=== PATIENT | female | born 1955 | race Two or more races ===

== ENCOUNTER 2020-06-16 08:59 | Day surgery (SDC) | payer OTHER, MEDICAID, SELFPAY ==
[2020-06-15 10:40] VITALS: BMI 27.1
--- NOTE | 2020-06-15 11:16 | HO.ANESPROP2 ---
HPI - Anesthesia Eval Consult details Narrative: 64yo F for EGD PMFSH Past Medical History Medical History Asthma Back pain Depression Elevated cholesterol HTN (hypertension) Surgical History Surgical History Hx of appendectomy Hx of colonoscopy Hx of hemorrhoidectomy Previous back surgery Meds Allergies Allergy/AdvReac Type Severity Reaction Status Date / Time morphine [Morphine] Allergy Unknown RASH Unverified 05/28/20 16:42 Home Medications Medication Instructions Recorded Confirmed Type acetaminophen-codeine 1 tab PO BID PRN 06/15/20 06/15/20 History albuterol sulfate [ProAir HFA] 2 puff PO Q4-6H PRN 06/15/20 06/15/20 History cholecalciferol (vitamin D3) 1 cap PO DAILY 06/15/20 06/15/20 History cholecalciferol (vitamin D3) 1 cap PO DAILY 06/15/20 06/15/20 History [Vitamin D3] cyclobenzaprine 1 tab PO BID 06/15/20 06/15/20 History fenofibrate 1 tab PO DAILY 06/15/20 06/15/20 History fluticasone propionate 2 spray INTRANASAL QAM PRN 06/15/20 06/15/20 History fluticasone propionate [Flovent 2 puff INHALATION BID 06/15/20 06/15/20 History HFA] loratadine 1 tab PO DAILY 06/15/20 06/15/20 History losartan 1 tab PO DAILY 06/15/20 06/15/20 History polyethylene glycol 3350 17 g PO DAILY 06/15/20 06/15/20 History simvastatin 1 tab PO BEDTIME 06/15/20 06/15/20 History Exam Exam Date and Time: June 15, 2020 1116 Height,Weight and Vital Signs: Height 5 ft 3 in Weight 69.4 kg Assessment and Plan Assessment Anesthesia Assessment: Chart Reviewed
--- NOTE | 2020-06-16 11:50 | MHC.SHP ---
Pre-Procedural Eval Section B Chief Complaint: colon cancer screening, dysphagia Allergies: Allergies Allergy/AdvReac Type Severity Reaction Status Date / Time morphine [Morphine] Allergy Unknown RASH Unverified 05/28/20 16:42 Plan Patient has been examined and remains a candidate for the planned procedure
[2020-06-16 11:53] VITALS: BP 146/73; PULSE 61; RESP 18; TEMP 36; O2SAT 99; BMI 27.1
[2020-06-16] MEDS: Lactated Ringers 1,000 ML 100 ML IVCONT (12:05)
[2020-06-16] MEDS: Albuterol Sulfate (0.083%) 2.5 MG/3 ML VIAL.NEB INHALE (12:11)
[2020-06-16 13:03] VITALS: BP 109/64; PULSE 104; RESP 16; TEMP 36.6; O2SAT 96
--- NOTE | 2020-06-16 13:05 | PM.OP ---
Brief Operative Note Date of procedure: 06/16/20 Pre-op diagnosis: dysphagia; colon ca screen Post-op diagnosis: other (esophageal mass; flat polyp in cecum on appendiceal orifice) Procedure: EGD with biopsy of esophageal mass; colonoscopy with biopsy of cecal polyp both with forceps Anesthesia: MAC Surgeon: Neno Palacios Estimated blood loss (mL): 5 Pathology: other (esophageal mass; cecal polyp) Condition: stable Disposition: PACU
--- NOTE | 2020-06-16 13:10 | HO.ANESPROP2 ---
[facility] Past Medical History Medical History Asthma Back pain Depression Elevated cholesterol HTN (hypertension) Surgical History Surgical History Hx of appendectomy Hx of colonoscopy Hx of hemorrhoidectomy Previous back surgery Social History Social History Smoking Status: Former smoker Smoking Quit Date: 6 yrs ago Second Hand Smoke Exposure: Yes (spouse) Use of substances other than those prescribed or required for medical reasons: No Advance Directives: No Advance Directives Information Provided: Yes Advance Directives on File: No Meds Allergies Allergy/AdvReac Type Severity Reaction Status Date / Time morphine [Morphine] Allergy Unknown Difficulty Verified 06/16/20 12:03 Breathing Home Medications Medication Instructions Recorded Confirmed Type acetaminophen-codeine 1 tab PO BID PRN 06/15/20 06/15/20 History albuterol sulfate [ProAir HFA] 2 puff PO Q4-6H PRN 06/15/20 06/15/20 History cholecalciferol (vitamin D3) 1 cap PO DAILY 06/15/20 06/15/20 History cholecalciferol (vitamin D3) 1 cap PO DAILY 06/15/20 06/15/20 History [Vitamin D3] cyclobenzaprine 1 tab PO BID 06/15/20 06/15/20 History fenofibrate 1 tab PO DAILY 06/15/20 06/15/20 History fluticasone propionate 2 spray INTRANASAL QAM PRN 06/15/20 06/15/20 History fluticasone propionate [Flovent 2 puff INHALATION BID 06/15/20 06/15/20 History HFA] loratadine 1 tab PO DAILY 06/15/20 06/15/20 History losartan 1 tab PO DAILY 06/15/20 06/15/20 History polyethylene glycol 3350 17 g PO DAILY 06/15/20 06/15/20 History simvastatin 1 tab PO BEDTIME 06/15/20 06/15/20 History Exam Exam Date and Time: June 16, 2020 1310 Height,Weight and Vital Signs: Height 5 ft 3 in Weight 69.4 kg Last Vital Signs Temp 97.8 F 06/16/20 13:03 Pulse 104 H 06/16/20 13:03 Resp 16 06/16/20 13:03 BP 109/64 06/16/20 13:03 Pulse Ox 96 06/16/20 13:03 Airway Mallampati Class: II TM Dist: >3cm Neck ROM: Full Heart: RRR
[2020-06-16 13:20] VITALS: BP 108/62; PULSE 81; RESP 16; O2SAT 98
--- NOTE | 2020-06-16 13:57 | HO.POSTANES ---
Post Anesthesia Evaluation Post Anesthesia Evaluation Vital Signs: Vital Signs Temp Pulse Resp BP Pulse Ox 06/16/20 13:20 81 16 108/62 98 06/16/20 13:03 97.8 F 104 H 16 109/64 96 06/16/20 11:53 96.8 F 61 18 146/73 H 99 Anesthesia: Monitored Mental Status: Awake Pain Control: Satisfactory Nausea/Vomiting: None Hydration: Adequate Anesthesia-Related Issues: No Anes. Related Issues
--- NOTE | 2020-06-16 20:53 | OP_ITS ---
SURGEON: Neno Palacios MD INDICATIONS: The patient is a 64-year-old female, referred to me for screening. She also had mentioned to me that she had dysphagia for about 2 to 3 months, described as having a sensation of food getting stuck in her chest. I therefore scheduled her for EGD as well. She understood technique of both EGD and colonoscopy and she is aware of the risks, benefits, and alternatives. PREOPERATIVE DIAGNOSIS: POSTOPERATIVE DIAGNOSIS: PROCEDURE PERFORMED: 1. Esophagogastroduodenoscopy with biopsy of esophageal mass using cold forceps. 2. Colonoscopy with biopsy of cecal lesion in the appendiceal orifice done using cold forceps. ESTIMATED BLOOD LOSS: COMPLICATIONS: ANESTHESIA: ASSISTANTS: SPECIMENS: DESCRIPTION OF PROCEDURE: She was brought to the operating room and placed in little bit of a left lateral decubitus position under monitored anesthesia care. A bite block was in place. A surgical time-out was done. I then inserted the gastroscope through the bite block into the oropharynx. The vocal cords were visualized. The esophageal slit was seen posterior to this. The esophageal slit was gently intubated and the scope was advanced through the esophagus with a little bit of insufflation. We then saw an esophageal mass, but we passed by this easily and we were able to enter the stomach. I was able to advance the scope further and intubated the pyloric orifice. I examined all the way to about the 3rd part of the duodenum. The duodenal mucosa was then examined carefully and there were no lesions or any ulcers. We continued to withdraw the scope into the stomach. I examined the the gastric mucosa carefully. I retroflexed the scope to visualize the cardia and antrum and there were no lesions seen. There was no obvious hiatal hernia. I examined the entire gastric mucosa during withdrawal. I then gently pulled this back into the esophagus. We examined the esophageal mucosa carefully with scope withdrawal. Again, the esophageal mass was noted. This was bulky with a friable surface. This seemed to be at the leve of l about 23 cm from the incisors based on the location of the endoscope. I did biopsies of the esophageal lesion using the cold biopsy forceps. We then continued to withdraw the scope. There were no other lesion in the proximal esophagus. The scope was then withdrawn completely. We then proceeded to do the colonoscopy. The patient was placed in the left lateral decubitus position. I did a digital rectal exam and there were no lesions. I could see small internal and external hemorrhoids however. I inserted the colonoscope gently through the anal orifice and advanced with insufflation all the way to the cecum. The cecum was intubated. The cecum was identified by visualization of the ileocecal valve as well as appendiceal orifice. In the cecum just at the opening of the appendiceal orifice, was note of a what appeared to be a flat polyp. Biopsies of this were done using a cold biopsy forceps. This was sent as specimen. I could see that there was still some residual abnormal mucosa adjacent to the biopsy site. However, this was noted to be flat and at the orifice itself. I would wait for the path report prior to deciding on how to further excise this. I then proceeded to withdraw the scope with careful examination of the entire colonic mucosa being done with scope withdrawal. The patient had good bowel prep, so it was unlikely that any lesion may have been missed. The rectum was reached and there were no lesions seen. The anal canal was unremarkable except for some internal and external hemorrhoids. The scope was then withdrawn completely with de-sufflation. The patient tolerated the procedure well. There were no complications noted. I will await for the path report of both the esophageal mass and the cecal lesion near the appendiceal orifice, which appears to be a flat polyp. I will see the patient in the office to discuss this. MD KB Harris/RAHUL / [id number] MTDD
== END 2020-06-16 14:00 | disposition home or self-care (01) ==
PROVIDERS: PCP Nurse Practitioner Family; Visit Provider Surgery
PROC: (CPT 45380; principal; 2020-06-16 09:10)
DX: Z12.11 Encounter for screening for malignant neoplasm of colon (principal); K63.5 Polyp of colon; K63.9 Disease of intestine, unspecified; K64.8 Other hemorrhoids; K64.4 Residual hemorrhoidal skin tags; R13.10 Dysphagia, unspecified; C15.9 Malignant neoplasm of esophagus, unspecified; J45.20 Mild intermittent asthma, uncomplicated; I10 Essential (primary) hypertension; Z79.51 Long term (current) use of inhaled steroids; Z79.899 Other long term (current) drug therapy; Z80.1 Family history of malignant neoplasm of trachea, bronchus and lung; Z87.891 Personal history of nicotine dependence; Z77.22 Contact with and (suspected) exposure to environmental tobacco smoke (acute) (chronic)
CPT/HCPCS: 45380; 43239; 88305; 88341; 88342; 88360; 94640

== ENCOUNTER 2020-06-29 13:27 | Outpatient (REF) | payer OTHER, SELFPAY ==
[2020-06-29 15:44] LABS: Blood Urea Nitrogen 19 mg/dL (9-16); Estimated Glomerular Filt Rate > 60
== END 2020-06-29 13:28 | disposition home or self-care (01) ==
LOC: HO.LAB 13:27
PROVIDERS: PCP Nurse Practitioner Family; Referring Provider Nurse Practitioner Family; Visit Provider Surgery
DX: C15.9 Malignant neoplasm of esophagus, unspecified (principal); Z77.22 Contact with and (suspected) exposure to environmental tobacco smoke (acute) (chronic); Z87.891 Personal history of nicotine dependence
CPT/HCPCS: 82565; 84520; 99214

== ENCOUNTER 2020-07-13 08:32 | Outpatient (REF) | payer OTHER, SELFPAY ==
[2020-07-13 11:58] LABS: MANUAL DIFF FLAG NO
[2020-07-13 12:09] LABS: Basophils Absolute Auto 0.1 X10*3/uL (0.0-0.2); Basophils Percent Auto 0.8 % (0-2); Eosinophils Absolute Auto 0.2 X10*3/uL (0.0-0.4); Eosinophils Percent Auto 2.6 % (0-4); Hematocrit 39.2 % (37-47); Hemoglobin 12.2 g/dl (12.0-16.0); Imm Gran Abs Auto 0.02 X10*3/uL (0.00-0.03); Imm Gran Pct Auto 0.2 % (0.0-0.4); Lymphocytes Absolute Auto 3.2 X10*3/uL (1.2-4.9); Lymphocytes Percent Auto 35.6 % (20-40); Mean Corpuscular HGB Conc 31.1 g/dl (31.0-35.0); Mean Corpuscular Hemoglobin 28.4 pg (27.0-33.0); Mean Corpuscular Volume 91.2 fL (80-98); Mean Platelet Volume 10.2 fL (9.4-12.3); Monocytes Absolute Auto 0.6 X10*3/uL (0.1-1.2); Monocytes Percent Auto 6.1 % (2-11); Neutrophils Absolute Auto 4.9 X10*3/uL (2.0-8.3); Neutrophils Percent Auto 54.7 % (45-73); Platelet Count 366 X10*3/uL (160-400); Red Cell Distribution Width 12.8 % (11.0-16.0)
[2020-07-13 12:39] LABS: Alanine Aminotransferase 12 U/L (0-31); Albumin Level 4.2 g/dL (3.5-5.0); Alkaline Phosphatase 66 U/L (39-117); Anion Gap 14 (12-20); Aspartate Amino Transferase 21 U/L (5-31); Bilirubin Total 0.3 mg/dL (0.0-1.0); Blood Urea Nitrogen 12 mg/dL (9-16); Calcium 9.6 mg/dL (8.4-10.2); Carbon Dioxide 25 mmol/L (22-29); Chloride 107 mmol/L (96-108); Estimated Glomerular Filt Rate > 60; Glucose Random 80 mg/dL (60-115); Potassium 4.3 mmol/l (3.3-5.1); Sodium 142 mmol/L (135-145); Total Protein 6.9 g/dL (6.5-8.0)
[2020-07-13 13:00] LABS: Vitamin D 25-OH Total 35.8 ng/mL (>30)
[2020-07-13 13:08] LABS: TSH reflex Free T4 0.87 mIU/mL (0.32-4.0)
== END 2020-07-13 08:33 | disposition home or self-care (01) ==
LOC: HO.LAB 08:32
PROVIDERS: PCP Nurse Practitioner Family; Referring Provider Nurse Practitioner Family; Visit Provider Internal Medicine Gastroenterology
DX: C15.9 Malignant neoplasm of esophagus, unspecified (principal); K21.9 Gastro-esophageal reflux disease without esophagitis; I10 Essential (primary) hypertension; Z79.899 Other long term (current) drug therapy
CPT/HCPCS: 36415; 80053; 82306; 82378; 84443; 85025; 99212

== ENCOUNTER 2020-07-15 12:10 | Outpatient (REF) | payer OTHER, MEDICAID, SELFPAY ==
--- NOTE | 2020-07-15 12:18 | CT_ITS ---
EXAMINATION: CT CHEST, ABDOMEN AND PELVIS WITHOUT IV CONTRAST CLINICAL INFORMATION: Esophageal cancer COMPARISON: None TECHNIQUE: Axial images through the chest, abdomen and pelvis without oral or IV contrast. Sagittal and coronal reconstructions on the technologist workstation were performed. Patient dose 140+434 mgy/cm. FINDINGS: Chest: There is a 3 mm calcified right middle lobe nodule axial image 337 series 7. There is heterogeneous attenuation to the lungs are questionable for hypoventilatory changes. The thyroid gland is unremarkable. There are small mediastinal lymph nodes. There is a small posterior mediastinal lymph node measuring 4 mm in between the distal thoracic esophagus and descending thoracic aorta. There are no enlarged hilar or mediastinal lymph nodes. The heart is upper normal in size. There is mild coronary artery calcification. There is no pericardial effusion. The thoracic aorta is normal in caliber. There is a soft tissue mass seen in the distal thoracic esophagus. This appears intraluminal and measures 4 x 2 x 3 cm in sagittal AP and transverse dimension. This is seen from the T9 to the T11 vertebral body levels. There is no pleural effusion or pleural thickening. No chest wall mass or enlarged axillary lymph nodes are seen. Abdomen and pelvis: The liver is unremarkable. The gallbladder is unremarkable. There is no biliary duct dilatation. The pancreas is unremarkable. The spleen is unremarkable. The adrenal glands are unremarkable. There is a 1 cm low-attenuation lesion in the lower pole of the left kidney questionable. The kidneys are otherwise unremarkable. The bladder is unremarkable. The uterus and adnexa are unremarkable. The small and large bowel are unremarkable. The appendix is not seen. The stomach is unremarkable. There are small lymph nodes in the gastrohepatic region, largest measuring 4 x 6 mm axial image 17 series 3. No enlarged lymph nodes are seen. There is evidence of atherosclerotic disease. No aneurysm is seen. No ascites is seen. No hernia is seen. There is a focal area of skin thickening versus a subcutaneous nodule in the left flank. This measures 0.6 x 1.6 x 1.6 cm in AP transverse and longitudinal dimension. Clinical correlation recommended. Review at bone windows demonstrates scoliosis and degenerative change of the lower lumbar spine. There are degenerative changes of the thoracic spine. Fracture or bone lesion is seen. CT/CT abdomen pelvis wo con IMPRESSION: Chest: 4 x 2 x 3 cm mass in the distal thoracic esophagus. Small mediastinal lymph nodes including posterior mediastinal lymph nodes in between the esophagus and aorta. No enlarged lymph nodes seen. Small calcified right middle lobe nodule probably representing a calcified granuloma. Abdomen and pelvis: Small lymph nodes in the gastrohepatic region. No enlarged lymph nodes seen. Probable small left renal cyst. Focal area of skin thickening or subcutaneous nodule in the left flank. Clinical correlation/correlation with visual inspection recommended.
--- NOTE | 2020-07-15 14:28 | MHC.HEMONCNA ---
PER KARAN SNOWDEN, PT HAS [facility] INSURANCE!!! PA FOR CT ABD/PELVIS WITH C WENT TO [facility] CLINICAL REVIEW. WAIT DECISION.
--- NOTE | 2020-07-16 13:12 | MHC.HEMONCSW ---
facilitated referral to [facility] radiation with eveline, on 07/22/20 at 2pm. pt informed.
--- NOTE | 2020-07-20 10:55 | MHC.HEMONCSW ---
case# [id number] [facility] faxed [facility] per request. wait decision. informed dr. benson.
--- NOTE | 2020-07-21 15:28 | MHC.HEMONCSW ---
md was to cancel the following but evxuan denied it first....ct abd/pelvis with iv contrast.
== END 2020-07-15 12:11 | disposition home or self-care (01) ==
LOC: HO.CT 12:10
PROVIDERS: Visit Provider Surgery
DX: C15.9 Malignant neoplasm of esophagus, unspecified (principal)
CPT/HCPCS: 71250; 74176

== ENCOUNTER → 2020-07-22 09:20 | Outpatient (BNV) | payer MEDICAID, OTHER, SELFPAY | PROVIDERS: Referring Provider Surgery; Visit Provider Internal Medicine | DX: C15.9 Malignant neoplasm of esophagus, unspecified (principal); Z92.3 Personal history of irradiation; D64.9 Anemia, unspecified | CPT/HCPCS: 99202; 99204; 99212; 99214; 99215 ==

== ENCOUNTER 2021-05-18 10:13 | Outpatient (REF) | payer OTHER, SELFPAY ==
--- NOTE | ~2021-05-18 | US_ITS ---
EXAMINATION: US PELVIS CLINICAL INFORMATION: Pain COMPARISON: None TECHNIQUE: Ultrasound of the pelvis is performed using both transabdominal and transvaginal transducers along with Doppler. Transvaginal imaging is performed due to inadequate visualization transabdominally. FINDINGS: Uterus: The uterus is anteverted and measures 6.1 x 2.7 x 4.2 cm. The double wall endometrial thickness is 0.2 mm. There is trace fluid seen in the endometrial canal. The uterus is smooth in contour and has normal myometrial echogenicity. No visible fibroid. Adnexa: Right ovary measures 2.1 x 1.1 x 1.3 cm. The left ovary is not identified with certainty. No adnexal mass is seen. There is no fluid in the pelvis. US/US pelvic and transvaginal IMPRESSION: Normal-appearing uterus and right ovary. Left ovary is not identified with certainty. No adnexal mass is seen.
== END 2021-05-18 10:14 | disposition home or self-care (01) ==
LOC: HO.HMGCX 10:13
PROVIDERS: Visit Provider Emergency Medicine
DX: R10.2 Pelvic and perineal pain (principal)
CPT/HCPCS: 76830; 76856

== ENCOUNTER 2021-07-19 10:58 | Outpatient (REF) | payer OTHER, SELFPAY ==
--- NOTE | ~2021-07-19 | XR_ITS ---
EXAMINATION: XR LS SPINE XR RIGHT SHOULDER XR LEFT HIP CLINICAL INFORMATION: Lumbago with sciatica. Right shoulder pain and left hip pain. COMPARISON: Radiographs of both hips done on 05/10/2018. TECHNIQUE: 4 views of the lumbosacral, a total of 6 images, 2 views of the left hip and 4 views of the right shoulder were obtained. FINDINGS: LUMBAR SACRAL SPINE: Mild mid to lower lumbar levoscoliosis is present. There are 5 nonrib-bearing lumbar vertebrae present. Decreased disc height, endplate osteophyte formations, sclerosis, consistent with moderate degenerative spondylosis related changes are noted at L5-S1 and L4-L5. Mild multilevel degenerative spondylosis within the remainder of the lumbar spine. Significant facet degenerative arthritic changes are noted at lower lumbar spine. Posterior appendages are intact. Grade 1 retrolisthesis of L1 over L2 is noted. RIGHT SHOULDER: There is a right-sided Port-A-Cath present with its tip seen projecting at the cavoatrial junction. Multiple surgical clips are noted projecting in the region of the mediastinum. The bony alignments are intact. The cortices are intact. Soft tissues are unremarkable. No evidence of any focal osteolytic or osteosclerotic lesions. LEFT HIP: The bony alignments are intact. The cortices are intact. Articular margins, joint space and soft tissues are unremarkable. XR/XR shoulder RT min 2V IMPRESSION: 1. The lumbosacral spine shows mild mid to lower lumbar levoscoliosis. Moderate degenerative spondylosis at L5-S1 and L4-L5. Mild degenerative spondylosis remainder of the lumbar spine. 2. Grade 1 retrolisthesis of L1 over L2. 3. Right shoulder shows presence of a right-sided Port-A-Cath with its tip seen projecting at the cavoatrial junction. No radiographic evidence of any focal osseous lesion or soft tissue abnormality. 4. The left hip radiographically appears unremarkable.
--- NOTE | ~2021-07-19 | XR_ITS ---
EXAMINATION: XR LS SPINE XR RIGHT SHOULDER XR LEFT HIP CLINICAL INFORMATION: Lumbago with sciatica. Right shoulder pain and left hip pain. COMPARISON: Radiographs of both hips done on 05/10/2018. TECHNIQUE: 4 views of the lumbosacral, a total of 6 images, 2 views of the left hip and 4 views of the right shoulder were obtained. FINDINGS: LUMBAR SACRAL SPINE: Mild mid to lower lumbar levoscoliosis is present. There are 5 nonrib-bearing lumbar vertebrae present. Decreased disc height, endplate osteophyte formations, sclerosis, consistent with moderate degenerative spondylosis related changes are noted at L5-S1 and L4-L5. Mild multilevel degenerative spondylosis within the remainder of the lumbar spine. Significant facet degenerative arthritic changes are noted at lower lumbar spine. Posterior appendages are intact. Grade 1 retrolisthesis of L1 over L2 is noted. RIGHT SHOULDER: There is a right-sided Port-A-Cath present with its tip seen projecting at the cavoatrial junction. Multiple surgical clips are noted projecting in the region of the mediastinum. The bony alignments are intact. The cortices are intact. Soft tissues are unremarkable. No evidence of any focal osteolytic or osteosclerotic lesions. LEFT HIP: The bony alignments are intact. The cortices are intact. Articular margins, joint space and soft tissues are unremarkable. XR/XR lumbar spine 4V min IMPRESSION: 1. The lumbosacral spine shows mild mid to lower lumbar levoscoliosis. Moderate degenerative spondylosis at L5-S1 and L4-L5. Mild degenerative spondylosis remainder of the lumbar spine. 2. Grade 1 retrolisthesis of L1 over L2. 3. Right shoulder shows presence of a right-sided Port-A-Cath with its tip seen projecting at the cavoatrial junction. No radiographic evidence of any focal osseous lesion or soft tissue abnormality. 4. The left hip radiographically appears unremarkable.
== END 2021-07-19 10:59 | disposition home or self-care (01) ==
LOC: HO.XRAY 10:58
PROVIDERS: PCP Internal Medicine; Visit Provider Internal Medicine
DX: M54.41 Lumbago with sciatica, right side (principal); M54.42 Lumbago with sciatica, left side; M25.511 Pain in right shoulder; M25.552 Pain in left hip
CPT/HCPCS: 72110; 73030; 73502

== ENCOUNTER 2021-07-21 09:53 | Outpatient (REF) | payer OTHER, SELFPAY ==
--- NOTE | ~2021-07-21 | MM_ITS ---
EXAMINATION: MM SCREENING DIGITAL BREAST TOMOSYNTHESIS, BILATERAL CLINICAL INFORMATION: Screening. Asymptomatic. History esophageal cancer with right-sided port. The lifetime risk of breast cancer based on the Tyrer-Cuzick Model is 6%. COMPARISON: Mammography: 09/13/2019, 07/11/2018, 06/26/2017 TECHNIQUE: Digital breast tomosynthesis is performed in both the craniocaudal and mediolateral oblique views along with computer-aided detection (CAD). Synthesized 2D images are generated from the tomosynthesis. FINDINGS: There are scattered areas of fibroglandular density (ACR BI-RADS breast composition Category b). There are no significant masses, abnormal calcifications, or other abnormalities. Port overlies and partly obscures posterior right axilla on MLO view. Parenchymal pattern is similar to prior exams. No developing density. No significant changes. MM/MM tomosynthesis screening BI IMPRESSION: No mammographic evidence of malignancy. ASSESSMENT: BI-RADS 2: Benign RECOMMENDATION: Routine annual mammography screening. This patient's information was entered into a reminder system with a target due date for their next mammogram.
== END 2021-07-21 09:54 | disposition home or self-care (01) ==
LOC: HO.MAMMO 09:53
PROVIDERS: Visit Provider Internal Medicine
DX: Z12.31 Encounter for screening mammogram for malignant neoplasm of breast (principal)
CPT/HCPCS: 77063; 77067

== ENCOUNTER 2021-09-08 12:00 | Outpatient (RCR) | payer OTHER, SELFPAY | END 2021-09-08 13:30 | disposition home or self-care (01) | LOC: HO.PT 12:00 | PROVIDERS: PCP Internal Medicine; Visit Provider Internal Medicine | DX: M25.511 Pain in right shoulder (principal) | CPT/HCPCS: 97110; 97140; 97162 ==

== ENCOUNTER 2021-10-29 10:57 | Outpatient (REF) | payer OTHER, SELFPAY ==
--- NOTE | ~2021-10-29 | US_ITS ---
EXAMINATION: US VENOUS WITH DOPPLER UPPER EXTREMITY, RIGHT CLINICAL INFORMATION: Chest pain since flushing Port-A-Cath last week COMPARISON: None TECHNIQUE: Ultrasound of the upper extremity is performed using compression sonography and color and pulse Doppler flow with assessment of augmentation of flow. There is also imaging and Doppler assessment of the jugular and subclavian veins. Spectral analysis with color-flow imaging is performed. FINDINGS: The right internal jugular, subclavian, axillary, brachial, basilic and cephalic veins are patent. The radial and ulnar veins are patent. Port-A-Cath is seen in the distal right internal jugular vein. US/US venous duplex UE RT IMPRESSION: No DVT demonstrated in the right upper extremity
== END 2021-10-29 10:58 | disposition home or self-care (01) ==
LOC: HO.US 10:57
PROVIDERS: Visit Provider Internal Medicine
DX: I82.409 Acute embolism and thrombosis of unspecified deep veins of unspecified lower extremity (principal); M79.601 Pain in right arm
CPT/HCPCS: 93971

== ENCOUNTER 2022-08-18 10:20 | Emergency (ER) | payer OTHER, SELFPAY ==
[2022-08-18 10:41] VITALS: BP 146/79; PULSE 82; RESP 20; TEMP 37.2; O2SAT 97; BMI 25.4
[2022-08-18 10:51] LABS: MANUAL DIFF FLAG NO
[2022-08-18 10:54] LABS: Basophils Percent Auto 0.4 % (0-2); Eosinophils Absolute Auto 0.1 X10*3/uL (0.0-0.4); Eosinophils Percent Auto 1.1 % (0-4); Hematocrit 33.3 % (37.0-47.0); Hemoglobin 10.3 g/dl (12.0-16.0); Imm Gran Abs Auto 0.04 X10*3/uL (0.00-0.03); Imm Gran Pct Auto 0.4 % (0.0-0.4); Lymphocytes Absolute Auto 2.3 X10*3/uL (1.2-4.9); Lymphocytes Percent Auto 24.4 % (20-40); Mean Corpuscular HGB Conc 30.9 g/dl (31.0-35.0); Mean Corpuscular Hemoglobin 25.2 pg (27.0-33.0); Mean Corpuscular Volume 81.4 fL (80.0-98.0); Mean Platelet Volume 9.3 fL (9.4-12.3); Monocytes Absolute Auto 0.4 X10*3/uL (0.1-1.2); Monocytes Percent Auto 3.9 % (2-11); Neutrophils Absolute Auto 6.6 x10*3/uL (2.0-8.3); Neutrophils Percent Auto 69.8 % (45-73); Platelet Count 268 X10*3/uL (160-400); Red Blood Count 4.09 X10*6/uL (4.20-5.50); Red Cell Distribution Width 14.8 % (11.0-16.0); White Blood Count 9.5 X10*3/uL (4.8-10.8)
[2022-08-18 11:08] LABS: Anion Gap 12 (12-20); Blood Urea Nitrogen 15 mg/dL (9-16); Calcium 9.6 mg/dL (8.4-10.2); Carbon Dioxide 24 mmol/L (22-29); Chloride 107 mmol/L (96-108); Creatinine Clr Calc Pharmacy 62.7; Estimated Glomerular Filt Rate > 60; Glucose Random 94 mg/dL (60-115); Potassium 3.8 mmol/L (3.3-5.1); Sodium 139 mmol/L (135-145)
--- NOTE | 2022-08-18 13:33 | ED.FEVER ---
HPI - Fever General Chief Complaint: Fever <Cara Turcios NP - Last Filed: 08/18/22 13:38> Stated Complaint: Fever/Sore throat <Cara Turcios NP - Last Filed: 08/18/22 13:38> Time Seen by Provider: 08/18/22 15:04 <Cara Turcios NP - Last Filed: 08/18/22 13:38> History of Present Illness HPI Narrative: Patient had endoscopy for esophageal issues. Told she had GERD. Then patient had high fever shaking and chills with sore throat. <Clay Jamison MD - Last Filed: 08/18/22 15:18> MD elicited complaint: fever and malaise <Clay Jamison MD - Last Filed: 08/18/22 15:18> Onset (ago): day(s) <Clay Jamison MD - Last Filed: 08/18/22 15:18> Context: sick contacts <Clay Jamison MD - Last Filed: 08/18/22 15:18> Associated symptoms: denies other symptoms and sore throat <Clay Jamison MD - Last Filed: 08/18/22 15:18> Related Data Home Medications: Home Medications Medication Instructions Recorded Confirmed cholecalciferol (vitamin D3) 50 1 cap PO DAILY 06/15/20 07/18/22 mcg (2,000 unit) capsule fenofibrate 160 mg tablet 1 tab PO DAILY 06/15/20 07/18/22 fluticasone propionate 50 2 spray intranasal QAM PRN 06/15/20 07/18/22 mcg/actuation nasal Congestion spray,suspension losartan 25 mg tablet 1 tab PO DAILY 06/15/20 07/18/22 polyethylene glycol 3350 17 17 g PO DAILY 06/15/20 07/18/22 gram/dose oral powder simvastatin 20 mg tablet 1 tab PO BEDTIME 06/15/20 07/18/22 Previous Rx's Medication Instructions Recorded acetaminophen 300 mg-codeine 15 mg 1 tab PO BID PRN Pain #60 tabs 07/14/21 tablet ferrous sulfate 325 mg (65 mg 325 mg PO BID #60 tabs 07/14/21 iron) tablet (iron) <Cara Turcios NP - Last Filed: 08/18/22 13:38> Allergies/Adverse Reactions: Allergies Allergy/AdvReac Type Severity Reaction Status Date / Time morphine [Morphine] Allergy Unknown Difficulty Verified 07/18/22 11:17 Breathing Gadolinium-Containing Allergy Difficulty Verified 07/18/22 11:17 Contrast Medi Breathing Iodinated Contrast Media Allergy Difficulty Verified 07/18/22 11:17 Breathing <Cara Turcios NP - Last Filed: 08/18/22 13:38> Review of Systems Constitutional: Constitutional: Reports no additional constitutional complaints <Clay Jamison MD - Last Filed: 08/18/22 15:18> Eyes: Eyes: Reports no additional eye complaints <Clay Jamison MD - Last Filed: 08/18/22 15:18> ENT: Denies dizziness <Clay Jamison MD - Last Filed: 08/18/22 15:18> Cardiovascular: Cardiovascular: Reports no additional cardiovascular complaints <Clay Jamison MD - Last Filed: 08/18/22 15:18> Respiratory: Respiratory: Reports as per HPI <Clay Jamison MD - Last Filed: 08/18/22 15:18> Gastrointestinal: Gastrointestinal: Reports no additional gastrointestinal complaints <Clay Jamison MD - Last Filed: 08/18/22 15:18> Genitourinary: Genitourinary: Reports no additional female genitourinary complaints <Clay Jamison MD - Last Filed: 08/18/22 15:18> Musculoskeletal: Musculoskeletal: Reports no additional musculoskeletal complaints <Clay Jamison MD - Last Filed: 08/18/22 15:18> Integumentary/Breasts: Skin/Breast: Denies rash <Clay Jamison MD - Last Filed: 08/18/22 15:18> Neurologic: Reports system reviewed and no additional complaints, except as documented, Denies dizziness and Denies Sensory deficit (Neuro) <Clay Jamison MD - Last Filed: 08/18/22 15:18> Psychiatric: Psychiatric: Denies anxiety <Clay Jamison MD - Last Filed: 08/18/22 15:18> PMFSH Past Medical History Medical History: Medical History (Updated 08/18/22 @ 15:17 by Clay Jamison MD) Asthma Back pain Depression Elevated cholesterol Esophageal adenocarcinoma Esophageal carcinoma HTN (hypertension) <Cara Turcios NP - Last Filed: 08/18/22 13:38> Surgical History: Surgical History History of esophagogastroduodenoscopy (EGD) Hx of appendectomy Hx of colonoscopy Hx of hemorrhoidectomy Previous back surgery <Cara Turcios NP - Last Filed: 08/18/22 13:38> Family History Family History: Family History Mother Cancer Father HTN (hypertension) Maternal Grandmother Diabetes <Cara Turcios NP - Last Filed: 08/18/22 13:38> Social History Social History: Social History (Updated 01/11/22 @ 10:11 by Sana Woods CMA) Household Members: Spouse and Children Household Members Other:: 2 children Housing: Apartment Are you a primary healthcare administrative assistant to a significant other at home: No Do you presently have visiting nurse or other home services: No Alcohol intake: current Alcohol intake frequency: holidays/special occasions only Patient Tobacco Use Status: Never used Tobacco Second Hand Smoke Exposure: Yes (spouse) Advance Directives: No Advance Directives Information Provided: Yes service: No Current occupational status: disabled <Cara Turcios NP - Last Filed: 08/18/22 13:38> Physical Exam Vital Signs: Vital Signs: Last Vital Signs Temp 97.9 F 08/18/22 13:40 Pulse 76 08/18/22 13:40 Resp 18 08/18/22 13:40 BP 137/86 08/18/22 13:40 Pulse Ox 98 08/18/22 13:40 O2 Del Method 08/18/22 13:40 BMI result Body Mass Index 25.4 <Cara Turcios NP - Last Filed: 08/18/22 13:38> Vital Signs: Last Vital Signs Temp 97.9 F 08/18/22 13:40 Pulse 76 08/18/22 13:40 Resp 18 08/18/22 13:40 BP 137/86 08/18/22 13:40 Pulse Ox 98 08/18/22 13:40 O2 Del Method 08/18/22 13:40 BMI result Body Mass Index 25.4 <Clay Jamison MD - Last Filed: 08/18/22 15:18> Const: General: healthy appearing <Clay Jamison MD - Last Filed: 08/18/22 15:18> Nutritional Appearance: average body habitus <Clay Jamison MD - Last Filed: 08/18/22 15:18> Orientation/consciousness: oriented to person and patient oriented x3 <Clay Jamison MD - Last Filed: 08/18/22 15:18> Limitations: no limitations <Clay Jamison MD - Last Filed: 08/18/22 15:18> HEENT: Head: Yes normal to inspection <Clay Jamison MD - Last Filed: 08/18/22 15:18> Ears: external ears normal <Clay Jamison MD - Last Filed: 08/18/22 15:18> General nose exam: Normal external nose present <Clay Jamison MD - Last Filed: 08/18/22 15:18> Mouth: Normal oral and palatal mucosa present and oropharynx normal <Clay Jamison MD - Last Filed: 08/18/22 15:18> Throat: Yes posterior oropharynx normal <Clay Jamison MD - Last Filed: 08/18/22 15:18> Eyes: General: appearance normal, both eyes and all related structures <Clay Jamison MD - Last Filed: 08/18/22 15:18> Neck: Other: supple <Clay Jamison MD - Last Filed: 08/18/22 15:18> Neck: Yes normal visual inspection <Clay Jamison MD - Last Filed: 08/18/22 15:18> Chest: Chest palpation & inspection: normal inspection of the chest <Clay Jamison MD - Last Filed: 08/18/22 15:18> Resp: Auscultation: clear to auscultation bilaterally <Clay Jamison MD - Last Filed: 08/18/22 15:18> Cardio: Jugular venous distension: no JVD <Clay Jamison MD - Last Filed: 08/18/22 15:18> Rate: regular rate <Clay Jamison MD - Last Filed: 08/18/22 15:18> Rhythm: regular rhythm <Clay Jamison MD - Last Filed: 08/18/22 15:18> Heart sounds: S1 normal heart sound present and S2 normal heart sound present <Clay Jamison MD - Last Filed: 08/18/22 15:18> GI: Inspection: Yes normal to inspection <Clay Jamison MD - Last Filed: 08/18/22 15:18> Palpation (GI): Soft to palpation, nontender and No hepatosplenomegaly present <Clay Jamison MD - Last Filed: 08/18/22 15:18> Auscultation: normal bowel sounds <Clay Jamison MD - Last Filed: 08/18/22 15:18> : General: Yes no CVA tenderness <Clay Jamison MD - Last Filed: 08/18/22 15:18> Back/Spine/Pelvis: Back: no CVA tenderness <Clay Jamison MD - Last Filed: 08/18/22 15:18> Skin: General skin exam: no rashes or lesions noted <Clay Jamison MD - Last Filed: 08/18/22 15:18> Neuro: General: oriented to person and patient oriented x3 <Clay Jamison MD - Last Filed: 08/18/22 15:18> Cranial nerves: Yes CN's II-XII intact bilaterally <Clay Jamison MD - Last Filed: 08/18/22 15:18> Motor exam (neuro): 5/5 motor strength present throughout <Clay Jamison MD - Last Filed: 08/18/22 15:18> Sensory Exam: No Sensory deficit (Neuro) <Clay Jamison MD - Last Filed: 08/18/22 15:18> Extrem: General: Yes normal to inspection <Clay Jamison MD - Last Filed: 08/18/22 15:18> Psych: Appearance: grossly normal <Clay Jamison MD - Last Filed: 08/18/22 15:18> Course Course Course Narrative: This is rapid medical exam. Deferred additional hPI, ROS, PE to primary provider. 67 yo female with history of esophageal cancer with removal (laparoscopic minimally invasive Fortine Kamaljit esophagogastrectomy, mediastinal lymphadenectomy with lysis of adhesions and repair of small-bowel enterotomy on 12/22/2020 at [facility]) s/p chemo/radiation. Had EGD in may which showed some inflammation in the stomach, repeat endoscopy was done on Monday ([facility] Monday night developed fever (tactile), chills, body aches, pain/swelling jaw. No diff breathing, chest pain, cough. Had conscious sedation for procedure no GA. Will send testing flu, covid, rsv. labs reviewed and unremarkable. VSS. <Cara Turcios NP - Last Filed: 08/18/22 13:38> Reevaluation(s) Reevaluation #1: Patient with viral illness will dc home <Clay Jamison MD - Last Filed: 08/18/22 15:18> Time: 15:16 <Clay Jamison MD - Last Filed: 08/18/22 15:18> Medications Administered Discontinued Medications Generic Name Dose Route Start Last Admin Trade Name Freq PRN Reason Stop Dose Admin Acetaminophen 975 mg 08/18/22 13:41 08/18/22 13:44 Acetaminophen 325 Mg Tablet PO 08/18/22 13:42 975 mg ONCE ONE Administration <Cara Turcios NP - Last Filed: 08/18/22 13:38> Medications Administered Discontinued Medications Generic Name Dose Route Start Last Admin Trade Name Freq PRN Reason Stop Dose Admin Acetaminophen 975 mg 08/18/22 13:41 08/18/22 13:44 Acetaminophen 325 Mg Tablet PO 08/18/22 13:42 975 mg ONCE ONE Administration <Clay Jamison MD - Last Filed: 08/18/22 15:18> Discharge Plan Discharge Clinical Impression: Upper respiratory infection <Cara Turcios NP - Last Filed: 08/18/22 13:38> Patient Disposition: Home, Self-Care <Cara Turcios NP - Last Filed: 08/18/22 13:38> Instructions: Upper Respiratory Infection (ED), Viral Syndrome (ED) <Cara Turcios NP - Last Filed: 08/18/22 13:38> Prescriptions: No Action simvastatin 20 mg tablet 1 tab PO BEDTIME losartan 25 mg tablet 1 tab PO DAILY polyethylene glycol 3350 17 gram/dose powder 17 g PO DAILY fluticasone propionate 50 mcg/actuation spray,suspension 2 spray intranasal QAM PRN (Reason: Congestion) fenofibrate 160 mg tablet 1 tab PO DAILY cholecalciferol (vitamin D3) 50 mcg (2,000 unit) capsule 1 cap PO DAILY ferrous sulfate [iron] 325 mg (65 mg iron) Tablet 325 mg PO BID Qty: 60 3RF acetaminophen-codeine 300-15 mg Tablet 1 tab PO BID PRN (Reason: Pain) Qty: 60 0RF <Cara Turcios NP - Last Filed: 08/18/22 13:38> Referrals: Casandra Ruelas MD [Primary Care Provider] - 1 week <Cara Turcios NP - Last Filed: 08/18/22 13:38>
[2022-08-18 13:40] VITALS: BP 137/86; PULSE 76; RESP 18; TEMP 36.6; O2SAT 98
[2022-08-18] MEDS: Acetaminophen 325 MG TABLET 975 MG PO (13:44)
[2022-08-18 14:50] LABS: Influenza A PCR NEGATIVE (Negative); Influenza B PCR NEGATIVE (Negative); Resp Syncy Virus RNA Qual PCR NEGATIVE (Negative); SARS COV2 PCR INHOUSE NEGATIVE (Negative)
== END 2022-08-18 15:30 | disposition home or self-care (01) ==
PROVIDERS: Nurse Practitioner Family; Emergency Provider Emergency Medicine; PCP Internal Medicine
DX: J06.9 Acute upper respiratory infection, unspecified (principal); R50.9 Fever, unspecified; R05.9 Cough, unspecified; Z20.822 Contact with and (suspected) exposure to COVID-19; Z79.899 Other long term (current) drug therapy
CPT/HCPCS: 0241U; 36415; 80048; 82550; 85025; 99283

== ENCOUNTER 2022-09-01 12:21 | Outpatient (REF) | payer OTHER, SELFPAY ==
--- NOTE | ~2022-09-01 | XR_ITS ---
EXAMINATION: XR CHEST CLINICAL INFORMATION: Cough COMPARISON: Previous chest x-ray July 2020 and chest x-ray October 2018 TECHNIQUE: 2 views of the chest were obtained. FINDINGS: There are surgical clips that project over the mediastinum. The cardiac and mediastinal contours are otherwise unremarkable. The lungs are clear. There is a right jugular port with tip projecting over the SVC. There is blunting at the right costophrenic angle questionable for tiny right pleural effusion. There is no left pleural effusion. There is no pneumothorax. No acute bone abnormality. XR/XR chest 2V IMPRESSION: Blunting at the right costophrenic angle questionable for tiny right pleural effusion. Otherwise unremarkable exam.
== END 2022-09-01 12:22 | disposition home or self-care (01) ==
LOC: HO.XRAY 12:21
PROVIDERS: PCP Internal Medicine; Visit Provider Nurse Practitioner Primary Care
DX: R05.1 Acute cough (principal)
CPT/HCPCS: 71046

== ENCOUNTER 2023-01-20 10:36 | Outpatient (REF) | payer MEDICAID, OTHER, SELFPAY ==
--- NOTE | ~2023-01-20 | MM_ITS ---
EXAMINATION: MM SCREENING DIGITAL BREAST TOMOSYNTHESIS, BILATERAL CLINICAL INFORMATION: Screening. Asymptomatic. The lifetime risk of breast cancer based on the Tyrer-Cuzick Model is 3%. COMPARISON: Mammography: 07/21/2021, 09/13/2019, 07/11/2018 TECHNIQUE: Digital breast tomosynthesis is performed in both the craniocaudal and mediolateral oblique views along with computer-aided detection (CAD). Synthesized 2D images are generated from the tomosynthesis. FINDINGS: There are scattered areas of fibroglandular density (ACR BI-RADS breast composition Category b). Findings fibronodular parenchymal pattern is similar to prior studies. There are no significant masses, abnormal calcifications, or other abnormalities. Parenchymal pattern is similar to prior studies. There is no developing density or architectural abnormality. There is a port again seen overlying the right posterior breast. The axilla and skin contours are unremarkable. No significant changes. MM/MM tomosynthesis screening BI IMPRESSION: No mammographic evidence of malignancy. ASSESSMENT: BI-RADS 2: Benign RECOMMENDATION: Routine annual mammography screening. This patient's information was entered into a reminder system with a target due date for their next mammogram.
== END 2023-01-20 10:37 | disposition home or self-care (01) ==
LOC: HO.MAMMO 10:36
PROVIDERS: PCP Internal Medicine; Visit Provider Internal Medicine
DX: Z12.31 Encounter for screening mammogram for malignant neoplasm of breast (principal)
CPT/HCPCS: 77063; 77067

== ENCOUNTER 2023-02-22 07:45 | Outpatient (REF) | payer MEDICAID, OTHER, SELFPAY ==
--- NOTE | ~2023-02-22 | CT_ITS ---
EXAMINATION: CT CHEST WITH CONTRAST CLINICAL INFORMATION: Surveillance. Esophageal cancer. COMPARISON: Previous chest CT most recent January 2020 TECHNIQUE: Multidetector volumetric CT imaging of the chest was obtained after the administration of 65 mL of Omnipaque 350 intravenous contrast without immediate adverse reactions. Axial MIP volume rendering provided. Sagittal and coronal reformatted images were obtained. This CT examination was performed using dose optimization techniques as appropriate, variously including the following: *Automated exposure control *Adjustment of mA and/or kV according to patient size (this includes techniques or standardized protocols for targeted exams where dose is matched to indication/reason for exam; i.e. extremities or head) *Use of iterative reconstruction technique DLP: 105 mGy-cm FINDINGS: LUNGS: Small pulmonary nodules are stable. Largest pulmonary nodule is a 3 mm calcified right middle lobe nodule axial image 127 series 5. MEDIASTINUM: Postsurgical changes following esophagectomy and gastric pull-up. Normal thyroid gland. Normal heart size. No pericardial effusion. Mild coronary artery calcification. No enlarged hilar or mediastinal lymph nodes. Right jugular port with tip projecting over the cavoatrial junction. PLEURA: There is no pleural effusion. No pleural mass or thickening. AXILLA: No lymphadenopathy. UPPER ABDOMEN: Low-attenuation liver suggestive of fatty infiltration. OSSEOUS STRUCTURES: Mild degenerative changes of the spine. CT/CT chest w IV con IMPRESSION: Postsurgical changes following esophagectomy and gastric pull-up. No evidence of metastatic or recurrent disease. Fleischner guidelines were followed.
[2023-02-22] MEDS: iohexoL 350 MG/ML 100 ML INFUS..BTL IV (10:11)
== END 2023-02-22 07:46 | disposition home or self-care (01) ==
LOC: HO.CT 07:45
PROVIDERS: PCP Internal Medicine; Visit Provider Internal Medicine
DX: C15.9 Malignant neoplasm of esophagus, unspecified (principal)
CPT/HCPCS: 71260; Q9967

== ENCOUNTER 2023-03-23 21:00 | Outpatient (REF) | payer MEDICAID, OTHER, SELFPAY | END 2023-03-23 21:01 | disposition home or self-care (01) | LOC: HO.LNP 21:00 | PROVIDERS: Visit Provider Internal Medicine | DX: Z12.4 Encounter for screening for malignant neoplasm of cervix (principal) | CPT/HCPCS: 88142 ==

== ENCOUNTER 2023-08-11 10:01 | Outpatient (REF) | payer MEDICAID, SELFPAY ==
[2023-08-11 10:46] LABS: MANUAL DIFF FLAG NO
[2023-08-11 11:48] LABS: Basophils Percent Auto 0.7 % (0-2); Eosinophils Absolute Auto 0.1 X10*3/uL (0.0-0.4); Eosinophils Percent Auto 1.2 % (0-4); Hematocrit 36.6 % (37.0-47.0); Hemoglobin 11.4 g/dl (12.0-16.0); Imm Gran Abs Auto 0.01 X10*3/uL (0.00-0.03); Imm Gran Pct Auto 0.2 % (0.0-0.4); Lymphocytes Percent Auto 35.1 % (20-40); Mean Corpuscular HGB Conc 31.1 g/dl (31.0-35.0); Mean Corpuscular Hemoglobin 27.3 pg (27.0-33.0); Mean Corpuscular Volume 87.6 fL (80.0-98.0); Mean Platelet Volume 10.2 fL (9.4-12.3); Monocytes Absolute Auto 0.3 X10*3/uL (0.1-1.2); Monocytes Percent Auto 5.2 % (2-11); Neutrophils Absolute Auto 3.4 x10*3/uL (2.0-8.3); Neutrophils Percent Auto 57.6 % (45-73); Platelet Count 336 X10*3/uL (160-400); Red Blood Count 4.18 X10*6/uL (4.20-5.50); Red Cell Distribution Width 14.1 % (11.0-16.0); White Blood Count 5.8 X10*3/uL (4.8-10.8)
== END 2023-08-11 10:02 | disposition home or self-care (01) ==
LOC: HO.LAB 10:01
PROVIDERS: PCP Internal Medicine; Referring Provider Internal Medicine; Visit Provider Internal Medicine Pulmonary Disease
DX: J45.909 Unspecified asthma, uncomplicated (principal); Z91.09 Other allergy status, other than to drugs and biological substances
CPT/HCPCS: 36415; 82785; 85025; 86003; 99202

== ENCOUNTER 2023-08-11 10:01 | Outpatient (AMB) | payer MEDICAID, SELFPAY ==
[2023-08-11 10:03] VITALS: BP 138/72; PULSE 69; O2SAT 98; BMI 25.0
--- NOTE | 2023-08-11 10:03 | A.OFFVIS_ITS ---
Intake Vital Signs 08/11/23 10:03 Height 5 ft 2 in Weight 136 lb 8.081 oz BMI 25.0 BP 138/72 Blood Pressure Location Rt brachial Position Sitting Pulse 69 Pulse Source Doppler Pulse Oximetry (%) 98 Oxygen Delivery Method Room Air Intake Visit Reasons: Asthma Allergies morphine [Morphine] Allergy (Unknown, Verified 08/11/23 10:08) Difficulty Breathing HPI Asthma HPI Details 68-year-old lady, former 10 pack year sm oker, quit 7 years prior with underlying history of ?asthma/COPD presents to transfer [facility] from [facility] secondary to insurance reasons. Patient states that she has been on Flovent 220 and more recently on Pulmicort and albuterol MDI with suboptimal control her symptoms. Patient does have macaw parrot as a pet. Patient states that her father has asthma. [facility] Medical History (Updated 08/11/23 @ 10:32 by Juanito Velazquez MD) Esophageal adenocarcinoma Esophageal carcinoma Back pain Depression Asthma Elevated cholesterol HTN (hypertension) Surgical History History of esophagogastroduodenoscopy (EGD) Previous back surgery Hx of appendectomy Hx of hemorrhoidectomy Hx of colonoscopy Family History Mother Cancer Father HTN (hypertension) Maternal Grandmother Diabetes Social History Household Members: Spouse and Children Household Members Other:: 2 children Housing: Apartment Are you a primary neonatal intensive care nurse to a significant other at home: No Do you presently have visiting nurse or other home services: No Alcohol intake: current Alcohol intake frequency: holidays/special occasions only Patient Tobacco Use Status: Never used Tobacco Second Hand Smoke Exposure: Yes (spouse) service: No Current occupational status: disabled Review of Systems Const Denies daytime sleepiness, Denies excessive sweating, Denies fatigue, Denies fever(s), Denies lethargy, Denies malaise, Denies night sweats, Denies snoring and Denies weight loss Eyes Denies blurry vision and Denies itchy eyes ENT Denies nasal congestion, Denies post nasal drip, Denies sinus pain, Denies sinus pressure and Denies other ( Thrush) Card Denies chest pain, Denies pedal edema, Denies dyspnea, Reports dyspnea on exertion, Denies orthopnea and Denies paroxysmal nocturnal dyspnea Resp Denies cough, Denies hemoptysis, Denies excessive phlegm production, Denies dyspnea, Reports dyspnea on exertion, Denies snoring and Denies wheezing GI Denies abdominal pain and Denies heartburn Musc Denies myalgias, Denies arthralgias and Denies joint swelling Skin/Breast Denies rash Neuro Denies memory loss and Denies seizure-like activity Psych Denies abnormal sleep pattern, Denies anxiety and Denies memory loss Endo Denies excessive sweating, Denies fatigue and Denies heat intolerance Jose/Lymph Denies easy bruising Aller/Immun Denies itchy eyes, Denies seasonal rhinorrhea and Denies wheezing Physical Exam Vital Signs: Last Vital Signs Pulse 69 08/11/23 10:03 BP 138/72 08/11/23 10:03 Pulse Ox 98 08/11/23 10:03 Oxygen Delivery Method Room Air 08/11/23 10:03 BMI result Body Mass Index 25.0 Const General: no acute distress and alert Nutritional Appearance: not obese Orientation/consciousness: Other orientation findings ( oriented) HEENT Head: Yes atraumatic Eyes General: appearance normal, both eyes and all related structures Sclerae: sclerae normal EOM: EOMs intact bilaterally Neck Neck: Yes supple Lymphatic: no lymphadenopathy noted Resp Effort & Inspection: normal respiratory effort and no use of accessory muscles Auscultation: clear to auscultation bilaterally Cardio Rate: regular rate Rhythm: regular rhythm Heart sounds: no gallops, no murmurs and no rubs Skin General skin exam: other ( warm) Extrem General: No clubbing, No cyanosis and No edema Assessment & Plan Assessment & Plan (1) Asthma: Code(s): J45.909 - Unspecified asthma, uncomplicated Plan: Likely underlying asthma or asthma/COPD overlap syndrome poorly controlled on Pulmicort. Will switch to Breo. Will obtain full PFT. (2) Environmental allergies: Code(s): Z91.09 - Other allergy status, other than to drugs and biological substances Plan: Likely underlying allergic component, will obtain IgE level, CBC with differential, and RAST panel for further evaluation. Orders: Orders Complete Blood Count Auto Diff Today Z91.09 - Other allergy status, other than to drugs and biological substances Rast Allergen Today Z. - Other allergy status, other than to drugs and biological substances PFT pulmonary function test Today - Other allergy status, other than to drugs and biological substances Medications: New fluticasone furoate-vilanterol 200-25 mcg/dose (Breo Ellipta) 1 inh inhalation DAILY 1 ea 6RF 30 days Z. - Other allergy status, other than to drugs and biological substances Coding Level of Care Code New Pt Level 4 (70839) Diagnoses Asthma J45.909 Environmental allergies
== END 2023-08-11 10:27 | disposition home or self-care (01) ==
PROVIDERS: PCP Internal Medicine; Referring Provider Internal Medicine; Visit Provider Internal Medicine Pulmonary Disease
DX: J45.909 Unspecified asthma, uncomplicated (principal); Z91.09 Other allergy status, other than to drugs and biological substances
CPT/HCPCS: 99204

== ENCOUNTER 2023-09-20 12:27 | Outpatient (AMB) | payer MEDICAID, SELFPAY ==
--- NOTE | 2023-09-20 12:29 | A.OFFVIS_ITS ---
Intake Vital Signs 3 09/20/23 12:42 Height 5 ft 3 in Weight 134 lb 7.712 oz BMI 23.8 BP 136/79 Blood Pressure Location Lt brachial Position Sitting Pulse 83 Intake Visit Reasons: Colonoscopy Screening Intake Note: Casandra presents in the office as a colonoscopy screening. CC: She states that she is just do for a colonoscopy. She states that she had some of her esophagus removed and sometimes she has pains in her stomach. Allergies morphine [Morphine] Allergy (Unknown, Verified 09/20/23 12:43) Difficulty Breathing HPI Colonoscopy Screening 2 HPI0 Details 68-year-old female here for a preprocedu ral meeting to discuss a screening colonoscopy. She is referred by Casandra Chou of [facility]. PMX Asthma Hypertension High cholesterol History of esophageal cancer Depression/anxiety Chronic low back pain Arthralgias of multiple joints GERD Neck pain Left hip pain * SURGICAL HISTORY Esophagogastrectomy with lymphadenectomy, [facility] EGD -2019, Philip Back surgery Appendectomy Hemorrhoidectomy Colonoscopy -2019, Philip * ALLERGIES Morphine * LABS SUPPLIED BY PCP: TO 04/2023 UNREMARKABLE RENAL PANEL, UNREMARKABLE CBC, NO HEPATIC PANEL. [facility] LABS: Laboratory Tests 08/11/23 08/15/23 10:43 14:55 WBC 5.8 Hgb 11.4 L Hct 36.6 L MCV 87.6 MCH 27.3 Plt Count 336 Estimated GFR > 60 Total Bilirubin 0.4 AST 24 ALT 15 Alkaline Phosphata se 64 2019 EGD/colonoscopy-Philip DESCRIPTION OF PROCEDURE: She was brought to the operating room and placed in little bit of a left lateral decubitus position under monitored anesthesia care. A bite block was in place. A surgical time-out was done. I then inserted the gastroscope through the bite block into the oropharynx. The vocal cords were visualized. The esophageal slit was seen posterior to this. The esophageal slit was gently intubated and the scope was advanced through the esophagus with a little bit of insufflation. We then saw an esophageal mass, but we passed by this easily and we were able to enter the stomach. I was able to advance the scope further and intubated the pyloric orifice. I examined all the way to about the 3rd part of the duodenum. The duodenal mucosa was then examined carefully and there were no lesions or any ulcers. We continued to withdraw the scope into the stomach. I examined the the gastric mucosa carefully. I retroflexed the scope to visualize the cardia and antrum and there were no lesions seen. There was no obvious hiatal hernia. I examined the entire gastric mucosa during withdrawal. I then gently pulled this back into the esophagus. We examined the esophageal mucosa carefully with scope withdrawal. Again, the esophageal mass was noted. This was bulky with a friable surface. This seemed to be at the leve of l about 23 cm from the incisors based on the location of the endoscope. I did biopsies of the esophageal lesion using the cold biopsy forceps. We then continued to withdraw the scope. There were no other lesion in the proximal esophagus. The scope was then withdrawn completely. We then proceeded to do the colonoscopy. The patient was placed in the left lateral decubitus position. I did a digital rectal exam and there were no lesions. I could see small internal and external hemorrhoids however. I inserted the colonoscope gently through the anal orifice and advanced with insufflation all the way to the cecum. The cecum was intubated. The cecum was identified by visualization of the ileocecal valve as well as appendiceal orifice. In the cecum just at the opening of the appendiceal orifice, was note of a what appeared to be a flat polyp. Biopsies of this were done using a cold biopsy forceps. This was sent as specimen. I could see that there was still some residual abnormal mucosa adjacent to the biopsy site. However, this was noted to be flat and at the orifice itself. I would wait for the path report prior to deciding on how to further excise this. I then proceeded to withdraw the scope with careful examination of the entire colonic mucosa being done with scope withdrawal. The patient had good bowel prep, so it was unlikely that any lesion may have been missed. The rectum was reached and there were no lesions seen. The anal canal was unremarkable except for some internal and external hemorrhoids. The scope was then withdrawn completely with de-sufflation. The patient tolerated the procedure well. There were no complications noted. I will await for the path report of both the esophageal mass and the cecal lesion near the appendiceal orifice, which appears to be a flat polyp. I will see the patient in the office to discuss this. MD KB Harris/RAHUL 07/01/20 1259 Diagnosis A. Esophagus, mass, biopsy: Superficial fragments of moderately differentiated adenocarcinoma . B. Cecum, mass, biopsy: Colonic mucosa with prominent lymphoid aggregates; no dysplasia seen. COMMENT: HER2 immunohistochemistry is underway and will be reported in an addendum (A). Clinical History Patient: Casandra Obrien Age/Sex: 64/F MR#: [id number] Page 1 of 2 Surgical Pathology [id number] Pre-Op Dx: Dysphagia, screening Post-Op Dx: Esophageal mass, cecal mass Microscopic Description A. Sections have superficial fragments of an adenocarcinoma with cribriforming architecture and luminal necrosis. No normal-appearing [place] esophageal or glandular tissue is present. B. Sections have colonic mucosa with prominent lymphoid aggregates comprised predominantly of small mature appearing lymphocytes with scant cytoplasm. By immunohistochemistry, CD20 and CD3 highlight B and T-cell compartments, respectively and Ki-67 immunoreactivity is generally low throughout and appropriately high in the germinal centers. Material Received A. Esophageal mass bx B. Cecal mass bx Gross Description Received in two parts. Part A: Received in formalin labeled Esophageal mass bx are three glistening, semitranslucent, soft, hyperemic and congested, shen and shen-pink, irregular tissue fragments, ranging from 0.2 to 0.3 cm. in greatest dimension, which are submitted in toto in a single cassette labeled A. Part B: Received in formalin labeled Cecal mass bx are two glistening, semitranslucent, soft, hyperemic, shen-pink, irregular tissue fragments, measuring 0.3 and 0.4 cm. in greatest dimension, which are submitted in toto in a single cassette labeled B. KL This case was reviewed intradepartmentally; results were communicated to Dr. Palacios via secure text TODAY'S VISIT Her PCP wanted the Colonoscopy r/t her esophageal cancer and CIC. She suffers CIC but it is well controlled with Miralax. There are no prior problems with anesthesia or sedation. Her asthma is well controlled, she denies any cardiac problems. No ID problems. No FHX crc or polyps. [facility] Medical History History of alcohol use disorder History of pancreatitis GERD (gastroesophageal reflux disease) Esophageal adenocarcinoma Esophageal carcinoma Depression Asthma Elevated cholesterol HTN (hypertension) Surgical History History of esophageal surgery History of esophagogastroduodenoscopy (EGD) Previous back surgery Hx of appendectomy Hx of hemorrhoidectomy Hx of colonoscopy Family History Mother Cancer Father HTN (hypertension) Maternal Grandmother Diabetes Social History Household Members: Spouse and Children Household Members Other:: 2 children Housing: Apartment Are you a primary career development coordinator to a significant other at home: No Do you presently have visiting nurse or other home services: No Alcohol intake: current Alcohol intake frequency: holidays/special occasions only Patient Tobacco Use Status: Never used Tobacco Second Hand Smoke Exposure: Yes (spouse) service: No Current occupational status: disabled Review of Systems Const Denies fatigue, Denies fever(s), Denies night sweats, Denies poor appetite and Denies weight loss Eyes Details: glasses Reports requires corrective lenses ENT Reports Normal hearing present, Denies dental pain, Denies dysphagia, Denies hearing loss, Denies mouth pain, Denies odynophagia, Denies throat swelling, Denies tongue swelling and Reports other (Dentition adequate) Card Reports no additional complaints Resp Reports no additional complaints GI Denies abdominal pain, Denies melena, Denies bloating, Denies hematochezia, Reports constipation, Denies GI cramping, Denies dysphagia, Denies excessive flatus, Denies early satiety, Denies heartburn, Denies diarrhea, Denies nausea, Denies odynophagia, Denies vomiting and Denies hematemesis Skin/Breast Denies pruritus, Denies lesions, Denies rash and Denies jaundice Neuro Reports Normal hearing present and Denies Abnormal speech present Endo Denies fatigue Aller/Immun Denies throat swelling and Denies tongue swelling Physical Exam Vital Signs: Last Vital Signs Pulse 83 01/10/24 12:42 BP 136/79 09/20/23 12:42 BMI result Body Mass Index 23.8 Const General: cooperative, no acute distress, well developed and well groomed Nutritional Appearance: average body habitus and well nourished Orientation/consciousness: oriented to person, oriented to place and oriented to time Limitations: No language barrier HEENT Head: Yes normocephalic and Yes atraumatic Eyes General: appearance normal, both eyes and all related structures Pupils: Equal, round and reactive pupils present Neck Neck: Yes normal visual inspection and Yes no lymphadenopathy Thyroid: Thyroid normal Resp Effort & Inspection: normal respiratory effort and able to speak in complete sentences Auscultation: clear to auscultation bilaterally Cardio Rate: regular rate Rhythm: regular rhythm Heart sounds: Normal, physiologic split S2 sound present Peripheral pulses: radial pulses present and posterior tibial pulses present GI Inspection: No distended and No Abdominal panniculus present Palpation (GI): Soft to palpation, nontender, no guarding, not rigid and No hepatosplenomegaly present Percussion: Yes normal to percussion Auscultation: normal bowel sounds Rectal Exam - Female: deferred Abdomen image: 2 1. surgical scars 2. 3. 4. 5. 6. 7. Skin General skin exam: no rashes or lesions noted, turgor normal, skin not dry, no jaundice, No spider nevi and no striae Rashes: no rashes Nails: normal Neuro General: oriented to person, oriented to place and oriented to time Cranial nerves: Yes Equal, round and reactive pupils present and Yes Normal hearing present Speech: No Abnormal speech present Extrem General: Yes normal to inspection, No clubbing, No cyanosis and No edema Psych Appearance: grossly normal and well kempt Mental Status: mental status grossly normal Speech and movement: Normal speech and movement present Affect: normal affect Attitude: cooperative Thought process: Normal thought process present and not confabulating Thought content: Normal thought content present Insight: Limited insight present (Psych) Judgement: Limited judgement present (Psych) Assessment & Plan Assessment & Plan (1) Pre-op examination: Code(s): Z01.818 - Encounter for other preprocedural examination (2) Asthma: Code(s): J45.909 - Unspecified asthma, uncomplicated Plan Her PCP wanted the Colonoscopy r/t her esophageal cancer and CIC. She suffers CIC but it is well controlled with Miralax. There are no prior problems with anesthesia or sedation. Her asthma is well controlled, she denies any cardiac problems. No ID problems. No FHX crc or polyps. Orders: Orders 2 Colonoscopy - GI Use Only Today Z01.818 - Encounter for other preprocedural examination Medications: New 2 bisacodyl (Dulcolax (bisacodyl)) 10 mg (2 x 5 mg) PO BEDTIME 2 days 4 tabs 0RF Coding Level of Care Code New Pt Level 3 (13866) Diagnoses Pre-op examination Z01.818 Asthma J45.909
[2023-09-20 12:42] VITALS: BP 136/79; PULSE 83; BMI 23.8
== END 2023-09-20 13:00 | disposition home or self-care (01) ==
PROVIDERS: PCP Internal Medicine; Visit Provider Nurse Practitioner
DX: Z01.818 Encounter for other preprocedural examination (principal); Z12.11 Encounter for screening for malignant neoplasm of colon; J45.909 Unspecified asthma, uncomplicated
CPT/HCPCS: 99202

== ENCOUNTER → 2023-09-20 12:27 | Outpatient (BNVA) | payer MEDICAID, SELFPAY | PROVIDERS: PCP Internal Medicine; Visit Provider Nurse Practitioner | DX: Z01.818 Encounter for other preprocedural examination (principal); J45.909 Unspecified asthma, uncomplicated | CPT/HCPCS: 99212 ==

== ENCOUNTER 2023-10-10 15:00 | Outpatient (RCR) | payer MEDICAID, SELFPAY | END 2023-10-10 17:43 | disposition home or self-care (01) | LOC: HO.PT 15:00 | PROVIDERS: PCP Internal Medicine; Visit Provider Internal Medicine | DX: M54.50 Low back pain, unspecified (principal); M25.552 Pain in left hip | CPT/HCPCS: 97110; 97161 ==

== ENCOUNTER 2023-11-03 14:47 | Outpatient (AMB) | payer MEDICAID, SELFPAY ==
--- NOTE | 2023-11-03 14:49 | MHC.OFFVIS ---
Intake Vital Signs 11/03/23 14:51 Height 5 ft 3 in Weight 137 lb BMI 24.3 BP 138/72 Blood Pressure Location Lt brachial Position Sitting Pulse 80 Pulse Source Doppler Pulse Oximetry (%) 98 Oxygen Delivery Method Room Air Intake Visit Reasons: Asthma Allergies morphine [Morphine] Allergy (Unknown, Verified 11/03/23 14:55) Difficulty Breathing HPI Asthma HPI Details 68-year-old lady, former 10 pack year smoker, quit 7 years prior with underlying history of ?asthma/COPD presents to transfer her care from [facility] secondary to insurance reasons. After the last office visit her Flovent was switched to Breo with significantly improved control of his symptoms. She denies any recent exacerbations. Patient completed her immunologic workup. [facility]LY [facility] Medical History History of alcohol use disorder History of pancreatitis GERD (gastroesophageal reflux disease) Esophageal adenocarcinoma Esophageal carcinoma Depression Asthma Elevated cholesterol HTN (hypertension) Surgical History History of esophageal surgery History of esophagogastroduodenoscopy (EGD) Previous back surgery Hx of appendectomy Hx of hemorrhoidectomy Hx of colonoscopy Family History Mother Cancer Father HTN (hypertension) Maternal Grandmother Diabetes Social History Household Members: Spouse and Children Household Members Other:: 2 children Housing: Apartment Are you a primary hospice care transitions coordinator to a significant other at home: No Do you presently have visiting nurse or other home services: No Alcohol intake: current Alcohol intake frequency: holidays/special occasions only Patient Tobacco Use Status: Never used Tobacco Second Hand Smoke Exposure: Yes (spouse) service: No Current occupational status: disabled Review of Systems Const Denies daytime sleepiness, Denies excessive sweating, Denies fatigue, Denies fever(s), Denies lethargy, Denies malaise, Denies night sweats, Denies snoring and Denies weight loss Eyes Denies blurry vision and Denies itchy eyes ENT Denies nasal congestion, Denies post nasal drip, Denies sinus pain, Denies sinus pressure and Denies other ( Thrush) Card Denies chest pain, Denies pedal edema, Denies dyspnea, Denies orthopnea and Denies paroxysmal nocturnal dyspnea Resp Denies cough, Denies hemoptysis, Denies excessive phlegm production, Denies dyspnea, Denies snoring and Denies wheezing GI Denies abdominal pain and Denies heartburn Musc Denies myalgias, Denies arthralgias and Denies joint swelling Skin/Breast Denies rash Neuro Denies memory loss and Denies seizure-like activity Psych Denies abnormal sleep pattern, Denies anxiety and Denies memory loss Endo Denies excessive sweating, Denies fatigue and Denies heat intolerance Jose/Lymph Denies easy bruising Aller/Immun Denies itchy eyes, Denies seasonal rhinorrhea and Denies wheezing Physical Exam Vital Signs: Last Vital Signs Pulse 80 11/03/23 14:51 BP 138/72 11/03/23 14:51 Pulse Ox 98 11/03/23 14:51 Oxygen Delivery Method Room Air 11/03/23 14:51 BMI result Body Mass Index 24.3 Const General: no acute distress and alert Nutritional Appearance: not obese Orientation/consciousness: Other orientation findings ( oriented) HEENT Head: Yes atraumatic Eyes General: appearance normal, both eyes and all related structures Sclerae: sclerae normal EOM: EOMs intact bilaterally Neck Neck: Yes supple Lymphatic: no lymphadenopathy noted Resp Effort & Inspection: normal respiratory effort and no use of accessory muscles Auscultation: clear to auscultation bilaterally Cardio Rate: regular rate Rhythm: regular rhythm Heart sounds: no gallops, no murmurs and no rubs Skin General skin exam: other ( warm) Extrem General: No clubbing, No cyanosis and No edema Assessment & Plan Assessment & Plan (1) Asthma: Code(s): J45.909 - Unspecified asthma, uncomplicated Plan: Well controlled on Breo and albuterol MDI. Continue current regimen. (2) Environmental allergies: Code(s): Z91.09 - Other allergy status, other than to drugs and biological substances Plan: Results of RAST panel reviewed, no significant immunologic component for underlying asthma. Continue Flonase for seasonal allergies. Coding Level of Care Code Est Pt Level 4 (67648) Diagnoses Asthma J45.909 Environmental allergies Z91.09
[2023-11-03 14:51] VITALS: BP 138/72; PULSE 80; O2SAT 98; BMI 24.3
== END 2023-11-03 15:10 | disposition home or self-care (01) ==
PROVIDERS: PCP Internal Medicine; Visit Provider Internal Medicine Pulmonary Disease
DX: J45.909 Unspecified asthma, uncomplicated (principal); Z91.09 Other allergy status, other than to drugs and biological substances
CPT/HCPCS: 99214

== ENCOUNTER → 2023-11-03 14:47 | Outpatient (BNVA) | payer MEDICAID, SELFPAY | PROVIDERS: PCP Internal Medicine; Visit Provider Internal Medicine Pulmonary Disease | DX: J45.909 Unspecified asthma, uncomplicated (principal); Z91.09 Other allergy status, other than to drugs and biological substances | CPT/HCPCS: 99212 ==

== ENCOUNTER 2024-02-20 14:16 | Outpatient (REF) | payer OTHER, SELFPAY ==
[2024-02-20 16:07] LABS: MANUAL DIFF FLAG NO
[2024-02-20 16:12] LABS: Basophils Absolute Auto 0.1 X10*3/uL (0.0-0.2); Basophils Percent Auto 0.7 % (0-2); Eosinophils Absolute Auto 0.2 X10*3/uL (0.0-0.4); Eosinophils Percent Auto 2.9 % (0-4); Hematocrit 35.1 % (37.0-47.0); Hemoglobin 11.5 g/dl (12.0-16.0); Imm Gran Abs Auto 0.01 X10*3/uL (0.00-0.03); Imm Gran Pct Auto 0.1 % (0.0-0.4); Lymphocytes Absolute Auto 2.8 X10*3/uL (1.2-4.9); Mean Corpuscular HGB Conc 32.8 g/dl (31.0-35.0); Mean Corpuscular Hemoglobin 28.8 pg (27.0-33.0); Mean Corpuscular Volume 87.8 fL (80.0-98.0); Monocytes Absolute Auto 0.5 X10*3/uL (0.1-1.2); Neutrophils Absolute Auto 3.9 x10*3/uL (2.0-8.3); Neutrophils Percent Auto 52.3 % (45-73); Platelet Count 377 X10*3/uL (160-400); Red Cell Distribution Width 13.7 % (11.0-16.0); White Blood Count 7.5 X10*3/uL (4.8-10.8)
[2024-02-20 16:36] LABS: Alanine Aminotransferase 16 U/L (0-31); Alkaline Phosphatase 65 U/L (39-117); Anion Gap 13 (12-20); Aspartate Amino Transferase 22 U/L (5-31); Bilirubin Direct 0.1 mg/dL (0.0-0.5); Bilirubin Total 0.3 mg/dL (0.0-1.0); Blood Urea Nitrogen 14 mg/dL (9-16); Carbon Dioxide 25 mmol/L (22-29); Chloride 107 mmol/L (96-108); Cholesterol 144 mg/dL (<200); Estimated Glomerular Filt Rate > 60; Glucose Random 104 mg/dL (60-115); HDL Cholesterol 65 mg/dL (>40); LDL Cholesterol Calculated 60 mg/dL (<100); Potassium 3.7 mmol/L (3.3-5.1); Sodium 141 mmol/L (135-145); Total Protein 7.3 g/dL (6.5-8.0); Triglycerides 95 mg/dL (<150)
== END 2024-02-20 14:17 | disposition home or self-care (01) ==
LOC: HO.HHCL 14:16
PROVIDERS: Visit Provider Internal Medicine
DX: I10 Essential (primary) hypertension (principal); D64.9 Anemia, unspecified
CPT/HCPCS: 36415; 80048; 80061; 80076; 85025

== ENCOUNTER 2024-05-09 15:09 | Outpatient (AMB) | payer OTHER, SELFPAY ==
[2024-05-09 15:10] VITALS: BP 122/72; PULSE 84; O2SAT 98; BMI 24.1
--- NOTE | 2024-05-09 15:10 | MHC.OFFVIS ---
Vital Signs 05/09/24 15:10 Height 5 ft 3 in Weight 136 lb BMI 24.1 BP 122/72 Blood Pressure Location Rt brachial Position Sitting Pulse 84 Pulse Source Doppler Pulse Oximetry (%) 98 Oxygen Delivery Method Room Air Intake Visit Reasons: Asthma Allergies morphine [Morphine] Allergy (Unknown, Verified 02/26/24 14:44) Difficulty Breathing HPI HPI Asthma: Details: 68-year-old lady, former 10 pack year smoker, quit 7 years prior with underlying history of ?asthma/COPD presents to transfer her care from [facility] secondary to insurance reasons. She continues in Breo and albuterol MDI with good control of his symptoms. She denies any exacerbations. She uses Flonase for seasonal allergies as needed. [facility] Medical History History of alcohol use disorder History of pancreatitis GERD (gastroesophageal reflux disease) Esophageal adenocarcinoma Esophageal carcinoma Depression Asthma Elevated cholesterol HTN (hypertension) Surgical History History of esophageal surgery History of esophagogastroduodenoscopy (EGD) Previous back surgery Hx of appendectomy Hx of hemorrhoidectomy Hx of colonoscopy Family History Mother Cancer Father HTN (hypertension) Maternal Grandmother Diabetes Social History Household Members: Spouse and Children Household Members Other:: 2 children Housing: Apartment Are you a primary pet care technician to a significant other at home: No Do you presently have visiting nurse or other home services: No Alcohol intake: current Alcohol intake frequency: holidays/special occasions only Patient Tobacco Use Status: Never used Tobacco Second Hand Smoke Exposure: Yes (spouse) service: No Current occupational status: disabled Review of Systems Const Denies daytime sleepiness, Denies excessive sweating, Denies fatigue, Denies fever(s), Denies lethargy, Denies malaise, Denies night sweats, Denies snoring and Denies weight loss Eyes Denies blurry vision and Denies itchy eyes ENT Denies nasal congestion, Denies post nasal drip, Denies sinus pain, Denies sinus pressure and Denies other ( Thrush) Card Denies chest pain, Denies pedal edema, Denies dyspnea, Denies orthopnea and Denies paroxysmal nocturnal dyspnea Resp Denies cough, Denies hemoptysis, Denies excessive phlegm production, Denies dyspnea, Denies snoring and Denies wheezing GI Denies abdominal pain and Denies heartburn Musc Denies myalgias, Denies arthralgias and Denies joint swelling Skin/Breast Denies rash Neuro Denies memory loss and Denies seizure-like activity Psych Denies abnormal sleep pattern, Denies anxiety and Denies memory loss Endo Denies excessive sweating, Denies fatigue and Denies heat intolerance Jose/Lymph Denies easy bruising Aller/Immun Denies itchy eyes, Denies seasonal rhinorrhea and Denies wheezing Physical Exam Vital Signs: Last Vital Signs Pulse 84 05/09/24 15:10 BP 122/72 05/09/24 15:10 Pulse Ox 98 05/09/24 15:10 Oxygen Delivery Method Room Air 05/09/24 15:10 BMI result Body Mass Index 24.1 Const General: no acute distress and alert Nutritional Appearance: not obese Orientation/consciousness: Other orientation findings ( oriented) HEENT Head: Yes atraumatic Eyes General: appearance normal, both eyes and all related structures Sclerae: sclerae normal EOM: EOMs intact bilaterally Neck Neck: Yes supple Lymphatic: no lymphadenopathy noted Resp Effort & Inspection: normal respiratory effort and no use of accessory muscles Auscultation: clear to auscultation bilaterally Cardio Rate: regular rate Rhythm: regular rhythm Heart sounds: no gallops, no murmurs and no rubs Skin General skin exam: other ( warm) Extrem General: No clubbing, No cyanosis and No edema Assessment & Plan Assessment & Plan (1) Asthma: Code(s): J45.909 - Unspecified asthma, uncomplicated Category: Medical Plan: Well controlled on Breo and albuterol MDI. Continue current regimen. (2) Environmental allergies: Code(s): Z91.09 - Other allergy status, other than to drugs and biological substances Category: Medical Plan: Controlled on as needed Flonase. Continue current regimen. Coding Level of Care Code Est Pt Level 4 (19909) Diagnoses Asthma J45.909 Environmental allergies Z91.09
== END 2024-05-09 15:27 | disposition home or self-care (01) ==
PROVIDERS: PCP Internal Medicine; Visit Provider Internal Medicine Pulmonary Disease
DX: J45.909 Unspecified asthma, uncomplicated (principal); Z91.09 Other allergy status, other than to drugs and biological substances
CPT/HCPCS: 99214

== ENCOUNTER → 2024-05-09 15:09 | Outpatient (BNVA) | payer OTHER, SELFPAY | PROVIDERS: PCP Internal Medicine; Visit Provider Internal Medicine Pulmonary Disease | DX: J45.909 Unspecified asthma, uncomplicated (principal); Z91.09 Other allergy status, other than to drugs and biological substances | CPT/HCPCS: 99212 ==

== ENCOUNTER 2024-05-22 14:49 | Outpatient (REF) | payer OTHER, SELFPAY ==
--- NOTE | ~2024-05-22 | CT_ITS ---
EXAMINATION: CT CHEST, ABDOMEN AND PELVIS WITH CONTRAST CLINICAL INFORMATION: Esophageal cancer, surveillance COMPARISON: No pertinent prior studies are available for comparison. TECHNIQUE: Multidetector volumetric imaging was performed from the thoracic inlet through the pubic symphysis following administration of 85 mL of Omnipaque 350. Sagittal and coronal reformatted images were obtained on the technologist's workstation. This CT examination was performed using dose optimization techniques as appropriate, variously including the following: *Automated exposure control *Adjustment of mA and/or kV according to patient size (this includes techniques or standardized protocols for targeted exams where dose is matched to indication/reason for exam; i.e. extremities or head) *Use of iterative reconstruction technique DLP: 113 and 272 mGy-cm FINDINGS: CHEST: Lung: There are 2 tiny 2 mm nodules seen in the right lower lobe (5:170 and 226) unchanged when compared to prior (prior 5:75 and 97). The lungs are otherwise clear without concerning focal opacity or mass. There is no convincing evidence of pulmonary metastatic disease. Mediastinum: Status post esophagectomy with gastric pull-through. Right-sided chest port with tip in right atrium. The central vascular structures are unremarkable. No hilar or mediastinal lymphadenopathy. Coronary Artery Calcium: Present Pericardium/Pleura: No significant effusion. No pleural mass or thickening. Chest Wall/Axilla: Unremarkable ABDOMEN/PELVIS: Peritoneal Space: No significant free air or free fluid identified. Liver, Gallbladder, Biliary Tree: The liver is normal in size, shape, and attenuation. No focal hepatic lesion or biliary ductal dilatation is present. The gallbladder is unremarkable with no evidence of radiopaque gallstones, gallbladder wall thickening, or obvious pericholecystic inflammatory changes. Pancreas: Unremarkable Spleen: Unremarkable Adrenal Glands: Unremarkable Kidneys and Ureters: The kidneys are normal in size, shape, and attenuation. No hydronephrosis, hydroureter, or calculi seen. No perinephric stranding. 2 left sided benign Bosniak class I renal cysts are noted, which require no additional imaging or follow-up. No solid renal masses are seen. Bladder: Empty but unremarkable Gastrointestinal Tract: Patient is status post esophagectomy with gastric pull-through. The small and large bowel are unremarkable. The appendix is unremarkable. Abdominal Wall: No significant hernia is appreciated. Lymph Nodes: No lymphadenopathy. Vascular: Calcific atherosclerotic changes are present in the aorta and iliofemoral vessels. There is no evidence of an abdominal aortic aneurysm.. The IVC appears unremarkable. PELVIC VISCERA: The uterus and adnexa are unremarkable. No free fluid present in the cul-de-sac. OSSEUS STRUCTURES: There is a biconvex thoracolumbar scoliosis with degenerative changes noted in the spine. No bony destructive lesions are seen. CT/CT abdomen pelvis w IV con IMPRESSION: 1. Status post esophagectomy with gastric pull-through. 2. No evidence of metastatic disease in the chest, abdomen or pelvis. Fleischner guidelines were followed. Electronically signed by: Clay Beauchamp MD 05/22/2024 06:28 PM EDT
[2024-05-22] MEDS: iohexoL 350 MG/ML 100 ML INFUS..BTL 85 ML IV (15:33)
[2024-05-23 07:44] LABS: Creatinine POC 0.7 mg/dL (0.5-1.4); GFR POC > 60
== END 2024-05-22 14:50 | disposition home or self-care (01) ==
LOC: HO.CT 14:49
PROVIDERS: PCP Internal Medicine; Visit Provider Internal Medicine
DX: C15.9 Malignant neoplasm of esophagus, unspecified (principal)
CPT/HCPCS: 71260; 74177; 82565; Q9967

== ENCOUNTER 2024-06-21 09:22 | Emergency (ER) | payer OTHER, SELFPAY ==
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
[2024-06-21 09:32] VITALS: BP 145/81; PULSE 77; RESP 16; TEMP 36.6; O2SAT 95; BMI 31.2
--- OUTSIDE RECORDS SUMMARY | 2024-06-21 09:42 | XMS_ITS | Continuity of Care Document ---
Author Organization [facility] ter Address [address] [place] [address]- Care Team Providers Care Mid Level Developer Name Role Phone Francesco YANES, Rosy Gill Primary Care Physician Encounter [facility] Date(s): 12/17/21 - 01/26/[address] [address] Attending Physician: Elly Mckeon MD Admitting Physician: Elly Mckeon MD Referring Physician: Elly Mckeon MD Allergies, Adverse Reactions, Alerts Substance Reaction Severity Status morphine rash Active Immunizations Not Given Vaccine Date Status Refusal Reason influenza virus vaccine, inactivated 1 08/14/20 No t Given Patient Refuses 1Result Comment: Pt stated that she will get outside of hospital Medications acetaminophen-codeine 300 mg-15 mg oral tablet 59 each, TAKE 1 TABLET BY MOUTH TWICE DAILY NEEDED FOR PAIN, 0 Refills, 06/30/21 12:53:00 EDT, Partial fill upon patient request if the prescription is for a schedule II opioid drug. Start Date: 06/30/21 Status: Ordered fenofibrate 160 mg oral tablet 1 tablet = 160 mg, By Mouth, Daily, dissolves, 0 Refills, Maintenance, 12/15/20 13:54:00 EDT, Tablet Start Date: 12/15/20 Status: Ordered Fish Oil By Mouth, 0 Refills, Maintenance, 04/02/21 10:14:00 EDT, Partial fill upon patient request if the prescription is for a schedule II opioid drug. Start Date: 04/02/21 Status: Ordered fluticasone 50 mcg/inh nasal spray 2 sprays, Nares, Both, Daily, Maintenance, 12/23/20 16:05:00 EDT, [place] Start Date: 12/23/20 Status: Ordered lactulose 10 gm/15 ml oral syrup 30 mL = 20 Gm, G Tube, Daily, HOLD FOR DIARRHEA, # 240 mL, 0 Refills, Maintenance, 08/21/20 13:05:00 EST, Syrup, [facility], Partial fill upon patient request if the prescription is fora schedule II opioid drug., 30 mL G Tube Daily,Inst... Start Date: 08/21/20 Status: Ordered loratadine 10 mg oral tablet 10 mg, 1, tablet, By Mouth, Daily, Maintenance, 12/23/20 15:53:00 EDT Start Date: 12/23/20 Status: Ordered losartan 25 mg oral tablet 30 each, TAKE 1 TABLET BY MOUTH EVERY DAY, 0 Refills, 06/30/21 12:53:00 EDT, Partial fill upon patient request if the prescription is for a schedule II opioid drug. Start Date: 06/30/21 Status: Ordered oxyCODONE 5 mg oral capsule 1 capsule = 5 mg, By Mouth, Every 6 hours, 0 Refills, Maintenance, 04/02/21 10:13:00 EDT, Partial fill upon patient request if the prescription is for a schedule II opioid drug. Start Date: 04/02/21 Status: Ordered polyethylene glycol 3350 oral powder for reconstitution = 17 Gm, By Mouth, Daily, dissolve in water before taking, 0 Refills, Maintenance, 12/15/20 14:39:00 EDT, REC Powder Start Date: 12/15/20 Status: Ordered Readi-Cat 2 oral suspension 450 mL = 9 Gm, By Mouth, 2 times a day, Please dispense two 450 mL bottles for a total dose that equals 900 mLs. Drink first bottle [address] and then drink second bottle [address] scan,# 2 each, 0 Refills, Maintenance, 12/10/21 12:15:00... Start Date: 12/10/21 Status: Ordered Silapap Childrens 160 mg/5 mL oral liquid 650 mL, TAKE 20 ML via g-tube EVERY 6 HOURS NEEDED FOR PAIN, 0 Refills, 06/30/21 12:53:00 EDT, Partial fill upon patient request if the prescription is for a schedule II opioid drug. Start Date: 06/30/21 Status: Ordered Siltussin DM 20 mg-200 mg/10 mL oral liquid 300 mL, TAKE 10 ML BY MOUTH EVERY 4 TO 8 HOURS NEEDED FOR COUGH, 0 Refills, 06/30/21 12:53:00 EDT, Partial fill upon patient request if the prescription is for a schedule II opioid drug. Start Date: 06/30/21 Status: Ordered simvastatin 20 mg oral tablet 20 mg, 1, tablet, By Mouth, Daily, EVENING, Refills 0, Maintenance, 12/15/20 13:55:00 EDT Start Date: 12/15/20 Status: Ordered Tylenol 8 Hour 650 mg oral tablet, extended release 2 tablet = 1,300 mg, By Mouth, Every 8 hours, 0 Refills, Maintenance, 04/02/21 10:13:00 EDT, Partial fill upon patient request if the prescription is for a schedule II opioid drug. Start Date: 04/02/21 Status: Ordered Vitamin D2 2000 intl units oral capsule 1 capsule = 2,000 International_Units, By Mouth, Daily, 0 Refills, Maintenance, 12/23/20 15:53:00 EDT Start Date: 12/23/20 Status: Ordered Vitamin D3 2000 intl units oral capsule 30 each, TAKE 1 CAPSULE BY MOUTH EVERY DAY, 0 Refills, 06/30/21 12:53:00 EDT, Partial fill upon patient request if the prescription is for a schedule II opioid drug. 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
--- OUTSIDE RECORDS SUMMARY | 2024-06-21 09:42 | XMS_ITS | Continuity of Care Document ---
Author Organization [facility] Address [address] [place] [address] [address], [address] [place] [address]- Care Team Providers Care Enterprise Account Manager Name Role Phone Francesco YANES, Rosy Gill Primary Care Physician Encounter [facility] Date(s): 11/27/20 - 12/27/20 [facility] Thoracic Surgery [address] [place] [address], [address] [place] [address]- Attending Physician: Mario Santacruz Admitting Physician: AdmMario flores Referring Physician: AdmtrMario Allergies, Adverse Reactions, Alerts Substance Reaction Severity Status morphine rash Active Immunizations Not Given Vaccine Date Status Refusal Reason influenza virus vaccine, inactivated 1 08/14/20 No t Given Patient Refuses 1Result Comment: Pt stated that she will get outside of hospital Medications acetaminophen-codeine 300 mg-15 mg oral tablet 1 tablet, By Mouth, 2 times a day, 0 Refills, Maintenance, 12/23/20 16:03:00 EDT Start Date: 12/23/20 Status: Ordered cyclobenzaprine 5 mg oral tablet 1 tablet = 5 mg, By Mouth, 2 times a day, 0 Refills, Maintenance, 12/23/20 15:58:00 EDT Start Date: 12/23/20 Status: Ordered dexamethasone 2 mg oral tablet 1 tablet = 2 mg, By Mouth, 2 times a day, night before chemo & morning of, Maintenance, 12/23/20 15:47:00 EDT, Tablet Start Date: 12/23/20 Status: Ordered fenofibrate 160 mg oral tablet 1 tablet = 160 mg, By Mouth, Daily, dissolves, 0 Refills, Maintenance, 12/15/20 13:54:00 EDT, Tablet Start Date: 12/15/20 Status: Ordered Flovent HFA 110 mcg/inh inhalation aerosol 2 puffs, Inhalation, 2 times a day, Maintenance, 12/23/20 15:54:00 EDT, Aerosol, RINSE MOUTH Start Date: 12/23/20 Status: Ordered fluticasone 50 mcg/inh nasal spray 2 sprays, Nares, Both, Daily, Maintenance, 12/23/20 16:05:00 EDT, [place] Start Date: 12/23/20 Status: Ordered HYDROmorphone 1 mg/mL oral liquid 2 mL = 2 mg, G Tube, Every 4 hours, PRN PAIN, 0 Refills, Maintenance, 12/23/20 16:01:00 EDT Start Date: 12/23/20 Status: Ordered lactulose 10 gm/15 ml oral syrup 30 mL = 20 Gm, G Tube, Daily, HOLD FOR DIARRHEA, # 240 mL, 0 Refills, Maintenance, 08/21/20 13:05:00 EST, Syrup, [facility], Partial fill upon patient request if the prescription is fora schedule II opioid drug., 30 mL G Tube Daily,Inst... Start Date: 08/21/20 Status: Ordered loratadine 10 mg oral tablet 10 mg, 1, tablet, By Mouth, Daily, Maintenance, 12/23/20 15:53:00 EDT Start Date: 12/23/20 Status: Ordered losartan 25 mg oral tablet 1 tablet = 25 mg, G Tube, Daily in AM, dissolve in H2O, 0 Refills, Maintenance, 12/15/20 13:56:00 EDT Start Date: 12/15/20 Status: Ordered Misc Rx 5, mL, 3 times a day, PRN NEEDED, Maintenance, THICK & EASY POWDER ADD TO MEALS 3 TIMES DAILY, 12/23/20 16:06:00 EDT, Supply Start Date: 12/23/20 Status: Ordered omeprazole 2mg/1 mL suspension (compounded) 10 mL = 20 mg, By Mouth, 2 times a day, OMEPRAZOLE 20 MG COMPOUNDED, Maintenance, 12/23/20 15:49:00EDT Start Date: 12/23/20 Status: Ordered OxyCODONE 5mg/5mL Liquid 5 mL, By Mouth, Every 4 hours, PRN PAIN, 0 Refills, Maintenance, 12/23/20 15:51:00 EDT, Partial fill upon patient request if the prescription is for a schedule II opioid drug. Start Date: 12/23/20 Status: Ordered polyethylene glycol 3350 oral powder for reconstitution = 17 Gm, By Mouth, Daily, dissolve in water before taking, 0 Refills, Maintenance, 12/15/20 14:39:00 EDT, REC Powder Start Date: 12/15/20 Status: Ordered ProAir HFA 90 mcg/inh inhalation aerosol 2 puffs, Inhalation, Every 4 hours, EVERY 4-6 HOURS, Maintenance, 12/23/20 16:04:00 EDT Start Date: 12/23/20 Status: Ordered simvastatin 20 mg oral tablet 20 mg, 1, tablet, By Mouth, Daily, EVENING, Refills 0, Maintenance, 12/15/20 13:55:00 EDT Start Date: 12/15/20 Status: Ordered Vitamin D2 2000 intl units oral capsule 1 capsule = 2,000 International_Units, By Mouth, Daily, 0 Refills, Maintenance, 12/23/20 15:53:00 EDT Start Date: 12/23/20 Status: Ordered Problem List Condition Effective Dates Status Health Status Inform ant Esophageal cancer ([id number] adenocarcinoma of the distal esophagus)(Confirmed) 08/14/20 Active Esophageal dysphagia(Confirmed) 08/14/20 Active Hypertension(Confirmed) Active Unintended weight loss(Confirmed) 10/02/20 Active Social History Social History Type Response Smoking Status Former smoker, quit more than 30 days ago; Other: reports more than 20 year smoking hsitory but quit 7 years ago; entered on: 08/11/20 Sex
--- OUTSIDE RECORDS SUMMARY | 2024-06-21 09:42 | XMS_ITS | Continuity of Care Document ---
Author Organization [facility] Address [address] [place] [address]- Care Team Providers Care Job Counselor Name Role Phone Francesco YANES, Rosy Gill Primary Care Physician [phone] Encounter [facility] [place] Date(s): 05/15/21 - 06/26/[address] [address] Attending Physician: Elly Mckeon MD Admitting Physician: Elly Mckeon MD Referring Physician: Elly Mckeon MD Allergies, Adverse Reactions, Alerts Substance Reaction Severity Status morphine rash Active Immunizations Not Given Vaccine Date Status Refusal Reason influenza virus vaccine, inactivated 1 08/14/20 No t Given Patient Refuses 1Result Comment: Pt stated that she will get outside of hospital Medications fenofibrate 160 mg oral tablet 1 tablet [...] Nares, Both, Daily, Maintenance, 12/23/20 16:05:00 EDT, [place] Start Date: 12/23/20 Status: Ordered lactulose 10 gm/15 ml oral syrup 30 mL = 20 Gm, G Tube, Daily, HOLD FOR DIARRHEA, # 240 mL, 0 Refills, Maintenance, 08/21/20 13:05:00 EST, Syrup, [facility], Partial fill upon patient request if the prescription is fora schedule II opioid drug., 30 mL G Tube Daily,Inst... Start Date: 08/21/20 Status: Ordered loratadine 10 mg oral tablet 10 mg, 1, tablet, By Mouth, Daily, Maintenance, 12/23/20 15:53:00 EDT Start Date: 12/23/20 Status: Ordered oxyCODONE 5 mg oral capsule [...] CT scan,# 2 each, 0 Refills, Maintenance, 06/24/21 13:29:00... Start Date: 06/24/21 Status: Ordered simvastatin 20 mg oral tablet [...] Status Health Status Inform ant Esophageal cancer ([id number] with 23 examined lymph nodes; [id number] adenocarcinoma of the distal esophagus)(Confirmed) 1 12/22/20 [...]
--- OUTSIDE RECORDS SUMMARY | 2024-06-21 09:42 | XMS_ITS | Continuity of Care Document ---
Author Organization [facility] Address [address] [place] [address] [address], [address] [place] [address]- Care Team Providers Care Feed Mill Supervisor Name Role Phone Francesco YANES, Rosy Gill Primary Care Physician Encounter [facility] Date(s): 03/19/21 - 03/26/21 [facility] Thoracic Surgery [address] [place] [address], [address] [place], [place] [address] Attending Physician: Elly Mckeon MD Allergies, Adverse Reactions, Alerts Substance Reaction Severity Status morphine rash Active Immunizations Not Given Vaccine Date Status Refusal Reason influenza virus vaccine, inactivated 1 08/14/20 No t Given Patient Refuses 1Result Comment: Pt stated that she will get outside of hospital Medications cyclobenzaprine 5 mg oral tablet 1 tablet = 5 mg, By Mouth, 2 times a day, 0 Refills, Maintenance, 12/23/20 15:58:00 EDT Start Date: 12/23/20 Status: Ordered fenofibrate 160 [...] Nares, Both, Daily, Maintenance, 12/23/20 16:05:00 EDT, [place] Start Date: 12/23/20 Status: Ordered gabapentin 250 mg/5 mL oral solution 12 mL = 600 mg, J Tube, 3 times a day, # 1,080 mL, 0 Refills, Maintenance, 02/11/21 11:51:00 EDT, Liquid, [facility], Partial fill upon patient request if the prescription is for a schedule II opioid drug., 161, cm, 02/03/21 14:26:... Start Date: 02/11/21 Status: Ordered lactulose 10 gm/15 ml oral syrup 30 mL = 20 Gm, G Tube, Daily, HOLD FOR DIARRHEA, # 240 mL, 0 Refills, Maintenance, 08/21/20 13:05:00 EST, Syrup, [facility], Partial fill upon patient request if the prescription is fora schedule II opioid drug., 30 mL G Tube Daily,Inst... Start Date: 08/21/20 Status: Ordered loratadine 10 mg oral tablet 10 mg, 1, tablet, By Mouth, Daily, Maintenance, 12/23/20 15:53:00 EDT Start Date: 12/23/20 Status: Ordered omeprazole 2mg/1 mL suspension (compounded) 10 mL = 20 mg, By Mouth, 2 times a day, OMEPRAZOLE 20 MG COMPOUNDED, Maintenance, 12/23/20 15:49:00EDT Start Date: 12/23/20 Status: Ordered polyethylene glycol [...] Status Health Status Inform ant Esophageal cancer ([id number] with 23 examined lymph nodes; [id number] adenocarcinoma of the distal esophagus)(Confirmed) 1 12/22/20 Active Esophageal dysphagia(Confirmed) 08/14/20 Active Hypertension(Confirmed) Active Unintended weight loss(Confirmed) 10/02/20 Active 1Complete pathological response on esophagectomy specimen Vital Signs Most recent to oldest [Reference Range]: 1 Height 161 cm (03/19/21 10:58 AM) Weight 65.7 kg (03/19/21 10:58 AM) Oxygen Saturation [94-100 %] 98 % (03/19/21 10:58 AM) Pulse Rate [55-90 bpm] 78 bpm (03/19/21 10:58 AM) Body Mass Index [18.5-24.99] 25.35 *H* (03/19/21 10:58 AM) Blood Pressure [90-138/55-84 mm Hg] 147/ 79mm Hg *H* (03/19/21 10:58 AM) Respiratory Rate [16-30 br/min] 18 br/mi n (03/19/21 10:58 AM) Temperature [96.8-100.4 DegF] 96.8 DegF (03/19/21 10:58 AM) Mode of Delivery (Oxygen) Room air (03/19/21 10:58 AM) Blood pressure sites Arm, right (03/19/21 10:58 AM) Temperature Route Temporal (03/19/21 10:58 AM) Weight Obtained Via Standing scale (03/19/21 10:58 AM) Social History Social History Type Response Smoking Status Former smoker, quit more than 30 days ago; Other: reports more than 20 year smoking hsitory but quit 7 years ago; entered on: 08/11/20 Sex
--- OUTSIDE RECORDS SUMMARY | 2024-06-21 09:42 | XMS_ITS | Continuity of Care Document ---
Author Organization [facility] Address [address] [place] [address]- Care Team Providers Care It Disaster Recovery Manager Name Role Phone Francesco YANES, Rosy Gill Primary Care Physician Encounter [facility] [place] Date(s): 07/30/20 - 09/09/[address] [address] Attending Physician: Roel Argueta Jr, MD Admitting Physician: Roel Argueta Jr, MD Allergies, Adverse Reactions, Alerts Substance Reaction Severity Status morphine Active Immunizations Not Given Vaccine Date Status Refusal Reason influenza virus vaccine, inactivated 1 08/14/20 No t Given Patient Refuses 1Result Comment: Pt stated that she will get outside of hospital Medications Flovent HFA 110 mcg/inh inhalation aerosol INHALE 2 PUFFS TWICE DAILY. RINSE MOUTH AFTER USING. Start Date: 08/11/20 Status: Ordered fluticasone 50 mcg/inh nasal spray USE 2 SPRAYS IN EACH NOSTRIL EVERY MORNING NEEDED Start Date: 08/11/20 Status: Ordered HYDROmorphone 1 mg/mL oral liquid 2 mL = 2 mg, G Tube, Every 4 hours, PRN for pain, # 180 mL, 0 Refills, Maintenance, 08/21/20 13:08:00 EST, Liquid, [facility], Partial fill upon patient request if the prescription is for a schedule II opioid drug., 160, cm, 08/21/20 7:0... Start Date: 08/21/20 Status: Ordered lactulose 10 gm/15 ml oral syrup 30 mL = 20 Gm, G Tube, Daily, HOLD FOR DIARRHEA, # 240 mL, 0 Refills, Maintenance, 08/21/20 13:05:00 EST, Syrup, [facility], Partial fill upon patient request if the prescription is fora schedule II opioid drug., 30 mL G Tube Daily,Inst... Start Date: 08/21/20 Status: Ordered multivitamin Pediatric Multiple Vitamins oral liquid 5 mL, G Tube, Daily, # 50 mL, 0 Refills, Maintenance, 08/21/20 13:07:00 EST, Liquid, [facility], Partial fill upon patient request if the prescription is for a schedule II opioid drug.,5 mL G Tube Daily, 160, cm, 08/21/20 7:06:00 EST, H... Start Date: 08/21/20 Status: Ordered ProAir HFA 90 mcg/inh inhalation aerosol with adapter INHALE 2 PUFFS BY MOUTH EVERY 4 TO 6 HOURS NEEDED Start Date: 08/11/20 Status: Ordered Protonix 40 mg oral granule 1 pack/packet, G Tube, Daily, # 30 each, 0 Refills, Maintenance, 08/21/20 13:10:00 EST, Granule, 160, cm, 08/21/20 7:06:00 EST, [place] Start Date: 08/21/20 Status: Ordered Problem List Condition Effective Dates Status Health Status Inform ant Esophageal cancer(Confirmed) Active Hypertension(Confirmed) Active Social History Social History Type Response Smoking Status Former smoker, quit more than 30 days ago; Other: reports more than 20 year smoking hsitory but quit 7 years ago; entered on: 08/11/20 Sex
--- OUTSIDE RECORDS SUMMARY | 2024-06-21 09:42 | XMS_ITS | Continuity of Care Document ---
Author Organization [facility] Address [address] [place] [address] [address], [address] [place] [address]- Care Team Providers Care Client Coordinator Name Role Phone Francesco YANES, Rosy Gill Primary Care Physician [place] [facility] [place](s): 02/26/21 - 03/05/21 [facility] Thoracic Surgery [address] [place] [address], [address] [place], [place] [address] Attending Physician: Elly Mckeon MD Allergies, Adverse [...] Nares, Both, Daily, Maintenance, 12/23/20 16:05:00 EDT, [place] Start Date: 12/23/20 Status: Ordered gabapentin 250 mg/5 mL oral solution 12 mL = 600 mg, J Tube, 3 times a day, # 1,080 mL, 0 Refills, Maintenance, 02/11/21 11:51:00 EDT, Liquid, [facility], Partial fill upon patient request if the prescription is for a schedule II opioid drug., 161, cm, 02/03/21 14:26:... Start Date: 02/11/21 Status: Ordered lactulose 10 gm/15 ml oral syrup 30 mL = 20 Gm, G Tube, Daily, HOLD FOR DIARRHEA, # 240 mL, 0 Refills, Maintenance, 08/21/20 13:05:00 EST, Syrup, [facility], Partial fill upon patient request [...] Status Health Status Inform ant Esophageal cancer ([id number] with 23 examined lymph nodes; [id number] adenocarcinoma of the distal esophagus)(Confirmed) 1 12/22/20 Active Esophageal dysphagia(Confirmed) 08/14/20 Active Hypertension(Confirmed) Active Unintended weight loss(Confirmed) 10/02/20 Active 1Complete pathological response on esophagectomy specimen Vital Signs Most recent to oldest [Reference Range]: 1 Height 161 cm (02/26/21 1:16 PM) Weight 63.3 kg (02/26/21 1:16 PM) Oxygen Saturation [94-100 %] 98 % (02/26/21 1:16 PM) Pulse Rate [55-90 bpm] 86 bpm (02/26/21 1:16 PM) Body Mass Index [18.5-24.99] 24.42 (02/26/21 1:16 PM) Blood Pressure [90-138/55-84 mm Hg] 121/ 78mm Hg (02/26/21 1:16 PM) Respiratory Rate [16-30 br/min] 20 br/mi n (02/26/21 1:16 PM) Temperature [96.8-100.4 DegF] 97 DegF (02/26/21 1:16 PM) Mode of Delivery (Oxygen) Room air (02/26/21 1:16 PM) Blood pressure sites Arm, right (02/26/21 1:16 PM) Temperature Route Temporal (02/26/21 1:16 PM) Weight Obtained Via Standing scale (02/26/21 1:16 PM) Social History Social History Type Response Smoking Status Former smoker, quit more than 30 days ago; Other: reports more than 20 year smoking hsitory but quit 7 years ago; entered on: 08/11/20 Sex
--- OUTSIDE RECORDS SUMMARY | 2024-06-21 09:42 | XMS_ITS | Continuity of Care Document ---
Author Organization [facility] Address [address] [place] [address] [address], [address] [place] [address]- Care Team Providers Care Industrial Mechanic Name Role Phone Francesco PLASTIC WELDING MACHINE OPERATOR, Rosy Gill Primary Care Physician [place] [facility] [place] Date(s[place] 04/02/21 - 04/09/21 [facility] [address] [place] [address], [address] [place], [place] [address] Attending Physician: Elly Mckeon MD [...] Nares, Both, Daily, Maintenance, 12/23/20 16:05:00 EDT, [place] Start Date: 12/23/20 Status: Ordered gabapentin 250 mg/5 mL oral solution 12 mL = 600 mg, J Tube, 3 times a day, # 1,080 mL, 0 Refills, Maintenance, 02/11/21 11:51:00 EDT, Liquid, [facility], Partial fill upon patient request if the prescription is for a schedule II opioid drug., 161, cm, 02/03/21 14:26:... Start Date: 02/11/21 Status: Ordered lactulose 10 gm/15 ml oral syrup 30 mL = 20 Gm, G Tube, Daily, HOLD FOR DIARRHEA, # 240 mL, 0 Refills, Maintenance, 08/21/20 13:05:00 EST, Syrup, [facility], Partial fill upon patient request [...] REC Powder Start Date: 12/15/20 Status: Ordered simvastatin 20 mg oral tablet [...] Status Health Status Inform ant Esophageal cancer ([id number] with 23 examined lymph nodes; [id number] adenocarcinoma of the distal esophagus)(Confirmed) 1 12/22/20 Active Esophageal dysphagia(Confirmed) 08/14/20 Active Hypertension(Confirmed) Active Unintended weight loss(Confirmed) 10/02/20 Active 1Complete pathological response on esophagectomy specimen Vital Signs Most recent to oldest [Reference Range]: 1 Height 161 cm (04/02/21 10:07 AM) Weight 65.3 kg (04/02/21 10:07 AM) Pulse Rate [55-90 bpm] 74 bpm (04/02/21 10:07 AM) Body Mass Index [18.5-24.99] 25.19 *H* (04/02/21 10:07 AM) Blood Pressure [90-138/55-84 mm Hg] 123/ 78mm Hg (04/02/21 10:07 AM) Temperature [96.8-100.4 DegF] 96.8 DegF (04/02/21 10:07 AM) Blood pressure sites Arm, right (04/02/21 10:07 AM) Temperature Route Temporal (04/02/21 10:07 AM) Dry Weight 65.3 kg (04/02/21 10:07 AM) Social History Social History Type Response Smoking Status Former smoker, quit more than 30 days ago; Other: reports more than 20 year smoking hsitory but quit 7 years ago; entered on: 08/11/20 Sex
--- OUTSIDE RECORDS SUMMARY | 2024-06-21 09:42 | XMS_ITS | Continuity of Care Document ---
Author Organization [facility] Address [address] [place] [id number]- Care Team Providers Care Software Asset Management Analyst Name Role Phone Francesco YANES, Rosy Gill Primary Care Physician [phone] Encounter [facility] – [place] Date(s): 08/11/20 - 08/21/[address] [address]- Discharge Disposition: A-Transfer VNA/Home Health Attending Physician: Hector Rueda MD Admitting Physician: Russ Pelayo MD Referring Physician: Not on Staff, Referring MD Allergies, Adverse Reactions, Alerts Substance Reaction Severity Status morphine Active Immunizations Not Given Vaccine Date Status Refusal Reason influenza virus vaccine, inactivated 1 08/14/20 No t Given Patient Refuses 1Result Comment: Pt stated that she will get outside of hospital Medications Dilaudid 2 mg oral tablet 2 mg, Tablet, G Tube, Every 4 hours, PRN for Pain , Moderate, Routine, 08/18/20 14:27:00 EST Start Date: 08/18/20 Stop Date: 08/22/20 Status: Discontinued Flovent HFA 110 mcg/inh inhalation aerosol INHALE [...] 0 Refills, Maintenance, 08/21/20 13:08:00 EST, Liquid, [facility], Partial fill upon patient request if the prescription is for a schedule II opioid drug., 160, cm, 08/21/20 7:0... Start Date: 08/21/20 Status: Ordered lactulose 10 gm/15 ml oral syrup 30 mL = 20 Gm, G Tube, Daily, HOLD FOR DIARRHEA, # 240 mL, 0 Refills, Maintenance, 08/21/20 13:05:00 EST, Syrup, [facility], Partial fill upon patient request if the prescription is fora schedule II opioid drug., 30 mL G Tube Daily,Inst... Start Date: 08/21/20 Status: Ordered losartan 25 mg oral tablet 25 mg, Tablet, G Tube, 08/21/20 9:00:00 EST Start Date: 08/21/20 Stop Date: 08/21/20 Status: Completed multivitamin Pediatric Multiple Vitamins oral liquid 5 mL, G Tube, Daily, # 50 mL, 0 Refills, Maintenance, 08/21/20 13:07:00 EST, Liquid, [facility], Partial fill upon patient [...] Inform ant Esophageal cancer(Confirmed) Active Hypertension(Confirmed) Active Procedures Procedure Date Related Diagnosis Body Site Status Appendectomy Completed Results Radiology Reports * Exam Date Time Procedure Performing Provider Status 08/19/20 8:58 AM Abdomen AP Bijal Mckenna; Auth ( Verified) Notes: (Abdomen AP) Reason For Exam: Pain RESULT: XR Abdomen AP XR Abdomen AP INDICATION/CLINICAL QUESTION: Reason: Pain; Clinical Question(s): Obstruction. Obstruction COMPARISON: CT of 2020. FINDINGS: Normal bowel gas pattern. No evidence of obstruction. Pneumoperitoneum, better appreciated on concurrent chest radiograph. A gastrostomy tube is present overlying the left upper quadrant. No organomegaly, masses or calcifications. No acute bone findings. The visualized lung bases are clear. IMPRESSION: Pneumoperitoneum. Gastrostomy tube overlying the left quadrant. WSN: [id number] Ordering Physician: Maria Isabel Wallace Dictated By: Orquidea Omalley MD Dictated Date/Time: 08/19/20 10:37 a Reviewed By: Orquidea Omalley MD Signed By: Orquidea Omalley MD Signed Date/Time: 08/19/20 10:37 am Transcribed By: BETTY Transcribed Date/Time: 08/19/20 10:30 am * Exam Date Time Procedure Performing Provider Status 08/19/20 8:58 AM Chest 2 Views Frontal and Lat Bijal Mckenna; Auth (Verified) Notes: (Chest 2 Views Frontal and Lat) Reason For Exam: Postop RESULT: Chest 2 Views Frontal and Lat Chest 2 Views Frontal and Lat INDICATION: Status post laparoscopic assisted gastrostomy tube placement on August 17. COMPARISON: 08/18/2020 FINDINGS: LINES AND TUBES: Right chest Port-A-Cath, with tip projecting over the cavoatrial junction. LUNGS AND PLEURA: Clear lungs. Normal pulmonary vascularity. No pleural effusion. No pneumothorax. HEART, MEDIASTINUM AND COLLETTE: Heart is normal in size. Aorta is calcified. BONES AND SOFT TISSUES: No acute abnormality. Increased pneumoperitoneum, most pronounced under the right hemidiaphragm. Mild degenerative changes of the visualized upper lumbar spine. IMPRESSION: Increased pneumoperitoneum. Clear lungs. These findings were discussed by Dr. Gillis with Maria Isabel Wallace NP, at 9:10 AM on 07/30/2020. I have personally reviewed the images and I agree with this report. WSN: [id number] Ordering Physician: Maria Isabel Wallace Dictated By: Obed Gillis DO Dictated Date/Time: 08/19/20 10:30 a Reviewed By: Orquidea Omalley MD Signed By: Orquidea Omalley MD Signed Date/Time: 08/19/20 10:35 am Transcribed By: BETTY Transcribed Date/Time: 08/19/20 9:11 am * Exam Date Time Procedure Performing Provider Status 08/18/20 8:35 AM Chest 2 Views Frontal and Lat Sigrid Washington; Auth (Verified) Notes: (Chest 2 Views Frontal and Lat) Reason For Exam: Postop RESULT: Chest 2 Views Frontal and Lat Chest 2 Views Frontal and Lat INDICATION: Postop, status post laparoscopic staging with excisional biopsy of a perigastric lymph node and laparoscopic placement of a gastrostomy tube on 08/17/2020. CLINICAL QUESTION: Postop COMPARISON: Multiple chest radiographs, most recent 08/17/2020. FINDINGS: LINES AND TUBES: Right IJ Port-A-Cath tip terminates near the superior cavoatrial junction, unchanged. LUNGS AND PLEURA: Clear lungs. Normal pulmonary vascularity. No pleural effusion. No pneumothorax. HEART, MEDIASTINUM AND COLLETTE: Heart is normal in size. Normal mediastinal and hilar contour. BONES AND SOFT TISSUES: Small volume pneumoperitoneum, likely within normal post-laparoscopic limits. Small calcification adjacent to the left humeral head, which may reflect calcific tendinopathy of the rotator cuff. IMPRESSION: 1. Small postoperative pneumoperitoneum, likely within normal limits. Consider follow-up radiographto ensure resolution. 2. Unchanged right IJ Port-A-Cath and clear lungs. I have personally reviewed the images and I agree with this report. WSN: [id number] Ordering Physician: Maria Isabel Wallace Dictated By: Denzel Yu MD Dictated Date/Time: 08/18/20 9:12 am Reviewed By: Ramu Shoemaker MD Signed By: Ramu Shoemaker MD Signed Date/Time: 08/18/20 9:17 am Transcribed By: BETTY Transcribed Date/Time: 08/18/20 9:04 am * Exam Date Time Procedure Performing Provider Status 08/17/20 9:11 PM Chest Portable Donavan Cao; Christian (Ve rified) Notes: (Chest Portable) Reason For Exam: s/p RIJ port and G-tube placement;Postop RESULT: Chest Portable Chest Portable Reason: Postop; s p RIJ port and G-tube placement; Clinical Question(s): Tube Placement; Special Instructions: PLEASE GET IN UPRIGHT POSITION WHILE IN PACU COMPARISON: 08/17/2020 chest radiograph. FINDINGS: LINES AND TUBES: Right internal jugular Port-A-Cath terminates within the cavoatrial junction. Reported G-tube placement is not visualized on this study. LUNGS AND PLEURA: Clear lungs. Normal pulmonary vascularity. No pleural effusion. No pneumothorax. HEART, MEDIASTINUM AND COLLETTE: Heart is normal in size. Normal upper mediastinal and hilar contour. BONES AND SOFT TISSUES: No acute abnormality. IMPRESSION: 1. Right internal jugular Port-A-Cath in appropriate position. No pneumothorax. 2. Reported G tube placement is not visualized on this study. WSN: [id number] Ordering Physician: Kerry Arellano Dictated By: Juanito Salas MD Dictated Date/Time: 08/17/20 9:18 pm Reviewed By: Juanito Salas MD Signed By: Juanito Salas MD Signed Date/Time: 08/17/20 9:18 pm Transcribed By: BETTY Transcribed Date/Time: 08/17/20 9:16 pm * Exam Date Time Procedure Performing Provider Status 08/17/20 8:52 PM C-Arm < 1 Hour Donavan Cao; Christian (Ve rified) Notes: (C-Arm < 1 Hour) Reason For Exam: EGD RESULT: C-Arm < 1 Hour C-Arm < 1 Hour INDICATION: Reason: EGD; Special Instructions: TT 50 min, FT 1min15 sec COMPARISONS: None TECHNIQUE: Fluoroscopy support was provided. There was no radiologist in attendance. Fluoroscopy time: 1 minute, 15 seconds Technologist time: 50 minutes FINDINGS: Fluoroscopy support was provided. There was no radiologist in attendance. IMPRESSION: See above. WSN: [id number] Ordering Physician: Elly Mckeon Dictated By: Clay Maya MD Dictated Date/Time: 08/19/20 6:48 am Reviewed By: Clay Maya MD Signed By: Clay Maya MD Signed Date/Time: 08/19/20 6:48 am Transcribed By: BETTY Transcribed Date/Time: 08/17/20 9:12 pm * Exam Date Time Procedure Performing Provider Status 08/17/20 6:34 AM Chest Portable Porfirio Mckee; Christian ( Verified) Notes: (Chest Portable) Reason For Exam: post chest tube pull;Postop RESULT: Chest Portable Chest Portable Reason: Postop; post chest tube pull; Clinical Question(s): Pneumothorax COMPARISON: 08/11/2020 FINDINGS: LINES AND TUBES: None. LUNGS AND PLEURA: Clear lungs. Normal pulmonary vascularity. No pleural effusion. No pneumothorax. HEART, MEDIASTINUM AND COLLETTE: Heart is normal in size. Normal upper mediastinal and hilar contour. BONES AND SOFT TISSUES: No acute abnormality. IMPRESSION: No acute abnormality. WSN: [id number] Ordering Physician: Smitha Rodriguez Dictated By: Shweta Roach MD Dictated Date/Time: 08/17/20 8:50 am Reviewed By: Shweta Roach MD Signed By: Shweta Roach MD Signed Date/Time: 08/17/20 8:50 am Transcribed By: BETTY Transcribed Date/Time: 08/17/20 8:48 am * Exam Date Time Procedure Performing Provider Status 08/11/20 7:44 PM Chest Portable Jeanette Putnam; Auth (Verified) Notes: (Chest Portable) Reason For Exam: Shortness of Breath RESULT: Chest Portable Chest Portable Hx of Present Illness: diff breathing sob -- recently dx with esophageal cancer ? hasn't started chemo yet - also has poor appetite -; Reason: Shortness of Breath; Clinical Question(s): Pneumonia; Order Comment: COMPARISON: None. FINDINGS: LINES AND TUBES: None. LUNGS AND PLEURA: Clear lungs. Normal pulmonary vascularity. No pleural effusion. No pneumothorax. HEART, MEDIASTINUM AND COLLETTE: Mild prominence of the cardiac silhouette. Normal mediastinal and hilar contour. BONES AND SOFT TISSUES: No acute abnormality. IMPRESSION: No acute abnormality. WSN: [id number] Ordering Physician: Opal Mason Dictated By: hCaparro Gonsales MD Dictated Date/Time: 08/11/20 7:47 pm Reviewed By: Chaparro Gonsales MD Signed By: Chaparro Gonsales MD Signed Date/Time: 08/11/20 7:47 pm Transcribed By: BETTY Transcribed Date/Time: 08/11/20 7:45 pm Vital Signs Most recent to oldest [Reference Range]: 1 2 3 Height 160 cm (08/21/20 7:06 AM) 160 cm (08/20/20 8:15 PM) 160 cm (08/20/20 6:25 AM) Weight 65 kg (08/17/20 4:32 PM) 65 kg (08/17/20 3:46 AM) 64.9 kg (08/14/20 4:25 PM) Oxygen Saturation [94-100 %] 99 % (08/21/20 7:06 AM) 99 % (08/20/20 8:15 PM) 99 % (08/20/20 6:25 AM) Pulse Rate [55-90 bpm] 64 bpm (08/21/20 7:06 AM) 77 bpm (08/20/20 8:15 PM) 72 bpm (08/20/20 6:25 AM) Body Mass Index [18.5-24.99] 25.39 *H* (08/17/20 4:32 PM) 25.35 *H* (08/14/20 4:25 PM) Blood Pressure [90-138/55-84 mm Hg] 138/66mm Hg (08/21/20 8:39 AM) 138/66mm Hg (08/21/20 7:06 AM) 148/72mm Hg *H* (08/20/20 8:15 PM) Respiratory Rate [16-30 br/min] 16 br/min (08/21/20 2:23 PM) 16 br/min (08/21/20 1:23 PM) 16 br/min (08/21/20 9:39 AM) Temperature [96.8-100.4 DegF] 98.9 DegF (08/21/20 7:06 AM) 99.8 DegF (08/20/20 8:15 PM) 98.8 DegF (08/20/20 6:25 AM) Liters per Minute 6 L/min (08/17/20 9:15 PM) 2 L/min (08/14/20 5:50 PM) Mode of Delivery (Oxygen) Room air (08/21/20 7:06 AM) Room air (08/20/20 8:15 PM) Room air (08/20/20 6:25 AM) Blood pressure sites Arm, right (08/21/20 7:06 AM) Arm, right (08/20/20 8:15 PM) Arm, left (08/20/20 6:25 AM) Temperature Route Oral (08/21/20 7:06 AM) Oral (08/20/20 8:15 PM) Oral (08/20/20 6:25 AM) Weight Obtained Via Bed scale (08/17/20 3:46 AM) Standing scale (08/14/20 8:38 AM) Social History Social History Type Response Smoking Status Former smoker, quit more than 30 days ago; Other: reports more than 20 year smoking hsitory but quit 7 years ago; entered on: 08/11/20 Sex
--- OUTSIDE RECORDS SUMMARY | 2024-06-21 09:42 | XMS_ITS | Continuity of Care Document ---
Author Organization [facility] Address [address] [place] [address]- Care Team Providers Care Invoice Control Clerk Name Role Phone Francesco YANES, Rosy Gill Primary Care Physician Encounter [facility] Date(s): 12/22/20 - 01/04/[address] [address] Discharge Disposition: A-D/C Home Attending Physician: Elly Mckeon MD Admitting Physician: Elly Mckeon MD Referring Physician: Elly Mckeon MD Allergies, Adverse Reactions, Alerts Substance Reaction Severity Status morphine rash Active Immunizations Not Given Vaccine Date Status Refusal Reason influenza virus vaccine, inactivated 1 08/14/20 No t Given Patient Refuses 1Result Comment: Pt stated that she will get outside of hospital Medications acetaminophen 160 mg/5 mL oral suspension 30 mL = 960 mg, J Tube, Every 8 hours, for 7 days, # 630 mL, 0 Refills, Acute 01/11/21 8:47:00 EDT,01/04/21 8:47:00 EDT, Suspension, [facility], Partial fill upon patient request if the prescription is for a schedule II opioid drug., 16... Start Date: 01/04/21 Stop Date: 01/11/21 Status: Ordered cyclobenzaprine 5 mg oral tablet [...] Nares, Both, Daily, Maintenance, 12/23/20 16:05:00 EDT, [place] Start Date: 12/23/20 Status: Ordered gabapentin 250 mg/5 mL oral solution 12 mL = 600 mg, J Tube, 3 times a day, # 1,080 mL, 0 Refills, Maintenance, 01/04/21 8:47:00 EDT, Liquid, [facility], Partial fill upon patient request if the prescription is for a schedule II opioid drug., 161, cm, 12/23/20 2:24:00 EDT,... Start Date: 01/04/21 Status: Ordered Gabapentin 50 mg/ml Liquid 600 mg, Liquid, J Tube, 01/04/21 15:00:00 EDT Start Date: 01/04/21 Stop Date: 01/04/21 Status: Completed lactulose 10 gm/15 ml oral syrup 30 mL = 20 Gm, G Tube, Daily, HOLD FOR DIARRHEA, # 240 mL, 0 Refills, Maintenance, 08/21/20 13:05:00 EST, Syrup, [facility], Partial fill upon patient [...] 12/23/20 15:49:00EDT Start Date: 12/23/20 Status: Ordered oxyCODONE 5 mg/5 mL oral solution 10 mL = 10 mg, By Mouth, Every 4 hours, PRN Pain , Moderate, for 7 days, # 420 mL, 0 Refills, Acute01/11/21 8:46:00 EDT, 01/04/21 8:46:00 EDT, Solution, [facility], Partial fill upon patient request if the prescription is for a schedule... 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) 08/14/20 Active Esophageal dysphagia(Confirmed) 08/14/20 Active Hypertension(Confirmed) Active Unintended weight loss(Confirmed) 10/02/20 Active Results Radiology Reports (Most Recent Ten) * Exam Date Time Procedure Performing Provider Status 01/04/21 6:28 AM Chest 2 Views Frontal and Lat Chapis Stephens; Christian (Verified) Notes: (Chest 2 Views Frontal and Lat) Reason For Exam: Postop RESULT: Chest 2 Views Frontal and Lat Chest 2 Views Frontal and Lat Reason: Postop; Clinical Question(s): Pleural Effusion COMPARISON: 01/03/2021 FINDINGS: LINES AND TUBES: Right-sided Port-A-Cath terminates in the lower SVC. Right chest drain terminates at the right lung base. LUNGS AND PLEURA: There is an opacity at the right costophrenic angle which may represent trace effusion and/or focalatelectasis. No left effusion. No pneumothorax. HEART, MEDIASTINUM AND COLLETTE: Heart is normal in size. Opacity along the right margin of the heart corresponds to gastric pull-through. BONES AND SOFT TISSUES: Focal lucency projecting over the left lung base may represent residua of surgical emphysema seen on recent chest radiographs. IMPRESSION: Focal atelectasis and/or trace effusion at the right costophrenic angle, with drain in place. WSN: [id number] Ordering Physician: Madalyn Patel Dictated By: Nidhi Valencia MD Dictated Date/Time: 01/04/21 8:25 am Reviewed By: Nidhi Valencia MD Signed By: Nidhi Valencia MD Signed Date/Time: 01/04/21 8:25 am Transcribed By: BETTY Transcribed Date/Time: 01/04/21 8:12 am * Exam Date Time Procedure Performing Provider Status 01/03/21 6:45 AM Chest 2 Views Frontal and Lat Laly Hall; Auth (Verified) Notes: (Chest 2 Views Frontal and Lat) Reason For Exam: Postop RESULT: Chest 2 Views Frontal and Lat Chest 2 Views Frontal and Lat REASON: Postop; Clinical Question(s): Pleural Effusion / Pleural Effusion COMPARISON: 01/02/2021 FINDINGS: LINES AND TUBES: Right chest port in place. CHRIST drain in the right upper quadrant or right lower chest, unchanged. LUNGS AND PLEURA: Trace pleural effusions and mild bibasilar atelectasis, similar to prior. No pleural effusion. No pneumothorax. HEART, MEDIASTINUM AND COLLETTE: Heart is normal in size. Status post esophagectomy and gastric conduit. BONES AND SOFT TISSUES: No acute abnormality. IMPRESSION: No significant change. WSN: [id number] Ordering Physician: Edwige Jones Dictated By: Chaparro Pepe MD Dictated Date/Time: 01/03/21 12:11 p Reviewed By: Chaparro Pepe MD Signed By: Chaparro Pepe MD Signed Date/Time: 01/03/21 12:11 pm Transcribed By: BETTY Transcribed Date/Time: 01/03/21 12:10 pm * Exam Date Time Procedure Performing Provider Status 01/03/21 9:21 AM Esophagus Barium Swallow Honey Washington; Auth (Verified) Notes: (Esophagus Barium Swallow) Reason For Exam: POD #12, S/P Esophagectomy with gastric conduit at thoracic level;Postop RESULT: Esophagus Barium Swallow PROCEDURE: Esophagus Barium Swallow REASON: POD #12, status post esophagectomy with gastric conduit at thoracic level; Clinical Question(s): Anastomotic leak; Delayed gastric emptying COMPARISONS: 12/29/2020 FLUOROSCOPY TIME: 0.9 Min Dose Area Product (DAP): 2260.6 uGy*m2 TECHNIQUE: Water soluble and barium contrast esophagram was performed by Dr. Acosta. FINDINGS: Library Services Assistant: Surgical clips overlying the left perihilar region. Right CHRIST drain overlying the right hemidiaphragm. Right Port-A-Cath tip overlying the right atrium. Swallow: Normal oral and pharyngeal phases with no laryngeal penetration or subglottic aspiration. Esophagus and stomach: Redemonstrated shortened esophagus status post partial esophagectomy with gastric conduit and anastomosis at the level of T5. No evidence of contrast extravasation. Contrast isseen promptly emptying into the stomach and transitioning into a nondilated proximal duodenum. IMPRESSION: No evidence of contrast extravasation. Findings discussed via telephone by Dr. Acosta with Addy Teresa MD on 01/03/2021t 10:19 AM. I have personally reviewed the images and I agree with this report. WSN: [id number] Ordering Physician: Madalyn Patel Dictated By: Roel Acosta DO Dictated Date/Time: 01/03/21 10:40 a Reviewed By: Chaparro Pepe MD Signed By: Chaparro Pepe MD Signed Date/Time: 01/03/21 10:45 am Transcribed By: BETTY Transcribed Date/Time: 01/03/21 9:57 am * Exam Date Time Procedure Performing Provider Status 01/02/21 7:13 AM Chest 2 Views Frontal and Lat Laly Hall; Christian (Verified) Notes: (Chest 2 Views Frontal and Lat) Reason For Exam: Postop RESULT: Chest 2 Views Frontal and Lat Chest 2 Views Frontal and Lat Reason: Postop; Clinical Question(s): Pleural Effusion COMPARISON: 01/01/2021 FINDINGS: Right IJ Port-A-Cath is stable. Drain over the right upper quadrant is stable. Soft tissue gas in the left chest wall is stable. Mild blunting of the right costophrenic angle is stable. IMPRESSION: Stable exam WSN: [id number] Ordering Physician: Edwige Jones Dictated By: Papito Shin MD Dictated Date/Time: 01/02/21 8:29 am Reviewed By: Papito Shin MD Signed By: Papito Shin MD Signed Date/Time: 01/02/21 8:29 am Transcribed By: BETTY Transcribed Date/Time: 01/02/21 8:27 am * Exam Date Time Procedure Performing Provider Status 01/01/21 6:22 AM Chest 2 Views Frontal and Lat Renu Mejia; Auth (Verified) Notes: (Chest 2 Views Frontal and Lat) Reason For Exam: Postop RESULT: Chest 2 Views Frontal and Lat Chest 2 Views Frontal and Lat REASON: Postop; Clinical Question(s): Pleural Effusion / Pleural Effusion COMPARISON: 12/31/2020 FINDINGS: LINES AND TUBES: Unchanged position of the right chest Port-A-Cath. CHRIST drain projects over the right lower chest. LUNGS AND PLEURA: Mild hazy opacity at the bases, likely atelectasis. Trace bilateral pleural effusions. No pneumothorax. HEART, MEDIASTINUM AND COLLETTE: Unchanged. BONES AND SOFT TISSUES: Left chest wall subcutaneous cutaneous emphysema, similar to prior. IMPRESSION: No significant change. WSN: [id number] Ordering Physician: Madalyn Patel Dictated By: Chaparro Pepe MD Dictated Date/Time: 01/01/21 8:10 am Reviewed By: Chaparro Pepe MD Signed By: Chaparro Pepe MD Signed Date/Time: 01/01/21 8:10 am Transcribed By: BETTY Transcribed Date/Time: 01/01/21 8:09 am * Exam Date Time Procedure Performing Provider Status 12/31/20 6:37 AM Chest 2 Views Frontal and Lat Renu Mejia; Auth (Verified) Notes: (Chest 2 Views Frontal and Lat) Reason For Exam: Postop RESULT: Chest 2 Views Frontal and Lat Chest 2 Views Frontal and Lat Reason: Postop; Clinical Question(s): Pleural Effusion COMPARISON: 12/30/2020 FINDINGS: LINES AND TUBES: Stable position of the right Port-A-Cath with tip in SVC. LUNGS AND PLEURA: Stable bandlike area of atelectasis at the right base laterally, lungs otherwise clear. Normal pulmonary vascularity. Trace right pleural effusion. No pneumothorax. HEART, MEDIASTINUM AND COLLETTE: Heart is normal in size. Normal upper mediastinal and hilar contour. BONES AND SOFT TISSUES: No acute osseous findings. Slowly diminishing subcutaneous emphysema left chest wall. IMPRESSION: No acute chest findings. WSN: [id number] Ordering Physician: Madalyn Patel Dictated By: Grover Tucker MD Dictated Date/Time: 12/31/20 9:53 am Reviewed By: Grover Tucker MD Signed By: Grover Tucker MD Signed Date/Time: 12/31/20 9:53 am Transcribed By: BETTY Transcribed Date/Time: 12/31/20 9:49 am * Exam Date Time Procedure Performing Provider Status 12/30/20 12:39 PM Abdomen Series W/ PA Chest Argueta, Er in E.; Auth (Verified) Notes: (Abdomen Series W/ PA Chest) Reason For Exam: Nausea/Vomiting RESULT: Abdomen Series W/ PA Chest Abdomen Series W/ PA Chest REASON: Nausea Vomiting; Clinical Question(s): Obstruction COMPARISON: Chest from 12/30/2020 FINDINGS: LINES AND TUBES: Right-sided Port-A-Cath in place. Drain projects over the mediastinum. Catheter projects over the left lower quadrant. LUNGS AND PLEURA: Mild bibasilar atelectasis. No pleural effusion. No pneumothorax. HEART, MEDIASTINUM AND COLLETTE: Normal. BOWEL GAS PATTERN AND SOFT TISSUES: Nonobstructive bowel gas pattern. Retained barium in the colon. No evidence of pneumoperitoneum. There is left chest wall subcutaneous emphysema. BONES: No acute abnormality. IMPRESSION: No findings to suggest bowel obstruction or perforation. WSN: [id number] Ordering Physician: Madalyn Patel Dictated By: Chaparro Pepe MD Dictated Date/Time: 12/30/20 3:06 pm Reviewed By: Chaparro Pepe MD Signed By: Chaparro Pepe MD Signed Date/Time: 12/30/20 3:06 pm Transcribed By: BETTY Transcribed Date/Time: 12/30/20 3:04 pm * Exam Date Time Procedure Performing Provider Status 12/30/20 6:28 AM Chest 2 Views Frontal and Lat Ekenbarg er , Sanna L; Auth (Verified) Notes: (Chest 2 Views Frontal and Lat) Reason For Exam: Postop RESULT: Chest 2 Views Frontal and Lat Chest 2 Views Frontal and Lat INDICATION: Postop. COMPARISON: Multiple priors, the most recent 12/29/2020. FINDINGS: LINES AND TUBES: Right Port-A-Cath terminating at the lower to mid SVC. LUNGS AND PLEURA: Clear lungs. Normal pulmonary vascularity. No pleural effusion. No pneumothorax. HEART, MEDIASTINUM AND COLLETTE: Heart is normal in size. Aorta is calcified. BONES AND SOFT TISSUES: Stable subcutaneous emphysema on the left.. IMPRESSION: No acute abnormality. I have personally reviewed the images and I agree with this report. WSN: [id number] Ordering Physician: Madalyn Patel Dictated By: Latrell[Radiology] Melita ESTRADA Dictated Date/Time: 12/30/20 8:50 am Reviewed By: Clay Maya MD Signed By: Clay Maya MD Signed Date/Time: 12/30/20 8:55 am Transcribed By: BETTY Transcribed Date/Time: 12/30/20 8:38 am * Exam Date Time Procedure Performing Provider Status 12/29/20 3:25 PM Esophagus Barium Swallow Edgardo Escobar; Christian (Verified) Notes: (Esophagus Barium Swallow) Reason For Exam: POD #6, S/P Esophagectomy with gastric conduit at thoracic level;Other: RESULT: Esophagus Barium Swallow PROCEDURE: Esophagus Barium Swallow CLINICAL INDICATION: POD 6 status post Dane Kamaljit esophagectomy COMPARISONS: None FLUOROSCOPY TIME: 1.1 Min Dose Area Product (DAP): 3491.3 uGy*m2 TECHNIQUE: Aqueous (images 1--34) followed by Barium (35-53) contrast esophagram was performed by Son Jean PA-C and ANNIE Castañeda. FINDINGS: Library Services Assistant: Surgical clips are seen projecting over the left mediastinum. CHRIST drain is seen residing in the lower mid chest. Right-sided chest port is seen with distal tip terminating in the right atrium. Swallow: Normal oral and pharyngeal phases with no laryngeal penetration or subglottic aspiration. Esophagus: Surgically foreshortened status post partial esophagectomy with gastric pull-through andintrathoracic anastomosis. Otherwise normal in contour and mucosal appearance. Normal esophageal motility, with prompt transit of contrast across the esophagogastric anastomosis into the stomach. No evidence of esophageal web, narrowing or outpouching. No esophageal obstruction. No evidence of leakor perforation. The stomach and proximal duodenum are grossly normal status post gastric pull- through with approximately one half of the stomach residing in the chest. Contrast promptly empties from the stomach intoa nondilated duodenum. No gastric outlet obstruction. IMPRESSION: No evidence of leak or perforation status post [place]-Kamaljit esophagectomy. No gastric outlet obstruction. By undersigning and finalizing the report, the attending radiologist confirms he/she has personallyreviewed and interpreted the images and agrees with the description of the findings. I have personally reviewed the images and I agree with this report. WSN: [id number] Ordering Physician: Madalyn Patel Dictated By: Juan Fernandez Dictated Date/Time: 12/29/20 3:38 pm Reviewed By: Maria Isabel Woodson MD Signed By: Maria Isabel Woodson MD Signed Date/Time: 12/29/20 3:43 pm Transcribed By: BETTY Transcribed Date/Time: 12/29/20 3:33 pm * Exam Date Time Procedure Performing Provider Status 12/29/20 6:49 AM Chest 2 Views Frontal and Lat Taylor Washington (Verified) Notes: (Chest 2 Views Frontal and Lat) Reason For Exam: Tube Placement RESULT: Chest 2 Views Frontal and Lat Chest 2 Views Frontal and Lat INDICATION: Tube placement. COMPARISON: Multiple priors, the most recent 12/28/2020. FINDINGS: LINES AND TUBES: Right Port-A-Cath terminating at the middle third SVC. Enteric tube terminating above the duct. Multiple loops of wire projecting over the epigastrium. LUNGS AND PLEURA: Question of a nodular density in the right midlung zone. Trace bilateral pleural effusions. No pneumothorax. HEART, MEDIASTINUM AND COLLETTE: Unchanged. BONES AND SOFT TISSUES: No acute abnormality. Decreased bilateral supraclavicular, left chest wall soft tissue emphysema. IMPRESSION: Support lines and tubes in good position. Question of a nodular density in the right midlung zone bears watching on subsequent studies. A Yellow message has been communicated via the [employer] system on 12/29/2020 11:34 AM, Message ID [id number]. I have personally reviewed the images and I agree with this report. WSN: [id number] Ordering Physician: Cezar Campuzano Dictated By: Latrell[Radiology] Melita ESTRADA Dictated Date/Time: 12/29/20 11:34 a Reviewed By: Peng Florez MD Signed By: Peng Florez MD Signed Date/Time: 12/29/20 11:39 am Transcribed By: BETTY Transcribed Date/Time: 12/29/20 11:25 am Vital Signs Most recent to oldest [Reference Range]: 1 2 3 Height 161 cm (12/23/20 2:01 AM) Weight 65.2 kg (12/31/20 9:00 AM) 63.6 kg (12/23/20 2:01 AM) Oxygen Saturation [94-100 %] 96 % (01/04/21 4:00 PM) 98 % (01/04/21 2:00 PM) 97 % (01/04/21 10:00 AM) Pulse Rate [55-90 bpm] 110 bpm *H* (01/04/21 2:00 PM) 99 bpm *H* (01/04/21 10:00 AM) 95 bpm *H* (01/04/21 6:00 AM) Body Mass Index [18.5-24.99] 24.54 (12/23/20 2:01 AM) Blood Pressure [90-138/55-84 mm Hg] 137/71mm Hg (01/04/21 2:00 PM) 129/76mm Hg (01/04/21 10:00 AM) 140/75mm Hg *H* (01/04/21 6:00 AM) Respiratory Rate [16-30 br/min] 25 br/min (01/04/21 4:00 PM) 20 br/min (01/04/21 2:30 PM) 20 br/min (01/04/21 2:30 PM) Temperature [96.8-100.4 DegF] 98.2 DegF (01/04/21 2:00 PM) 97.7 DegF (01/04/21 10:00 AM) 97.9 DegF (01/04/21 6:00 AM) Liters per Minute 4 L/min (12/23/20 4:35 PM) 4 L/min (12/23/20 4:30 PM) 4 L/min (12/23/20 4:25 PM) Mode of Delivery (Oxygen) Room air (01/04/21 2:00 PM) Room air (01/04/21 10:00 AM) Room air (01/04/21 6:00 AM) Blood pressure sites Arm, left (01/04/21 2:00 PM) Arm, left (01/04/21 10:00 AM) Arm, left (01/04/21 6:00 AM) Temperature Route Oral (01/04/21 2:00 PM) Oral (01/04/21 10:00 AM) Oral (01/04/21 6:00 AM) Dry Weight 63.6 kg (12/23/20 2:01 AM) Weight Obtained Via Bed scale (12/31/20 9:00 AM) Social History Social History Type Response Smoking Status Former smoker, quit more than 30 days ago; Other: reports more than 20 year smoking hsitory but quit 7 years ago; entered on: 08/11/20 Sex
--- OUTSIDE RECORDS SUMMARY | 2024-06-21 09:42 | XMS_ITS | Continuity of Care Document ---
Author Organization [facility] Address Unknown Care Team Providers Care Employment Training Specialist Name Role Phone Rosy Maya NP, V Primary Care Physician [phone] Encounter [place] Date(s): 01/05/22 - 01/12/22 [facility] Attending Physician: Not on Staff, Attending MD Allergies, Adverse Reactions, Alerts Substance Reaction [...] Nares, Both, Daily, Maintenance, 12/23/20 16:05:00 EDT, [place] Start Date: 12/23/20 Status: Ordered lactulose 10 gm/15 ml oral syrup 30 mL = 20 Gm, G Tube, Daily, HOLD FOR DIARRHEA, # 240 mL, 0 Refills, Maintenance, 08/21/20 13:05:00 EST, Syrup, [facility], Partial fill upon patient [...] Status Health Status Inform ant Esophageal cancer ([id number] with 23 examined lymph nodes; [id number] adenocarcinoma of the distal esophagus)(Confirmed) 1 12/22/20 Active Esophageal dysphagia(Confirmed) 08/14/20 Active Hypertension(Confirmed) Active Unintended weight loss(Confirmed) 10/02/20 Active 1Complete pathological response on esophagectomy specimen Vital Signs Most recent to oldest [Reference Range]: 1 Height 161 cm (01/05/22 1:33 PM) Weight 66.8 kg (01/05/22 1:33 PM) Oxygen Saturation [94-100 %] 98 % (01/05/22 1:33 PM) Pulse Rate [55-90 bpm] 74 bpm (01/05/22 1:33 PM) Body Mass Index [18.5-24.99] 25.77 *H* (01/05/22 1:33 PM) Blood Pressure [90-138/55-84 mm Hg] 142/ 68mm Hg *H* (01/05/22 1:33 PM) Temperature [96.8-100.4 DegF] 97.5 DegF (01/05/22 1:33 PM) Mode of Delivery (Oxygen) Room air (01/05/22 1:33 PM) Blood pressure sites Arm, right (01/05/22 1:33 PM) Temperature Route Temporal (01/05/22 1:33 PM) Weight Obtained Via Standing scale (01/05/22 1:33 PM) Social History Social History Type Response Smoking Status Former smoker, quit more than 30 days ago; Other: reports more than 20 year smoking hsitory but quit 7 years ago; entered on: 08/11/20 Sex
--- OUTSIDE RECORDS SUMMARY | 2024-06-21 09:43 | XMS_ITS | Continuity of Care Document ---
Author Organization [facility] Address Unknown Care Team Providers Care Play Reader Name Role Phone Francesco YANES, Rosy Gill Primary Care Physician [place] [facility] [place] 11/30/21 - 12/30/21 [facility] Allergies, Adverse Reactions, Alerts Substance Reaction Severity [...] Nares, Both, Daily, Maintenance, 12/23/20 16:05:00 EDT, [place] Start Date: 12/23/20 Status: Ordered lactulose 10 gm/15 ml oral syrup 30 mL = 20 Gm, G Tube, Daily, HOLD FOR DIARRHEA, # 240 mL, 0 Refills, Maintenance, 08/21/20 13:05:00 EST, Syrup, [facility], Partial fill upon [...] Status Health Status Inform ant Esophageal cancer ([id number] with 23 examined lymph nodes; [id number] adenocarcinoma of the distal esophagus)(Confirmed) 1 12/22/20 [...]
--- OUTSIDE RECORDS SUMMARY | 2024-06-21 09:43 | XMS_ITS | Continuity of Care Document ---
Author Organization [facility] Address [address] [place] [address] [address] [place] [address]- Care Team Providers Care Ladle Operator Name Role Phone Francesco YANES, Rosy Gill Primary Care Physician [phone] Encounter [facility] Date(s): 02/11/21 - 03/13/21 [facility] [address] [place] [address], [address] [place], [place] [address] Allergies, Adverse Reactions, Alerts Substance Reaction Severity [...] Nares, Both, Daily, Maintenance, 12/23/20 16:05:00 EDT, [place] Start Date: 12/23/20 Status: Ordered gabapentin 250 mg/5 mL oral solution 12 mL = 600 mg, J Tube, 3 times a day, # 1,080 mL, 0 Refills, Maintenance, 02/11/21 11:51:00 EDT, [facility], [facility], Partial fill upon patient request if the prescription is for a schedule II opioid drug., 161, cm, 02/03/21 14:26:... Start Date: 02/11/21 Status: Ordered lactulose 10 gm/15 ml oral syrup 30 mL = 20 Gm, G Tube, Daily, HOLD FOR DIARRHEA, # 240 mL, 0 Refills, Maintenance, 08/21/20 13:05:00 EST, Syrup, [facility], Partial fill upon patient [...] Status Health Status Inform ant Esophageal cancer ([id number] with 23 examined lymph nodes; [id number] adenocarcinoma of the distal esophagus)(Confirmed) 1 12/22/20 [...]
--- OUTSIDE RECORDS SUMMARY | 2024-06-21 09:43 | XMS_ITS | Continuity of Care Document ---
Author Organization [facility] Address [address] [place] [address] [address] [place] [address]- Care Team Providers Care Dough Mixer Operator Name Role Phone Francesco YANES, Rosy Gill Primary Care Physician [phone] [place] [facility] [place]s): 05/30/22 - 06/29/22 [facility] [address] [place] [address], [address] [place], [place] [address] Allergies, Adverse Reactions, Alerts Substance Reaction Severity [...] Nares, Both, Daily, Maintenance, 12/23/20 16:05:00 EDT, [place] Start Date: 12/23/20 Status: Ordered lactulose 10 [...] Date: 06/30/21 Status: Ordered Problem List Condition Confirmation Course Effective Dates Status H ealth Status Informant Esophageal cancer ([id number] with 23 examined lymph nodes; [id number] adenocarcinoma of the distal esophagus) 1 Confirmed 12/22/20 Active Esophageal dysphagia Confirmed 08/14/20 Active Hypertension Confirmed Active Unintended weight loss Confirmed 10/02/20 Active 1Complete pathological response on esophagectomy specimen Social History Social History Type Response Smoking Status Former smoker, quit more than 30 days ago; Other: reports more than 20 year smoking hsitory but quit 7 years ago; entered on: 08/11/20 Sex Patient Care team information Personnel Name: Rosy Maya NP, V Address: Address: [address] [place] [address] [address] [facility], [facility]. [place], [place] [address]
--- OUTSIDE RECORDS SUMMARY | 2024-06-21 09:43 | XMS_ITS | Continuity of Care Document ---
Author Organization [facility] Address [address] [place] [address] [address], [address] [place] [address]- Care Team Providers Care Choir Singer Name Role Phone Francesco YANES, Rosy Gill Primary Care Physician Encounter [facility] Date(s): 10/07/20 - 11/06/20 [facility] [address] [place] [address], [address] [place] [address]- Allergies, Adverse Reactions, Alerts Substance Reaction Severity [...] 0 Refills, Maintenance, 08/21/20 13:08:00 EST, Liquid, [facility], Partial fill upon patient request if the prescription is for a schedule II opioid drug., 160, cm, 08/21/20 7:0... Start Date: 08/21/20 Status: Ordered lactulose 10 gm/15 ml oral syrup 30 mL = 20 Gm, G Tube, Daily, HOLD FOR DIARRHEA, # 240 mL, 0 Refills, Maintenance, 08/21/20 13:05:00 EST, Syrup, [facility], Partial fill upon patient request if the prescription is fora schedule II opioid drug., 30 mL G Tube Daily,Inst... 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
--- OUTSIDE RECORDS SUMMARY | 2024-06-21 09:43 | XMS_ITS | Continuity of Care Document ---
Author Organization [facility] Address [address] [place] [address] [address], [address] [place] [address]- Care Team Providers Care Agricultural Loan Officer Name Role Phone Francesco YANES, Rosy Gill Primary Care Physician Encounter [facility] Date(s): 10/02/20 - 10/09/20 [facility] [address] [place] [address], [address] [place], [place] [address] Attending Physician: Elly Mckeon MD Allergies, Adverse [...] 0 Refills, Maintenance, 08/21/20 13:08:00 EST, Liquid, [facility], Partial fill upon patient request if the prescription is for a schedule II opioid drug., 160, cm, 08/21/20 7:0... Start Date: 08/21/20 Status: Ordered lactulose 10 gm/15 ml oral syrup 30 mL = 20 Gm, G Tube, Daily, HOLD FOR DIARRHEA, # 240 mL, 0 Refills, Maintenance, 08/21/20 13:05:00 EST, Syrup, [facility], Partial fill upon patient request if the prescription is fora schedule II opioid drug., 30 mL G Tube Daily,Inst... Start Date: 08/21/20 Status: Ordered multivitamin Pediatric Multiple Vitamins oral liquid 5 mL, G Tube, Daily, # 50 mL, 0 Refills, Maintenance, 08/21/20 13:07:00 EST, Liquid, [facility], Partial fill upon patient [...] Status Health Status Inform ant Esophageal cancer ([id number] adenocarcinoma of the distal esophagus)(Confirmed) 08/14/20 Active Esophageal dysphagia(Confirmed) 08/14/20 Active Hypertension(Confirmed) Active Unintended weight loss(Confirmed) 10/02/20 Active Procedures Procedure Date Related Diagnosis Body Site Status Laparoscopic insertion of ga strostomy tube 08/17/20 Completed Back Injections Completed Hemorrhoidectomy Complete d Vital Signs Most recent to oldest [Reference Range]: 1 Height 160 cm (10/02/20 2:44 PM) Weight 68.3 kg (10/02/20 2:44 PM) Oxygen Saturation [94-100 %] 98 % (10/02/20 2:44 PM) Pulse Rate [55-90 bpm] 96 bpm *H* (10/02/20 2:44 PM) Body Mass Index [18.5-24.99] 26.68 *H* (10/02/20 2:44 PM) Blood Pressure [90-138/55-84 mm Hg] 112/ 64mm Hg (10/02/20 2:44 PM) Temperature [96.8-100.4 DegF] 96.8 DegF (10/02/20 2:44 PM) Mode of Delivery (Oxygen) Room air (10/02/20 2:44 PM) Blood pressure sites Arm, right (10/02/20 2:44 PM) Temperature Route Temporal (10/02/20 2:44 PM) Weight Obtained Via Standing scale (10/02/20 2:44 PM) Social History Social History Type Response Smoking Status Former smoker, quit more than 30 days ago; Other: reports more than 20 year smoking hsitory but quit 7 years ago; entered on: 08/11/20 Sex
--- OUTSIDE RECORDS SUMMARY | 2024-06-21 09:43 | XMS_ITS | Continuity of Care Document ---
Author Organization [facility] Address [address] [place] [address] [address], [address] [place] [address]- Care Team Providers Care Solid Waste Analyst Name Role Phone Francesco YANES, Rosy Gill Primary Care Physician [phone] [facility]counter [facility] Date(s): 04/08/22 - 08/27/22 [facility] [address] [place] [address], [address] [place], [place] [address] Attending Physician: Not on Staff, Attending MD [...] Nares, Both, Daily, Maintenance, 12/23/20 16:05:00 EDT, [place] Start Date: 12/23/20 Status: Ordered lactulose 10 gm/15 ml oral syrup 30 mL = 20 Gm, G Tube, Daily, HOLD FOR DIARRHEA, # 240 mL, 0 Refills, Maintenance, 08/21/20 13:05:00 EST, Syrup, [facility], Partial fill upon patient [...] Status H ealth Status Informant Esophageal cancer ([id number] with 23 examined lymph nodes; [id number] adenocarcinoma of the distal esophagus) 1 Confirmed 12/22/20 Active Esophageal dysphagia Confirmed 08/14/20 Active Hypertension Confirmed Active Unintended weight loss Confirmed 10/02/20 Active 1Complete pathological response on esophagectomy specimen Vital Signs Most recent to oldest [Reference Range]: 1 Height 161 cm (07/28/22 1:39 PM) Weight 67.2 kg (07/28/22 1:39 PM) Oxygen Saturation [94-100 %] 98 % (07/28/22 1:39 PM) Pulse Rate [55-90 bpm] 61 bpm (07/28/22 1:39 PM) Body Mass Index [18.5-24.99 kg/m2] 25.92 kg/m2 *H* (07/28/22 1:39 PM) Blood Pressure [90-138/55-84 mm Hg] 141/ 92mm Hg *H* (07/28/22 1:39 PM) Temperature [96.8-100.4 DegF] 97.2 DegF (07/28/22 1:39 PM) Mode of Delivery (Oxygen) Room air (07/28/22 1:39 PM) Blood pressure sites Arm, right (07/28/22 1:39 PM) Temperature Route Temporal (07/28/22 1:39 PM) Weight Obtained Via Standing scale (07/28/22 1:39 PM) Social History Social History Type Response Smoking Status Former smoker, quit more than 30 days ago; Other: reports more than 20 year smoking hsitory but quit 7 years ago; entered on: 08/11/20 Sex Patient Care team information Care Team Personnel Name: Rosy Maya NP, V Position: [facility] Outreach Member Role: PCP Address: Address: [address] [place] [id number] Name: Jeanmarie Avila RN Position: [facility] RN Member Role: Primary Care Nurse Name: Maribel Castillo RN Position: [facility] RN Supv Member Role: Primary Care Nurse Name: Lisa Cannon RN Position: [facility] RN Supv Member Role: Primary Care Nurse Name: Bijal Lozada RN Position: [facility] RN Member Role: Primary Care Nurse Name: Renu Burns RN Position: [facility] RN Member Role: Primary Care Nurse Name: Demetrice Vargas RN Position: [facility] RN Member Role: Primary Care Nurse Name: Lisha Matson RN Position: [facility] RN Member Role: Primary Care Nurse Name: Milka Helm RN Position: [facility] RN Member Role: Primary Care Nurse Name: Livan Wade RN Position: S RN Member Role: Primary Care Nurse Name: Essence Polanco RN Position: S RN Member Role: Primary Care Nurse Name: Becki Ordaz RN Position: S RN Member Role: Primary Care Nurse Name: Scarlett Melchor RN Position: [facility] Onco RN Member Role: Primary Care Nurse Name: Estefania Brewer RN, I Position: [facility] RN Member Role: Primary Care Nurse Care Team Related Persons Name: MATT MCKEON Address: [place] [address] Name: JENNIFER MCKEON Address: home [address] [place] [address]
--- OUTSIDE RECORDS SUMMARY | 2024-06-21 09:43 | XMS_ITS | Continuity of Care Document ---
Author Organization [facility] Address Unknown Care Team Providers Care Senior Physical Therapist Name Role Phone Francesco YANES, Rosy Gill Primary Care Physician [phone] Encounter [facility] Date(s): 05/19/21 - 06/18/21 [facility] Thor[facility] Surgery Allergies, Adverse Reactions, Alerts Substance [...] Nares, Both, Daily, Maintenance, 12/23/20 16:05:00 EDT, [place] Start Date: 12/23/20 Status: Ordered lactulose 10 gm/15 ml oral syrup 30 mL = 20 Gm, G Tube, Daily, HOLD FOR DIARRHEA, # 240 mL, 0 Refills, Maintenance, 08/21/20 13:05:00 EST, Syrup, [facility], Partial fill upon patient request if [...] CT scan,# 2 each, 0 Refills, Maintenance, 05/19/21 12:06:00... Start Date: 05/19/21 Status: Ordered simvastatin 20 mg oral tablet [...] Status Health Status Inform ant Esophageal cancer ([id number] with 23 examined lymph nodes; [id number] adenocarcinoma of the distal esophagus)(Confirmed) 1 12/22/20 [...]
--- OUTSIDE RECORDS SUMMARY | 2024-06-21 09:43 | XMS_ITS | Continuity of Care Document ---
Author Organization [facility] Address [address] [place] [address] [address], [address] [place] [address]- Care Team Providers Care Conveyor Technician Name Role Phone Francesco YANES, Rosy Gill Primary Care Physician [place] [facility] [place] 03/11/21 - 03/18/21 [facility] [address] [place] [address], [address] [place], [place] [address] Attending Physician: Elly Mckeon MD Allergies, [...] Nares, Both, Daily, Maintenance, 12/23/20 16:05:00 EDT, [place] Start Date: 12/23/20 Status: Ordered gabapentin 250 mg/5 mL oral solution 12 mL = 600 mg, J Tube, 3 times a day, # 1,080 mL, 0 Refills, Maintenance, 02/11/21 11:51:00 EDT, Liquid, [facility], Partial fill upon patient request if the prescription is for a schedule II opioid drug., 161, cm, 02/03/21 14:26:... Start Date: 02/11/21 Status: Ordered lactulose 10 gm/15 ml oral syrup 30 mL = 20 Gm, G Tube, Daily, HOLD FOR DIARRHEA, # 240 mL, 0 Refills, Maintenance, 08/21/20 13:05:00 EST, Syrup, [facility], Partial fill [...] Status Health Status Inform ant Esophageal cancer ([id number] with 23 examined lymph nodes; [id number] adenocarcinoma of the distal esophagus)(Confirmed) 1 12/22/20 Active Esophageal dysphagia(Confirmed) 08/14/20 Active Hypertension(Confirmed) Active Unintended weight loss(Confirmed) 10/02/20 Active 1Complete pathological response on esophagectomy specimen Vital Signs Most recent to oldest [Reference Range]: 1 Height 161 cm (03/11/21 2:12 PM) Weight 63.5 kg (03/11/21 2:12 PM) Oxygen Saturation [94-100 %] 96 % (03/11/21 2:12 PM) Pulse Rate [55-90 bpm] 84 bpm (03/11/21 2:12 PM) Body Mass Index [18.5-24.99] 24.5 (03/11/21 2:12 PM) Blood Pressure [90-138/55-84 mm Hg] 122/ 72mm Hg (03/11/21 2:12 PM) Respiratory Rate [16-30 br/min] 18 br/mi n (03/11/21 2:12 PM) Temperature [96.8-100.4 DegF] 97 DegF (03/11/21 2:12 PM) Mode of Delivery (Oxygen) Room air (03/11/21 2:12 PM) Blood pressure sites Arm, right (03/11/21 2:12 PM) Temperature Route Temporal (03/11/21 2:12 PM) Weight Obtained Via Standing scale (03/11/21 2:12 PM) Social History Social History Type Response Smoking Status Former smoker, quit more than 30 days ago; Other: reports more than 20 year smoking hsitory but quit 7 years ago; entered on: 08/11/20 Sex
--- OUTSIDE RECORDS SUMMARY | 2024-06-21 09:43 | XMS_ITS | Continuity of Care Document ---
Author Organization [facility] Address [address] [place] [address] [address], [address] [place] [address]- Care Team Providers Care Mechanical Artist Name Role Phone Francesco EVENT TECHNICIAN, Rosy Gill Primary Care Physician [phone] Encounter [facility] Date(s): 01/20/21 - 01/27/21 [facility] Thor[facility] Surgery [address] [place] [address], [address] [place], [place] [address] Attending Physician: Elly Mckeon [...] Nares, Both, Daily, Maintenance, 12/23/20 16:05:00 EDT, [place] Start Date: 12/23/20 Status: Ordered gabapentin 250 mg/5 mL oral solution 12 mL = 600 mg, J Tube, 3 times a day, # 1,080 mL, 0 Refills, Maintenance, 01/04/21 8:47:00 EDT, Liquid, [facility], Partial fill upon patient request if the prescription is for a schedule II opioid drug., 161, cm, 12/23/20 2:24:00 EDT,... Start Date: 01/04/21 Status: Ordered lactulose 10 gm/15 ml oral syrup 30 mL = 20 Gm, G Tube, Daily, HOLD FOR DIARRHEA, # 240 mL, 0 Refills, Maintenance, 08/21/20 13:05:00 EST, Syrup, [facility], Partial fill upon patient request if [...] Status Health Status Inform ant Esophageal cancer ([id number] adenocarcinoma of the distal esophagus)(Confirmed) 12/4/20 Active Esophageal dysphagia(Confirmed) 08/14/20 Active Hypertension(Confirmed) Active Unintended weight loss(Confirmed) 10/02/20 Active Vital Signs Most recent to oldest [Reference Range]: 1 Height 161 cm (01/20/21 3:50 PM) Weight 65 kg (01/20/21 3:50 PM) Oxygen Saturation [94-100 %] 98 % (01/20/21 3:50 PM) Pulse Rate [55-90 bpm] 88 bpm (01/20/21 3:50 PM) Body Mass Index [18.5-24.99] 25.08 *H* (01/20/21 3:50 PM) Blood Pressure [90-138/55-84 mm Hg] 137/ 84mm Hg (01/20/21 3:50 PM) Respiratory Rate [16-30 br/min] 18 br/mi n (01/20/21 3:50 PM) Temperature [96.8-100.4 DegF] 96.7 DegF *L* (01/20/21 3:50 PM) Mode of Delivery (Oxygen) Room air (01/20/21 3:50 PM) Blood pressure sites Arm, right (01/20/21 3:50 PM) Temperature Route Temporal (01/20/21 3:50 PM) Weight Obtained Via Standing scale (01/20/21 3:50 PM) Social History Social History Type Response Smoking Status Former smoker, quit more than 30 days ago; Other: reports more than 20 year smoking hsitory but quit 7 years ago; entered on: 08/11/20 Sex
--- OUTSIDE RECORDS SUMMARY | 2024-06-21 09:43 | XMS_ITS | Continuity of Care Document ---
Author Organization [facility] Address [address] [place] [address] [address], [address] [place] [address]- Care Team Providers Care Color Weigher Name Role Phone Francesco YANES, Rosy Gill Primary Care Physician Encounter [facility] Date(s): 10/20/20 - 11/19/20 [facility] Thoracic Surgery [address] [place] [address], [address] [place] [address]- Allergies, Adverse Reactions, Alerts Substance Reaction Severity [...] 0 Refills, Maintenance, 08/21/20 13:08:00 EST, Liquid, [facility], Partial fill upon patient request if the prescription is for a schedule II opioid drug., 160, cm, 08/21/20 7:0... Start Date: 08/21/20 Status: Ordered lactulose 10 gm/15 ml oral syrup 30 mL = 20 Gm, G Tube, Daily, HOLD FOR DIARRHEA, # 240 mL, 0 Refills, Maintenance, 08/21/20 13:05:00 EST, Syrup, [facility], Partial fill upon patient request if the prescription is fora schedule II opioid drug., 30 mL G Tube Daily,Inst... Start Date: 08/21/20 Status: Ordered multivitamin Pediatric Multiple Vitamins oral liquid 5 mL, G Tube, Daily, # 50 mL, 0 Refills, Maintenance, 08/21/20 13:07:00 EST, Liquid, [facility], Partial fill upon [...] Status Health Status Inform ant Esophageal cancer ([id number] adenocarcinoma of the distal esophagus)(Confirmed) 08/14/20 Active Esophageal dysphagia(Confirmed) 08/14/20 Active Hypertension(Confirmed) Active Unintended weight loss(Confirmed) 10/02/20 Active Social History Social History Type Response Smoking Status Former smoker, quit more than 30 days ago; Other: reports more than 20 year smoking hsitory but quit 7 years ago; entered on: 08/11/20 Sex
--- OUTSIDE RECORDS SUMMARY | 2024-06-21 09:43 | XMS_ITS | Continuity of Care Document ---
Author Organization [facility] Address [address] [place] [address] [address], [address] [place] [address]- Care Team Providers Care Tube Coremaker Name Role Phone Francesco YANES, Rosy Gill Primary Care Physician Encounter [facility] Date(s): 10/20/20 - 11/19/20 [facility] Thoracic Surgery [address] [place] [address], [address] [place] [address]- Allergies, Adverse Reactions, Alerts Substance Reaction Severity [...] 0 Refills, Maintenance, 08/21/20 13:08:00 EST, Liquid, [facility], Partial fill upon patient request if the prescription is for a schedule II opioid drug., 160, cm, 08/21/20 7:0... Start Date: 08/21/20 Status: Ordered lactulose 10 gm/15 ml oral syrup 30 mL = 20 Gm, G Tube, Daily, HOLD FOR DIARRHEA, # 240 mL, 0 Refills, Maintenance, 08/21/20 13:05:00 EST, Syrup, [facility], Partial fill upon patient request if the prescription is fora schedule II opioid drug., 30 mL G Tube Daily,Inst... Start Date: 08/21/20 Status: Ordered multivitamin Pediatric Multiple Vitamins oral liquid 5 mL, G Tube, Daily, # 50 mL, 0 Refills, Maintenance, 08/21/20 13:07:00 EST, Liquid, [facility], Partial fill upon [...] Status Health Status Inform ant Esophageal cancer ([id number] adenocarcinoma of the distal esophagus)(Confirmed) 08/14/20 Active Esophageal dysphagia(Confirmed) 08/14/20 Active Hypertension(Confirmed) Active Unintended weight loss(Confirmed) 10/02/20 Active Social History Social History Type Response Smoking Status Former smoker, quit more than 30 days ago; Other: reports more than 20 year smoking hsitory but quit 7 years ago; entered on: 08/11/20 Sex
--- OUTSIDE RECORDS SUMMARY | 2024-06-21 09:43 | XMS_ITS | Continuity of Care Document ---
Author Organization [facility] Address Unknown Care Team Providers Care Steelscope Operator Name Role Phone Francesco YANES, Rosy Gill Primary Care Physician [phone] Encounter [facility] [place] Date(s): 06/02/21 - 06/09/21 [facility] Thor[facility] Surgery Attending Physician: Elly Mckeon MD Allergies, Adverse [...] Nares, Both, Daily, Maintenance, 12/23/20 16:05:00 EDT, [place] Start Date: 12/23/20 Status: Ordered lactulose 10 gm/15 ml oral syrup 30 mL = 20 Gm, G Tube, Daily, HOLD FOR DIARRHEA, # 240 mL, 0 Refills, Maintenance, 08/21/20 13:05:00 EST, Syrup, [facility], Partial fill upon patient [...] Status Health Status Inform ant Esophageal cancer ([id number] with 23 examined lymph nodes; [id number] adenocarcinoma of the distal esophagus)(Confirmed) 1 12/22/20 Active Esophageal dysphagia(Confirmed) 08/14/20 Active Hypertension(Confirmed) Active Unintended weight loss(Confirmed) 10/02/20 Active 1Complete pathological response on esophagectomy specimen Vital Signs Most recent to oldest [Reference Range]: 1 Height 161 cm (06/02/21 1:40 PM) Weight 62.7 kg (06/02/21 1:40 PM) Oxygen Saturation [94-100 %] 98 % (06/02/21 1:40 PM) Pulse Rate [55-90 bpm] 87 bpm (06/02/21 1:40 PM) Body Mass Index [18.5-24.99] 24.19 (06/02/21 1:40 PM) Blood Pressure [90-138/55-84 mm Hg] 130/ 82mm Hg (06/02/21 1:40 PM) Respiratory Rate [16-30 br/min] 18 br/mi n (06/02/21 1:40 PM) Temperature [96.8-100.4 DegF] 96.8 DegF (06/02/21 1:40 PM) Mode of Delivery (Oxygen) Room air (06/02/21 1:40 PM) Blood pressure sites Arm, right (06/02/21 1:40 PM) Temperature Route Temporal (06/02/21 1:40 PM) Weight Obtained Via Standing scale (06/02/21 1:40 PM) Social History Social History Type Response Smoking Status Former smoker, quit more than 30 days ago; Other: reports more than 20 year smoking hsitory but quit 7 years ago; entered on: 08/11/20 Sex
--- OUTSIDE RECORDS SUMMARY | 2024-06-21 09:43 | XMS_ITS | Continuity of Care Document ---
Author Organization [facility] Address [address] [place] [address]- Care Team Providers Care Batter Mixer Helper Name Role Phone Francesco YANES, Rosy Gill Primary Care Physician Encounter [facility] Date(s): 12/15/20 - 01/14/21 [facility] [address] [place], [place] [address] Allergies, Adverse Reactions, Alerts Substance Reaction [...] Nares, Both, Daily, Maintenance, 12/23/20 16:05:00 EDT, [place] Start Date: 12/23/20 Status: Ordered gabapentin 250 mg/5 mL oral solution 12 mL = 600 mg, J Tube, 3 times a day, # 1,080 mL, 0 Refills, Maintenance, 01/04/21 8:47:00 EDT, Liquid, [facility], Partial fill upon patient request if the prescription is for a schedule II opioid drug., 161, cm, 12/23/20 2:24:00 EDT,... Start Date: 01/04/21 Status: Ordered lactulose 10 gm/15 ml oral syrup 30 mL = 20 Gm, G Tube, Daily, HOLD FOR DIARRHEA, # 240 mL, 0 Refills, Maintenance, 08/21/20 13:05:00 EST, Syrup, [facility], Partial fill upon [...] Status Health Status Inform ant Esophageal cancer ([id number] adenocarcinoma of the distal esophagus)(Confirmed) 08/14/20 Active Esophageal dysphagia(Confirmed) 08/14/20 Active Hypertension(Confirmed) Active Unintended weight loss(Confirmed) 10/02/20 Active Vital Signs Most recent to oldest [Reference Range]: 1 Height 160 cm (12/15/20 3:21 PM) Weight 63.6 kg (12/15/20 3:21 PM) Body Mass Index [18.5-24.99] 24.84 (12/15/20 3:21 PM) Dry Weight 63.6 kg (12/15/20 3:21 PM) Weight Obtained Via Patient/family state d (12/15/20 3:21 PM) Dry Weight Obtained Via Patient/family s tated (12/15/20 3:21 PM) Social History Social History Type Response Smoking Status Former smoker, quit more than 30 days ago; Other: reports more than 20 year smoking hsitory but quit 7 years ago; entered on: 08/11/20 Sex
--- OUTSIDE RECORDS SUMMARY | 2024-06-21 09:43 | XMS_ITS | Continuity of Care Document ---
Author Organization [facility] Address [address] [place] [address]- Care Team Providers Care Bean Snipper Name Role Phone Francesco YANES, Rosy Gill Primary Care Physician [phone] Encounter [facility] [place] Date(s): 07/22/20 - 11/07/20 [facility] [address] [place] [address] Attending Physician: Jameson Tristan MD Admitting Physician: Jameson Tristan MD Referring Physician: Kimmie Baird MD Allergies, Adverse Reactions, Alerts Substance Reaction [...] 0 Refills, Maintenance, 08/21/20 13:08:00 EST, Liquid, [facility], Partial fill upon patient request if the prescription is for a schedule II opioid drug., 160, cm, 08/21/20 7:0... Start Date: 08/21/20 Status: Ordered lactulose 10 gm/15 ml oral syrup 30 mL = 20 Gm, G Tube, Daily, HOLD FOR DIARRHEA, # 240 mL, 0 Refills, Maintenance, 08/21/20 13:05:00 EST, Syrup, [facility], Partial fill upon patient request if the prescription is fora schedule II opioid drug., 30 mL G Tube Daily,Inst... Start Date: 08/21/20 Status: Ordered multivitamin Pediatric Multiple Vitamins oral liquid 5 mL, G Tube, Daily, # 50 mL, 0 Refills, Maintenance, 08/21/20 13:07:00 EST, Liquid, [facility], Partial fill upon patient [...] Status Health Status Inform ant Esophageal cancer ([id number] adenocarcinoma of the distal esophagus)(Confirmed) 08/14/20 Active Esophageal dysphagia(Confirmed) 08/14/20 Active Hypertension(Confirmed) Active Unintended weight loss(Confirmed) 10/02/20 Active Social History Social History Type Response Smoking Status Former smoker, quit more than 30 days ago; Other: reports more than 20 year smoking hsitory but quit 7 years ago; entered on: 08/11/20 Sex
--- OUTSIDE RECORDS SUMMARY | 2024-06-21 09:43 | XMS_ITS | Continuity of Care Document ---
Author Organization [facility] Address [address] [place] [address] [address], [address] [place] [address]- Care Team Providers Care Chief Crna Name Role Phone Francesco YANES, Rosy Gill Primary Care Physician Encounter [facility] Date(s): 02/03/21 - 02/10/21 [facility] Thor[facility] Surgery [address] [place] [address], [address] [place], [place] [address] Attending Physician: Elly Mckeon MD Allergies, Adverse [...] Nares, Both, Daily, Maintenance, 12/23/20 16:05:00 EDT, [place] Start Date: 12/23/20 Status: Ordered gabapentin 250 mg/5 mL oral solution 12 mL = 600 mg, J Tube, 3 times a day, # 1,080 mL, 0 Refills, Maintenance, 01/04/21 8:47:00 EDT, Liquid, [facility], Partial fill upon patient request if the prescription is for a schedule II opioid drug., 161, cm, 12/23/20 2:24:00 EDT,... Start Date: 01/04/21 Status: Ordered lactulose 10 gm/15 ml oral syrup 30 mL = 20 Gm, G Tube, Daily, HOLD FOR DIARRHEA, # 240 mL, 0 Refills, Maintenance, 08/21/20 13:05:00 EST, Syrup, [facility], Partial fill upon patient request if [...] Status Health Status Inform ant Esophageal cancer ([id number] with 23 examined lymph nodes; [id number] adenocarcinoma of the distal esophagus)(Confirmed) 1 12/22/20 Active Esophageal dysphagia(Confirmed) 08/14/20 Active Hypertension(Confirmed) Active Unintended weight loss(Confirmed) 10/02/20 Active 1Complete pathological response on esophagectomy specimen Vital Signs Most recent to oldest [Reference Range]: 1 Height 161 cm (02/03/21 2:26 PM) Weight 67 kg (02/03/21 2:26 PM) Oxygen Saturation [94-100 %] 97 % (02/03/21 2:26 PM) Pulse Rate [55-90 bpm] 84 bpm (02/03/21 2:26 PM) Body Mass Index [18.5-24.99] 25.85 *H* (02/03/21 2:26 PM) Blood Pressure [90-138/55-84 mm Hg] 127/ 84mm Hg (02/03/21 2:26 PM) Respiratory Rate [16-30 br/min] 18 br/mi n (02/03/21 2:26 PM) Temperature [96.8-100.4 DegF] 97 DegF (02/03/21 2:26 PM) Mode of Delivery (Oxygen) Room air (02/03/21 2:26 PM) Blood pressure sites Arm, right (02/03/21 2:26 PM) Temperature Route Temporal (02/03/21 2:26 PM) Weight Obtained Via Standing scale (02/03/21 2:26 PM) Social History Social History Type Response Smoking Status Former smoker, quit more than 30 days ago; Other: reports more than 20 year smoking hsitory but quit 7 years ago; entered on: 08/11/20 Sex
--- OUTSIDE RECORDS SUMMARY | 2024-06-21 09:43 | XMS_ITS | Continuity of Care Document ---
Author Organization [facility] Address [address] [place] [address], [address] [place] [address]- Care Team Providers Care Site Safety Representative Name Role Phone Francesco YANES, Rosy Gill Primary Care Physician Encounter [facility] AC[facility] R [id number] Date(s): 07/28/22 - 08/27/22 [facility] Thor[facility] [address] [place] [address], [address] [place], [place] [address] Attending Physician: Mario Santacruz Admitting Physician: AdmMario [...] Nares, Both, Daily, Maintenance, 12/23/20 16:05:00 EDT, [place] Start Date: 12/23/20 Status: Ordered lactulose 10 gm/15 ml oral syrup 30 mL = 20 Gm, G Tube, Daily, HOLD FOR DIARRHEA, # 240 mL, 0 Refills, Maintenance, 08/21/20 13:05:00 EST, Syrup, [facility], Partial fill upon patient request [...] Status H ealth Status Informant Esophageal cancer ([id number] with 23 examined lymph nodes; [id number] adenocarcinoma of the distal esophagus) 1 Confirmed 12/22/20 Active Esophageal dysphagia Confirmed 08/14/20 Active Hypertension Confirmed Active Unintended weight loss Confirmed 10/02/20 Active 1Complete pathological response on esophagectomy specimen Social History Social History Type Response Smoking Status Former smoker, quit more than 30 days ago; Other: reports more than 20 year smoking hsitory but quit 7 years ago; entered on: 08/11/20 Sex Note * Event Display: CT Scan Head, Non- BH Authored Date: [id number] Patient Care team information Care Team Personnel Name: Rosy Maya NP, V Position: S Outreach Member Role: PCP Address: Address: [address] [facility] [address] [place] [address] - Name: Jeanmarie Avila RN Position: [facility] RN Member Role: Primary Care Nurse Name: Maribel Castillo RN Position: [facility] RN Supv Member Role: Primary Care Nurse Name: Lisa Cannon RN Position: [facility] RN Supv Member Role: Primary Care Nurse Name: Bijal Lozada RN Position: [facility] RN Member Role: Primary Care Nurse Name: Renu Burns RN Position: [facility] RN Member Role: Primary Care Nurse Name: Demetrice Vargas RN Position: [facility] RN Member Role: Primary Care Nurse Name: Lisha Matson RN Position: [facility] RN Member Role: Primary Care Nurse Name: Milka Helm RN Position: [facility] RN Member Role: Primary Care Nurse Name: Livan Wade RN Position: [facility] RN Member Role: Primary Care Nurse Name: Essence Polanco RN Position: [facility] RN Member Role: Primary Care Nurse Name: Becki Ordaz RN Position: [facility] RN Member Role: Primary Care Nurse Name: Scarlett Melchor RN Position: [facility] Onco RN Member Role: Primary Care Nurse Name: Estefania Brewer RN, I Position: [facility] RN Member Role: Primary Care Nurse Care Team Related Persons Name: MATT MCKEON Address[facility] [address] [facility] Name: JENNIFER MCKEON Address: home [address] [place] [address]
--- OUTSIDE RECORDS SUMMARY | 2024-06-21 09:43 | XMS_ITS | Continuity of Care Document ---
Author Organization [facility] Address Unknown Care Team Providers Care Public Health Sanitarian Technician Name Role Phone Francesco YANES, Rosy Gill Primary Care Physician Encounter [facility] Date(s): 09/20/21 - 10/20/21 [facility] Thoracic Surgery Allergies, Adverse Reactions, Alerts [...] Nares, Both, Daily, Maintenance, 12/23/20 16:05:00 EDT, [place] Start Date: 12/23/20 Status: Ordered lactulose 10 gm/15 ml oral syrup 30 mL = 20 Gm, G Tube, Daily, HOLD FOR DIARRHEA, # 240 mL, 0 Refills, Maintenance, 08/21/20 13:05:00 EST, Syrup, [facility] 3, Partial fill upon patient request [...] CT scan,# 2 each, 0 Refills, Maintenance, 09/21/21 8:42:00... Start Date: 09/21/21 Status: Ordered Silapap Childrens 160 mg/5 mL [...] Status Health Status Inform ant Esophageal cancer ([id number] with 23 examined lymph nodes; [id number] adenocarcinoma of the distal esophagus)(Confirmed) 1 12/22/20 [...]
--- OUTSIDE RECORDS SUMMARY | 2024-06-21 09:43 | XMS_ITS | Continuity of Care Document ---
Author Organization [facility] Address [address] [place] [address] [address], [address] [place] [address]- Care Team Providers Care Jewelry Bench Molder Name Role Phone Francesco YANES, Rosy Gill Primary Care Physician Encounter [facility] Date(s): 02/21/23 - 03/23/23 [facility] Thoracic Surgery [address] [place] [address], [address] [place], [place] [address] Allergies, Adverse Reactions, Alerts Substance [...] Nares, Both, Daily, Maintenance, 12/23/20 16:05:00 EDT, [place] Start Date: 12/23/20 Status: Ordered lactulose 10 gm/15 ml oral syrup 30 mL = 20 Gm, G Tube, Daily, HOLD FOR DIARRHEA, # 240 mL, 0 Refills, Maintenance, 08/21/20 13:05:00 EST, Syrup, [facility], Partial fill upon patient [...] Status H ealth Status Informant Esophageal cancer ([id number] with 23 examined lymph nodes; [id number] adenocarcinoma of the distal esophagus) 1 Confirmed [...] Personnel Name: Rosy Maya NP, V Position: [facility] Outreach Member Role: PCP Address: Address: [address] [facility] [address] [place] [address], [facility] [place] [address]- Name: Jeanmarie Avila RN Position: S RN Member Role: Primary Care Nurse Name: Maribel Castillo RN Position: S RN Supv Member Role: Primary Care Nurse Name: Renu Everett RN Position: [facility] RN Member Role: Primary Care Nurse Name: Lisa Cannon RN Position: [facility] RN Supv Member Role: Primary Care Nurse Name: Bijal Lozada RN Position: [facility] RN Member Role: Primary Care Nurse Name: Demetrice Vargas RN Position: [facility] RN Member Role: Primary Care Nurse Name: Lisha Matson RN Position: [facility] RN Member Role: Primary Care Nurse Name: Milka Helm RN Position: [facility] RN Member Role: Primary Care Nurse Name: Livan Wade RN Position: [facility] Onco RN Member Role: Primary Care Nurse Name: Essence Polanco RN Position: [facility] RN Member Role: Primary Care Nurse Name: Becki Ordaz RN Position: [facility] RN Member Role: Primary Care Nurse Name: Scarlett Melchor RN Position: [facility] Onco RN Member Role: Primary Care Nurse Name: Estefania Brewer RN, I Position: [facility] RN Member Role: Primary Care Nurse Care Team Related Persons Name: MATT MCKEON Address: [facility] [place] [address] Name: JENNIFER MCKEON Address: home [address] [place] [address] [place] [address]
--- OUTSIDE RECORDS SUMMARY | 2024-06-21 09:44 | XMS_ITS | Continuity of Care Document ---
Author Organization [facility] Address [address] [place] [address]- Care Team Providers Care Manager Credit Collections Name Role Phone Francesco YANES, Rosy Gill Primary Care Physician [phone] Encounter [facility] Date(s): 07/22/20 - 08/21/20 [facility] [address] [place] [id number] Allergies, Adverse Reactions, Alerts Substance Reaction [...] 0 Refills, Maintenance, 08/21/20 13:08:00 EST, Liquid, [facility], Partial fill upon patient request if the prescription is for a schedule II opioid drug., 160, cm, 08/21/20 7:0... Start Date: 08/21/20 Status: Ordered lactulose 10 gm/15 ml oral syrup 30 mL = 20 Gm, G Tube, Daily, HOLD FOR DIARRHEA, # 240 mL, 0 Refills, Maintenance, 08/21/20 13:05:00 EST, Syrup, [facility], Partial fill upon patient request if the prescription is fora schedule II opioid drug., 30 mL G Tube Daily,Inst... Start Date: 08/21/20 Status: Ordered multivitamin Pediatric Multiple Vitamins oral liquid 5 mL, G Tube, Daily, # 50 mL, 0 Refills, Maintenance, 08/21/20 13:07:00 EST, Liquid, [facility], Partial fill upon [...]
--- OUTSIDE RECORDS SUMMARY | 2024-06-21 09:44 | XMS_ITS | Continuity of Care Document ---
Author Organization [facility] Address Unknown Care Team Providers Care Cotton Seed Culler Name Role Phone Francesco YANES, Rosy Gill Primary Care Physician Encounter [facility] Date(s): 06/16/21 - 07/16/21 [facility] Thor[facility] Surgery Allergies, Adverse Reactions, [...] Nares, Both, Daily, Maintenance, 12/23/20 16:05:00 EDT, [place] Start Date: 12/23/20 Status: Ordered lactulose 10 gm/15 ml oral syrup 30 mL = 20 Gm, G Tube, Daily, HOLD FOR DIARRHEA, # 240 mL, 0 Refills, Maintenance, 08/21/20 13:05:00 EST, Syrup, [facility], Partial fill upon [...] 06/24/21 13:29:00... Start Date: 06/24/21 Status: Ordered Silapap Childrens 160 mg/5 mL [...] Status Health Status Inform ant Esophageal cancer ([id number] with 23 examined lymph nodes; [id number] adenocarcinoma of the distal esophagus)(Confirmed) 1 12/22/20 [...]
--- OUTSIDE RECORDS SUMMARY | 2024-06-21 09:44 | XMS_ITS | Continuity of Care Document ---
Author Organization [facility] Address [address] [place] [address] [address], [address] [place] [address]- Care Team Providers Care Junior Buyer Name Role Phone Francesco YANES, Rosy Gill Primary Care Physician [place] [facility] [place] 11/27/20 - 12/04/20 [facility] Thoracic Surgery [address] [place] [address], [address] [place], [place] [address] Attending Physician: Elly Mckeon MD [...] 0 Refills, Maintenance, 08/21/20 13:08:00 EST, Liquid, [facility], Partial fill upon patient request if the prescription is for a schedule II opioid drug., 160, cm, 08/21/20 7:0... Start Date: 08/21/20 Status: Ordered lactulose 10 gm/15 ml oral syrup 30 mL = 20 Gm, G Tube, Daily, HOLD FOR DIARRHEA, # 240 mL, 0 Refills, Maintenance, 08/21/20 13:05:00 EST, Syrup, [facility], Partial fill upon patient request if the prescription is fora schedule II opioid drug., 30 mL G Tube Daily,Inst... Start Date: 08/21/20 Status: Ordered multivitamin Pediatric Multiple Vitamins oral liquid 5 mL, G Tube, Daily, # 50 mL, 0 Refills, Maintenance, 08/21/20 13:07:00 EST, Liquid, [facility], Partial fill upon patient [...] Status Health Status Inform ant Esophageal cancer ([id number] adenocarcinoma of the distal esophagus)(Confirmed) 08/14/20 Active Esophageal dysphagia(Confirmed) 08/14/20 Active Hypertension(Confirmed) Active Unintended weight loss(Confirmed) 10/02/20 Active Vital Signs Most recent to oldest [Reference Range]: 1 Height 160 cm (11/27/20 1:49 PM) Weight 65.4 kg (11/27/20 1:49 PM) Oxygen Saturation [94-100 %] 98 % (11/27/20 1:49 PM) Pulse Rate [55-90 bpm] 91 bpm *H* (11/27/20 1:49 PM) Body Mass Index [18.5-24.99] 25.55 *H* (11/27/20 1:49 PM) Blood Pressure [90-138/55-84 mm Hg] 122/ 60mm Hg (11/27/20 1:49 PM) Temperature [96.8-100.4 DegF] 97.6 DegF (11/27/20 1:49 PM) Mode of Delivery (Oxygen) Room air (11/27/20 1:49 PM) Blood pressure sites Arm, left (11/27/20 1:49 PM) Temperature Route Temporal (11/27/20 1:49 PM) Weight Obtained Via Standing scale (11/27/20 1:49 PM) Social History Social History Type Response Smoking Status Former smoker, quit more than 30 days ago; Other: reports more than 20 year smoking hsitory but quit 7 years ago; entered on: 08/11/20 Sex
--- OUTSIDE RECORDS SUMMARY | 2024-06-21 09:44 | XMS_ITS | Continuity of Care Document ---
Author Organization [facility] Address [address] [place] [address] [address], [address] [place] [address]- Care Team Providers Care Set Up Inspector Name Role Phone Francesco YANES, Rosy Gill Primary Care Physician [phone] Encounter [facility] Date(s): 12/04/20 - 01/03/21 [facility] Thor[facility] Surgery [address] [place] [address], [address] [place], [place] [address] Allergies, Adverse Reactions, Alerts [...] Nares, Both, Daily, Maintenance, 12/23/20 16:05:00 EDT, [place] Start Date: 12/23/20 Status: Ordered HYDROmorphone 1 mg/mL oral liquid 2 mL = 2 mg, G Tube, Every 4 hours, PRN PAIN, 0 Refills, Maintenance, 12/23/20 16:01:00 EDT Start Date: 12/23/20 Status: Ordered lactulose 10 gm/15 ml oral syrup 30 mL = 20 Gm, G Tube, Daily, HOLD FOR DIARRHEA, # 240 mL, 0 Refills, Maintenance, 08/21/20 13:05:00 EST, Syrup, [facility], Partial fill upon patient [...] Status Health Status Inform ant Esophageal cancer (gC1V4UZ adenocarcinoma of the distal esophagus)(Confirmed) 08/14/20 Active Esophageal dysphagia(Confirmed) 08/14/20 Active Hypertension(Confirmed) Active Unintended weight loss(Confirmed) 10/02/20 Active Social History Social History Type Response Smoking Status Former smoker, quit more than 30 days ago; Other: reports more than 20 year smoking hsitory but quit 7 years ago; entered on: 08/11/20 Sex
--- OUTSIDE RECORDS SUMMARY | 2024-06-21 09:44 | XMS_ITS | Continuity of Care Document ---
Author Organization [facility] Address [address] [place] [address]- Care Team Providers Care Esl Professor Name Role Phone Rosy Maya NP, V Primary Care Physician En[facility] [place](s): 10/08/20 - 11/07/20 [facility] [address] [place] [id number] Attending Physician: Mario Santacruz Admitting Physician: Admtr, Mario Referring Physician: Admtr, Ar8 Allergies, Adverse Reactions, Alerts Substance Reaction Severity [...] 0 Refills, Maintenance, 08/21/20 13:08:00 EST, Liquid, [facility], Partial fill upon patient request if the prescription is for a schedule II opioid drug., 160, cm, 08/21/20 7:0... Start Date: 08/21/20 Status: Ordered lactulose 10 gm/15 ml oral syrup 30 mL = 20 Gm, G Tube, Daily, HOLD FOR DIARRHEA, # 240 mL, 0 Refills, Maintenance, 08/21/20 13:05:00 EST, Syrup, [facility], Partial fill upon patient request if the prescription is fora schedule II opioid drug., 30 mL G Tube Daily,Inst... Start Date: 08/21/20 Status: Ordered multivitamin Pediatric Multiple Vitamins oral liquid 5 mL, G Tube, Daily, # 50 mL, 0 Refills, Maintenance, 08/21/20 13:07:00 EST, Liquid, [facility], Partial fill upon [...] Status Health Status Inform ant Esophageal cancer (cA1S6EF adenocarcinoma of the distal esophagus)(Confirmed) 08/14/20 Active Esophageal dysphagia(Confirmed) 08/14/20 Active Hypertension(Confirmed) Active Unintended weight loss(Confirmed) 10/02/20 Active Social History Social History Type Response Smoking Status Former smoker, quit more than 30 days ago; Other: reports more than 20 year smoking hsitory but quit 7 years ago; entered on: 08/11/20 Sex
--- OUTSIDE RECORDS SUMMARY | 2024-06-21 09:44 | XMS_ITS | Continuity of Care Document ---
Author Organization [facility] Address [address] [place] [address] [address], [address] [place] [address]- Care Team Providers Care Director Outcomes Name Role Phone Francesco YANES, Rosy Gill Primary Care Physician [phone] Encounter [facility] Date(s): 12/08/22 - 01/07/23 [facility] Thor[facility] Surgery [address] [place] [address], [address] [place], [place] [address] Allergies, Adverse Reactions, Alerts Substance [...] Nares, Both, Daily, Maintenance, 12/23/20 16:05:00 EDT, [place] Start Date: 12/23/20 Status: Ordered lactulose 10 gm/15 ml oral syrup 30 mL = 20 Gm, G Tube, Daily, HOLD FOR DIARRHEA, # 240 mL, 0 Refills, Maintenance, 08/21/20 13:05:00 EST, Syrup, [facility], Partial fill upon [...] Status H ealth Status Informant Esophageal cancer (daP6C1G9 with 23 examined lymph nodes; [id number] adenocarcinoma of the distal esophagus) 1 Confirmed [...] Personnel Name: Rosy Maya NP, V Position: [facility] Outreach Member Role: PCP Address: Address: [address] [facility] [address] [place] [address], [facility] [address]- Name: Jeanmarie Avila RN Position: S RN Member Role: Primary Care Nurse Name: Maribel Castillo RN Position: S RN Supv Member Role: Primary Care Nurse Name: Renu Everett RN Position: [facility] RN Member Role: Primary Care Nurse Name: Lisa Cannon RN Position: [facility] RN Supv Member Role: Primary Care Nurse Name: Bijal Lozada RN Position: [facility] RN Member Role: Primary Care Nurse Name: Demetrice Vargas RN Position: [facility] RN Member Role: Primary Care Nurse Name: Lisha Matson RN Position: [facility] RN Member Role: Primary Care Nurse Name: Milka Helm RN Position: [facility] RN Member Role: Primary Care Nurse Name: Livan Wade RN Position: [facility] Onco RN Member Role: Primary Care Nurse Name: Essence Polanco RN Position: [facility] RN Member Role: Primary Care Nurse Name: Becki Ordaz RN Position: [facility] RN Member Role: Primary Care Nurse Name: Scarlett Melchor RN Position: [facility] Onco RN Member Role: Primary Care Nurse Name: Estefania Brewer RN, I Position: [facility] RN Member Role: Primary Care Nurse Care Team Related Persons Name: MATT MCKEON Address: [facility] [place] [address] Name: JENNIFER MCKEON Address: home [address] [place] [address] [facility] [place] [address]
--- OUTSIDE RECORDS SUMMARY | 2024-06-21 09:44 | XMS_ITS | Continuity of Care Document ---
Author Organization [facility] Address [address] [place] [address]- Care Team Providers Care Mill Turner Name Role Phone Francesco YANES, Rosy Gill Primary Care Physician [phone] Encounter [facility] Date(s): 07/29/20 - 08/28/20 [facility] [address] [place] [id number] Allergies, Adverse Reactions, Alerts Substance Reaction [...]
--- OUTSIDE RECORDS SUMMARY | 2024-06-21 09:44 | XMS_ITS | Continuity of Care Document ---
Author Organization [facility] Address [address] [place] [address] [address], [address] [place] [address]- Care Team Providers Care Ground Operations Supervisor Name Role Phone Francesco YANES, Rosy Gill Primary Care Physician Encounter [facility] Date(s): 02/19/21 - 02/26/21 [facility] [address] [place] [address], [address] [place], [place] [address] Attending Physician: Elly Mckeon [...] Nares, Both, Daily, Maintenance, 12/23/20 16:05:00 EDT, [place] Start Date: 12/23/20 Status: Ordered gabapentin 250 mg/5 mL oral solution 12 mL = 600 mg, J Tube, 3 times a day, # 1,080 mL, 0 Refills, Maintenance, 02/11/21 11:51:00 EDT, Liquid, [facility], Partial fill upon patient request [...] Status Health Status Inform ant Esophageal cancer ([id number] with 23 examined lymph nodes; [id number] adenocarcinoma of the distal esophagus)(Confirmed) 1 12/22/20 Active Esophageal dysphagia(Confirmed) 08/14/20 Active Hypertension(Confirmed) Active Unintended weight loss(Confirmed) 10/02/20 Active 1Complete pathological response on esophagectomy specimen Procedures Procedure Date Related Diagnosis Body Site Status Esophagectomy, distal two-th irds, with laparoscopic mobilization of the abdominal and lower mediastinal esophagus and proximal gastrectomy, with laparoscopic pyloric drainage procedure if performed, with separate thoracoscopic mobilization of the middle a 12/22/20 Completed Laparoscopy, surgical; jejun ostomy (eg, for decompression or feeding) 12/22/20 Co mpleted Vital Signs Most recent to oldest [Reference Range]: 1 Height 161 cm (02/19/21 8:23 AM) Weight 65.5 kg (02/19/21 8:23 AM) Oxygen Saturation [94-100 %] 98 % (02/19/21 8:23 AM) Pulse Rate [55-90 bpm] 78 bpm (02/19/21 8:23 AM) Body Mass Index [18.5-24.99] 25.27 *H* (02/19/21 8:23 AM) Blood Pressure [90-138/55-84 mm Hg] 127/ 80mm Hg (02/19/21 8:23 AM) Respiratory Rate [16-30 br/min] 20 br/mi n (02/19/21 8:23 AM) Temperature [96.8-100.4 DegF] 97.6 DegF (02/19/21 8:23 AM) Mode of Delivery (Oxygen) Room air (02/19/21 8:23 AM) Blood pressure sites Arm, right (02/19/21 8:23 AM) Temperature Route Temporal (02/19/21 8:23 AM) Weight Obtained Via Standing scale (02/19/21 8:23 AM) Social History Social History Type Response Smoking Status Former smoker, quit more than 30 days ago; Other: reports more than 20 year smoking hsitory but quit 7 years ago; entered on: 08/11/20 Sex
--- OUTSIDE RECORDS SUMMARY | 2024-06-21 09:44 | XMS_ITS | Continuity of Care Document ---
Author Organization [facility] Address [address] [place] [address] [address], [address] [place] [address]- Care Team Providers Care Respiratory Tech Name Role Phone Francesco YANES, Rosy Gill Primary Care Physician [phone] Encounter [facility] Date(s): 11/25/20 - 12/25/20 [facility] [address] [place] [address], [address] [place], [place] [address] Allergies, Adverse Reactions, Alerts Substance [...] Nares, Both, Daily, Maintenance, 12/23/20 16:05:00 EDT, [place] Start Date: 12/23/20 Status: Ordered HYDROmorphone 1 mg/mL oral liquid 2 mL = 2 mg, G Tube, Every 4 hours, PRN PAIN, 0 Refills, Maintenance, 12/23/20 16:01:00 EDT Start Date: 12/23/20 Status: Ordered lactulose 10 gm/15 ml oral syrup 30 mL = 20 Gm, G Tube, Daily, HOLD FOR DIARRHEA, # 240 mL, 0 Refills, Maintenance, 08/21/20 13:05:00 EST, Syrup, [facility], Partial fill upon patient [...] Status Health Status Inform ant Esophageal cancer ([id number] adenocarcinoma of the distal esophagus)(Confirmed) 08/14/20 Active Esophageal dysphagia(Confirmed) 08/14/20 Active Hypertension(Confirmed) Active Unintended weight loss(Confirmed) 10/02/20 Active Social History Social History Type Response Smoking Status Former smoker, quit more than 30 days ago; Other: reports more than 20 year smoking hsitory but quit 7 years ago; entered on: 08/11/20 Sex
--- OUTSIDE RECORDS SUMMARY | 2024-06-21 09:44 | XMS_ITS | Continuity of Care Document ---
Author Organization [facility] Address Unknown Care Team Providers Care Sas Administrator Name Role Phone Rosy Maya NP, V Primary Care Physician [phone] Encounter [facility] Date(s): 06/30/21 - 07/07/21 [facility] Encounter Diagnosis Esophageal cancer ([id number] with 23 examined lymph nodes; [id number] adenocarcinoma of the distal esophagus)(Discharge Diagnosis) - 06/30/21 Hypertension(Discharge Diagnosis) - 06/30/21 Esophageal dysphagia(Discharge Diagnosis) - 06/30/21 Unintended weight loss(Discharge Diagnosis) - 06/30/21 Attending Physician: Elly Mckeon MD Allergies, Adverse [...] Nares, Both, Daily, Maintenance, 12/23/20 16:05:00 EDT, [place] Start Date: 12/23/20 Status: Ordered lactulose 10 gm/15 ml oral syrup 30 mL = 20 Gm, G Tube, Daily, HOLD FOR DIARRHEA, # 240 mL, 0 Refills, Maintenance, 08/21/20 13:05:00 EST, Syrup, [facility], Partial fill upon patient [...] Status Health Status Inform ant Esophageal cancer ([id number] with 23 examined lymph nodes; [id number] adenocarcinoma of the distal esophagus)(Confirmed) 1 12/22/20 Active Esophageal dysphagia(Confirmed) 08/14/20 Active Hypertension(Confirmed) Active Unintended weight loss(Confirmed) 10/02/20 Active 1Complete pathological response on esophagectomy specimen Diagnosis Diagnosis Type Effective Dates Health Status Clinical Service Informant Esophageal cancer ([id number] with 23 examined lymph nodes; [id number] adenocarcinoma of the distal esophagus) Discharge Diagnosis 06/30/21 Hypertension Discharge Diagnosis 06/30/21 Esophageal dysphagia Discharge Diagnosis 06/30/21 Unintended weight loss Discharge Diagnosis 06/30/21 Vital Signs Most recent to oldest [Reference Range]: 1 Height 161 cm (06/30/21 12:59 PM) Weight 66.7 kg (06/30/21 12:59 PM) Oxygen Saturation [94-100 %] 98 % (06/30/21 12:59 PM) Pulse Rate [55-90 bpm] 68 bpm (06/30/21 12:59 PM) Body Mass Index [18.5-24.99] 25.73 *H* (06/30/21 12:59 PM) Blood Pressure [90-138/55-84 mm Hg] 119/ 75mm Hg (06/30/21 12:59 PM) Respiratory Rate [16-30 br/min] 16 br/mi n (06/30/21 12:59 PM) Temperature [96.8-100.4 DegF] 96.8 DegF (06/30/21 12:59 PM) Mode of Delivery (Oxygen) Room air (06/30/21 12:59 PM) Blood pressure sites Arm, right (06/30/21 12:59 PM) Temperature Route Temporal (06/30/21 12:59 PM) Weight Obtained Via Standing scale (06/30/21 12:59 PM) Social History Social History Type Response Smoking Status Former smoker, quit more than 30 days ago; Other: reports more than 20 year smoking hsitory but quit 7 years ago; entered on: 08/11/20 Sex
--- OUTSIDE RECORDS SUMMARY | 2024-06-21 09:44 | XMS_ITS | Continuity of Care Document ---
Author Organization [facility] Address [address] [place] [address]- Care Team Providers Care Lead Neurodiagnostic Technologist Name Role Phone Francesco YANES, Rosy Gill Primary Care Physician [phone] Encounter [facility] Date(s): 12/17/21 - 01/26/[address] [address] Attending Physician: Elly Mckeon MD Admitting Physician: [...] Nares, Both, Daily, Maintenance, 12/23/20 16:05:00 EDT, [place] Start Date: 12/23/20 Status: Ordered lactulose 10 gm/15 ml oral syrup 30 mL = 20 Gm, G Tube, Daily, HOLD FOR DIARRHEA, # 240 mL, 0 Refills, Maintenance, 08/21/20 13:05:00 EST, Syrup, [facility], Partial fill upon patient [...] Status Health Status Inform ant Esophageal cancer ([id number] with 23 examined lymph nodes; [id number] adenocarcinoma of the distal esophagus)(Confirmed) 1 12/22/20 [...]
--- OUTSIDE RECORDS SUMMARY | 2024-06-21 09:44 | XMS_ITS | Continuity of Care Document ---
Author Organization [facility] Address Unknown Care Team Providers Care Radiology Administrator Name Role Phone Francesco YANES, Rosy Gill Primary Care Physician [phone] [place] [id number] Date(s): 05/05/21 - 05/12/21 [facility] Attending Physician: Elly Mckeon [...] Both, Daily, Maintenance, 12/23/20 16:05:00 EDT, [place] Start Date: 12/23/20 Status: Ordered lactulose 10 gm/15 ml oral syrup 30 mL = 20 Gm, G Tube, Daily, HOLD FOR DIARRHEA, # 240 mL, 0 Refills, Maintenance, 08/21/20 13:05:00 EST, Syrup, [facility], Partial fill upon patient [...] Status Health Status Inform ant Esophageal cancer ([id number] with 23 examined lymph nodes; [id number] adenocarcinoma of the distal esophagus)(Confirmed) 1 12/22/20 Active Esophageal dysphagia(Confirmed) 08/14/20 Active Hypertension(Confirmed) Active Unintended weight loss(Confirmed) 10/02/20 Active 1Complete pathological response on esophagectomy specimen Vital Signs Most recent to oldest [Reference Range]: 1 Height 161 cm (05/05/21 3:31 PM) Weight 62.4 kg (05/05/21 3:31 PM) Oxygen Saturation [94-100 %] 98 % (05/05/21 3:31 PM) Pulse Rate [55-90 bpm] 86 bpm (05/05/21 3:31 PM) Body Mass Index [18.5-24.99] 24.07 (05/05/21 3:31 PM) Blood Pressure [90-138/55-84 mm Hg] 136/ 87mm Hg (05/05/21 3:31 PM) Respiratory Rate [16-30 br/min] 18 br/mi n (05/05/21 3:31 PM) Temperature [96.8-100.4 DegF] 96.8 DegF (05/05/21 3:31 PM) Mode of Delivery (Oxygen) Room air (05/05/21 3:31 PM) Blood pressure sites Arm, right (05/05/21 3:31 PM) Temperature Route Temporal (05/05/21 3:31 PM) Weight Obtained Via Standing scale (05/05/21 3:31 PM) Social History Social History Type Response Smoking Status Former smoker, quit more than 30 days ago; Other: reports more than 20 year smoking hsitory but quit 7 years ago; entered on: 08/11/20 Sex
--- OUTSIDE RECORDS SUMMARY | 2024-06-21 09:44 | XMS_ITS | Continuity of Care Document ---
Author Organization [facility] Address Unknown Care Team Providers Care Quantitative Researcher Name Role Phone Francesco YANES, Rosy Gill Primary Care Physician Encounter [facility] Date(s): 06/24/21 - 07/24/21 [facility] Allergies, Adverse Reactions, [...] Nares, Both, Daily, Maintenance, 12/23/20 16:05:00 EDT, [place] Start Date: 12/23/20 Status: Ordered lactulose 10 gm/15 ml oral syrup 30 mL = 20 Gm, G Tube, Daily, HOLD FOR DIARRHEA, # 240 mL, 0 Refills, Maintenance, 08/21/20 13:05:00 EST, Syrup, [facility], Partial fill upon [...] Status Health Status Inform ant Esophageal cancer ([id number] with 23 examined lymph nodes; [id number] adenocarcinoma of the distal esophagus)(Confirmed) 1 12/22/20 [...]
--- OUTSIDE RECORDS SUMMARY | 2024-06-21 09:44 | XMS_ITS | Continuity of Care Document ---
Author Organization [facility] Address [address] [place] [address]- Care Team Providers Care National Facilities Manager Name Role Phone Francesco YANES, Rosy Gill Primary Care Physician [place] [facility] [place] Date(s): 11/24/20 - 01/15/[address] [address] Attending Physician: Elly Mckeon MD Admitting [...] Nares, Both, Daily, Maintenance, 12/23/20 16:05:00 EDT, [place] Start Date: 12/23/20 Status: Ordered gabapentin 250 mg/5 mL oral solution 12 mL = 600 mg, J Tube, 3 times a day, # 1,080 mL, 0 Refills, Maintenance, 01/04/21 8:47:00 EDT, Liquid, [facility], Partial fill upon patient request if the prescription is for a schedule II opioid drug., 161, cm, 12/23/20 2:24:00 EDT,... Start Date: 01/04/21 Status: Ordered lactulose 10 gm/15 ml oral syrup 30 mL = 20 Gm, G Tube, Daily, HOLD FOR DIARRHEA, # 240 mL, 0 Refills, Maintenance, 08/21/20 13:05:00 EST, Syrup, [facility], Partial fill upon patient request [...] Status Health Status Inform ant Esophageal cancer ([id number] adenocarcinoma of the distal esophagus)(Confirmed) 08/14/20 Active Esophageal dysphagia(Confirmed) 08/14/20 Active Hypertension(Confirmed) Active Unintended weight loss(Confirmed) 10/02/20 Active Social History Social History Type Response Smoking Status Former smoker, quit more than 30 days ago; Other: reports more than 20 year smoking hsitory but quit 7 years ago; entered on: 08/11/20 Sex
--- OUTSIDE RECORDS SUMMARY | 2024-06-21 09:44 | XMS_ITS | Continuity of Care Document ---
Author Organization [facility] Address [address] [place] [address] [address] [place] [address]- Care Team Providers Care Soil Technologist Name Role Phone Francesco YANES, Rosy Gill Primary Care Physician Encounter [facility] [place] Date(s): 11/18/20 - 12/18/20 [facility] Thor[facility] Surgery [address] [place] [address], [address] [place] [address]- Allergies, Adverse Reactions, Alerts Substance Reaction Severity Status morphine rash Active Immunizations Not Given Vaccine Date Status Refusal Reason influenza virus vaccine, inactivated 1 08/14/20 No t Given Patient Refuses 1Result Comment: Pt stated that she will get outside of hospital Medications fenofibrate 160 mg oral tablet 1 tablet = 160 mg, G Tube, Daily, dissolves, # 90 tablet, 0 Refills, Maintenance, 12/15/20 13:54:00EDT, Tablet, Partial fill upon patient request if the prescription is for a schedule II opioid drug. Start Date: 12/15/20 Status: Ordered fluticasone 50 mcg/inh nasal spray USE 2 SPRAYS IN EACH NOSTRIL EVERY MORNING NEEDED Start Date: 08/11/20 Status: Ordered lactulose 10 gm/15 ml oral syrup 30 mL = 20 Gm, G Tube, Daily, HOLD FOR DIARRHEA, # 240 mL, 0 Refills, Maintenance, 08/21/20 13:05:00 EST, Syrup, [facility], Partial fill upon patient request if the prescription is fora schedule II opioid drug., 30 mL G Tube Daily,Inst... Start Date: 08/21/20 Status: Ordered loratadine 10 mg oral tablet 10 mg, 1, tablet, G Tube, Daily in AM, dissolve in H2O, Refills 0, Maintenance, 12/15/20 13:58:00 EDT, Partial fill upon patient request if the prescription is for a schedule II opioid drug. Start Date: 12/15/20 Status: Ordered losartan 25 mg oral tablet 1 tablet = 25 mg, G Tube, Daily in AM, dissolve in H2O, 0 Refills, Maintenance, 12/15/20 13:56:00 EDT, Partial fill upon patient request if the prescription is for a schedule II opioid drug. Start Date: 12/15/20 Status: Ordered Misc Rx See Instructions, Refills 0, Maintenance, Vitamin D 3 50 mg gummiy daily, 12/15/20 13:52:00 EDT, Supply Start Date: 12/15/20 Status: Ordered Misc Rx See Instructions, Refills 0, Maintenance, iron liquid 18mg daily in am via G- tube, 12/15/20 13:59:00 EDT, [place] Start Date: 12/15/20 Status: Ordered oxyCODONE 5 mg/5 mL oral solution 5 mL = 5 mg, G Tube, Every 6 hours, PRN as needed for pain, 0 Refills, Maintenance, 12/15/20 14:01:00 EDT, Solution, Partial fill upon patient request if the prescription is for a schedule II opioid drug. Start Date: 12/15/20 Status: Ordered polyethylene glycol 3350 oral powder for reconstitution = 17 Gm, By Mouth, Daily, dissolve in water before taking, # 255 Gm, 0 Refills, Maintenance, 12/15/20 14:39:00 EDT, REC Powder, Partial fill upon patient request if the prescription is for a scheduleII opioid drug. Start Date: 12/15/20 Status: Ordered simvastatin 20 mg oral tablet 20 mg, 1, tablet, G Tube, Daily at supper, dissolve in H2O, Refills 0, Maintenance, 12/15/20 13:55:00 EDT, Partial fill upon patient request if the prescription is for a schedule II opioid drug. Start Date: 12/15/20 Status: Ordered Tylenol 325 mg oral tablet 325 mg, 1, tablet, G Tube, Daily at bedtime, PRN, dissolve in H2O, # 120 tablet, Refills 0, Maintenance, for fever, 12/15/20 14:04:00 EDT, Partial fill upon patient request if the prescription is fora schedule II opioid drug. Start Date: 12/15/20 Status: Ordered Problem List Condition Effective Dates Status Health Status Inform ant Esophageal cancer ([id number] adenocarcinoma of the distal esophagus)(Confirmed) 08/14/20 Active Esophageal dysphagia(Confirmed) 08/14/20 Active Hypertension(Confirmed) Active Unintended weight loss(Confirmed) 10/02/20 Active Social History Social History Type Response Smoking Status Former smoker, quit more than 30 days ago; Other: reports more than 20 year smoking hsitory but quit 7 years ago; entered on: 08/11/20 Sex
[2024-06-21] MEDS: Lidocaine 4 % Patch ADH..PATCH 1 PATCH TRANSDERMA (10:15)
[2024-06-21] MEDS: Acetaminophen/Codeine 300-30mg Tablet 1 TAB PO (10:15)
--- NOTE | 2024-06-21 10:16 | PC.NURSE ---
pt medicated for 710 lower back pain
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
--- NOTE | 2024-06-21 11:52 | MHC.EDTECH ---
At provider request this tech provided patient with sandwich and crackers.
[2024-06-21 12:55] VITALS: BP 147/74; PULSE 67; RESP 18; TEMP 36.6; O2SAT 98
[2024-06-21 12:57] VITALS: BP 147/74; PULSE 67; RESP 18; TEMP 36.6; O2SAT 98
== END 2024-06-21 12:57 | disposition home or self-care (01) ==
PROVIDERS: Emergency Provider Emergency Medicine; PCP Internal Medicine
DX: S39.012A Strain of muscle, fascia and tendon of lower back, initial encounter (principal); X50.9XXA Other and unspecified overexertion or strenuous movements or postures, initial encounter; G89.29 Other chronic pain; M25.551 Pain in right hip; Y93.89 Activity, other specified; Y92.811 Bus as the place of occurrence of the external cause; Y99.9 Unspecified external cause status
CPT/HCPCS: 72100; 73502; 99283; 99284

== ENCOUNTER 2024-07-03 | Outpatient (REF) | payer OTHER, SELFPAY ==
[2024-07-03 11:13] VITALS: PULSE 80; RESP 16; O2SAT 100
== END 2024-07-03 00:01 | disposition home or self-care (01) ==
LOC: HO.RESP
PROVIDERS: PCP Internal Medicine; Visit Provider Internal Medicine Pulmonary Disease
DX: Z91.09 Other allergy status, other than to drugs and biological substances (principal)
CPT/HCPCS: 94010; 94640; 94727; 94729

== ENCOUNTER 2024-07-18 07:37 | Day surgery (SDC) | payer OTHER, SELFPAY ==
[2024-07-17 07:07] VITALS: BMI 23.7
--- NOTE | 2024-07-17 09:37 | HO.ANESPROP2 ---
Documented by User: Milka Pike NP 07/17/24 09:38 HPI - Anesthesia Eval Consult details Narrative: 68yo F for Colonoscopy s/p esophagectomy 2020 [facility] Active Problems Active Problems: All Active Problems Pre-op examination (Acute) Arthralgia of multiple joints (Acute) Neck pain (Acute) Left hip pain (Acute) Chronic low back pain (Acute) Asthma (Acute) Environmental allergies (Acute) Esophageal adenocarcinoma (Chronic) Esophageal carcinoma (Acute) Past Medical History Medical History (Updated 06/22/24 @ 00:01 by Agata Grigsby) History of alcohol use disorder History of pancreatitis GERD (gastroesophageal reflux disease) Esophageal adenocarcinoma Esophageal carcinoma Depression Asthma Elevated cholesterol HTN (hypertension) Family History Family History Mother Cancer Father HTN (hypertension) Maternal Grandmother Diabetes Surgical History Surgical History (Updated 07/18/24 @ 08:35 by Farhana Rogers RN) History of esophageal surgery History of esophagogastroduodenoscopy (EGD) Previous back surgery Hx of appendectomy Hx of hemorrhoidectomy Hx of colonoscopy Social History Social History Household Members: Spouse and Children Household Members Other:: 2 children Housing: Apartment Are you a primary before and after school daycare worker to a significant other at home: No Do you presently have visiting nurse or other home services: No Alcohol intake: current Alcohol intake frequency: holidays/special occasions only Patient Tobacco Use Status: Never used Tobacco Second Hand Smoke Exposure: Yes (spouse) Use of substances other than those prescribed or required for medical reasons: No Are you DNR?: No Advance Directives: No Advance Directives Information Provided: Yes Advance Directives on File: No Recently lost weight without trying: No Nutrition Risks: No Nutritional Risk Patient : No service: No Current occupational status: disabled Meds Allergies Allergy/AdvReac Type Severity Reaction Status Date / Time morphine [Morphine] Allergy Unknown Rash Verified 06/21/24 09:33 Home Medications ?Medication ?Instructions ?Recorded ?Confirmed ?Last Taken ?Type cholecalciferol (vitamin D3) 50 1 cap PO DAILY 06/15/20 02/26/24 Unknown History mcg (2,000 unit) capsule fenofibrate 160 mg tablet 1 tab PO DAILY 06/15/20 02/26/24 Unknown History fluticasone propionate 50 2 spray intranasal QAM PRN 06/15/20 02/26/24 Unknown History mcg/actuation nasal Congestion spray,suspension losartan 25 mg tablet 1 tab PO DAILY 06/15/20 02/26/24 Unknown History polyethylene glycol 3350 17 17 g PO DAILY 06/15/20 02/26/24 Unknown History gram/dose oral powder simvastatin 20 mg tablet 1 tab PO BEDTIME 06/15/20 02/26/24 Unknown History albuterol sulfate 90 mcg/actuation 2 puff inhalation Q4-6H PRN 08/11/23 02/26/24 Unknown History aerosol inhaler (Ventolin HFA) wheezing omeprazole 40 mg capsule,delayed 40 mg PO QAM 08/11/23 02/26/24 Unknown History release Exam Height,Weight and Vital Signs: Height 5 ft 3 in Weight 60.781 kg Assessment and Plan Assessment Anesthesia Assessment: Chart Reviewed Documented by User: Steffen Olivares MD 07/18/24 09:01 [facility] Past Medical History Medical History (Updated 06/22/24 @ 00:01 by Agata Grigsby) History of alcohol use disorder History of pancreatitis GERD (gastroesophageal reflux disease) Esophageal adenocarcinoma Esophageal carcinoma Depression Asthma Elevated cholesterol HTN (hypertension) Family History Family History Mother Cancer Father HTN (hypertension) Maternal Grandmother Diabetes Family history of problems with anesthesia: No Surgical History Surgical History (Updated 07/18/24 @ 08:35 by Farhana Rogers RN) History of esophageal surgery History of esophagogastroduodenoscopy (EGD) Previous back surgery Hx of appendectomy Hx of hemorrhoidectomy Hx of colonoscopy History of Problems with Anesthesia: No Social History Social History Household Members: Spouse and Children Household Members Other:: 2 children Housing: Apartment Are you a primary before and after school daycare worker to a significant other at home: No Do you presently have visiting nurse or other home services: No Alcohol intake: current Alcohol intake frequency: holidays/special occasions only Patient Tobacco Use Status: Never used Tobacco Second Hand Smoke Exposure: Yes (spouse) Use of substances other than those prescribed or required for medical reasons: No Are you DNR?: No Advance Directives: No Advance Directives Information Provided: Yes Advance Directives on File: No Recently lost weight without trying: No Nutrition Risks: No Nutritional Risk Patient : No service: No Current occupational status: disabled Meds Allergies Allergy/AdvReac Type Severity Reaction Status Date / Time morphine [Morphine] Allergy Unknown Rash Verified 06/21/24 09:33 Home Medications ?Medication ?Instructions ?Recorded ?Confirmed ?Last Taken ?Type cholecalciferol (vitamin D3) 50 1 cap PO DAILY 06/15/20 02/26/24 Unknown History mcg (2,000 unit) capsule fenofibrate 160 mg tablet 1 tab PO DAILY 06/15/20 02/26/24 Unknown History fluticasone propionate 50 2 spray intranasal QAM PRN 06/15/20 02/26/24 Unknown History mcg/actuation nasal Congestion spray,suspension losartan 25 mg tablet 1 tab PO DAILY 06/15/20 02/26/24 Unknown History polyethylene glycol 3350 17 17 g PO DAILY 06/15/20 02/26/24 Unknown History gram/dose oral powder simvastatin 20 mg tablet 1 tab PO BEDTIME 06/15/20 02/26/24 Unknown History albuterol sulfate 90 mcg/actuation 2 puff inhalation Q4-6H PRN 08/11/23 02/26/24 Unknown History aerosol inhaler (Ventolin HFA) wheezing omeprazole 40 mg capsule,delayed 40 mg PO QAM 08/11/23 02/26/24 Unknown History release Exam Airway Mallampati Class: I TM Dist: >3cm Neck ROM: Full Loose/Missing/Broken Teeth: No Heart: ok Lungs: ok Assessment and Plan Assessment Anesthesia Assessment: Anesthesia Plan Discussed Final Anesthetic Review Family History of Problems with Anesthesia: No History of Problems with Anesthesia: No NPO: Yes ASA Class: III Final Preanesthetic Review: No Changes in Pt Med Stat, Meds/Allgs Chart Reviewed, Consent Obtained/Reviewed and Anes Risks/Benef Reviewed Patient Risk: Low Procedure Risk: Low Anesthetic Plan Anesthetic Plan: MAC: and Agree w/ Assess. and Plan Disposition: Standard PACU
[2024-07-18 08:31] VITALS: BMI 23.8
--- NOTE | 2024-07-18 08:43 | MHC.SHP ---
Pre-Procedural Eval Section A - 24 Hr Update-Section A only Date of Service: 07/18/24 Section B - Complete if H&P > 30 days Chief Complaint: screening Relevant Family History (Specify if Yes): No Relevant Social History: None Present Medications: see Short Stay Collaborative assessment Medical History: Significant History (History of alcohol use disorder History of pancreatitis GERD (gastroesophageal reflux disease) Esophageal adenocarcinoma Esophageal carcinoma Depression Asthma Elevated cholesterol HTN (hypertension)) History of Previous Operations: Relevant previous surgery/procedure and date(s) (History of esophageal surgery History of esophagogastroduodenoscopy (EGD) Previous back surgery Hx of appendectomy Hx of hemorrhoidectomy Hx of colonoscopy) Allergies: Allergies Allergy/AdvReac Type Severity Reaction Status Date / Time morphine [Morphine] Allergy Unknown Rash Verified 06/21/24 09:33 Review of Systems Sugical H&P ROS: Negative: Constitution, Cardiovascular, Respiratory, Neurological, Psychiatric, Hem-Onc, Allergic/Immunologic, Gastrointestinal, Genitourinary, Musculoskeletal, Integumentary, Endocrine and Eyes/Ears/Nose/Throat Exam Surgical H&P Exam: Normal: HEENT, Normal: Heart, Normal: Lungs, Normal: Extremities, Normal: Abdomen, Normal: Skin and Normal: Neurological Plan Diagnosis/Plan: Unchanged I have reviewed the history and physical and performed a pertinent physical examination on my patient. No changes have occurred unless specified. Time Spent With Patient Time: Total time managing care of this patient today ____ minutes.
[2024-07-18 08:46] VITALS: BP 138/68; PULSE 65; RESP 16; TEMP 36.3; O2SAT 99
[2024-07-18] MEDS: Lactated Ringers 1,000 ML 100 ML IVCONT (08:54)
--- NOTE | 2024-07-18 09:19 | HO.OPN-COLON ---
Colonoscopy Operative Note Operative Note Date of Service: 07/18/24 Narrative: Operative Information Procedure Description: Colonoscopy Indication: screening Anesthesia: MAC COLONOSCOPY Instrument: Olympus variable stiffness pediatric scope 190L Colonoscopy Monitoring: Vital signs and clinical assessment, continuous EKG monitoring, Pulse oximetry, Carbon Dioxide monitoring and blood pressure monitoring were done throughout the procedure. Colon withdrawal time was 8 minutes. Procedure: The patient was placed in the left lateral decubitis position and pre-procedure medications were administered. After a digital rectal examination of the ano-rectum, the video colonoscope was inserted into the rectum and advanced through the colon to the cecum/TI. The colonoscope was slowly withdrawn in a retrograde panoramic fashion and the colon mucosa was carefully examined including a retroflexed view of the rectum. Findings and interventions are described below. Procedure Difficulty: easy Findings: Terminal Ileum-normal Cecum:normal Right sided retroflexion- normal Ascending Colon: normal Transverse Colon -normal Descending Colon:normal Sigmoid Colon: mild diverticulosis Rectum: Retroflexion with small to medium internal hemorrhoids seen, grade I Anorectum - normal Intervention: none Colon preparation: [place] Bowel Preparation Scale Right colon; 2 Transverse colon: 2 Left colon; 2 (0 = Unprepared colon segment with mucosa not seen due to solid stool that cannot be cleared. 1 = Portion of mucosa of the colon segment seen, but other areas of the colon segment not well seen due to staining, residual stool and/or opaque liquid. 2 = Minor amount of residual staining, small fragments of stool and/or opaque liquid, but mucosa of colon segment seen well. 3 = Entire mucosa of colon segment seen well with no residual staining, small fragments of stool or opaque liquid) Impression and Post Procedure Diagnosis: diverticulosis internal hemorrhoids Plan: High fiber diet leaflet Avoid straining at stool, epsom salts and sitz bath, anusol supps or cream Repeat Colonoscopy in 10 years or earlier if clinically indicated Above findings were reviewed with the patient and relevant handouts were provided if indicated.
[2024-07-18 09:27] VITALS: BP 107/58; PULSE 65; RESP 18; TEMP 36.1; O2SAT 100
[2024-07-18 09:43] VITALS: BP 112/62; PULSE 63; RESP 16; TEMP 36.4; O2SAT 97
== END 2024-07-18 10:05 | disposition home or self-care (01) ==
PROVIDERS: PCP Internal Medicine; Visit Provider Internal Medicine Gastroenterology
PROC: 0DJD8ZZ Inspection of Lower Intestinal Tract, Via Natural or Artificial Opening Endoscopic (ICD-10-PCS; CPT 45378; principal; 2024-07-18 08:40)
DX: Z12.11 Encounter for screening for malignant neoplasm of colon (principal); K57.30 Diverticulosis of large intestine without perforation or abscess without bleeding; K64.0 First degree hemorrhoids; I10 Essential (primary) hypertension; E78.5 Hyperlipidemia, unspecified; K21.9 Gastro-esophageal reflux disease without esophagitis; J45.909 Unspecified asthma, uncomplicated
CPT/HCPCS: G0121; J2003; J2704

== ENCOUNTER → 2024-07-18 07:37 | Outpatient (BNV) | payer OTHER, SELFPAY | PROVIDERS: PCP Internal Medicine; Visit Provider Internal Medicine Gastroenterology | DX: Z12.11 Encounter for screening for malignant neoplasm of colon (principal); K57.30 Diverticulosis of large intestine without perforation or abscess without bleeding; K64.0 First degree hemorrhoids | CPT/HCPCS: G0121 ==

== ENCOUNTER 2024-07-30 15:51 | Outpatient (RCR) | payer OTHER, SELFPAY | END 2024-07-30 16:54 | disposition home or self-care (01) | LOC: HO.PT 15:51 | PROVIDERS: PCP Internal Medicine; Visit Provider Surgery | DX: M54.40 Lumbago with sciatica, unspecified side (principal) | CPT/HCPCS: 97110; 97161; 97530; 97535 ==

== ENCOUNTER 2024-10-31 14:23 | Outpatient (AMB) | payer OTHER, SELFPAY ==
[2024-10-31 14:26] VITALS: BP 126/62; PULSE 71; O2SAT 98; BMI 23.4
--- NOTE | 2024-10-31 14:26 | MHC.OFFVIS ---
Vital Signs 10/31/24 14:26 Height 5 ft 3 in Weight 132 lb BMI 23.4 BP 126/62 Blood Pressure Location Rt brachial Position Sitting Pulse 71 Pulse Source Doppler Pulse Oximetry (%) 98 Oxygen Delivery Method Room Air Intake Visit Reasons: Asthma Allergies morphine [Morphine] Allergy (Unknown, Verified 10/31/24 14:31) Rash HPI HPI Asthma: Details: 69-year-old lady, former 10 pack year smoker, quit 7 years prior followed for underlying asthma/COPD overlap syndrome. She continues on Breo and albuterol MDI with good control of his symptoms. Several weeks prior patient had flu with exacerbation of her symptoms, but now she has recovered essentially to baseline. REPLACED BY [facility] Medical History History of alcohol use disorder History of pancreatitis GERD (gastroesophageal reflux disease) Esophageal adenocarcinoma Esophageal carcinoma Depression Asthma Elevated cholesterol HTN (hypertension) Surgical History History of esophageal surgery History of esophagogastroduodenoscopy (EGD) Previous back surgery Hx of appendectomy Hx of hemorrhoidectomy Hx of colonoscopy Family History Mother Cancer Father HTN (hypertension) Maternal Grandmother Diabetes Social History Household Members: Spouse and Children Household Members Other:: 2 children Housing: Apartment Are you a primary medical care evaluation specialist to a significant other at home: No Do you presently have visiting nurse or other home services: No Alcohol intake: current Alcohol intake frequency: holidays/special occasions only Patient Tobacco Use Status: Never used Tobacco Second Hand Smoke Exposure: Yes (spouse) service: No Current occupational status: disabled Review of Systems Const Denies daytime sleepiness, Denies excessive sweating, Denies fatigue, Denies fever(s), Denies lethargy, Denies malaise, Denies night sweats, Denies snoring and Denies weight loss Eyes Denies blurry vision and Denies itchy eyes ENT Denies nasal congestion, Denies post nasal drip, Denies sinus pain, Denies sinus pressure and Denies other ( Thrush) Card Denies chest pain, Denies pedal edema, Denies dyspnea, Denies orthopnea and Denies paroxysmal nocturnal dyspnea Resp Denies cough, Denies hemoptysis, Denies excessive phlegm production, Denies dyspnea, Denies snoring and Denies wheezing GI Denies abdominal pain and Denies heartburn Musc Denies myalgias, Denies arthralgias and Denies joint swelling Skin/Breast Denies rash Neuro Denies memory loss and Denies seizure-like activity Psych Denies abnormal sleep pattern, Denies anxiety and Denies memory loss Endo Denies excessive sweating, Denies fatigue and Denies heat intolerance Jose/Lymph Denies easy bruising Aller/Immun Denies itchy eyes, Denies seasonal rhinorrhea and Denies wheezing Physical Exam Vital Signs: Last Vital Signs Pulse 71 10/31/24 14:26 BP 126/62 10/31/24 14:26 Pulse Ox 98 10/31/24 14:26 Oxygen Delivery Method Room Air 10/31/24 14:26 BMI result Body Mass Index 23.4 Const General: no acute distress and alert Nutritional Appearance: not obese Orientation/consciousness: Other orientation findings ( oriented) HEENT Head: Yes atraumatic Eyes General: appearance normal, both eyes and all related structures Sclerae: sclerae normal EOM: EOMs intact bilaterally Neck Neck: Yes supple Lymphatic: no lymphadenopathy noted Resp Effort & Inspection: normal respiratory effort and no use of accessory muscles Auscultation: clear to auscultation bilaterally Cardio Rate: regular rate Rhythm: regular rhythm Heart sounds: no gallops, no murmurs and no rubs Skin General skin exam: other ( warm) Extrem General: No clubbing, No cyanosis and No edema Assessment & Plan Assessment & Plan (1) Asthma: Code(s): J45.909 - Unspecified asthma, uncomplicated Category: Medical Plan: Well controlled on Breo and albuterol MDI. Continue current regimen. (2) Environmental allergies: Code(s): Z91.09 - Other allergy status, other than to drugs and biological substances Category: Medical Plan: Well controlled on nasal Flonase as needed. Continue current regimen. Medications: New albuterol sulfate 90 mcg/actuation (Ventolin HFA) 2 puffs inhalation Q4-6H PRN 1 ea 6RF wheezing Coding Level of Care Code Est Pt Level 4 (08347) Diagnoses Asthma J45.909 Environmental allergies Z91.09
--- OUTSIDE RECORDS SUMMARY | 2024-10-31 15:38 | XMS_ITS | Encounter Summary ---
Author Organization [employer] [facility] Address [address] [place] [address] Care Team Providers Care Seed Cone Picker Name Role Phone Casandra Ruelas MD Primary Care Provide r Encounter Details Date Type Department Care Team (Latest Contact Info) Description 02/26/2021 Abstract [facility] Dental, Provider, DDS Social History Tobacco Use Types Packs/Day Years Used Date Smoking Tobacco: Never Assessed Comments Unknown Sex and Gender Information Value Date Recorded Sex Assigned at Female 07/11/2022 10:15 AM EDT Legal Sex Female 10:15 AM EDT Gender Identity Female 07/11/2022 10:15 AM EDT Sexual Orientation Straight 07/11/2022 10 :15 AM EDT documented as of this encounter Plan of Treatment Upcoming Encounters Date Type Department Care Team ( Contact Info) Description 11/27/2024 10:00 AM EDT Office Visit [facility] [address] [place] [phone] Casandra Ruelas MD [address] [place] [address] 01/06/2025 9:00 AM EDT Clinical Support [facility] [address] [place] [address] [phone] Edwige West, MARK documented as of this encounter Visit Diagnoses Not on filedocumented in this encounter Care Teams Seed Cone Picker Relationship Specialty Start Date End Date Casandra Ruelas MD [address] [place] [address] [phone] PCP - General Family Medicine 10/27/20 documented as of this encounter
--- OUTSIDE RECORDS SUMMARY | 2024-10-31 15:38 | XMS_ITS | Data Portability ---
Author Organization [employer] [facility] Address [address] [place] [address] Care Team Providers Care Driver Utility Worker Name Role Phone [facility] Referring Provider HIM [facility] OTHER Assessment Encounter Date Assessment Date Assessment LastModified by Organization Details LastModified Time 02/14/2024 02/14/2024 I provided real -time medical direction via phone for this encounter and was available for additional phone-based assistance as needed. I have reviewed and agree with the Assessment and Plan as documented by the Steel Rule Die Maker. Patient given the opportunity to ask questions. Our service contacted for an assessment of: cough As per above, patient has had a non-productive cough for approx a week. Denies F/C/N/V/CP/FRY and SOB. No sick contacts. Taking OTCs without much benefit. Per cardiac specialist on the scene, Non-toxic. Stable vitals. No distress. COVID and Flu are negative. Impression: ? seasonal allergies vs viral URI - differential diagnosis is broad however cardiac specialist assessment and limited data are reassuring. Plan: We discussed the diagnostic uncertainty of home visits and the risk associated with this. In this case, the patient and I felt this to be an acceptable and reasonable amount of risk given the benefit of avoiding an ED visit. We discussed the need to seek care urgently/emergentl y in the setting of any new or worsening serious symptoms, particularly fever chills lightheadedness altered mental status [email or web address] Not available 02/14/2024 18:07:25 Plan of Treatment Reminders Order Date Submit Date Provider Last Modified By Organization Details Last Modified Time Details Appointments None record ed. Lab None record ed. Referral None record ed. Procedures None record ed. Surgeries None record ed. Imaging None record ed. Medication Orders None record ed. Patient TargetsNo targets recorded. Patient InstructionsNo instructions recorded. Reason for Referral None Reported. Medical Equipment None Reported. Medications Name Sig Start Date Stop Date Status Note LastModified by Organization Details LastModified Time tizanidine 2 mg tablet TAKE 1 TABLET BY MOUTH EVERY 6 TO 8 HOURS NEEDED DO NOT EXCEED 3 TABLETS IN 24 HOURS active Not Available Not Available Not Available acetaminophe n 300 mg-codeine 15 mg tablet TAKE 1 TABLET BY MOUTH EVERY 8 HOURS NEEDED FOR SEVERE PAIN active Not Available Not Available Not Available omeprazole 40 mg capsule,kim yed release TAKE 1 CAPSULE BY MOUTH EVERY DAY BEFORE BREAKFAST, DO NOT BREAK, CRUSH, DISSOLVE OR CHEW active Not Available Not Available No t Available acetaminophe n 500 mg tablet TAKE 1 TABLET BY MOUTH EVERY 6 HOURS NEEDED FOR PAIN active Not Available Not Available No t Available triamcinolon e acetonide 0.1 % topical cream APPLY TO THE AFFECTED AREA(S) TWICE DAILY IN THE MORNING AND AT BEDTIME NEEDED FOR PAIN OR SWELLING active Not Available Not Available No t Available propranolol 10 mg tablet TAKE 1 TO 2 TABLETS BY MOUTH 30 TO 60 MINUTES BEFORE Situacin desencadena nte active Not Available Not Available No t Available simvastatin 20 mg tablet TAKE 1 TABLET BY MOUTH EVERY EVENING active Not Available Not Available No t Available losartan 25 mg tablet TAKE 1 TABLET BY MOUTH EVERY DAY active Not Available Not Available No t Available bisacodyl 5 mg tablet,delay ed release TAKE 2 TABLETS BY MOUTH AT BEDTIME FOR 2 DAYS active Not Available Not Available No t Available fluticasone propionate 50 mcg/actuatio n nasal spray,suspen lester INSTILL 2 SPRAYS IN EACH NOSTRIL ONCE DAILY NEEDED FOR ALLERGIES. active Not Available Not Available N ot Available loratadine 10 mg tablet TAKE 1 TABLET BY MOUTH EVERY DAY NEEDED FOR ALLERGIES active Not Available Not Available No t Available Ventolin HFA 90 mcg/actuatio n aerosol inhaler INHALE 2 PUFFS BY MOUTH EVERY 4 TO 6 HOURS NEEDED FOR WHEEZING OR SHORTNESS OF BREATH active Not Available Not Available No t Available Flovent HFA 220 mcg/actuatio n aerosol inhaler INHALE 1 PUFF BY MOUTH TWICE DAILY IN THE MORNING AND AT BEDTIME RINSE MOUTH AFTER USING. active Not Available Not Available No t Available fenofibrate 160 mg tablet TAKE 1 TABLET BY MOUTH EVERY MORNING active Not Available Not Available No t Available sodium fluoride 1.1 % dental cream BRUSH ON TEETH TWICE DAILY IN THE MORNING AND IN THE EVENING active Not Available Not Available No t Available Pulmicort Flexhaler 180 mcg/actuatio n breath activated INHALE 1 PUFF BY MOUTH TWICE DAILY IN THE MORNING AND AT BEDTIME RINSE MOUTH AFTER USING. DO NOT SWALLOW active Not Available Not Available Not Available budesonide-f ormoterol HFA 160 mcg-4.5 mcg/actuatio n aerosol inhaler INHALE 2 PUFFS BY MOUTH TWICE DAILY active Not Available Not Available No t Available Gavilax 17 gram/dose oral powder TAKE 17 GM MIXED IN 8 OUNCES OF WATER, COFFEE OR TEA ONCE DAILY active Not Available Not Available No t Available Vitamin D3 50 mcg (2,000 unit) capsule TAKE 1 CAPSULE BY MOUTH EVERY DAY active Not Available Not Available No t Available Vitals Date Recorded Oxygen saturation Oxygen saturation in Arterial blood by Pulse oximetry Body temperature Body weight Body height Heart rate Respiratory rate Systolic blood pressure Diastolic blood pressure Provider Name and Address Organization Details Last Updated DateTime 99 % 99 % 97.9 [degF] 72717.4 32 g 160.02 cm 72 /min 16 /min 164 mm[Hg] 64 mm[Hg] Not Available [facility] - production 4 18:04:10 Social History None recorded. Functional Status None recorded. Mental Status None recorded. Family History Nothing Reported. Medical History No medical history recorded. Gynecological HistoryNo gynecological history recorded. Obstetrics History GPAL:G 0 P 0 0 0 0 Past Encounters Encounter ID Performer Location Encounter Start Date Encounter Closed Date Diagnosis/Indication Diagnosis SNOMED-CT Code Diagnosis ICD10 Code Diagnosis Note [id number] Aleisha Garnica MD [facility] [address] [place] [phone] 02/14/2024 18:04:08 02/14/2024 21:46:25 Viral upper respiratory tract infection 594240807 J06.9 Health Concerns Section Related Observation LastModified by Organization Detai ls LastModified Time None Recorded Concern Status LastModified by Organization Details LastModified Time None Recorded Advance Directives Directive None Recorded Payers Encounter Date Sequence Insurance Name Policy Number Policy Ann Covered Member ID Ann Member ID Guarantor Name 02/14/2024 1 [facility] - DOS ON OR AFTER 2022 - DUAL ELIGIBLE - INTERMEDIATE OPTIONS AND ONE CARE (MEDICARE REPLACEMENT/ADV ANTAGE - HMO) Casandra Obrien [id number] Casandra Obrien Notes Date Note Type Note Provider Name and Address Organization Details Recorded Time 02/14/2024 text/html HPI: Patient with 4 days of increased shortness of breath, headache and productive cough. Reports feeling febrile. Instructed to use inhaler now at time of call as she has not done so previously .................. .................. .................. .................. .................. .................. .................. ............... [facility] Nurse Triage Notes (Daisha Thompson): Comments: HPI reviewed. No further information needed to process visit. Aleisha Garnica MD [address] [place] [address],[address], [place], [phone], [employer] 02/14/2024 18:07:38 OBGyn Episode No OBEpisode recorded.
--- OUTSIDE RECORDS SUMMARY | 2024-10-31 15:38 | XMS_ITS | Encounter Summary ---
Author Organization [facility] Address [address] [place] [address] Care Team Providers Care Certified Medical Assistant Name Role Phone Casandra Ruelas MD Primary Care Provide r Encounter Details Date Type Department Care Team (Latest Contact Info) Description 06/07/2019 Abstract [facility] Dental, Provider, DDS Social History Tobacco [...] Description 11/27/2024 10:00 AM EDT Office Visit [facility] [address] [place] [phone] Casandra Ruelas MD [address] [place] [address] 01/06/2025 9:00 AM EDT Clinical Support [facility] [address] [place] [address] [phone] Edwige West, MARK documented as of this encounter Visit Diagnoses Not on filedocumented in this encounter Care Teams Certified Medical Assistant Relationship Specialty Start Date End Date Casandra Ruelas MD [address] [place] [address] [phone] PCP - General Family Medicine 10/27/20 documented as of this encounter
--- OUTSIDE RECORDS SUMMARY | 2024-10-31 15:38 | XMS_ITS | Clinical Summary ---
Author Organization [employer] Address [address] [place] [address] Care Team Providers Care Cytotechnologist Supervisor Name Role Phone Casandra Ruelas MD Primary Care Provide r Allergies Active Allergy Reactions Criticality Noted Date Comments Gadolinium Derivatives Shortness of breath High 07/12 Iodinated Contrast Media Shortness of breath High 07/21/2020 Morphine Rash,Shortness of breath High 08/27/2012 Other reaction(s): Rash Medications hydrOXYzine HCl (Atarax) 10 MG tablet Take 1-2 tablets by mouth every 6 (six) hours. take 1 - 2 Tablet by Oral route every 6 hours as needed for anxiety 022 Active gabapentin (Neurontin) 250 MG/5ML solution Take 12 mL by mouth every 8 (eight) hours. Active omeprazole (PriLOSEC) [address] capsule Take 40 mg by mouth in the morning and 40 mg in the evening. 022 Active doxycycline (Adoxa) 100 MG tabletIndications:R ight non-suppurative otitis media,Acute cough Take twice daily with meals for 7d. Take with a full glass of water and do not lie down for at least 30 minutes after 14 tablet 022 Active fluticasone (Flonase) 50 MCG/ACT nasal sprayIndications:Se asonal allergic rhinitis, unspecified trigger Administer 2 sprays into each nostril if needed each day for allergies. 16 g 5 023 Active betamethasone, augmented, (Diprolene) 0.05 % ointmentIndications :Nummular dermatitis Apply topically 2 times daily. 45 g 023 Active triamcinolone (Kenalog) 0.1 % creamIndications:Ra sh and nonspecific skin eruption APPLY TO THE AFFECTED AREA(S) TOPICALLY TWICE DAILY IN THE MORNING AND AT BEDTIME NEEDED FOR PAIN OR FOR SWELLING 30 g 1 023 Active polyethylene glycol, PEG, 3350 (Glycolax) 17 GM/SCOOP powderIndications:C onstipation, unspecified constipation type TAKE 17 GM MIXED IN 8 OUNCES OF WATER, COFFEE OR TEA ONCE DAILY 510 g 3 023 Active loratadine (Claritin) 10 MG tabletIndications:M ild persistent asthma without complication TAKE 1 TABLET BY MOUTH EVERY DAY NEEDED FOR ALLERGY 90 tablet 1 023 Active Sodium Fluoride 5000 PPM 1.1 % creamIndications:De ntin hypersensitivity BRUSH ON TEETH TWICE DAILY IN THE MORNING AND IN THE EVENING 51 g 024 Active propranolol (Inderal) 10 MG tabletIndications:P erformance anxiety Take 1-2 tablets 30-60min before triggering situation 10 tablet 024 Active fenofibrate (Triglide) 160 MG tabletIndications:M ixed hyperlipidemia TAKE 1 TABLET BY MOUTH EVERY MORNING 90 tablet 1 024 Active tiZANidine (Zanaflex) 2 MG tabletIndications:S houlder pain, unspecified chronicity, unspecified laterality TAKE 1 TABLET BY MOUTH EVERY 6 TO 8 HOURS NEEDED DO NOT EXCEED 3 TABLETS IN 24 HOURS 60 tablet 1 024 Active simvastatin (Zocor) 20 MG tablet TAKE 1 TABLET BY MOUTH EVERY EVENING 90 tablet 1 024 Active D3 Super Strength 50 MCG (2000 UT) capsule TAKE 1 CAPSULE BY MOUTH EVERY DAY 90 capsule 3 024 Active omeprazole (PriLOSEC) [address] capsuleIndications: Gastroesophageal reflux disease, unspecified whether esophagitis present Take 1 capsule (40 mg) by mouth before breakfast and before evening meal. Do not crush or chew. 60 capsule 2 024 Active losartan (Cozaar) 25 MG tablet TAKE 1 TABLET BY MOUTH EVERY DAY 90 tablet 1 024 Active Diclofenac Sodium 1 % gelIndications:Acut e bilateral low back pain with sciatica, sciatica laterality unspecified Apply 1 each topically every 12 (twelve) hours if needed (apply on affected area). 150 g 024 Active naloxone (Narcan) 4 mg/0.1 mL nasal sprayIndications:Ch ronic bilateral low back pain, unspecified whether sciatica present Administer 1 spray (4 mg) into affected nostril(s) if needed for opioid reversal. May repeat every 2-3 minutes if needed, alternating nostrils, until medical assistance becomes available. 2 each 3 024 2024 Active albuterol (Ventolin HFA) 108 (90 Base) MCG/ACT inhalerIndications: Mild persistent asthma without complication Inhale 2 puffs every 6 (six) hours if needed for wheezing. 18 g 5 025 Active docusate sodium (Colace) 100 MG capsuleIndications: Other constipation Take 1 capsule (100 mg) by mouth 2 times daily. 20 capsule Active docusate sodium (Colace) 100 MG capsuleIndications: Other constipation Take 1 capsule (100 mg) by mouth 2 times daily. 20 capsule 024 2024 Discontinued(R eorder (will not trigger notification to Pharmacy)) acetaminophen-codei ne (Tylenol #2) 300-15 MG tabletIndications:C hronic bilateral low back pain, unspecified whether sciatica present Take 1 tablet by mouth every 8 (eight) hours if needed for severe pain for up to 28 days. 84 tablet 025 2024 Active Problems Problem Noted Date Diagnosed Date Diminished vision 08/20/2024 Acute bilateral low back pain with sciatica 05/13 Assessment & Plan (06/03/2024 4:57 PM EDT): XRAY ordered PT referral Encounter for screening mamm ogram for malignant neoplasm of breast 06/03/2024 Other constipation 02/21/2024 Assessment & Plan (02/21/2024 4:33 PM EDT): Increase water and fiber on her diet Colace and miralax prescribed F/u with GI H/O malignant neoplasm of esophagus 02/21/2024 Assessment & Plan (08/20/2024 4:39 PM EST): As above Assessment & Plan (02/21/2024 3:57 PM EDT): Patient has oncology appointment on 02/26/24 Anemia 11/29/2023 Performance anxiety 11/29/2023 Assessment & Plan (11/30/2023 3:03 PM EDT): Patient is studying for [employer] and get very nervous with palpitations and forgets information once she starts a test I will prescribe propanolol to see if it helps her Neck pain 07/26/2023 Left hip pain 07/26/2023 Colon cancer screening 07/26/2023 Encounter for Papanicolaou s mear for cervical cancer screening 03/23/2023 GERD (gastroesophageal reflux disease) Assessment & Plan (08/20/2024 4:39 PM EST): I advise patient to avoid NSAIDs, spicy and acid food, I advise to eat at the same time every day, I advise to elevate the head of the bed and take medications as prescribe Patient is being follwed by GI, her colonoscopy was normal her EGD is schedule for f/u ( patient with h/o esophageal adenocarcinoma) Assessment & Plan (06/03/2024 4:57 PM EDT): I advise patient to avoid NSAIDs, spicy and acid food, I advise to eat at the same time every day, I advise to elevate the head of the bed and take medications as prescribe Assessment & Plan (07/26/2023 12:23 PM EST): I advise patient to avoid NSAIDs, spicy and acid food, I advise to eat at the same time every day, I advise to elevate the head of the bed and take medications as prescribe F/u with GI and oncology Assessment & Plan (03/23/2023 11:13 AM EDT): I advise patient to avoid NSAIDs, spicy and acid food, I advise to eat at the same time every day, I advise to elevate the head of the bed and take medications as prescribe Encounter for preventative adult health care exprice mination 12/05/2022 Assessment & Plan (12/05/2022 11:57 AM EDT): Occupation: retired Lives with: Social Hx: Denies drinking EtOH, denies smoking cigarettes and denies recreational drug use. 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 Exam suggestive of otitis media. Pt has a Hx of cancer diagnoses and although no evidence of immunosuppression given her Hx low treshold for prescription of Abx. Plan: Supportive measures, Pt is already on antihistaminics and Nasal steroids, Tylenol for pain and fever, Augmentin BID x 7 days. F/u if no improvement Pt verbalized understanding Malignant neoplasm of esophagus 12/22/2020 Overview (08/23/2022): Complete pathological response on esophagectomy specimen Assessment & Plan (12/05/2022 11:48 AM EDT): New referral to oncology done Mild intermittent asthma 08/20/2019 Chronic low back pain 12/21/2018 Assessment & Plan (08/20/2024 4:40 PM EST): C/w heat and PT C/w pain meds PRN Assessment & Plan (02/21/2024 4:34 PM EDT): C/w acetaminophen #2 300-15mg as prescribed Assessment & Plan (11/30/2023 3:02 PM EDT): Continue with PRN pain meds and gentle stretching Mixed anxiety and depressive disorder 06/18/2015 Mixed hyperlipidemia 06/18/2015 Vitamin D deficiency 06/18/2015 Essential hypertension 06/18/2015 Assessment & Plan (08/20/2024 4:38 PM EST): I advised: - Aerobic exercise to reduce BP. Initial goal of 30 min walk 3-5x/week. Increase as tolerated. - low-sodium diet (goal: <2g/day) and heart healthy diet such as DASH to reduce BP and prevent ASCVD. - Home BP monitoring 1-2 x day with goal of <140/90. - Seek immediate medical attention for chest pain, palpitations, SOB, syncope, or sudden changes in mental status. - Do not change or discontinue current prescriptions without first consulting health care provider Assessment & Plan (06/03/2024 4:57 PM EDT): - Aerobic exercise to reduce BP. Initial goal of 30 min walk 3-5x/week. Increase as tolerated. - low-sodium diet (goal: <2g/day) and heart healthy diet such as DASH to reduce BP and prevent ASCVD. - Home BP monitoring 1-2 x day with goal of <140/90. - Seek immediate medical attention for chest pain, palpitations, SOB, syncope, or sudden changes in mental status. - Do not change or discontinue current prescriptions without first consulting health care provider Assessment & Plan (02/21/2024 4:33 PM EDT): - Aerobic exercise to reduce BP. Initial goal of 30 min walk 3-5x/week. Increase as tolerated. - low-sodium diet (goal: <2g/day) and heart healthy diet such as DASH to reduce BP and prevent ASCVD. - Home BP monitoring 1-2 x day with goal of <140/90. - Seek immediate medical attention for chest pain, palpitations, SOB, syncope, or sudden changes in mental status. - Do not change or discontinue current prescriptions without first consulting health care provider Assessment & Plan (11/30/2023 2:59 PM EDT): - Aerobic exercise to reduce BP. Initial goal of 30 min walk 3-5x/week. Increase as tolerated. - low-sodium diet (goal: <2g/day) and heart healthy diet such as DASH to reduce BP and prevent ASCVD. - Home BP monitoring 1-2 x day with goal of <140/90. - Seek immediate medical attention for chest pain, palpitations, SOB, syncope, or sudden changes in mental status. - Do not change or discontinue current prescriptions without first consulting health care provider Assessment & Plan (07/26/2023 12:22 PM EST): - Aerobic exercise to reduce BP. Initial goal of 30 min walk 3-5x/week. Increase as tolerated. - low-sodium diet (goal: <2g/day) and heart healthy diet such as DASH to reduce BP and prevent ASCVD. - Home BP monitoring 1-2 x day with goal of <140/90. - Seek immediate medical attention for chest pain, palpitations, SOB, syncope, or sudden changes in mental status. - Do not change or discontinue current prescriptions without first consulting health care provider Assessment & Plan (03/23/2023 11:13 AM EDT): I advise low NA diet I advis eto check BP at home and bring log in 2 weeks for BP check with nurse Continue with losartan 25mg daily If BP is not at goal I will add amlodipine 2.5mg daily Assessment & Plan (12/05/2022 11:47 AM EDT): Maintenance: BMP: ordered today Lipid Panel: ordered today ASCVD Risk: Calculate pending updated labs - Aerobic exercise to reduce BP. Initial goal of 30 min walk 3-5x/week. Increase as tolerated. - low-sodium diet (goal: <2g/day) and heart healthy diet such as DASH to reduce BP and prevent ASCVD. - Home BP monitoring 1-2 x day with goal of <140/90. - Seek immediate medical attention for chest pain, palpitations, SOB, syncope, or sudden changes in mental status. Patient is currently nt on medications I asked her to monitor BP and if its higher in more than 3 occassions 140/90mmhg to call us back, she has had report report some dizziness and light headache so she will keep a closer eye Encounters Date Type Department Care Team Description 10/10/2024 Refill [facility] [address] [place], [place] [phone] Casandra Ruelas MD Other constipation 10/07/2024 9:00 AM EST Clinical Support [address] [id number] Edwige West, corner trimmer operator bilateral low back pain, unspecified whether sciatica present (Primary Dx) 10/07/2024 Travel 10/07/2024 Telephone [facility] [address] [place] [phone] Edwige West, RN Recommend CRACKING UNIT OPERATOR Tier 2 09/23/2024 6:00 PM EST Office Visit [facility] [address] [place] [address] [phone] Edwin Rubio MD Influenza A (Primary Dx); Fever, unspecified fever cause; Mild persistent asthma without complication 09/23/2024 Telephone [facility] [address] [place] [address] [phone] Casandra Ruelas MD Nurse Triage 09/13/2024 Refill [facility] [address] [place] [address] [phone] Casandra Ruelas MD Chronic bilateral low back pain, unspecified whether sciatica present (Primary Dx) 09/13/2024 Refill [facility] [address] [place] [address] Casandra Ruelas MD Chronic bilateral low back pain, unspecified whether sciatica present 08/20/2024 3:30 PM EST Office Visit [facility] [address] [place] [address] Casandra Ruelas MD Essential hypertension (Primary Dx); Chronic bilateral low back pain, unspecified whether sciatica present; Gastroesophageal reflux disease, unspecified whether esophagitis present; H/O malignant neoplasm of esophagus; Mild persistent asthma without complication; Encounter for immunization 08/20/2024 Travel 08/19/2024 Telephone [facility] [address] [place] [phone] Rula Redmond [place] Chart Prep 08/06/2024 Patient Outreach [address] [phone] Casandra Ruelas MD Pre-visit Planning ([facility] screening completed on 02/12/2024) from Last 3 Months Immunizations Name Administration Dates Next Due Hep B, adult 12/04/2001, 1,08/17/2000,1999 Influenza High-dose Quadriva lent Preservative Free 07/26/2023 Influenza injectable quadriv alent IIV4 with preservative 06/07/2018,06/08/2017,06/16/2016 Influenza injectable quadriv alent preservative free 07/15/2021,06/07/2019,06/18/2015 Influenza, High Dose Seasona l, Preservative Free 08/20/2024 Influenza, IIV3, injectable 07/15/2014, 0 Influenza, Split (incl. rafael fied surface antigen) 07/04/2013,10/09/2012 MMR 05/29/2018,03/29/2001 Moderna Covid-19 Vaccine 12+ 03/29/2021,02/27/20 21 Pfizer Covid-19 Vaccine 12+ 08/20/2024, 1 Pneumococcal Conjugate PCV 20 04/13/2022 RSV Bivalent 11/29/2023 TD (adult), 2 Lf tetanus tox oid, preservative free, adsorbed 11/26/2007,08/31/1998 Tdap 12/22/2023,01/03/2013 Zoster, Recombinant 11/11/2019,08/20/2019 Zoster, live 10/12/2016 Family History Medical History Relation Name Comments Asthma Father Hypertension Father Diabetes Maternal Grandmother Stroke Maternal Grandmother Throat cancer Mother Stroke Paternal Grandmother Relation Name Status Comments Father Maternal Grandmother Mother Paternal Grandmother Social History Tobacco Use Types Packs/Day Years Used Date Smoking Tobacco: Former Cigarettes Passive Smoke Exposure: Never Smokeless Tobacco: Never Tobacco Cessation:Counseling Given: Not Answered Alcohol Use Standard Drinks/Week Comments Yes 0 (1 standard drink = 0.6 oz pur e alcohol) ocasionally Alcohol Answer Date Recorded Frequency of Alcohol Consumption Not on file 02/21/2024 Average Number of Drinks Not on file 024 Frequency of Binge Drinking Not on file 02/09 Score 0 02/21/2024 Depression Answer Date Recorded Patient Health Questionnaire-9 Score 0 02/21/2024 Patient Health Questionnaire-9 Score 0 02/21/2024 Last PHQ-9: Questionnaire Data Not on file 0 02/21/2024 Housing Stability Answer Date Recorded What is your housing situation today? I have laisha camacho 02/12/[address] you li ve. Do you have problems with any of the following? None of the above 02/12/2024 Food Insecurity Answer Date Recorded Within the past 12 months, y ou worried that your food would run out before you got money to buy more: Never True 02/12/2024 Within the past 12 months,th e food you bought just didn't last and you didn't have enough money to get more: Never True 11/2023 Transportation Answer Date Recorded In the past 12 months, has l ack of transportation kept you from medical appts, meetings, work or from getting things needed for daily living? No 02/12/2024 Utilities Answer Date Recorded In the past 12 months, has t he electric, gas, oil or water company threatened to shut off services in your home? No 02/12/2024 Depression Answer Date Recorded Patient Health Questionnaire-2 Score 0 02/21/2024 Comments Unknown Sex and Gender Information Value Date Recorded Sex Assigned at Female 07/11/2022 10:15 AM EDT Legal Sex Female 10:15 AM EDT Gender Identity Female 07/11/2022 10:15 AM EDT Sexual Orientation Straight 07/11/2022 10 :15 AM EDT Last Filed Vital Signs Vital Sign Reading Time Taken Comments Blood Pressure 138/76 09/23/2024 5:47 PM EST Pulse 88 09/23/2024 5:47 PM EST Temperature 38.1 ??C (100.5 ??F) 09/23/2024 5:[address] Respiratory Rate 18 09/23/2024 5:47 PM EST Oxygen Saturation 96% 09/23/2024 5:47 PM EST Inhaled Oxygen Concentration - - Weight 61.3 kg (135 lb 3.2 oz) 09/23/2024 5:47 P M EST Height 157.5 cm (5' 2 ) 08/20/2024 3:40 PM EST Body Mass Index 24.73 08/20/2024 3:40 PM EST Plan of Treatment Upcoming Encounters Date Type Department Care Team (Late st Contact Info) Description 11/27/2024 10:00 AM EDT Office Visit [facility] [address] [place] [phone] Casandra Ruelas MD [address] [place] [phone] 01/06/2025 9:00 AM EDT Clinical Support [facility] [address] [place] [phone] Edwige West, MARK Health Maintenance Due Date Last Done Comments CT Colonography 1956 Colonoscopy 1956 Colorectal Cancer Screening 1956 Dental Oral Exam 1956 Dental Prophylaxis 1956 Dental X-Ray: Bitewings 1956 Dental X-Ray: Full Mouth 1956 FIT DNA/Cologuard 1956 FIT 1956 FOBT 1956 Sigmoidoscopy 1956 Hepatitis C Screening 1974 Mammogram 01/21/2024 01/20/2023, 01/09, 07/21/2021, Additional history exists SDOH Screening 02/11/2025 02/12/2024 Depression Screening 02/20/2025 02/21/2024, 02/21/20 Alcohol/Substance Use Screening 08/20/2025 08/20/2024 Tobacco Screening 09/23/2025 09/23/2024 Lipid Panel 02/19/2029 02/20/2024, 12/11, 02/04/2022 DTaP/Tdap/Td Vaccines (3 - Td or Tdap) 12/21/2033 12/22/2023, 01/03/2013, 11/26/2007, Additional history exists Hepatitis B Vaccines Completed 12/04/2001, 03/29/2001, 08/17/2000, Additional history exists Zoster Vaccines Completed 11/11/2019, 08/11, 10/12/2016 Pneumococcal Vaccine: 50+ Years Completed 04/13/2022 RSV Patients and Patients Aged 60 years or older Completed 11/29/2023 COVID-19 Vaccine Completed 08/20/2024, 04/2021, 03/29/2021, Additional history exists Influenza Vaccine Completed 08/20/2024, , 07/15/2021, Additional history exists HIB Vaccines Aged Out No longer eligi ble based on patient's age to complete this topic HPV Vaccines Aged Out No longer eligi ble based on patient's age to complete this topic Hepatitis A Vaccines Aged Out No long er eligible based on patient's age to complete this topic IPV Vaccines Aged Out No longer eligi ble based on patient's age to complete this topic Meningococcal Vaccine Aged Out No roverto lacho eligible based on patient's age to complete this topic RSV under 20 months Aged Out No longe r eligible based on patient's age to complete this topic Rotavirus Vaccines Aged Out No longer eligible based on patient's age to complete this topic Procedures Procedure Name Priority Date/Time Associated Diagnosis Comments POCT BETHANY-14 URINE DRUG SCREEN Routine 10/07/2024 9:18 AM EST Chronic bilateral low back pain, unspecified whether sciatica present POC FOX ID NOW STREP A Routine 09/23/2024 5:52 PM EST Fever, unspecified fever cause POCT INFLUENZA B (ID NOW RAPID MOLECULAR) Routine 09/23/2024 5:52 PM EST Fever, unspecified fever cause POCT INFLUENZA A (ID NOW RAPID MOLECULAR) Routine 09/23/2024 5:52 PM EST Fever, unspecified fever cause POCT RAPID COVID ANTIGEN Routine 09/23/2024 5:51 PM EST Fever, unspecified fever cause LIPID PANEL, STANDARD Routine 02/20/2024 2:18 PM EDT Essential hypertension BI MAMMOGRAM SCREENING TOMOSYNTHESIS BILATERAL Routine 01/20/2023 11:35 AM EDT from Last 3 Months or Most Recently Relevant to Health Maintenance Results * POCT BETHANY-14 Urine Drug Screen (10/07/2024 9:18 AM EST) Opiate Screen, Urine Positive Urine Urine specimen obtained by clean catch procedure / Unknown 10/07/2024 9:18 AM EST Narrative Edwige West RN - 10/07/2024 9:18 AM EST UTOX cup Lot#[id number] Exp. 06/05/26 Internal Pass Control us Casandra Chou MD POINT OF CARE TEST EN TER/EDIT ORDERABLES Final Result * POCT Rapid Influenza B FOX ID NOW (09/23/2024 5:52 PM EST) Influenza B Negative Negative, Indeterminate [facility] Media Lot # [id number] [facility] Lot# Expiration Date [phone] [facility] Swab 09/23/2024 5:52 PM EST us Edwin Rubio MD POINT OF CARE TEST ENTER/ED IT ORDERABLES Final Result [facility] [address] [place] [phone] * (ABNORMAL) POCT Rapid Influenza A FOX ID NOW (09/23/2024 5:52 PM EST) [facility] Influenza A Positive( A) Negative, Indeterminate [facility] Media Lot # [id number] [facility] Lot# Expiration Date [facility] Swab 09/23/2024 5:52 PM EST us Edwin Rubio MD POINT OF CARE TEST ENTER/ED IT ORDERABLES Final Result [facility] [address] [place] [phone] * POCT Rapid Strep A FOX ID NOW (09/23/2024 5:52 PM EST) [facility] Rapid Strep A Screen Negative Negative, None Detected [facility] [employer] Lot # [id number] Lot# Expiration Date Swab 09/23/2024 5:52 PM EST Edwin Rubio MD POINT OF CARE TEST ENTER/ED IT ORDERABLES Final Result * POCT Rapid Covid-19 BinaxNOW (09/23/2024 5:51 PM EST) [facility] Rapid COVID Ag Negative [facility] Lot # [id number] Lot# Expiration Date Swab 09/23/2024 5:51 PM EST Edwin Rubio MD POINT OF CARE TEST ENTER/ED IT ORDERABLES Final Result * Lipid Panel, Standard (02/20/2024 2:18 PM EDT) [facility] Triglycerides 95 <150 mg/dL [facility] Comment:Desirable Triglyceri de: less than 150 mg/dLBorderline High Triglyceride 150-199 mg/dLHigh Triglyceride: 200-499 mg/dLVery High Triglyceride: greater than or equal to 5OO mg/dL Cholesterol 144 <200 mg/dL [facility] Comment:Desirable Cholestero l: less than 200 mg/dLBorderline High Cholesterol: 200-239 mg/dLHigh Cholesterol: greater than 239 mg/dL LDL Cholesterol Calculated 60 <100 mg/dL [facility] Comment:Desirable LDL: less than 100 mg/dLNear Optimal/Above Optimal LDL: 110- 129 mg/dLBorderline High LDL: 130-159 mg/dLHigh LDL: 160-189 mg/dLVery High LDL: greater than or equal to 190 mg/dL HDL Cholesterol 65 >40 mg/dL [facility] Comment:Desirable HDL: great er than 40 mg/dL Note: This HDL assay may give artificially low results in patients with liver disease. Blood Venous blood specimen / Unknown 02/20/2024 2:18 PM EDT 02/20/2024 4:03 PM EDT Casandra Chou MD LAB BLOOD ORDERABLES Final Result [facility] [address] [place] [phone] * BI Mammogram Screening Tomosynthesis Bilateral (01/20/2023 11:35 AM EDT) Anatomical Region Laterality Modality Breast Bilateral Mammography 01/20/2023 11:3 5 AM EDT Narrative 01/23/2023 9:50 AM EDT ? [facility] ? [address] ?[place] [address] ? Mammography Report ? Signed ? Patient: Laurence Obrien,Casandra ?MR#: [id number] ?? [id number] ? : 1955 ?Acct:[id number] ? Age/Sex: 67 / F ?ADM Date: 05/12/23 ? Loc: HO.MAMMO ? Attending Dr: Casandra Chou MD ? Ordering Physician: Casandra Ruelas MD ?Results: ?? 2Benign Findings ? Date of Service: 01/20/23 ?Follow Up: 1 Year From Orig ?? inal Mammogram ? Procedure(s): MM tomosynthesis screening BI ?? Accession Number(s): [id number] ? cc: Casandra Ruelas MD ? EXAMINATION: ?? MM SCREENING DIGITAL BREAST TOMOSYNTHESIS, BILATERAL ? CLINICAL INFORMATION: ? Screening. Asymptomatic. ? The lifetime risk of breast cancer based on the Tyrer-Cuzick Model is ?? 3%. ? COMPARISON: ?? Mammography: 07/21/2021, 09/13/2019, 07/11/2018 ? TECHNIQUE: ?? Digital breast tomosynthesis is performed in both the craniocaudal and ?? mediolateral oblique views along with computer-aided detection (CAD). ?? Synthesized 2D images are generated from the tomosynthesis. ? FINDINGS: ?? There are scattered areas of fibroglandular density (ACR BI-RADS breast ?? composition Category b). ? Findings fibronodular parenchymal pattern is similar to prior studies. ?? There are no significant masses, abnormal calcifications, or other ?? abnormalities. ??Parenchymal pattern is similar to prior studies. There ?? is no developing density or architectural abnormality. There is a port ?? again seen overlying the right posterior breast. The axilla and skin ?? contours are unremarkable. No significant changes. ? MM/MM tomosynthesis screening BI ?? IMPRESSION: ?? No mammographic evidence of malignancy. ? ASSESSMENT: ? BI-RADS 2: Benign ? RECOMMENDATION: ?? Routine annual mammography screening. ? This patient's information was entered into a reminder system with a ?? target due date for their next mammogram. ? Dictated By: ?Clay Mercado MD ? Signed By: ?<Electronically signed by Clay Mercado MD in OV> ?15 09 ? DD/ 1135 ? TD/TT: ? Hypercil Core Transformer Assembler: [email or web address] ? Procedure Note Donotuseinterpreter, Image - 03/09/2023 [facility] [address] [place] [address] Mammography Report Signed Patient: Casandra JonesMR#: [id number] : 6Acct:[id number] Age/Sex: 67 / FADM Date: 01/20/23 Loc: HO.MAMMO Attending Dr: Casandra Chou MD Ordering Physician: Casandra Ruelas MDResults: 2Benign Findings Date of Service: 01/20/23Follow Up: 1 Year From Orig inal Mammogram Procedure(s): MM tomosynthesis screening BI Accession Number(s): [id number] cc: Casandra Ruelas MD EXAMINATION: MM SCREENING DIGITAL BREAST TOMOSYNTHESIS, BILATERAL CLINICAL INFORMATION: Screening. Asymptomatic. The lifetime risk of breast cancer based on the Tyrer-Cuzick Model is 3%. COMPARISON: Mammography: 07/21/2021, 09/13/2019, 07/11/2018 TECHNIQUE: Digital breast tomosynthesis is performed in both the craniocaudal and mediolateral oblique views along with computer-aided detection (CAD). Synthesized 2D images are generated from the tomosynthesis. FINDINGS: There are scattered areas of fibroglandular density (ACR BI-RADS breast composition Category b). Findings fibronodular parenchymal pattern is similar to prior studies. There are no significant masses, abnormal calcifications, or other abnormalities. Parenchymal pattern is similar to prior studies. There is no developing density or architectural abnormality. There is a port again seen overlying the right posterior breast. The axilla and skin contours are unremarkable. No significant changes. MM/MM tomosynthesis screening BI IMPRESSION: No mammographic evidence of malignancy. ASSESSMENT: BI-RADS 2: Benign RECOMMENDATION: Routine annual mammography screening. This patient's information was entered into a reminder system with a target due date for their next mammogram. Dictated By: Clay Mercado MD Signed By: <Electronically signed by Clay Mercado MD in OV> 01/23/23 0947 DD/ 1135 TD/TT: Hypercil Core Transformer Assembler: [facility] External Provider IMG BI PROCEDURES Final Result from Last 3 Months or Most Recently Relevant to Health Maintenance Insurance [facility] LIMITED ADULT DENTAL-[place] ADULT Care Teams Cytotechnologist Supervisor Relationship Specialty Start Date End Date Casandra Ruelas MD [address] [place] [address] [place] [address] PCP - General Family Medicine 10/27/20
--- OUTSIDE RECORDS SUMMARY | 2024-10-31 15:38 | XMS_ITS | Encounter Summary ---
Author Organization [employer] Address [address] [place] [address] Care Team Providers Care Consulting Solution Manager Name Role Phone Casandra Ruelas MD Primary Care Provide r Encounter Details Date Type Department Care Team ([facility] Contact Info) Description 04/25/2023 Abstract [facility] MEDICINE [address] [place] [address] [phone] Casandra Ruelas MD [address] [place] [address] [phone] Social History Tobacco Use Types Packs/Day Years Used Date Smoking Tobacco: Never Passive Smoke Exposure: Never Smokeless Tobacco: Never Alcohol Use Standard Drinks/Week Comments Yes 0 (1 standard drink = 0.6 oz pur e alcohol) ocasionally Depression Answer Date Recorded Patient Health Questionnaire-9 Score 0 12/05/2022 Depression Answer Date Recorded Patient Health Questionnaire-2 Score 0 12/05/2022 Comments Unknown Sex and Gender Information Value Date Recorded Sex Assigned at Female 07/11/2022 10:15 AM EDT Legal Sex Female 10:15 AM EDT Gender Identity Female 07/11/2022 10:15 AM EDT Sexual Orientation Straight 07/11/2022 10 :15 AM EDT documented as of this encounter Plan of Treatment Upcoming Encounters Date Type Department Care Team ([facility] Contact Info) Description 11/27/2024 10:00 AM EDT Office Visit [facility] MEDICINE [address] [place] [address] [phone] Casandra Ruelas MD [address] [place] [address] [phone] 01/06/2025 9:00 AM EDT Clinical Support [facility] MEDICINE [address] [place] [address] Edwige West, RN documented as of this encounter Procedures Procedure Name Priority Date/Time Associated Diagnosis Comments PAP/HPV Routine 03/23/2023 documented in this encounter Results * Pap Smear (03/23/2023) Pap Negative for intraephithelial lesion or malignancy Negative for intraephithelial lesion or malignancy, Other Vaginal Fluid 03/23/2023 Casandra Chou MD HEALTH MAINTENANCE Fi nal Result documented in this encounter Visit Diagnoses Not on filedocumented in this encounter Additional Health Concerns Assessment Noted Time PHQ-9 Depression Total Score: 0 12/06/19 23 10:13 AM EDT documented as of this encounter Care Teams Consulting Solution Manager Relationship Specialty Start Date End Date Casandra Ruelas MD [address] [place] [address] PCP - General Family Medicine 10/27/20 documented as of this encounter
--- OUTSIDE RECORDS SUMMARY | 2024-10-31 15:38 | XMS_ITS | Encounter Summary ---
Author Organization [employer] [facility] Address [address] [place] [address] Care Team Providers Care Web Design Specialist Name Role Phone Casandra Ruelas MD Primary Care Provide r Encounter Details Date Type Department Care Team (Late Contact Info) Description 08/18/2022 Abstract [facility] ADULT DENTAL [address] [place] [phone] Dental, Provider, DDS Social History Tobacco Use [...] Upcoming Encounters Date Type Department Care Team ([facility] Contact Info) Description 11/27/2024 10:00 AM EDT Office Visit [facility] MEDICINE [address] [place] [address] Casandra Ruelas MD [address] [place] [phone] 01/06/2025 9:00 AM EDT Clinical Support [address] [address] Edwige West RN documented as of this encounter Procedures Procedure Name Priority Date/Time Associated Diagnosis Comments 2,3,4,5 PARTIAL DENTURE - RESIN Routine 08/18/2022 12:00 AM EST 9 PREFABRICATED POST AND CORE IN ADDITION TO CROWN Routine 08/18/2022 12:00 AM EST 9 CROWN - PORCELAIN/CERAMIC Routine 08/18/2022 12:00 AM EST 14 MB COMPOSITE FILLING Routine 08/18/20 12:00 AM EST 13 MOD COMPOSITE FILLING Routine 12:00 AM EST 12 O COMPOSITE FILLING Routine 12:00 AM EST 11 MIL COMPOSITE FILLING Routine 12:00 AM EST 10 DL COMPOSITE FILLING Routine 08/18/20 12:00 AM EST 8 MDL COMPOSITE FILLING Routine 08/18/20 12:00 AM EST 6 MIFL COMPOSITE FILLING Routine 12:00 AM EST 20 (V) COMPOSITE FILLING Routine 08/18/2022 12:00 AM EST 21 B(V)O COMPOSITE FILLING Routine 08/18/2022 12:00 AM EST 22 I COMPOSITE FILLING Routine 2 12:00 AM EST 23 I COMPOSITE FILLING Routine 2 12:00 AM EST 24 I COMPOSITE FILLING Routine 2 12:00 AM EST 25 I COMPOSITE FILLING Routine 2 12:00 AM EST 26 I COMPOSITE FILLING Routine 2 12:00 AM EST 27 I COMPOSITE FILLING Routine 2 12:00 AM EST 28 O COMPOSITE FILLING Routine 2 12:00 AM EST 14 DO AMALGAM FILLING Routine 08/18/2022 12:00 AM EST 29 DO AMALGAM FILLING Routine 08/18/2022 12:00 AM EST 30 O AMALGAM FILLING Routine 08/18/2022 12:00 AM EST 31 O AMALGAM FILLING Routine 08/18/2022 12:00 AM EST 32 EXTRACTION Routine 08/18/2022 12:00 AM EST 19 EXTRACTION Routine 08/18/2022 12:00 AM EST 17 EXTRACTION Routine 08/18/2022 12:00 AM EST 5 EXTRACTION Routine 08/18/2022 12:00 AM EST 4 EXTRACTION Routine 08/18/2022 12:00 AM EST 3 EXTRACTION Routine 08/18/2022 12:00 AM EST 2 EXTRACTION Routine 08/18/2022 12:00 AM EST 1 EXTRACTION Routine 08/18/2022 12:00 AM EST 9 ROOT CANAL Routine 08/18/2022 12:00 AM EST documented in this encounter Visit Diagnoses Not on filedocumented in this encounter Care Teams Web Design Specialist Relationship Specialty Start Date End Date Casandra Ruelas MD [address] [place] [address] PCP - General Family Medicine 10/27/20 documented as of this encounter
--- OUTSIDE RECORDS SUMMARY | 2024-10-31 15:38 | XMS_ITS | Encounter Summary ---
Author Organization [facility] Address [address] [place] [address] Care Team Providers Care Applications Support Engineer Name Role Phone Casandra Ruelas MD Primary Care Provider Reason for Visit * Reason Onset Date Comments PAC Patient Request Call Back 12/30/2022 Co lonoscopy date Encounter Details Date Type Department Care Team ([facility] st Contact Info) Description 12/30/2022 Telephone [facility] [address] [place] [phone] Telephone Intake, Staff PAC Patient Request Call Back (Colonoscopy date ) Social History Tobacco Use Types Packs/Day Years Used Date Smoking Tobacco: Former Cigarettes Q uit: 2012 Smokeless Tobacco: Never Alcohol Use Standard Drinks/Week Comments Yes 0 (1 standard drink = 0.6 oz pur e alcohol) social Comments Unknown Sex and Gender Information Value Date Recorded Sex Assigned at Not on file Legal Sex Female 3:29 PM EDT Gender Identity Not on file Sexual Orientation Not on file documented as of this encounter Miscellaneous Notes * Telephone Encounter - Samara Julien - 12/30/2022 3:34 PM EDT Pt is calling to verify date and time of colonoscopy. Best phone # [phone] Ty Unable to contact clinic to confirm information for Pt, TE sent documented in this encounter Plan of Treatment Scheduled Procedures Name Priority Associated Diagnoses Date/Ti me COLONOSCOPY SCREENING, LOW R ISK WITH POSSIBLE MODERATE SEDATION Colon cancer screening documented as of this encounter Visit Diagnoses Not on filedocumented in this encounter Care Teams Applications Support Engineer Relationship Specialty Start Date End Date Casandra Ruelas MD [address] [place] [address] PCP - General Internal Medicine 12/14/21 documented as of this encounter
--- OUTSIDE RECORDS SUMMARY | 2024-10-31 15:39 | XMS_ITS | Clinical Summary ---
Author Organization [facility] Address [address] [place] [address] Care Team Providers Care Clerk Television Production Name Role Phone Casandra Ruelas MD Primary Care Provider Allergies Active Allergy Reactions Criticality Noted Date Comments Iodinated Contrast Media Dyspnea High 07/21/2020 Morphine Rash 06/07/2022 Medications simvastatin (ZOCOR) 20 mg tablet SMARTSI Tablet(s) By Mouth Every Evening 04/21/2022 Active polyethylene glycol 3350 (MIRALAX) powder SMARTSI Gram(s) By Mouth Daily 03/29/2022 Active losartan (COZAAR) 25 mg tablet Take 25 mg by mouth once a day. 03/03/2022 Active loratadine (CLARITIN) 10 mg tablet Take 10 mg by mouth daily as needed. 12/14/2021 Active hydrOXYzine HCL (ATARAX) 10 mg tablet Take 10-20 mg by mouth every 6 hours as needed. 03/08/2022 Active fluticasone propionate (FLONASE) 50 mcg/actuation nasal spray SMARTSI [place](s) Both Nares Every Morning PRN 11/12/2021 Active SF 5000 Plus 1.1 % cream BRUSH ON TEETH TWICE DAILY IN THE MORNING AND AT BEDTIME 03/29/2022 Active ProAir HFA 90 mcg/actuation inhaler 2 puffs every 4 hours as needed. 03/29/2022 Active fenofibrate (LOFIBRA) tablet 160 mg Take 160 mg by mouth once a day. 03/03/2022 Active cholecalciferol (VITAMIN D3) 2,000 unit capsule Take 1 capsule by mouth once a day. 03/29/2022 Active omeprazole (PriLOSEC) 40 mg capsuleIndicati ons:Esophagitis Take 1 capsule (40 mg total) by mouth 2 (two) times a day. 60 capsule 2 08/25/2022 Active acetaminophen (TYLENOL) 500 mg tablet SMARTSI Tablet(s) By Mouth Every 6 Hours PRN 11/28/2022 Active acetaminophen-c odeine (TYLENOL #2) 300-15 mg per tablet SMARTSI Tablet(s) By Mouth Every 8 Hours PRN 12/05/2022 Active tiZANidine (ZANAFLEX) 2 mg tablet SMARTSI Tablet(s) By Mouth Every 6-8 Hours PRN 12/05/2022 Active triamcinolone acetonide (KENALOG) 0.1% cream SMARTSIG:Top ical Morning-Nigh t PRN 12/05/2022 Active Active Problems No known active problems Social History Tobacco Use Types Packs/Day Years Used Date Smoking Tobacco: Former Cigarettes Q uit: 2011 Smokeless Tobacco: Never Tobacco Cessation:Counseling Given: Not Answered Alcohol Use Standard Drinks/Week Comments Yes 0 (1 standard drink = 0.6 oz pur e alcohol) social Comments No Sex and Gender Information Value Date Recorded Sex Assigned at Not on file Legal Sex Female 3:29 PM EDT Gender Identity Not on file Sexual Orientation Not on file Last Filed Vital Signs Vital Sign Reading Time Taken Comments Blood Pressure 156/81 01/02/2023 10:53 AM EDT Pulse 68 01/02/2023 10:53 AM EDT Temperature 36.7 ??C (98.1 ??F) 01/02/2023 10:53 AM E DT Respiratory Rate 16 01/02/2023 10:53 AM EDT Oxygen Saturation 98% 01/02/2023 10:53 AM EDT Inhaled Oxygen Concentration - - Weight 64.7 kg (142 lb 9.6 oz) 01/02/2023 10:53 AM EDT Height 155.4 cm (5' 1.18 ) 01/02/2023 10:53 AM E DT Body Mass Index 26.78 01/02/2023 10:53 AM EDT Plan of Treatment Scheduled Procedures Name Priority Associated Diagnoses Date/Ti me COLONOSCOPY SCREENING, LOW R ISK WITH POSSIBLE MODERATE SEDATION Colon cancer screening Health Maintenance Due Date Last Done Comments Cologuard 1955 Colon Cancer Screening 1955 Colonoscopy 1955 FOBT / Fit Test 1955 Hepatitis C Screening [address] Lung Cancer Screening (Baseline) 2006 Osteoporosis Screening 2006 RSV Vaccine (60+ years old a nd patients) (1 - Risk 60-74 years 1-dose series) 2016 DTaP,Tdap,and Td Vaccines (2 - Td or Tdap) 01/03/2023 01/03/2013, 11/26/2007, 08/31/1998 Mammogram 07/21/2023 07/21/2021, 02/2020, 07/12/2018 COVID-19 Vaccine (2023-2 5 season) 2024 07/19/2021, 03/29/2021, 02/26/2021 Influenza Vaccine (#1) 2024 , 06/07/2019, 06/07/2018, Additional history exists Alcohol/Substance Use Screening 09/11/2024 Depression Screening and Follow-Up 09/11/2024 Health Care Proxy Review 09/11/2024 Social Drivers of Health Gracie ual Screening 09/11/2024 Hepatitis B Vaccines Completed 12/04/2001, 03/29/2001, 08/17/2000, Additional history exists Zoster Vaccines Completed 11/11/2019, 08/11, 10/12/2016 Pneumococcal Vaccine: 50+ Years Completed [address] [facility] Care Teams Clerk Television Production Relationship Specialty Start Date End Date Casandra Ruelas MD [address] [place] [address] PCP - General Internal Medicine 12/14/21
--- OUTSIDE RECORDS SUMMARY | 2024-10-31 15:39 | XMS_ITS | Encounter Summary ---
Author Organization [employer] Address [address] [place] [address] Care Team Providers Care Raiser Helper Name Role Phone Casandra Ruelas MD Primary Care Provide r Reason for Visit * Reason Comments PLASTERER APPRENTICE RV PLASTERER APPRENTICE RV Encounter Details Date Type Department Care Team (Latest Contact Info) Description 10/07/2024 9:00 AM EST Clinical Support [facility] MEDICINE [address] [place] [address] Edwige West RN Chronic bilateral low back pain, unspecified whether sciatica present (Primary Dx) Social History Tobacco Use Types Packs/Day Years [...] AM EDT documented as of this encounter Progress Notes * Edwige West RN - 10/07/2024 9:00 AM EST S: Pt here for PLASTERER APPRENTICE Revisit. Prescribed Acetaminophen-Codeine 300mg/15mg Q8hr PRN. States she has been taking 2 doses a day, rarely will she take 3, last dose was taken last night. Denies smoking cigarettes, illicit drug use or marijuana use. She will have a glass of wine on special occasions. Currently rates her pain a 5 and states medication is 70% effective at alleviating her pain. Current pain sites are her lower back and her left leg. She has a history esophageal cancer (esophagus removed). O: PLASTERER APPRENTICE Tier 2. Pt currently prescribed Acetaminophen-Codeine 300mg/15mg Q8hr PRN. AND RESCUE FIRE FIGHTER CRASH FIRE verified today. Rx last filled on 09/16/24. Pill count performed. Pt has 52 pills at this time, 20 at least expected. Medication is not overused by patient. UTOX completed. Positive for MOP, Negative for AMP, BAR, BUP, BZO, MYNOR, FTY, MDMA, MET, MTD, OXY, PCP, TCA, THC. UTOX as expected. Last PCP visit was 08/20/24. A: PLASTERER APPRENTICE Revisit: Chronic Opioid use related to pain. P: Pt to continue taking medication only as prescribed; Next PLASTERER APPRENTICE RV appointment scheduled for 01/06/25 @ 9am, F/U sooner PRN. Appointment reminder given. Pt verbalized understanding and agreed to plan. documented in this encounter Plan of Treatment Upcoming Encounters Date Type Department Care Team (Late st Contact Info) Description 11/27/2024 10:00 AM EDT Office Visit [address] [address] Casandra Ruelas MD [address] [place] [phone] 01/06/2025 9:00 AM EDT Clinical Support [address] [phone] Edwige West RN documented as of this encounter Procedures Procedure Name Priority Date/Time Associated Diagnosis Comments POCT BETHANY-14 URINE DRUG SCREEN Routine 10/07/2024 9:18 AM EST Chronic bilateral low back pain, unspecified whether sciatica present documented in this encounter Results * POCT BETHANY-14 Urine Drug Screen (10/07/2024 9:18 AM EST) Opiate Screen, Urine Positive Urine Urine specimen obtained by clean catch procedure / Unknown 10/07/2024 9:18 AM EST Narrative Edwige West RN - 10/07/2024 9:18 AM EST UTOX cup Lot#[id number] Exp. 06/05/26 Internal Pass Control Casandra Chou MD POINT OF CARE TEST EN TER/EDIT ORDERABLES Final Result documented in this encounter Visit Diagnoses Diagnosis Chronic bilateral low back pain, unspecified whether sciatica present- Primary documented in this encounter Additional Health Concerns Assessment Noted Time PHQ-9 Depression Total Score: 0 02/21/20 24 3:14 PM EDT documented as of this encounter Care Teams Raiser Helper Relationship Specialty Start Date End Date Casandra Ruelas MD [address] [place] [phone] PCP - General Family Medicine 10/27/20 documented as of this encounter
--- OUTSIDE RECORDS SUMMARY | 2024-10-31 15:39 | XMS_ITS | Encounter Summary ---
Author Organization [employer] Address [address] [place] [address] Care Team Providers Care Pepper Picker Name Role Phone Casandra Ruelas MD Primary Care Provide r Reason for Visit * Reason Onset Date Comments Med Refill 10/10/2024 Encounter Details Date Type Department Care Team ([facility] st Contact Info) Description 10/10/2024 Refill [facility] [address] [place] [address] Casandra Ruelas MD [address] [place] [address] Other constipation Social History Tobacco Use Types Packs/Day Years [...] Description 11/27/2024 10:00 AM EDT Office Visit [facility] MEDICINE [address] [place] [phone] Casandra Ruelas MD [address] [place] [address] 01/06/2025 9:00 AM EDT Clinical Support [facility] MEDICINE [address] [place] [phone] Edwige West, MARK documented as of this encounter Visit Diagnoses Diagnosis Other constipation documented in this encounter Additional Health Concerns Assessment Noted Time PHQ-9 Depression Total Score: 0 02/21/20 24 3:14 PM EDT documented as of this encounter Care Teams Pepper Picker Relationship Specialty Start Date End Date Casandra Ruelas MD [address] [place] [address] PCP - General Family Medicine 10/27/20 documented as of this encounter
--- OUTSIDE RECORDS SUMMARY | 2024-10-31 15:39 | XMS_ITS | Encounter Summary ---
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 I have laisha camacho 06/29/[address] you li ve. Do you have problems with any of the following? None of the above 06/29/2023 Food Insecurity Answer Date Recorded Within the past 12 months, y ou worried that your food would run out before you got money to buy more: Never True 06/29/2023 Within the past 12 months,th e food you bought just didn't last and you didn't have enough money to get more: Never True Transportation Answer Date Recorded In the past 12 months, has l ack of transportation kept you from medical appts, meetings, work or from getting things needed for daily living? No 06/29/2023 Utilities Answer Date Recorded In the past 12 months, has t he electric, gas, oil or water company threatened to shut off services in your home? No 06/29/2023 Depression Answer Date Recorded Patient Health Questionnaire-2 Score 0 12/05/2022 Comments Unknown Sex and Gender Information Value Date Recorded Sex Assigned at Female 07/11/2022 10:15 AM EDT Legal Sex Female 10:15 AM EDT Gender Identity Female 07/11/2022 10:15 AM EDT Sexual Orientation Straight 07/11/2022 10 :15 AM EDT documented as of this encounter Miscellaneous Notes * Telephone Encounter - Art Flores DMD - 11/22/2023 8:03 AM EDT Approving, but needs appt for additional refills. 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
--- OUTSIDE RECORDS SUMMARY | 2024-10-31 15:39 | XMS_ITS | Encounter Summary ---
Author Organization [employer] Address [address] 7[address] [place] [address] Care Team Providers Care Property Appraiser Name Role Phone Casandra Ruelas MD Primary Care Provide r Encounter Details Date Type Department Care Team (Latest Contact Info) Description 10/07/2024 Travel Social History Tobacco Use Types Packs/Day Years [...] Description 11/27/2024 10:00 AM EDT Office Visit [address] [address] Casandra Ruelas MD [address] [place] [address] 01/06/2025 9:00 AM EDT Clinical Support [address] [address] Edwige West RN documented as of this encounter Visit Diagnoses Not on filedocumented in this encounter Additional Health Concerns Assessment Noted Time PHQ-9 Depression Total Score: 0 02/21/20 24 3:14 PM EDT documented as of this encounter Care Teams Property Appraiser Relationship Specialty Start Date End Date Casandra Ruelas MD [address] [place] [phone] PCP - General Family Medicine 10/27/20 documented as of this encounter
--- OUTSIDE RECORDS SUMMARY | 2024-10-31 15:39 | XMS_ITS | Referral Summary ---
Author Organization [facility] Address [address] [place] [address] Care Team Providers Care Aviation Mechanic Name Role Phone Casandra Ruelas MD Primary [...] propionate (FLONASE) 50 mcg/actuation nasal spray [employer] [place](s) Both Nares Every Morning PRN 11/12/2021 Active [...] WITH POSSIBLE MODERATE SEDATION Colon cancer screening [place] [id number] Care Teams Aviation Mechanic Relationship Specialty Start Date End Date Casandra Ruelas MD [address] [place] [phone] PCP - General Internal Medicine 12/14/21
--- OUTSIDE RECORDS SUMMARY | 2024-10-31 15:39 | XMS_ITS | Encounter Summary ---
Author Organization [facility] Address [address] [place] [address] Care Team Providers Care Business Consult Name Role Phone Casandra Ruelas MD Primary Care Provider Reason for Visit * Reason Onset Date Comments Appointment 12/22/2021 Encounter Details Date Type Department Care Team (Late st Contact Info) Description 12/22/2021 Telephone [facility] Central Scheduling Department [address] [place] [phone] Telephone Intake, Staff Appointment Social History Tobacco Use Types Packs/Day Years Used Date Smoking Tobacco: Never Assessed Comments Unknown Sex and Gender Information Value Date Recorded Sex Assigned at Not on file Legal Sex Female 3:29 PM EDT Gender Identity Not on file Sexual Orientation Not on file documented as of this encounter Miscellaneous Notes * Telephone Encounter - Ciara Delgadillo - 12/22/2021 4:35 PM EDT New GI pt scheduling appt re status post esophageal cancer Per DT scheduled 1st available appt for 04/29 with Marisol Duran NP, added to wait list documented in this encounter Plan of Treatment Scheduled Procedures Name Priority Associated Diagnoses Date/Ti me COLONOSCOPY SCREENING, LOW R ISK WITH POSSIBLE MODERATE SEDATION Colon cancer screening documented as of this encounter Visit Diagnoses Not on filedocumented in this encounter Care Teams Business Consult Relationship Specialty Start Date End Date Casandra Ruelas MD [address] [place] [phone] PCP - General Internal Medicine 12/14/21 documented as of this encounter
--- OUTSIDE RECORDS SUMMARY | 2024-10-31 15:39 | XMS_ITS | Encounter Summary ---
Author Organization [employer] Address [address] 7t [place] [address] Care Team Providers Care Power Hammer Operator Name Role Phone Casandra Ruelas MD Primary Care Provide r Reason for Visit * Reason Onset Date Comments Recommend STOCK ROOM MANAGER Tier 2 10/07/2024 Encounter Details Date Type Department Care Team ([facility] Contact Info) Description 10/07/2024 Telephone [facility] [address] [place] [address] Edwige West, RN Recommend STOCK ROOM MANAGER Tier 2 Social History Tobacco Use Types Packs/Day Years [...] encounter Miscellaneous Notes * Telephone Encounter - Edwige West RN - 10/07/2024 7:28 AM EST What STOCK ROOM MANAGER Tier would you like this patient to be? I recommend Tier 2, please let me know if you agree or would rather patient be in another STOCK ROOM MANAGER Tier. Tier 1 = HIGH RISK, Monthly STOCK ROOM MANAGER visits Tier 2 = MODerate RISK, Q3 Month visits Tier 3 = LOW RISK = Q4-6 month visits documented in this encounter Plan of Treatment Upcoming Encounters Date Type Department Care Team (Late st Contact Info) Description 11/27/2024 10:00 AM EDT Office Visit [facility]INE [address] [place] [address] Casandra Ruelas MD [address] [place] [address] 01/06/2025 9:00 AM EDT Clinical Support [facility] [address] [place] [address] Edwige West RN documented as of this encounter Visit Diagnoses Not on filedocumented in this encounter Additional Health Concerns Assessment Noted Time PHQ-9 Depression Total Score: 0 02/21/20 24 3:14 PM EDT documented as of this encounter Care Teams Power Hammer Operator Relationship Specialty Start Date End Date Casandra Ruelas MD [address] [place] [address] PCP - General Family Medicine 10/27/20 documented as of this encounter
--- OUTSIDE RECORDS SUMMARY | 2024-10-31 15:39 | XMS_ITS | Encounter Summary ---
Author Organization [employer] Address [address] [place] [address] Care Team Providers Care Gear Technician Name Role Phone Casandra Ruelas MD Primary Care Provide r Reason for Visit * Reason Comments Med Refill Encounter Details Date Type Department Care Team ([facility] Contact Info) Description 09/13/2024 Refill [facility] [address] [place], [place] [phone] Casandra Ruelas MD [address] [place], [place] [phone] Chronic bilateral low back pain, unspecified whether sciatica present Social History Tobacco Use Types Packs/Day Years [...] Description 11/27/2024 10:00 AM EDT Office Visit [facility] MED[facility]INE [address] [place] [phone] Casandra Ruelas MD [address] [place] [address] 01/06/2025 9:00 AM EDT Clinical Support [facility]INE [address] [place] [address] Edwige West, MARK documented as of this encounter Visit Diagnoses Diagnosis Chronic bilateral low back pain, unspecified whether sciatica present documented in this encounter Additional Health Concerns Assessment Noted Time PHQ-9 Depression Total Score: 0 02/21/20 24 3:14 PM EDT documented as of this encounter Care Teams Gear Technician Relationship Specialty Start Date End Date Casandra Ruelas MD [address] [place] [phone] PCP - General Family Medicine 10/27/20 documented as of this encounter
== END 2024-10-31 14:41 | disposition home or self-care (01) ==
PROVIDERS: PCP Internal Medicine; Visit Provider Internal Medicine Pulmonary Disease
DX: J45.909 Unspecified asthma, uncomplicated (principal); Z91.09 Other allergy status, other than to drugs and biological substances
CPT/HCPCS: 99214

== ENCOUNTER → 2024-10-31 14:23 | Outpatient (BNVA) | payer OTHER, SELFPAY | PROVIDERS: PCP Internal Medicine; Visit Provider Internal Medicine Pulmonary Disease | DX: J45.909 Unspecified asthma, uncomplicated (principal); Z91.09 Other allergy status, other than to drugs and biological substances | CPT/HCPCS: 99212 ==

== ENCOUNTER 2025-01-23 15:29 | Outpatient (REF) | payer OTHER, SELFPAY ==
--- OUTSIDE RECORDS SUMMARY | 2025-01-23 15:55 | XMS_ITS | Data Portability ---
Author Organization [employer] Address [address] [place] [address] Care Team Providers Care Aircraft De Icer Installer Name Role Phone [facility] Referring Provider HIM [facility] OTHER Assessment Encounter Date Assessment Date Assessment LastModified by Organization Details LastModified Time 02/14/2024 02/14/2024 I provided real -time medical direction via phone for this encounter and was available for additional phone-based assistance as needed. I have reviewed and agree with the Assessment and Plan as documented by the Chief Commercial Officer. Patient given the opportunity to ask questions. Our service contacted for an assessment of: cough As per above, patient has had a non-productive cough for approx a week. Denies F/C/N/V/CP/FRY and SOB. No sick contacts. Taking OTCs without much benefit. Per ice guard tester on the scene, Non-toxic. Stable vitals. No distress. COVID and Flu are negative. Impression: ? seasonal allergies vs viral URI - differential diagnosis is broad however ice guard tester assessment and limited data are reassuring. Plan: [...] DateTime 99 % 99 % 97.9 [degF] 53488.4 32 g 160.02 cm 72 /min 16 [...] SNOMED-CT Code Diagnosis ICD10 Code Diagnosis Note [id number] Aleisha Garnica MD Main - [facility] [address] [place] [phone] 02/14/2024 18:04:08 02/14/2024 21:46:25 Viral upper respiratory tract infection 263313308 J06.9 Health Concerns Section Related Observation LastModified by Organization [employer] LastModified Time None Recorded Concern Status LastModified by Organization Details LastModified Time None Recorded Advance Directives Directive None Recorded Payers Insurance Date Sequence Insurance Name Policy Number Policy Ann Covered Member ID Ann Member ID Guarantor Name 04/09/2024 1 [facility] - DOS ON OR AFTER 2022 - DUAL ELIGIBLE - JAIL OPTIONS AND ONE CARE (MEDICARE REPLACEMENT/ADV ANTAGE - HMO) Casandra Obrien [id number] Casandra Obrien Notes Date Note Type Note [...] needed to process visit. Aleisha Garnica MD [address] [place] [address],[address], [place], [phone], [employer] 02/14/2024 18:07:38 OBGyn Episode No OBEpisode recorded.
--- OUTSIDE RECORDS SUMMARY | 2025-01-23 15:55 | XMS_ITS | Encounter Summary ---
Author Organization [facility] Address [address] [place] [address] Care Team Providers Care Mail Clerk Bills Name Role Phone Casandra Ruelas MD Primary Care Provider Reason for Visit * Reason Onset Date Comments Appointment 12/22/2021 Encounter Details Date Type Department Care Team (Late st Contact Info) Description 12/22/2021 Telephone [facility] Central Scheduling Department [address] [place] [address] Telephone Intake, Staff Appointment Social History Tobacco [...] on filedocumented in this encounter Care Teams Mail Clerk Bills Relationship Specialty Start Date End Date Casandra Ruelas MD [address] [place] [phone] PCP - General Internal Medicine 12/14/21 documented as of this encounter
--- OUTSIDE RECORDS SUMMARY | 2025-01-23 15:55 | XMS_ITS | Encounter Summary ---
Author Organization [email or web address] [facility] Address [address] [place] [address] 7t [place] [address] Care Team Providers Care Beader Tender Name Role Phone Casandra Ruelas MD Primary Care Provide r Encounter Details Date Type Department Care Team (Late st Contact Info) Description 08/18/2022 Abstract [facility] [address] [place] [address] Dental, Provider, DDS Social History Tobacco Use [...] Care Team (Late st Contact Info) Description 02/26/2025 2:45 PM EDT Office Visit [facility] MEDICINE [address] [place] [address] Casandra Ruelas MD [address] [place] [address] documented as of this encounter Procedures Procedure [...] AM EST 22 I COMPOSITE FILLING Routine 12:00 AM EST 23 I COMPOSITE FILLING Routine 12:00 AM EST 24 I COMPOSITE FILLING Routine 2 12:00 AM EST 25 I COMPOSITE FILLING Routine 12:00 AM EST 26 I COMPOSITE FILLING Routine 12:00 AM EST 27 I COMPOSITE FILLING [...] on filedocumented in this encounter Care Teams Beader Tender Relationship Specialty Start Date End Date Casandra Ruelas MD [address] [place] [phone] PCP - General Family Medicine 10/27/20 documented as of this encounter
--- OUTSIDE RECORDS SUMMARY | 2025-01-23 15:55 | XMS_ITS | Encounter Summary ---
Author Organization [employer] [facility] Address [address] [place] [address] 7t [place] [address] Care Team Providers Care Online Media Buyer Name Role Phone Casandra Ruelas MD Primary Care Provide r Encounter Details Date Type Department Care Team (Latest Contact Info) Description 02/26/2021 Abstract [facility] CONVERSIONS Dental, Provider, DDS Social History [...] Description 02/26/2025 2:45 PM EDT Office Visit [facility] MEDICINE [address] [place] [address] Casandra Ruelas MD [address] [place] [address] documented as of this encounter Visit Diagnoses Not on filedocumented in this encounter Care Teams Online Media Buyer Relationship Specialty Start Date End Date Casandra Ruelas MD [address] [place], [place] [phone] PCP - General Family Medicine 10/27/20 documented as of this encounter
--- OUTSIDE RECORDS SUMMARY | 2025-01-23 15:55 | XMS_ITS | Encounter Summary ---
Author Organization [employer] [facility] Address [address] [place] [address] 7t [place] [address] Care Team Providers Care Slot Machine Floor Person Name Role Phone Casandra Ruelas MD Primary Care Provide r Encounter Details Date Type Department Care Team (Latest Contact Info) Description 06/07/2019 Abstract [facility] CONVERSIONS Dental, Provider, DDS Social History Tobacco [...] Description 02/26/2025 2:45 PM EDT Office Visit [facility] MEDICINE [address] [place] [address] Casandra Ruelas MD [address] [place] [address] documented as of this encounter Visit Diagnoses Not on filedocumented in this encounter Care Teams Slot Machine Floor Person Relationship Specialty Start Date End Date Casandra Ruelas MD [address] [place] [phone] PCP - General Family Medicine 10/27/20 documented as of this encounter
--- OUTSIDE RECORDS SUMMARY | 2025-01-23 15:55 | XMS_ITS | Encounter Summary ---
Author Organization [facility] Address [address] [place] [address] Care Team Providers Care Hot Braider Name Role Phone Casandra Ruelas MD Primary Care Provider Reason for Visit * Reason Onset Date Comments PAC Patient Request Call Back 12/30/2022 Co lonoscopy date Encounter Details Date Type Department Care Team ([facility] st Contact Info) Description 12/30/2022 Telephone [facility] [address] [place] [address] Telephone Intake, Staff PAC Patient Request Call [...] and time of colonoscopy. Best phone # [phone] Ty Unable to contact clinic to confirm information for Pt, TE sent documented in this encounter Plan of Treatment Scheduled Procedures Name Priority Associated Diagnoses Date/Ti me COLONOSCOPY SCREENING, LOW R ISK WITH POSSIBLE MODERATE SEDATION Colon cancer screening documented as of this encounter Visit Diagnoses Not on filedocumented in this encounter Care Teams Hot Braider Relationship Specialty Start Date End Date Casandra Ruelas MD [address] [place] [address] PCP - General Internal Medicine 12/14/21 documented as of this encounter
--- OUTSIDE RECORDS SUMMARY | 2025-01-23 15:55 | XMS_ITS | Clinical Summary ---
Author Organization [employer] Address [address] [place] [address] 7[address] [place] [address] Care Team Providers Care Basket Machine Operator Name Role Phone Casandra Ruelas MD Primary Care Provide r Allergies Active Allergy Reactions Criticality Noted Date Comments Gadolinium Derivatives Shortness of breath High 07/12 Iodinated Contrast Media Shortness of breath High 07/21/2020 Morphine Rash,Shortness of breath High 08/27/2012 Other reaction(s): Rash Medications omeprazole (PriLOSEC) [address] capsule Take 40 mg by mouth in the morning and 40 mg in the evening. 022 Active fluticasone (Flonase) 50 MCG/ACT nasal [...] ONCE DAILY 510 g 3 023 Active Sodium Fluoride 5000 PPM 1.1 [...] EVERY DAY 90 tablet 1 024 Active naloxone (Narcan) 4 mg/0.1 mL [...] for wheezing. 18 g 5 025 Active acetaminophen-codei ne (Tylenol #2) 300-15 MG tabletIndications:C hronic bilateral low back pain, unspecified whether sciatica present Take 1 tablet by mouth every 8 (eight) hours if needed for severe pain. 84 tablet 025 Active docusate sodium (Colace) 100 MG capsuleIndications: Other constipation Take 1 capsule (100 mg) by mouth 2 times daily. 20 capsule 025 Active Diclofenac Sodium 1 % gelIndications:Acut e bilateral low back pain with sciatica, sciatica laterality unspecified Apply 1 each topically every 12 (twelve) hours if needed (apply on affected area). 150 g 025 Active Diclofenac Sodium 1 % gelIndications:Acut e bilateral low back pain with sciatica, sciatica laterality unspecified Apply 1 each topically every 12 (twelve) hours if needed (apply on affected area). 150 g 024 2024 Discontinued(R eorder (will not trigger notification to Pharmacy)) docusate sodium (Colace) 100 MG capsuleIndications: Other constipation TAKE 1 CAPSULE BY MOUTH TWICE DAILY 20 capsule 025 2024 Discontinued(R eorder (will not trigger notification to Pharmacy)) Active Problems Problem Noted Date Diagnosed Date Fall from slipping 11/27/2024 Assessment & Plan (11/27/2024 2:03 PM EDT): More than 24-hour has passed by patient is clinically stable neurological exam is reassuring I advised acetaminophen as needed and tizanidine as prescribed Diminished vision 08/20/2024 Acute bilateral low back [...] 3:03 PM EDT): Patient is studying for [employer] and get very nervous with palpitations and [...] prescribe Encounter for preventative adult health care exa mination 12/05/2022 Assessment & Plan (12/05/2022 11:57 [...] response on esophagectomy specimen Assessment & Plan (11/27/2024 2:03 PM EDT): Continue to follow-up with oncologist patient has remained stable Assessment & Plan (12/05/2022 11:48 AM EDT): [...] 06/18/2015 Essential hypertension 06/18/2015 Assessment & Plan (11/27/2024 2:02 PM EDT): I advised low-sodium and to take her medications every day without missing any dose I advised to monitor her blood pressure at home and report back to me if after restarting her medication her blood pressure remains above 140/90 Labs ordered today patient will be contacted with results Assessment & Plan (08/20/2024 4:38 PM EST): [...] Encounters Date Type Department Care Team Description 12/27/2024 Refill [facility] [address] [place] [address] Casandra Ruelas MD Other constipation; Acute bilateral low back pain with sciatica, sciatica laterality unspecified 12/19/2024 Refill [facility] [address] [place] [address] Casandra Ruelas MD Chronic bilateral low back pain, unspecified whether sciatica present 12/10/2024 Telephone [facility] [address] [place] [address] Casandra Ruelas MD telephone call 11/27/2024 10:00 AM EDT Office Visit [facility] [address] [place], [place] [phone] Casandra Ruelas MD Essential hypertension (Primary Dx); Malignant neoplasm of esophagus, unspecified location (CMS/HCC); Fall on same level from slipping, initial encounter 11/27/2024 Travel 11/22/2024 Refill [facility] [address] [place] [address] Sushma Herzog MD Other constipation 11/19/2024 Patient Outreach [facility] [address] [place] [address] Casandra Ruelas MD Pre-visit Planning ((Unable to reach for PVP screening, LVM)) 11/07/2024 Telephone [facility] [address] [place], [place] [phone] Casandra Ruelas MD Med Refill 11/07/2024 Refill [facility] [address] [place], [place] [phone] Casandra Ruelas MD Chronic bilateral low back pain, unspecified whether sciatica present from Last 3 Months Immunizations Immunization Administration Dates Next Due Hep B, adult [...] Date Recorded Patient Health Questionnaire-9 Score 0 11/27/2024 Patient Health Questionnaire-9 Score 0 11/27/2024 Last PHQ-9: Questionnaire Data Not on file 0 11/27/2024 Housing Stability Answer Date Recorded What is [...] Date Recorded Patient Health Questionnaire-2 Score 0 11/27/2024 Internet Access Answer Date Recorded Internet Access Q1 Yes 11/27/2024 Internet Access Q2 Not on file 11/27/2024 Comments Unknown Sex and Gender Information Value Date Recorded Sex Assigned at Female 07/11/2022 10:15 AM EDT Legal Sex Female 10:15 AM EDT Gender Identity Female 07/11/2022 10:15 AM EDT Sexual Orientation Straight 07/11/2022 10 :15 AM EDT Last Filed Vital Signs Vital Sign Reading Time Taken Comments Blood Pressure 158/83 11/27/2024 9:39 AM EDT Pulse 75 11/27/2024 9:39 AM EDT Temperature 36.2 ??C (97.1 ??F) 11/27/2024 9:39 AM ED T Respiratory Rate 18 11/27/2024 9:39 AM EDT Oxygen Saturation 100% 11/27/2024 9:39 AM EDT Inhaled Oxygen Concentration - - Weight 61.7 kg (136 lb) 11/27/2024 9:39 AM EDT Height 157.5 cm (5' 2 ) 11/27/2024 9:39 AM EDT Body Mass Index 24.87 11/27/2024 9:39 AM EDT Plan of Treatment Upcoming Encounters Date Type Department Care Team (Late st Contact Info) Description 02/26/2025 2:45 PM EDT Office Visit [facility] [address] [place] [address] Casandra Ruelas MD [address] [place] [address] Health Maintenance Due Date Last Done Comments CT Colonography 1955 Colonoscopy 1955 Colorectal Cancer Screening 1955 Dental Oral Exam 1955 Dental Prophylaxis 1956 Dental X-Ray: Bitewings 1956 Dental X-Ray: Full Mouth 1956 FIT DNA/Cologuard 1956 FIT 1956 FOBT 1955 Sigmoidoscopy 1955 Hepatitis C Screening 1974 Mammogram 01/21/2024 01/20/2023, 01/09, 07/21/2021, Additional history exists COVID-19 Vaccine ( season) 2025 08/20/2024, 07/19/2021, 03/29/2021, Additional history exists Alcohol/Substance Use Screening 08/20/2025 08/20/2024 Depression Screening 11/27/2025 11/27/2024, 11/28/19 SDOH Screening 11/27/2025 11/27/2024 Tobacco Screening 11/27/2025 11/27/2024 Lipid Panel 02/19/2029 02/20/2024, 12/11, 02/04/2022 DTaP/Tdap/Td Vaccines (3 - Td or Tdap) 12/21/2033 12/22/2023, 01/03/2013, 11/26/2007, Additional history exists Hepatitis B Vaccines Completed 12/04/2001, 03/29/2001, 08/17/2000, Additional history exists Zoster Vaccines Completed 11/11/2019, 08/11, 10/12/2016 Pneumococcal Vaccine: 50+ Years Completed 04/13/2022 RSV Patients and Patients Aged 60 years or older Completed 11/29/2023 Influenza Vaccine Completed 08/20/2024, , 07/15/2021, Additional [...] patient's age to complete this topic Meningococcal B Vaccine Aged Out No l onger eligible based on patient's age to complete [...] Procedure Name Priority Date/Time Associated Diagnosis Comments LIPID PANEL, STANDARD Routine 02/20/2024 2:18 PM EDT Essential hypertension BI MAMMOGRAM SCREENING TOMOSYNTHESIS BILATERAL Routine 01/20/2023 11:35 AM EDT from Last 3 Months or Most Recently Relevant to Health Maintenance Results * Lipid Panel, Standard (02/20/2024 2:18 PM EDT) Triglycerides 95 <150 mg/dL [facility] Comment:Desirable Triglyceri de: less than 150 mg/dLBorderline High Triglyceride 150-199 mg/dLHigh Triglyceride: 200-499 mg/dLVery High Triglyceride: greater than or equal to 5OO mg/dL Cholesterol 144 <200 mg/dL [facility] Comment:Desirable Cholestero l: less than 200 mg/dLBorderline High Cholesterol: 200-239 mg/dLHigh Cholesterol: greater than 239 mg/dL LDL Cholesterol Calculated 60 <100 mg/dL [facility] Comment:Desirable LDL: less than 100 mg/dLNear Optimal/Above Optimal LDL: 110- 129 mg/dLBorderline High LDL: 130-159 mg/dLHigh LDL: 160-189 mg/dLVery High LDL: greater than or equal to 190 mg/dL HDL Cholesterol 65 >40 mg/dL [facility] Comment:Desirable HDL: great er than 40 mg/dL Note: This HDL assay may give artificially low results in patients with liver disease. Blood Venous blood specimen / Unknown 02/20/2024 2:18 PM EDT 02/20/2024 4:03 PM EDT Casandra Chou MD LAB BLOOD ORDERABLES Final Result [facility] [address] [place] [phone] * BI Mammogram Screening Tomosynthesis Bilateral (01/20/2023 11:35 AM EDT) Anatomical Region Laterality Modality Breast Bilateral Mammography 01/20/2023 11:3 5 AM EDT Narrative 01/23/2023 9:50 AM EDT ? [facility] [place] ? [address] ?[place] [address] ? Mammography Report ? Signed ? Patient: Dang Camille,Casandra ?MR#: [id number] ?? [id number] ? : 1955 ?Acct:[id number] ? Age/Sex: 67 / F ?ADM Date: 05/12/23 ? Loc: HO.MAMMO ? Attending Dr: Casandra Chou MD ? Ordering Physician: Casandra Ruelas MD ?Results: ?? 2Benign Findings ? Date of Service: 01/20/23 ?Follow Up: 1 Year From Orig ?? inal Mammogram ? Procedure(s): MM tomosynthesis screening BI ?? Accession Number(s): [id number] ? cc: Casandra Ruelas MD ? EXAMINATION: [...] signed by Clay Mercado MD in OV> ?05/15/ 09 ? DD/ 1135 ? TD/TT: ? Bond Manager: CRESPO ? Procedure Note Donotuseinterpreter, Image - 03/09/2023 [facility] [address] [place] [id number] Mammography Report Signed Patient: Casandra JonesMR#: [id number] : 6Acct:[id number] Age/Sex: 67 / FADM Date: 01/20/23 Loc: HO.MAMMO Attending Dr: Casandra Chou MD Ordering Physician: Casandra Ruelasesults: 2Benign Findings Date of Service: 01/20/23Follow Up: 1 Year From Orig inal Mammogram Procedure(s): MM tomosynthesis screening BI Accession Number(s): [id number] cc: Casandra Ruelas MD EXAMINATION: MM SCREENING [...] in OV> 01/23/23 0947 DD/ 1135 TD/TT: Bond Manager: ZAK Authorxander Provider Result Type Result Stat [facility] External Provider IMG BI PROCEDURES Final Result from Last 3 Months or Most Recently Relevant to Health Maintenance Insurance [employer] OPTIONS (HMO D-SNP) [place] [id number] DENTAL-[facility] MEDICAID LIMITED [facility] [place] [id number] [address] [place] [id number] [address] [place] [id number] Care Teams Basket Machine Operator Relationship Specialty Start Date End Date Casandra Ruelas MD [address] [place] [address] [place] [id number] PCP - General Family Medicine 10/27/20
--- OUTSIDE RECORDS SUMMARY | 2025-01-23 15:55 | XMS_ITS | Encounter Summary ---
Author Organization [employer] Address [address] [place] [address] 7[address] [place] [address] Care Team Providers Care Reactor Technician Name Role Phone Casandra Ruelas MD Primary Care Provide r Encounter Details Date Type Department Care Team ([facility] Contact Info) Description 04/25/2023 Abstract [facility] [address] [place] [address] [phone] Casandra Ruelas MD [address] [place] [address] [phone] Social History Tobacco Use Types Packs/Day Years [...] Encounters Date Type Department Care Team (Late Contact Info) Description 02/26/2025 2:45 PM EDT Office Visit [facility] [address] [place] [address] [phone] Casandra Ruelas MD [address] [place], [place] [phone] documented as of this encounter Procedures Procedure Name Priority Date/Time Associated Diagnosis Comments PAP/HPV Routine 03/23/2023 documented in this encounter Results * Pap Smear (03/23/2023) Pap Negative for intraephithelial lesion or malignancy Negative for intraephithelial lesion or malignancy, Other Vaginal Fluid 03/23/2023 us Casandra Chou MD HEALTH MAINTENANCE Fi nal Result documented in this encounter Visit Diagnoses Not on filedocumented in this encounter Additional Health Concerns Assessment Noted Time PHQ-9 Depression Total Score: 0 12/06/19 23 10:13 AM EDT documented as of this encounter Care Teams Reactor Technician Relationship Specialty Start Date End Date Casandra Ruelas MD [address] [place] [phone] PCP - General Family Medicine 10/27/20 documented as of this encounter
--- OUTSIDE RECORDS SUMMARY | 2025-01-23 15:56 | XMS_ITS | Encounter Summary ---
Author Organization [employer] Address [address] [facility] 7t [place] [address] Care Team Providers Care Marketing Automation Analyst Name Role Phone Casandra Ruelas MD Primary Care Provide r Reason for Visit * Reason Comments Med Refill Encounter Details Date Type Department Care Team ([facility] Contact Info) Description 11/22/2023 Refill [facility] [address] [place], [place] [phone] Tammy Vega BDS [address] [place], [place] [phone] Dentin hypersensitivity Social History Tobacco Use Types [...] Description 02/26/2025 2:45 PM EDT Office Visit [facility] [address] [place] [address] Casandra Ruelas MD [address] [place] [address] documented as of this encounter Visit Diagnoses Diagnosis Dentin hypersensitivity Other specified diseases of hard tissues of teeth documented in this encounter Additional Health Concerns Assessment Noted Time PHQ-9 Depression Total Score: 0 12/06/19 23 10:13 AM EDT documented as of this encounter Care Teams Marketing Automation Analyst Relationship Specialty Start Date End Date Casandra Ruelas MD [address] [place] [phone] PCP - General Family Medicine 10/27/20 documented as of this encounter
--- OUTSIDE RECORDS SUMMARY | 2025-01-23 15:56 | XMS_ITS | Encounter Summary ---
Author Organization [employer] Address [address] [facility] 7t [place] [address] Care Team Providers Care Pediatric Psychologist Name Role Phone Casandra Ruelas MD Primary Care Provide r Reason for Visit * Reason Comments Med Refill Encounter Details Date Type Department Care Team ([facility] st Contact Info) Description 09/13/2024 Refill [facility] [address] [place], [place] [phone] Casandra Ruelas MD [address] [place], [place] [phone] Chronic bilateral low back pain, unspecified whether [...] Description 02/26/2025 2:45 PM EDT Office Visit [facility] [address] [place] [address] Casandra Ruelas MD [address] [place] [address] documented as of this encounter Visit Diagnoses Diagnosis Chronic bilateral low back pain, unspecified whether sciatica present documented in this encounter Additional Health Concerns Assessment Noted Time PHQ-9 Depression Total Score: 0 02/21/20 24 3:14 PM EDT documented as of this encounter Care Teams Pediatric Psychologist Relationship Specialty Start Date End Date Casandra Ruelas MD [address] [place], [place] [phone] PCP - General Family Medicine 10/27/20 documented as of this encounter
--- OUTSIDE RECORDS SUMMARY | 2025-01-23 15:56 | XMS_ITS | Referral Summary ---
Author Organization [facility] Address [address] [place] [address] Care Team Providers Care Home Health Aid Name Role Phone Casandra Ruelas MD Primary [...] propionate (FLONASE) 50 mcg/actuation nasal spray SMARTSI Amber(s) Both Nares Every Morning PRN 11/12/2021 Active [...] POSSIBLE MODERATE SEDATION Colon cancer screening [place] [id number] Care Teams Home Health Aid Relationship Specialty Start Date End Date Casandra Ruelas MD [address] [place] [phone] PCP - General Internal Medicine 12/14/21
--- OUTSIDE RECORDS SUMMARY | 2025-01-23 15:56 | XMS_ITS | Clinical Summary ---
Author Organization [facility] Address [address] [place] [address] Care Team Providers Care Vendor Quality Supervisor Name Role Phone Casandra Ruelas MD [...] propionate (FLONASE) 50 mcg/actuation nasal spray SMARTSI [place](s) Both Nares Every Morning PRN 11/12/2021 Active [...] (2023-2 5 season) 2024 07/19/2021, 03/29/2021, 02/26/2021 Alcohol/Substance Use Screening 09/11/2024 Depression Screening and Follow-Up 09/11/2024 Health Care Proxy Review 09/11/2024 Social Drivers of Health Gracie ual Screening 09/11/2024 Influenza Vaccine (Season Ended) 2025 07/15/2021, 06/07/2019, 06/07/2018, Additional history exists Hepatitis B Vaccines Completed 12/04/2001, 03/29/2001, 08/17/2000, Additional history exists Zoster Vaccines Completed 11/11/2019, 08/11, 10/12/2016 Pneumococcal Vaccine: 50+ Years Completed 2 Insurance [facility] [id number] Care Teams Vendor Quality Supervisor Relationship Specialty Start Date End Date Casandra Ruelas MD [address] [place] [phone] PCP - General Internal Medicine 12/14/21
== END 2025-01-23 15:30 | disposition home or self-care (01) ==
LOC: HO.MAMMO 15:29
PROVIDERS: PCP Internal Medicine; Visit Provider Internal Medicine
DX: Z12.31 Encounter for screening mammogram for malignant neoplasm of breast (principal)
CPT/HCPCS: 77063; 77067

== ENCOUNTER → 2025-01-23 15:45 | Outpatient (BNV) | payer OTHER, SELFPAY | PROVIDERS: PCP Internal Medicine; Visit Provider Internal Medicine | DX: Z12.31 Encounter for screening mammogram for malignant neoplasm of breast (principal) | CPT/HCPCS: 77063; 77067 ==

== ENCOUNTER 2025-02-26 15:17 | Outpatient (REF) | payer OTHER, SELFPAY ==
--- NOTE | ~2025-02-26 | XR_ITS ---
EXAMINATION: XR SHOULDER, RIGHT CLINICAL INFORMATION: pain since falling 2 months ago COMPARISON: None available. TECHNIQUE: AP external rotation, Grashey, scapular Y, views of the right shoulder. FINDINGS: The AC joint is intact. There is mild degenerative change with soft tissue calcification and small osteophytes. Glenohumeral joint is intact. Minimal marginal osteophyte is evident in the lateral humeral head. Port-A-Cath projected over the right chest wall and terminates in the superior cavoatrial junction. Surgical line is seen in the right superior mediastinum. XR/XR shoulder RT min 2V IMPRESSION: Mild degenerative changes of right AC and glenohumeral joints. Electronically signed by: Tomas Edwards MD 02/26/2025 03:55 PM EDT
--- OUTSIDE RECORDS SUMMARY | 2025-02-26 17:35 | XMS_ITS | Encounter Summary ---
Author Organization [employer] [facility] Address [address] [place] [address] 7 [place] [address] Care Team Providers Care Assembler Motor Vehicle Name Role Phone Casandra Ruelas MD Primary Care Provide r Encounter Details Date Type Department Care Team (Latest Contact Info) Description 06/07/[address] [facility] Dental, Provider, DDS Social History [...] Encounters Date Type Department Care Team ( st Contact Info) Description 03/19/2025 2:00 PM EDT Clinical Support [facility] [address] [place] [phone] Edwige West RN 05/29/2025 2:30 PM EDT Office Visit [facility] [address] [place] [phone] Casandra Ruelas MD [address] [place] [phone] documented as of this encounter Visit Diagnoses Not on filedocumented in this encounter Care Teams Assembler Motor Vehicle Relationship Specialty Start Date End Date Casandra Ruelas MD [address] [place] [address] [phone] PCP - General Family Medicine 10/27/20 documented as of this encounter
== END 2025-02-26 15:18 | disposition home or self-care (01) ==
LOC: HO.HHCX 15:17
PROVIDERS: PCP Internal Medicine; Visit Provider Internal Medicine
DX: M25.511 Pain in right shoulder (principal)
CPT/HCPCS: 73030

== ENCOUNTER → 2025-02-26 15:34 | Outpatient (BNV) | payer OTHER, SELFPAY | PROVIDERS: PCP Internal Medicine; Visit Provider Radiology Diagnostic Radiology | DX: M25.511 Pain in right shoulder (principal); W19.XXXA Unspecified fall, initial encounter | CPT/HCPCS: 73030 ==

== ENCOUNTER 2025-04-28 15:40 | Outpatient (AMB) | payer OTHER, SELFPAY ==
--- NOTE | 2025-04-28 15:43 | A.OFFVIS_ITS ---
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 Patient states that her pain has been going on for 4 months. 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 Patient states that her pain is on the anterior aspect of the shoulder and it radiates up to her neck. Patient tried taking tylenol which gave her no relief. Allergies morphine (Morphine) Allergy (Unknown, Verified 04/28/25 15:44) Rash Medication List - Last Reconciled 05/06/25 by Sudhakar Gregorio PA-C acetaminophen-codeine 300-15 mg 1 tab PO BID PRN albuterol sulfate 90 mcg/actuation (Ventolin HFA) 2 puffs inhalation Q4-6H PRN bisacodyl (Dulcolax (bisacodyl)) 10 mg (2 x 5 mg) PO BEDTIME 2 days cholecalciferol (vitamin D3) 1 cap PO DAILY fenofibrate 1 tab PO DAILY fluticasone propionate 50 mcg/actuation 2 sprays intranasal QAM PRN lidocaine 5% (Lidoderm) 1 patch topical DAILY losartan 1 tab PO DAILY omeprazole 40 mg PO QAM peg 3350-electrolytes 236-22.74-6.74 -5.86 gram (Golytely) 240 mL PO Q10M 1 day polyethylene glycol 3350 17 grams PO DAILY simvastatin 1 tab PO BEDTIME HPI HPI 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 She states the pain has been present for approx 4-6 months. She states she fell landing on the shoulder and ever since she has pain. The pain goes from the front of the shoulder and extends into the trap and into the neck. [facility] Medical History (Updated 05/06/25 @ 19:54 by Sudhakar Gregorio PA-C) History of alcohol use disorder History of pancreatitis GERD (gastroesophageal reflux disease) Esophageal adenocarcinoma Esophageal carcinoma Depression Asthma Elevated cholesterol HTN (hypertension) Surgical History History of esophageal surgery History of esophagogastroduodenoscopy (EGD) Previous back surgery Hx of appendectomy Hx of hemorrhoidectomy Hx of colonoscopy Family History Mother Cancer Father HTN (hypertension) Maternal Grandmother Diabetes Social History Household Members: Spouse and Children Household Members Other:: 2 children Housing: Apartment Are you a primary lead care manager to a significant other at home: No Do you presently have visiting nurse or other home services: No Alcohol intake: current Alcohol intake frequency: holidays/special occasions only Patient Tobacco Use Status: Never used Tobacco Second Hand Smoke Exposure: Yes (spouse) service: No Current occupational status: disabled Review of Systems Const All systems reviewed & are unremarkable except as noted in HPI and below Physical Exam Vital Signs: BMI result Body Mass Index 23.6 Const General: cooperative and no acute distress Orientation/consciousness: patient oriented x3 Resp Effort & Inspection: normal respiratory effort and able to speak in complete sentences Cardio Peripheral pulses: Peripheral pulses 2+ throughout Neuro General: patient oriented x3 Extrem Other: Right shoulder normal to inspection. Tenderness over the bicipital groove and along deltoid region of the shoulder. FF to 175, ER to 90, IR to S1. 5/5 RTC strength, negative chacon, cross body abduction. NVI. Results Reviewed Results Reviewed: XR shoulder RT min 2V IMPRESSION: Mild degenerative changes of right AC and glenohumeral joints. Assessment & Plan Assessment & Plan (1) Right shoulder tendinitis: Code(s): M77.8 - Other enthesopathies, not elsewhere classified Category: Medical Plan: We discussed options today which includes conservative management. She will continue with activities as tolerated, if she wants to do an injection she will contact our office. I did explain the importance of RTC and periscap s tabilization and use of NSAIDs for flare ups. She would like to continue conservative treatment and will call if she wants to proceed with injection. , Coding Level of Care Code New Pt Level 3 (44039) Complex EM visit Add On G2211 Diagnoses Right shoulder tendinitis M77.8
[2025-04-28 15:44] VITALS: BMI 23.6
--- OUTSIDE RECORDS SUMMARY | 2025-04-28 16:04 | XMS_ITS | Encounter Summary ---
Author Organization [facility] Address [address] [place] [address] Phone Care Team Providers Care Package Drier Name Role Phone Francesco Gill NP, Rosy Primary Care Provider Estuardo Gill MD, Odilon Primary Care Provider [phone] Francesco Gill NP, Rosy Primary Care Provider Estuardo loza Unknown, Unknown Primary Care Provider Estuardo Gill NP, Rosy Primary Care Provider Estuardo loza Encounter Details Date Type Department Care Team (Late st Contact Info) Description 09/03/2020 Ancillary Orders [facility],Outside Imaging [address] [place], [place] [phone] System, Provider Not In, [place] [address] Social History Tobacco Use Types Packs/Day Years Used Date Smoking Tobacco: Former Smokeless Tobacco: Never Alcohol Use Standard Drinks/Week Comments Not Currently 0 (1 standard drink = 0.6 oz pur e alcohol) Comments Unknown Sex and Gender Information Value Date Recorded Sex Assigned at Not on file Legal Sex Female 1:00 PM EST Gender Identity Not on file Sexual Orientation Not on file documented as of this encounter Plan of Treatment Not on file documented as of this encounter Results * NM PET Whole Body Outside (No Interpretation) (2020 12:00 AM EST) Narrative SYSTEMGENERATED, DOCUMENTATION - 09/03/2020 12:08 PM EST This study is for PACS storage only and not for interpretation. us Provider Not In System PhD IMG OUTSIDE IMAGING W /OUT INTERPRETATION Final Result documented in this encounter Visit Diagnoses Not on filedocumented in this encounter Care Teams Package Drier Relationship Specialty Start Date End Date Rosy Maya V, FARZANA PCP - General 07/15/20 09/20/20 Odilon Cunningham MD [address] [place] [address] PCP - General Internal Medicine 09/21/20 10/22/20 Rosy Maya NP PCP - General 10/23/20 11/24/20 Unknown, Unknown, PCP - General 11/25/20 12/02/20 Rosy Maya NP PCP - General 12/03/20 documented as of this encounter Additional Source Comments The information contained in this document represents components of the legal health record. It is not the complete legal health record.[facility]
--- OUTSIDE RECORDS SUMMARY | 2025-04-28 16:04 | XMS_ITS | Encounter Summary ---
Author Organization [facility] Address [address] [place] [address] Care Team Providers Care Munitions Handler Name Role Phone Casandra Ruelas MD Primary Care Provider Reason for Visit * Reason Onset Date Comments Appointment 12/22/2021 Encounter Details Date Type Department Care Team (Late st Contact Info) Description 12/22/2021 Telephone [facility] Central Scheduling Department [address] [place] [phone] Telephone Intake, Staff Appointment Social History Tobacco [...] on filedocumented in this encounter Care Teams Munitions Handler Relationship Specialty Start Date End Date Casandra Ruelas MD [address] [place] [id number] PCP - General Internal Medicine 12/14/21 documented as of this encounter
--- OUTSIDE RECORDS SUMMARY | 2025-04-28 16:04 | XMS_ITS | Encounter Summary ---
Author Organization [employer] Address [address] [place] [address] [address] [place] [address] Care Team Providers Care Can Tester Name Role Phone Casandra Ruelas MD Primary Care Provide r Reason for Visit * Reason Comments Med Refill Encounter Details Date Type Department Care Team ([facility] st Contact Info) Description 04/28/2025 Refill [facility] [address] [place], [place] [phone] Casandra Ruelas MD [address] [place], [place] [phone] Nummular dermatitis Social History Tobacco Use Types Packs/Day Years [...] Care Team (Late st Contact Info) Description 05/29/2025 2:30 PM EDT Office Visit [facility] [address] [place] [phone] Casandra Ruelas MD [address] [place] [address] 06/25/2025 11:30 AM EDT Clinical Support [facility] [address] [place] [address] Edwige West, MARK documented as of this encounter Visit Diagnoses Diagnosis Nummular dermatitis Contact dermatitis and other eczema, due to unspecified cause documented in this encounter Additional Health Concerns Assessment Noted Time PHQ-9 Depression Total Score: 0 11/28/19 25 9:48 AM EDT documented as of this encounter Care Teams Can Tester Relationship Specialty Start Date End Date Casandra Ruelas MD [address] [place] [address] PCP - General Family Medicine 10/27/20 documented as of this encounter
== END 2025-04-28 16:10 | disposition home or self-care (01) ==
LOC: HO.HOS 15:40
PROVIDERS: PCP Internal Medicine; Visit Provider Physician Assistant
DX: M77.8 Other enthesopathies, not elsewhere classified (principal)
CPT/HCPCS: 99203; G2211

== ENCOUNTER → 2025-04-28 15:40 | Outpatient (BNVA) | payer OTHER, SELFPAY | PROVIDERS: PCP Internal Medicine; Visit Provider Physician Assistant | DX: M77.8 Other enthesopathies, not elsewhere classified (principal) | CPT/HCPCS: 99202 ==

== ENCOUNTER 2025-05-16 13:32 | Outpatient (REF) | payer OTHER, SELFPAY ==
--- NOTE | ~2025-05-16 | CT_ITS ---
EXAMINATION: CT CHEST WITH CONTRAST CLINICAL INFORMATION: Esophageal cancer, surveillance. COMPARISON: Several priors, most recently 05/22/2024. TECHNIQUE: Multidetector volumetric CT imaging of the chest was obtained after the administration of 50 mL of Omnipaque 350 intravenous contrast without immediate adverse reactions. Axial MIP volume rendering provided. Sagittal and coronal reformatted images were obtained. This CT examination was performed using dose optimization techniques as appropriate, variously including the following: *Automated exposure control *Adjustment of mA and/or kV according to patient size (this includes techniques or standardized protocols for targeted exams where dose is matched to indication/reason for exam; i.e. extremities or head) *Use of iterative reconstruction technique FINDINGS: LUNGS: There is a 3 mm nodule in the left upper lobe (series 5, image 50), unchanged from priors. There are 2 tiny 2 mm nodules in the right lower lobe, also unchanged. Lungs otherwise clear. No concerning opacities or evidence of metastatic disease. There is no pneumothorax. MEDIASTINUM: There is been an esophagectomy with gastric pull-through procedure. A right chest port is in place with the tip in the right atrium. The central vascular structures are normal. Heart size is normal. There is no abnormal lymphadenopathy or mass. The thyroid is normal. PLEURA: There is no pleural effusion. No pleural mass or thickening. AXILLA/CHEST WALL: No lymphadenopathy. UPPER ABDOMEN: Normal in appearance. Stable prominence of the common bile duct. OSSEOUS STRUCTURES: Mild thoracic scoliosis with mild degenerative changes in the spine. No suspicious lytic or blastic bone lesions. CT/CT chest w IV con IMPRESSION: 1. Status post distal esophagectomy with gastric pull-through procedure. 2. Clear lungs without evidence of metastatic disease to the chest. Electronically signed by: Keven Waters MD 05/16/2025 03:02 PM EDT
--- OUTSIDE RECORDS SUMMARY | 2025-05-16 13:54 | XMS_ITS | Encounter Summary ---
Author Organization [facility] Address [address] [place] [address] Phone Care Team Providers Care Event Manager Name Role Phone Francesco Gill NP, Rosy Primary Care Provider Estuardo loza Unknown, Unknown Primary Care Provider Estuardo Gill NP, Rosy Primary Care Provider Estuardo loza Encounter Details Date Type Department Care Team (Late st Contact Info) Description 11/18/2020 Procedure Pass [facility], Ct Scan - [address] [address] Social History Tobacco Use Types Packs/Day Years [...] on file documented as of this encounter Visit Diagnoses Not on filedocumented in this encounter Care Teams Event Manager Relationship Specialty Start Date End Date Rosy Maya NP PCP - General 10/23/20 11/24/20 Unknown, Unknown, PCP - General 11/25/20 12/02/20 Rosy Maya NP PCP - General 12/03/20 documented as of this encounter Additional Source Comments The information contained in this document represents components of the legal health record. It is not the complete legal health record.[facility]
--- OUTSIDE RECORDS SUMMARY | 2025-05-16 13:54 | XMS_ITS | Encounter Summary ---
Author Organization [facility] Address [address] [place] [address] Care Team Providers Care Miller Head Assistant Wet Process Name Role Phone Casandra Ruelas MD Primary Care Provider Reason for Visit * Reason Onset Date Comments Appointment 12/22/2021 Encounter Details Date Type Department Care Team (Late st Contact Info) Description 12/22/2021 Telephone [facility] Central Scheduling Department [address] [place] [address] Telephone Intake, Staff Appointment Social History Tobacco [...] on filedocumented in this encounter Care Teams Miller Head Assistant Wet Process Relationship Specialty Start Date End Date Casandra Ruelas MD [address] [place] [address] PCP - General Internal Medicine 12/14/21 documented as of this encounter
--- OUTSIDE RECORDS SUMMARY | 2025-05-16 13:54 | XMS_ITS | Encounter Summary ---
Author Organization [facility] Address [address] [place] [address] Phone Care Team Providers Care Seismology Teacher Name Role Phone Francesco Gill NP, Rosy Primary Care Provider Estuardo Gill MD, Odilon Primary Care Provider [phone] Francesco Gill NP, Rosy Primary Care Provider Estuardo loza Unknown, Unknown Primary Care Provider Estuardo Gill NP, Rosy Primary Care Provider Estuardo loza Encounter Details Date Type Department Care Team (Late st Contact Info) Description 09/03/2020 Ancillary Orders [facility],Outside Imaging [address] [place], [place] [phone] System, Provider [place] In, [place] [address] Social History Tobacco Use Types Packs/Day Years [...] on filedocumented in this encounter Care Teams Seismology Teacher Relationship Specialty Start Date End Date Rosy Maya V, FARZANA PCP - General 07/15/20 09/20/20 Odilon Cunningham MD [address] [place] [address] PCP - General Internal Medicine 09/21/20 10/22/20 Rosy Maya NP PCP - General 10/23/20 11/24/20 Unknown, Unknown, PCP - General 11/25/20 12/02/20 Rosy Maya NP PCP - General 12/03/20 documented as of this encounter Additional Source Comments The information contained in this document represents components of the legal health record. It is not the complete legal health record.[facility]
--- OUTSIDE RECORDS SUMMARY | 2025-05-16 13:54 | XMS_ITS | Encounter Summary ---
Author Organization [facility] Address [address] [place] [address] [place] [phone] Phone Care Team Providers Care Substation Operator Transforming Name Role Phone Francesco Gill NP, Rosy Primary Care Provider Estuardo Gill MD, Odilon Primary Care Provider Francesco Gill NP, Rosy Primary Care Provider Estuardo loza Unknown, Unknown Primary Care Provider Estuardo Gill NP, Rosy Primary Care Provider Estuardo loza Encounter Details Date Type Department Care Team (Late st Contact Info) Description 07/20/2020 Ancillary Orders [facility],Outside Imaging [address] [place], [place] [phone] System, Provider Not In, [place] [address] Social History Tobacco Use Types Packs/Day Years Used Date Smoking Tobacco: Never Assessed Comments Unknown Sex and Gender Information Value Date Recorded Sex Assigned at Not on file Legal Sex Female 1:00 PM EST Gender Identity Not on file Sexual Orientation Not on file documented as of this encounter Plan of Treatment Not on file documented as of this encounter Results * CT Chest Outside (No Interpretation) (07/15/2020 12:00 AM EST) Narrative SYSTEMGENERATED, DOCUMENTATION - 07/20/2020 11:45 AM EST This study is for PACS storage only and not for interpretation. us Provider Not In System PhD IMG OUTSIDE IMAGING W /OUT INTERPRETATION Final Result documented in this encounter Visit Diagnoses Not on filedocumented in this encounter Care Teams Substation Operator Transforming Relationship Specialty Start Date End Date Rosy Maya NP PCP - General 07/15/20 09/20/20 Odilon Cunningham MD [address] [place] [address] PCP - General Internal Medicine 09/21/20 10/22/20 Rosy Maya NP PCP - General 10/23/20 11/24/20 Unknown, Unknown, PCP - General 11/25/20 12/02/20 Rosy Maya NP PCP - General 12/03/20 documented as of this encounter Additional Source Comments The information contained in this document represents components of the legal health record. It is not the complete legal health record.[facility]
--- OUTSIDE RECORDS SUMMARY | 2025-05-16 13:54 | XMS_ITS | Encounter Summary ---
Author Organization [facility] Address [address] [place] [address] Phone Care Team Providers Care Server Engineer Name Role Phone Francesco Gill NP, Rosy Primary Care Provider Estuardo loza Unknown, Unknown Primary Care Provider Estuardo Gill NP, Rosy Primary Care Provider Estuardo loza Encounter Details Date Type Department Care Team (Late st Contact Info) Description 11/18/2020 Procedure Pass [facility], Ct Scan - [address] [address] Social History Tobacco Use Types Packs/Day Years [...] on filedocumented in this encounter Care Teams Server Engineer Relationship Specialty Start Date End Date Rosy Maya NP PCP - General 10/23/20 11/24/20 Unknown, Unknown, PCP - General 11/25/20 12/02/20 Rosy Maya NP PCP - General 12/03/20 documented as of this encounter Additional Source Comments The information contained in this document represents components of the legal health record. It is not the complete legal health record.[facility]
--- OUTSIDE RECORDS SUMMARY | 2025-05-16 13:54 | XMS_ITS | Encounter Summary ---
Author Organization [facility] Address [address] [place] [address] Phone Care Team Providers Care Bread Slicer Machine Name Role Phone Octavio Gill MD, Odilon Primary Care Provider Francesco Gill NP, Rosy Primary Care Provider Estuardo loza Unknown, Unknown Primary Care Provider Estuardo Gill NP, Rosy Primary Care Provider Estuardo loza Encounter Details Date Type Department Care Team (Late st Contact Info) Description 10/19/2020 Procedure Pass [facility] [address] [place] [address] Social History Tobacco Use Types Packs/Day Years [...] on filedocumented in this encounter Care Teams Bread Slicer Machine Relationship Specialty Start Date End Date Odilon Cunningham MD [address] [place] [address] PCP - General Internal Medicine 09/21/20 10/22/20 Rosy Maya NP PCP - General 10/23/20 11/24/20 Unknown, Unknown, PCP - General 11/25/20 12/02/20 Rosy Maya NP PCP - General 12/03/20 documented as of this encounter Additional Source Comments The information contained in this document represents components of the legal health record. It is not the complete legal health record.[facility]
--- OUTSIDE RECORDS SUMMARY | 2025-05-16 13:54 | XMS_ITS | Encounter Summary ---
Author Organization [facility] Address [address] [place] [address] [place] [address] Phone Care Team Providers Care Manager Interventional Name Role Phone Francesco Gill NP, Rosy Primary Care Provider Estuardo Gill MD, Odilon Primary Care Provider [phone] Francesco Gill NP, Rosy Primary Care Provider Estuardo loza Unknown, Unknown Primary Care Provider Estuardo Gill NP, Rosy Primary Care Provider Estuardo loza Encounter Details Date Type Department Care Team (Late st Contact Info) Description 07/20/2020 Ancillary Orders [facility],Outside Imaging [address] [place], [place] [phone] System, Provider Not In, [place] [address] Social History Tobacco Use Types Packs/Day Years Used Date Smoking Tobacco: Never Assessed Comments Unknown Sex and Gender Information Value Date Recorded Sex Assigned at Not on file Legal Sex Female 1:00 PM EST Gender Identity Not on file Sexual Orientation Not on file documented as of this encounter Plan of Treatment Not on file documented as of this encounter Results * CT Abdomen/Pelvis Outside (No Interpretation) (07/15/2020 12:05 AM EST) Narrative SYSTEMGENERATED, DOCUMENTATION - 07/20/2020 11:46 AM EST This study is for PACS storage only and not for interpretation. us Provider Not In System PhD IMG OUTSIDE IMAGING W /OUT INTERPRETATION Final Result documented in this encounter Visit Diagnoses Not on filedocumented in this encounter Care Teams Manager Interventional Relationship Specialty Start Date End Date Rosy Maya NP PCP - General 07/15/20 09/20/20 Odilon Cunningham MD [address] [place] [address] PCP - General Internal Medicine 09/21/20 10/22/20 Rosy Maya V BOX FEEDER PCP - General 10/23/20 11/24/20 Unknown, Unknown, PCP - General 11/25/20 12/02/20 Rosy Maya NP PCP - General 12/03/20 documented as of this encounter Additional Source Comments The information contained in this document represents components of the legal health record. It is not the complete legal health record.[facility]
--- OUTSIDE RECORDS SUMMARY | 2025-05-16 13:54 | XMS_ITS | Encounter Summary ---
Author Organization [facility] Address [address] [place] [address] Phone Care Team Providers Care Special Services Director Name Role Phone Francesco Gill NP, Rosy Primary Care Provider Estuardo loza Unknown, Unknown Primary Care Provider Estuardo Gill NP, Rosy Primary Care Provider Estuardo loza Encounter Details Date Type Department Care Team (Late st Contact Info) Description 10/23/2020 Ancillary Orders Non-Invasive Cardiology [address] [place] [address] Elly Mckeon MD [address] [place] [address] SOB (shortness of breath) Social History Tobacco Use Types Packs/Day Years [...] documented as of this encounter Results * NC Stress Result for Nuclear Stress Test (10/23/2020 12:23 PM EST) Max BP Systolic 132 mmHg [facility] Max BP Diastolic 70 mmHg [facility] Max HR 134 BPM [facility] Resting HR 113 BPM [facility] Resting BP Systolic 118 mmHg [facility] Resting BP Diastolic 66 mmHg [facility] Peak METS 1.0 METS [facility] Peak HR 129 BPM [facility] Anatomical Region Laterality Modality Heart Other 10/23/2020 11:0 7 AM EST 10/23/2020 12:23 PM EST Narrative 10/23/2020 2:35 PM EST Response to Stress The patient exercised for minutes seconds, achieving 1.0 METS at peak exercise. Baseline blood pressure was 118/66 mmHg, and baseline heart rate was 113 bpm. The patient achieved a peak heart rate of 129 bpm, which is% of their maximum predicted heart rate. REPORT- Test was done as a pharmacological test due to baseline dizziness and headache. 0.4 mg Regadenoson (lexiscan) given IV push over 10 seconds as per protocol immediately followed by injection of Tc99m Sestamibi by Keri nuclear officer. 1. EKG - Baseline EKG showed sinus rhythm, with non specific ST-T wave abnormalities, 95bpm. 2. SYMPTOMS -No chest pain 3. PHYSIOLOGY - Resting HR was 95bpm. After Lexiscan injection, HR 134 bpm (85%MPHR) BP 130/70 at rest, BP 130/66 on discharge from stress lab. 4. ARRHYTHMIAS -No ectopy noted. Conclusion -There were no EKG changes suggestive of ischemia or symptoms concerning for angina. Nuclear images pending and will be reported separately. Marquita Gayle NP with Dr. Rojas . us Elly Mckeon MD CV NM CARDIAC Final Result documented in this encounter Visit Diagnoses Diagnosis SOB (shortness of breath) Shortness of breath SOB (shortness of breath) Shortness of breath documented in this encounter Care Teams Special Services Director Relationship Specialty Start Date End Date Rosy Maya NP PCP - General 10/23/20 11/24/20 Unknown, Unknown, PCP - General 11/25/20 12/02/20 Rosy Maya NP PCP - General 12/03/20 documented as of this encounter Additional Source Comments The information contained in this document represents components of the legal health record. It is not the complete legal health record.[facility]
--- OUTSIDE RECORDS SUMMARY | 2025-05-16 13:54 | XMS_ITS | Encounter Summary ---
Author Organization [facility] Address [address] [place] [address] [place] [phone] Phone Care Team Providers Care Customer Sales Representative Name Role Phone Francesco Gill NP, Rosy Primary Care Provider Estuardo loza Unknown, Unknown Primary Care Provider Estuardo Gill NP, Jeanne Primary Care Provider Estuardo olza Encounter Details Date Type Department Care Team (Late st Contact Info) Description 11/04/2020 Transcribe Orders [facility] [address] [place] [address] Elly Mckeon MD [address] [place] [address] Social History Tobacco Use Types Packs/Day Years [...] on filedocumented in this encounter Care Teams Customer Sales Representative Relationship Specialty Start Date End Date Rosy Maya NP PCP - General 10/23/20 11/24/20 Unknown, Unknown, PCP - General 11/25/20 12/02/20 Rosy Maya NP PCP - General 12/03/20 documented as of this encounter Additional Source Comments The information contained in this document represents components of the legal health record. It is not the complete legal health record.[facility]
--- OUTSIDE RECORDS SUMMARY | 2025-05-16 13:54 | XMS_ITS | Clinical Summary ---
Author Organization [facility] Address [address] [place] [address] Phone Care Team Providers Care Instrument Mechanic Weapons System Name Role Phone Francesco Gill NP, Rosy Primary Care Provider Estuardo loza Allergies Active Allergy Reactions Criticality Noted Date Comments Gadolinium-Containing Contra st Media Shortness Of Breath High 07/21/2020 Iodinated Contrast Media Shortness Of Breath High Morphine Shortness Of Breath High 07/21/2020 Medications acetaminophen-c odeine (TYLENOL #3) 300-30 mg per tablet Take 1 tablet by mouth 2 (two) times a day as needed for pain (specific location in comments). Active albuterol 90 mcg/actuation inhaler Inhale 2 puffs into the lungs every 4 (four) hours as needed for wheezing. Active cholecalciferol (VITAMIN D3) 400 unit tablet Take 400 Units by mouth daily. Active fenofibrate (LOFIBRA) 160 MG tablet Take 160 mg by mouth daily. Active fluticasone propionate (FLOVENT HFA) 110 mcg/actuation inhaler Inhale 1 puff into the lungs 2 (two) times a day. Active loratadine (CLARITIN) 10 mg tablet Take 10 mg by mouth daily. Active losartan (COZAAR) 25 MG tablet Take 25 mg by mouth daily. Active polyethylene glycol (MIRALAX) 17 gram packet Take 17 g by mouth daily. Active simvastatin (ZOCOR) 10 MG tablet Take 10 mg by mouth nightly at bedtime. Active oxyCODONE 5 MG immediate release tablet Take 5 mg by mouth every 6 (six) hours as needed for moderate pain. 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 Not on last e 01/06/2023 Are you concerned about learning? Not on file 01/06/2023 No 01/06/2023 No 01/06/2023 Digital Access Answer Date Recorded No 02/04/2023 No 02/04/2023 No 02/04/2023 Reliable internet access at home? Not on file 02/04/2023 Device with a working camera? Not on file Comments Unknown Sex and Gender Information Value Date Recorded Sex Assigned at Not on file Legal Sex Female 1:00 PM EST Gender Identity Not on file Sexual Orientation Not on file Last Filed Vital Signs Vital Sign Reading Time Taken Comments Blood Pressure 112/74 10/26/2020 2:34 PM EST Pulse 101 10/26/2020 2:34 PM EST Temperature - - Respiratory Rate - - Oxygen Saturation 98% 10/26/2020 2:34 PM EST Inhaled Oxygen Concentration - - Weight 62.6 kg (138 lb 1.6 oz) 10/26/2020 2:34 P M EST Height - - Body Mass Index - - Plan of Treatment Health Maintenance Due Date Last Done Comments LIPID PANEL 1956 POTASSIUM LEVEL 1956 DEPRESSION SCREENING 1968 SMOKING Hx and SMOKELESS TOBACCO SCREENING 1969 HEPATITIS C SCREENING 1974 PNEUMOCOCCAL VACCINES (50+ years) (1 of 2 - PCV) 1975 MAMMOGRAM 1996 COLOGUARD 2001 COLONOSCOPY 2001 COLORECTAL CANCER SCREENING 2001 FIT TEST 2001 FOBT 2001 SIGMOIDOSCOPY 2001 VIRTUAL COLONOSCOPY 2001 OSTEOPOROSIS SCREENING INITIAL (ONE-TIME) 2021 CREATININE LEVEL 12/07/2021 12/07/2020 Adult Td,Tdap Booster 01/03/2023 01/03/2013 , 11/26/2007, 08/31/1998 INFLUENZA VACCINE (#1) 2025 9, 06/07/2018, 06/08/2017, Additional history exists COVID-19 VACCINE ( - season) 2025 03/29/2021, 02/26/2021 RSV VACCINE (1 - 1-dose 75+ series) 2031 ZOSTER VACCINES Completed 11/11/2019, 08/11, 10/12/2016 HEPATITIS A VACCINES Aged Out No long er eligible based on patient's age to complete this topic HIB VACCINES Aged Out No longer eligi ble based on patient's age to complete this topic MENINGOCOCCAL VACCINES (ACWY) Aged Out No longer eligible based on patient's age to complete this topic MENINGOCOCCAL VACCINES (B) Aged Out N o longer eligible based on patient's age to complete this topic Medical Devices Not on file Procedures Procedure Name Priority Date/Time Associated Diagnosis Comments CREATININE/EGFR STAT 12/07/2020 12:21 PM EDT Malignant neoplasm of esophagus, unspecified location from Last 3 Months or Most Recently Relevant to Health Maintenance Results * Creatinine/eGFR (12/07/2020 12:21 PM EDT) CREATININE 0.70 0.5 - 1.5 mg/dL [facility] EGFR 92 >59 mL/min/1.7 3m2 [facility] Comment:Estimated glomerular filtration rate calculated using the CKD-EPI equation. Blood 12/07/2020 12:2 1 PM EDT 12/07/2020 12:25 PM EDT us Elly Mckeon MD LAB BLOOD ORDERABLES Final Re sult [facility] [address] [place] [address] from Last 3 Months or Most Recently Relevant to Health Maintenance Insurance [employer] NON NSPG PCP [employer] Member Subscriber Plan / Payer (Ef fective 2020-Present) Name:Casandra Jones Relation to Subscriber:Self Name:Casandra Jones Payer ID:[id number] Type:O Address: [address] SAFETY NET FULL [employer] NON NSPG PCP [employer] Member Subscriber Plan / Payer (Ef fective 2020-Present) Name:Casandra Jones Relation to Subscriber:Self Name:Casandra Jones Payer ID:[id number] Type:O Address: [address] [place] [address] NON NSPG PCP [employer] [facility] [place] [address] NON NSPG PCP S[employer] [facility] NET FULL [place] NON NSPG PCP S[employer] NET FULL [employer] NON NSPG PCP [employer] SAFET[employer] NET FULL [facility] NON NSPG PCP S[employer] S[employer] NET FULL [facility] NON NSPG PCP [employer] Member Subscriber Plan / Payer (Ef fective 2020-Present) Name:Casandra Jones Relation to Subscriber:Self Name:Casandra Jones Payer ID:[id number] Type:HMO Address: [address] SAFETY NET FULL [facility] NON NSPG PCP [employer] SAFETY NET FULL Member Subscriber Plan / Payer (Ef fective 2020-Present) Name:Casandra Jones Relation to Subscriber:Self Name:Casandra Jones Payer ID:Not on file Group ID:Not on file Type:Medicaid Address: [place] [id number] Care Teams Instrument Mechanic Weapons System Relationship Specialty Start Date End Date Rosy Maya NP PCP - General 12/03/20 Additional Source Comments The information contained in this document represents components of the legal health record. It is not the complete legal health record.[facility]
--- OUTSIDE RECORDS SUMMARY | 2025-05-16 13:55 | XMS_ITS | Encounter Summary ---
Author Organization [facility] Address [address] [place] [address] Care Team Providers Care Operating Theatre Technician Name Role Phone Casandra Ruelas MD Primary Care Provider Reason for Visit * Reason Onset Date Comments PAC Patient Request Call Back 12/30/2022 Co lonoscopy date Encounter Details Date Type Department Care Team ([facility] st Contact Info) Description 12/30/2022 Telephone [facility] [address] [place] [phone] Telephone Intake, Staff PAC Patient Request Call [...] and time of colonoscopy. Best phone # [phone] Ty Unable to contact clinic to confirm information for Pt, TE sent documented in this encounter Plan of Treatment Scheduled Procedures Name Priority Associated Diagnoses Date/Ti me COLONOSCOPY SCREENING, LOW R ISK WITH POSSIBLE MODERATE SEDATION Colon cancer screening documented as of this encounter Visit Diagnoses Not on filedocumented in this encounter Care Teams Operating Theatre Technician Relationship Specialty Start Date End Date Casandra Ruelas MD [address] [place] [address] PCP - General Internal Medicine 12/14/21 documented as of this encounter
--- OUTSIDE RECORDS SUMMARY | 2025-05-16 13:55 | XMS_ITS | Clinical Summary ---
Author Organization [facility] Address [address] [place] [address] Care Team Providers Care Occasional Babysitter Name Role Phone Casandra Ruelas MD Primary [...] propionate (FLONASE) 50 mcg/actuation nasal spray [employer] [place](s) Both Nares Every Morning PRN 11/12/2021 Active [...] 69 01/02/2023 10:53 AM EDT Temperature 36.7 C (98.1 F) 01/02/2023 10:53 AM EDT Respiratory Rate 16 01/02/2023 10:53 AM EDT [...] 11/26/2007, 08/31/1998 Mammogram 07/21/2023 07/21/2021, 02/2020, 07/12/2018 Alcohol/Substance Use Screening 09/11/2024 Depression Screening and Follow-Up 09/11/2024 Health Care Proxy Review 09/11/2024 Social Drivers of Health Gracie ual Screening 09/11/2024 COVID-19 Vaccine ( - 2024-2 6 season) 2025 07/19/2021, 03/29/2021, 02/26/2021 Influenza Vaccine (#1) 2025 , 06/07/2019, 06/07/2018, Additional history exists Hepatitis B Vaccines Completed 12/04/2001, 03/29/2001, 08/17/2000, Additional history exists Zoster Vaccines Completed 11/11/2019, 08/11, 10/12/2016 Pneumococcal Vaccine: 50+ Years Completed 2 Insurance [facility] Care Teams Occasional Babysitter Relationship Specialty Start Date End Date Casandra Ruelas MD [address] [place] [address] PCP - General Internal Medicine 12/14/21
[2025-05-16] MEDS: iohexoL 350 MG/ML 100 ML INFUS..BTL IV (14:45)
[2025-05-20 07:11] LABS: Creatinine POC 0.7 mg/dL (0.5-1.4); GFR POC > 60
== END 2025-05-16 13:33 | disposition home or self-care (01) ==
LOC: HO.CT 13:32
PROVIDERS: PCP Internal Medicine; Visit Provider Internal Medicine
DX: C15.9 Malignant neoplasm of esophagus, unspecified (principal)
CPT/HCPCS: 71260; 82565; Q9967

== ENCOUNTER → 2025-05-16 14:24 | Outpatient (BNV) | payer OTHER, SELFPAY | PROVIDERS: PCP Internal Medicine; Visit Provider Radiology Diagnostic Radiology | DX: C15.9 Malignant neoplasm of esophagus, unspecified (principal) | CPT/HCPCS: 71260 ==

== ENCOUNTER 2025-06-26 12:50 | Outpatient (RCR) | payer OTHER, SELFPAY ==
[2025-06-26 13:05] VITALS: BP 142/71; PULSE 68
== END 2025-08-12 13:42 | disposition home or self-care (01) ==
LOC: HO.PT 12:50
PROVIDERS: PCP Internal Medicine; Visit Provider Internal Medicine
DX: R42 Dizziness and giddiness (principal)
CPT/HCPCS: 97112; 97161

== ENCOUNTER 2025-07-17 09:57 | Emergency (ER) | payer OTHER, SELFPAY ==
--- OUTSIDE RECORDS SUMMARY | 2025-07-15 10:00 | XMS_ITS | Encounter Summary ---
Author Organization [facility] Address [address] [place] [address] Care Team Providers Care Mail Deliverer Name Role Phone Casandra Ruelas MD Primary Care Provide r Reason for Visit * Reason Comments Diarrhea Encounter Details Date Type Department Care Team ([facility] Contact Info) Description 07/15/2025 10:00 AM EST Office Visit [facility] [address] [place] [address] [phone] Magdalena De La Cruz MD [address] [place], [place] [phone] Acute diarrhea (Primary Dx) Social History Tobacco Use Types [...] Answer Date Recorded Patient Health Questionnaire-9 Score 8 05/28/2025 Patient Health Questionnaire-9 Score 8 05/28/2025 Last PHQ-9: Questionnaire Data Not on file 0 05/28/2025 Housing Stability Answer Date Recorded What is [...] Answer Date Recorded Patient Health Questionnaire-2 Score 2 05/28/2025 Internet Access Answer Date Recorded Internet Access Q1 Yes 11/27/2024 Internet Access Q2 Not on file 11/27/2024 Comments Unknown Sex and Gender Information Value Date Recorded Sex Assigned at Female 07/11/2022 10:15 AM EDT Legal Sex Female 10:15 AM EDT Gender Identity Female 07/11/2022 10:15 AM EDT Sexual Orientation Straight 07/11/2022 10 :15 AM EDT documented as of this encounter Last Filed Vital Signs Vital Sign Reading Time Taken Comments Blood Pressure 124/81 07/15/2025 9:47 AM EST Pulse 81 07/15/2025 9:47 AM EST Temperature 37.2 C (98.9 F) 07/15/2025 9:47 AM EST Respiratory Rate 20 07/15/2025 9:47 AM EST Oxygen Saturation 98% 07/15/2025 9:47 AM EST Inhaled Oxygen Concentration - - Weight 63.7 kg (140 lb 6.4 oz) 07/15/2025 9:47 A M EST Height - - Body Mass Index 24.87 05/29/2025 2:30 PM EDT documented in this encounter Progress Notes * Magdalena De La Cruz MD - 07/15/2025 10:00 AM EST Subjective Lisandra Dang Camille, 69 year old woman with hypertension and gerd who pretend to [facility] withdiarrhea that started last night. Acute Watery Diarrhea - Onset last night - Multiple episodes, described as very watery - No blood in stool - Took tea in the morning, had another episode - Possible trigger: ranch and celery consumed at home, ranch had been kept for a couple of months - Denies fever - Denies recent antibiotic use Hemorrhoids - History of hemorrhoids, worsened with diarrhea and frequent bowel movements - Reports sluggish bowel movement last night - Bleeding associated with diarrhea and straining Dizziness - Reports chronic dizziness - Denies use of excessively hot showers Objective Blood pressure 124/81, pulse 81, temperature 98.9 ??F (37.2 ??C), temperature source Temporal, resp. rate 20, weight 140 lb 6.4 oz (63.7 kg), SpO2 98%. - HEENT: Cardiopulmonary examination reveals normal heart and lung sounds. - CARDIOVASCULAR: Cardiopulmonary examination reveals normal heart sounds. - LUNGS: Cardiopulmonary examination reveals normal lung sounds. - ABDOMEN: Abdomen is diffusely tender, nontender to rebound, no guarding, soft, and non-distended. - RECTAL: Presence of large hemorrhoids. Acute diarrhea started last night: - Likely due to food poisoning from ranch dressing vs viral gastroenteritis. -No evidence of acute abdomen or dehydration. - Recommended oral hydration with water, Gatorade, Pedialyte, or sugar-free alternatives. Advised to avoid antidiarrheal medications such as Imodium. Suggested bland diet, avoiding heavy foods and dairy except for yogurt. Instructed to monitor for worsening symptoms including fever, severe abdominal pain, or inability to tolerate oral intake, and to seek emergency care if these occur. Advised to contact clinic if diarrhea persists beyond 5-7 days. Provided work and school notes for July 15, 2025 and July 16, 2025. Hemorrhoids: - Exacerbation of hemorrhoids secondary to increased bowel movements from diarrhea. - Advised that improvement is expected as diarrhea resolves. No specific intervention recommended at this time. This note was drafted using Ambient (AI) technology. The patient/patient's guardian has been informed and has consented to the use of this technology: Yes documented in this encounter Plan of Treatment Upcoming Encounters Date Type Department Care Team (Late st Contact Info) Description 08/15/2025 11:00 AM EST Office Visit [facility] [address] [place] [phone] Casandra Ruelas MD [address] [place], [place] [phone] 10/06/2025 11:30 AM EST Clinical Support [facility] [address] [place] [address] Edwige West, MARK documented as of this encounter Visit Diagnoses Diagnosis Acute diarrhea- Primary Diarrhea documented in this encounter Additional Health Concerns Assessment Noted Time PHQ-9 Depression Total Score: 8 05/28/20 25 9:45 AM EDT documented as of this encounter Care Teams Mail Deliverer Relationship Specialty Start Date End Date Casandra Ruelas MD [address] [place] [address] PCP - General Family Medicine 10/27/20 documented as of this encounter
--- NOTE | ~2025-07-17 | CT_ITS ---
EXAMINATION: CT ABDOMEN PELVIS WITH IV CONTRAST HISTORY: right sided abd pain, hx esophageal ca with surg COMPARISON: Previous CT of the abdomen and pelvis most recent May 2024 TECHNIQUE: CT scan of the abdomen and pelvis was performed following administration of 85 mL Omnipaque 350 using standard departmental protocol. Coronal and sagittal reformatted images were generated and reviewed. This CT exam was performed with one or more of the following dose reduction techniques: automated exposure control, adjustment of the mA and/or kV according to patient size, use of iterative reconstruction technique. DLP: 404 mGy-cm FINDINGS: LOWER CHEST: The visualized lung bases are clear. There is no pleural effusion. Postsurgical changes from esophagectomy and gastric pull-up. CARDIOVASCULATURE: Partially visualized Port-A-Cath tip at the cavoatrial junction. The heart is normal in size. There is no pericardial effusion. LIVER: The liver is normal in size and contour. No liver mass is identified. The hepatic and portal veins are patent. GALLBLADDER / BILE DUCTS: The gallbladder is unremarkable. There is no intra or biliary ductal dilatation. The common bile duct is dilated measuring up to 11 mm for example axial image 36 series 3. This is similar to previous exams. SPLEEN: The spleen is normal in size. No focal splenic lesion is identified. PANCREAS: There is mild dilatation of the main pancreatic duct. This measures 5 mm distally in the head of the pancreas. This is similar to prior exam from 2023. This appears increased from older exam from 2019. No pancreatic mass appreciated. ADRENAL GLANDS: Within normal limits. KIDNEYS/RETROPERITONEUM: Stable 1.6 cm left renal cyst. No renal calculi are identified. There is no hydronephrosis. No renal masses are identified. LYMPH NODES: No enlarged lymph nodes. VASCULATURE: Mild atherosclerotic disease. No aneurysm. MESENTERY/PERITONEUM: No free fluid. No masses. There is no free intraperitoneal gas. STOMACH: Postsurgical changes from esophagectomy and gastric pull-up. SMALL BOWEL: There is wall thickening and wall edema distal small bowel in the right lower quadrant suggestive of mild enteritis. No dilatation. COLON: Mild diverticulosis of the colon. No evidence of diverticulitis. Distal colon is underdistended and it is difficult to exclude mild colitis of the distal colon. APPENDIX: Not seen. URINARY BLADDER/PELVIC ORGANS: The urinary bladder is unremarkable. No pelvic mass. BONES / SOFT TISSUES: Skin and subcutaneous lesion in the left flank. This measures 9 x 13 mm axial image 32 series 3. This is increased from 5.6 x 14 mm on May 2024 exam. Degenerative changes of the spine and mild scoliosis.. CT/CT abdomen pelvis w IV con IMPRESSION: Wall thickening and edema of the distal small bowel suggestive of mild enteritis. Distal colon is underdistended and it is difficult to exclude mild distal colitis as well. Mild diverticulosis of the colon. No evidence of diverticulitis. Dilated extrahepatic bile ducts and main pancreatic duct. This is similar to prior 2023 CT scan but increased from older 2019 CT scan. Recommend follow-up MRI with MRCP. Stable postsurgical changes from esophagectomy and gastric pull-up. Slight interval increase in skin and subcutaneous lesion in the left flank. Electronically signed by: Marnie Mota MD 07/17/2025 01:35 PM [place]
[2025-07-17 10:03] VITALS: BP 161/74; PULSE 81; RESP 18; TEMP 36.6; O2SAT 99; BMI 24.6
--- NOTE | 2025-07-17 10:05 | ED.GENADULT ---
HPI - General Adult General Chief complaint: Abdominal Pain Stated complaint: abd pain Time Seen by Provider: 07/17/25 11:13 Source: patient Mode of arrival: ambulatory Limitations: no limitations History of Present Illness ED Provider: Dr. Merritt HPI narrative: 69-year-old female presented hospital today for abdominal pain. Patient stated that she has been having symptoms of nausea and vomiting for the past 4 days. She also has bright red blood rectal bleeding. When she wipes. She does have history of hemorrhoids. She does have history of esophageal cancer where she underwent resection and gastric surgery. Patient stated that this pain has not gone away therefore she presents to the ER for further evaluation. Denies any fever. Denies any dysuria. Related Data Home Medications ?Medication ?Instructions ?Recorded ?Confirmed cholecalciferol (vitamin D3) 50 1 cap PO DAILY 06/15/20 05/06/25 mcg (2,000 unit) capsule fenofibrate 160 mg tablet 1 tab PO DAILY 06/15/20 05/06/25 fluticasone propionate 50 2 spray intranasal QAM PRN 06/15/20 05/06/25 mcg/actuation nasal Congestion spray,suspension losartan 25 mg tablet 1 tab PO DAILY 06/15/20 05/06/25 polyethylene glycol 3350 17 17 g PO DAILY 06/15/20 05/06/25 gram/dose oral powder simvastatin 20 mg tablet 1 tab PO BEDTIME 06/15/20 05/06/25 omeprazole 40 mg capsule,delayed 40 mg PO QAM 08/11/23 05/06/25 release citalopram 10 mg tablet 10 mg PO DAILY 05/30/25 05/30/25 clonazepam 0.5 mg tablet 0.5 mg PO BID 05/30/25 05/30/25 Previous Rx's ?Medication ?Instructions ?Recorded acetaminophen 300 mg-codeine 15 mg 1 tab PO BID PRN Pain #60 tabs 07/14/21 tablet bisacodyl 5 mg tablet,delayed 10 mg (2 x 5 mg) PO BEDTIME 2 days 09/20/23 release (Dulcolax (bisacodyl)) #4 tabs lidocaine 5 % topical patch 1 patch topical DAILY #15 ea 06/21/24 (Lidoderm) peg 3350-electrolytes 236 240 ml PO Q10M 1 day #4,000 mL 07/11/24 gram-22.74 gram-6.74 gram-5.86 gram solution (Golytely) albuterol sulfate 90 mcg/actuation 2 puff inhalation Q4-6H PRN 10/31/24 aerosol inhaler (Ventolin HFA) wheezing #1 ea dicyclomine 10 mg capsule 10 mg PO TID PRN abdominal pain 3 07/17/25 days #9 caps loperamide 2 mg capsule (Imodium 2 mg PO QID PRN loose stool #20 07/17/25 A-D) caps omeprazole 20 mg capsule,delayed 20 mg PO DAILY 14 days #14 caps 07/17/25 release ondansetron 4 mg disintegrating 4 mg PO Q8H PRN nausea and 07/17/25 tablet vomiting 4 days #14 tabs Allergies Allergy/AdvReac Type Severity Reaction Status Date / Time morphine (Morphine) Allergy Unknown Rash Verified 07/17/25 10:04 Review of Systems Review of Systems: Pertinent review of systems as mentioned in HPI. All other system otherwise negative. [facility] Past Medical History [facility] Narrative: Medical history as mentioned in HPI Medical History (Updated 07/17/25 @ 15:22 by Trish Merritt DO) History of alcohol use disorder History of pancreatitis GERD (gastroesophageal reflux disease) Esophageal adenocarcinoma Esophageal carcinoma Depression Asthma Elevated cholesterol HTN (hypertension) Surgical History History of esophageal surgery History of esophagogastroduodenoscopy (EGD) Previous back surgery Hx of appendectomy Hx of hemorrhoidectomy Hx of colonoscopy Family History Family History Mother Cancer Father HTN (hypertension) Maternal Grandmother Diabetes Social History Social History Household Members: Spouse and Children Household Members Other:: 2 children Housing: Apartment Are you a primary personal care assistant to a significant other at home: No Do you presently have visiting nurse or other home services: No Alcohol intake: current Alcohol intake frequency: holidays/special occasions only Patient Tobacco Use Status: Never used Tobacco Second Hand Smoke Exposure: Yes (spouse) Advance Directives: No Advance Directives Information Provided: Yes Do you have a plan to hurt others: No Plan service: No Current occupational status: disabled Physical Exam ED Exam Exam: General: Pleasant, no distress, interacting appropriately Head: Normacephalic, atraumatic ENT: oral mucosa moist, neck supple, no tracheal deviation Cardiovascular: regular rate, regular rhythm, no murmurs, rubbing, gallops Respiratory: CTAB, no wheeze, rales, rhonchi Gastrointestinal: Soft, non distended, right-sided abdominal pain right lower quadrant right upper quadrant abdominal pain on palpation. Neurological: Awake and alert, no facial droop noted Skin: Warm and dry Psychiatric: Appropriate mood and thoughts Vital Signs: Vital Signs - 24 hr 07/17/25 10:03 07/17/25 12:07 Temperature 97.8 F Pulse Rate 81 64 Respiratory Rate 18 18 Blood Pressure 161/74 H 140/58 H Pulse Oximetry 99 99 Oxygen Delivery Method Room Air Room Air BMI result Body Mass Index 24.6 Course Course Course Narrative: Rapid medical examination performed in triage by Rose Long PA-C: Patient is a 69 year old assigned female at presenting to the emergency department with abdominal pain and rectal bleeding. Detailed physical exam and review of systems are deferred to the manager hospitality. Labs ordered. Patient placed back in the waiting room pending room availability and results. Medications Administered Discontinued Medications Generic Name Dose Route Start Last Admin Trade Name Freq PRN Reason Stop Dose Admin Famotidine 20 mg 07/17/25 11:40 07/17/25 12:09 Famotidine/Pf 20 Mg/2 Ml Vial IVPUSH 07/17/25 11:41 20 mg ONCE ONE Administration Hydromorphone HCl 0.25 mg 07/17/25 11:40 07/17/25 12:08 Hydromorphone Hcl 0.5 Mg/0.5 Ml Syringe IVPUSH 07/17/25 11:41 0.25 mg ONCE ONE Administration Protocol Sodium Chloride 1,000 mls @ 999 mls/hr 07/17/25 11:45 07/17/25 13:15 Ns IV 07/17/25 12:45 Infused .Q1H1M RICHARD Infusion Iohexol 100 ml 07/17/25 12:42 07/17/25 12:42 Iohexol 350 Mg/Ml 100 Ml Infus..Btl IV 07/17/25 12:43 85 ml ONCE ONE Administration Medical Decision Making Medical Decision Making MDM Narrative: This is a 69-year-old female history of esophageal cancer presented hospital today for evaluation of abdominal pain for the past 4 days. Patient is also complaining of cough with a low with this. I suspect patient is likely has a gastroenteritis from a viral source however with a history of esophageal cancer and gastric surgery. We will obtain a CT abdomen and pelvis at this time. IV fluid be initiated for the patient we will plan to give patient a dose of Zofran, IV Pepcid will be given the patient as well. A dose of IV Dilaudid will be given to the patient. Patient's lab work did show some signs of leukopenia, patient's chemistry is unremarkable. Patient's CTA abdomen and pelvis. On re-evaluation the patient states she is feeling better at this time. Patient was able to ambulate and eat without any issues. We will plan to discharge patient with omeprazole, Bentyl, Zofran Imodium to take as needed. Encouraged her to follow up with her primary care doctor. Patient agrees and understands with the plan. Differential Diagnosis Differential Diagnoses: The differential diagnosis associated with the presentation includes Cholecystitis, pancreatitis, colitis, gastroenteritis Lab Data MDM Lab Attestation statement: I reviewed the patient's lab results. 07/17/25 10:27 07/17/25 10:27 Labs: Lab Results 07/17/25 Range/Units 10:27 WBC 3.9 L (4.8-10.8) X10*3/uL RBC 4.32 (4.20-5.50) X10*6/uL Hgb 12.2 (12.0-16.0) g/dl Hct 38.3 (37.0-47.0) % MCV 88.7 (80.0-98.0) fL MCH 28.2 (27.0-33.0) pg MCHC 31.9 (31.0-35.0) g/dl RDW 13.5 (11.0-16.0) % Plt Count 299 (160-400) X10*3/uL MPV 9.3 L (9.4-12.3) fL Immature Gran % (Auto) 0.3 (0.0-0.4) % Neut % (Auto) 47.2 (45-73) % Lymph % (Auto) 40.1 H (20-40) % Eaton % (Auto) 8.1 (2-11) % Eos % (Auto) 3.3 (0-4) % Baso % (Auto) 1.0 (0-2) % Lymph # (Auto) 1.6 (1.2-4.9) X10*3/uL Eaton # (Auto) 0.3 (0.1-1.2) X10*3/uL Eos # (Auto) 0.1 (0.0-0.4) X10*3/uL Baso # (Auto) 0.0 (0.0-0.2) X10*3/uL Abs Immat Gran (auto) 0.01 (0.00-0.03) X10*3/uL Absolute Neuts (auto) 1.9 L (2.0-8.3) x10*3/uL Absolute Nucleated RBC 0.000 (0.0-0.012) X10*3/uL Nucleated RBC % (auto) 0.0 (0.0-0.2) /100WBC PT 13.5 (11.2-13.5) SEC INR 1.1 (0.9-1.1) Sodium 140 (135-145) mmol/L Potassium 3.7 (3.3-5.1) mmol/L Chloride 109 H (96-108) mmol/L Carbon Dioxide 26 (22-29) mmol/L Anion Gap 9 L (12-20) BUN 16 (9-16) mg/dL Creatinine 0.68 (0.5-1.4) mg/dL Estim Creat Clear Calc 70.8 Estimated GFR > 60 Random Glucose 76 (60-115) mg/dL Calcium 9.6 (8.4-10.2) mg/dL Magnesium 1.8 (1.6-2.6) mg/dL Total Bilirubin 0.4 (0.0-1.0) mg/dL AST 30 (5-31) U/L ALT 18 (0-31) U/L Alkaline Phosphatase 52 (39-117) U/L Total Protein 7.2 (6.5-8.0) g/dL Albumin 4.4 (3.5-5.0) g/dL Independent Interpretation I performed an independent interpretation of an: CT Scan Radiology Impression Discussion of test interpretation with radiology: I have reviewed the radiologist's reading. Discharge Plan Discharge Clinical Impression: Enteritis Patient Disposition: Home, Self-Care Instructions: Gastroenteritis (ED) Additional Instructions: Make sure to follow up with your primary care doctor. Prescriptions: New dicyclomine 10 mg capsule 10 mg PO TID PRN (Reason: abdominal pain) 3 Days Qty: 9 0RF loperamide [Imodium A-D] 2 mg capsule 2 mg PO QID PRN (Reason: loose stool) Qty: 20 0RF ondansetron 4 mg tablet,disintegrating 4 mg PO Q8H PRN (Reason: nausea and vomiting) 4 Days Qty: 14 0RF omeprazole 20 mg capsule,delayed release(DR/EC) 20 mg PO DAILY 14 Days Qty: 14 0RF No Action peg 3350-electrolytes [Golytely] 236-22.74-6.74 -5.86 gram recon soln 240 ml PO Q10M 1 Days Qty: 4000 0RF Rx Instructions: until fecal effluent is clear; do not exceed a total volume of 2,000 mL simvastatin 20 mg tablet 1 tab PO BEDTIME losartan 25 mg tablet 1 tab PO DAILY polyethylene glycol 3350 17 gram/dose powder 17 g PO DAILY fluticasone propionate 50 mcg/actuation spray,suspension 2 spray intranasal QAM PRN (Reason: Congestion) fenofibrate 160 mg tablet 1 tab PO DAILY cholecalciferol (vitamin D3) 50 mcg (2,000 unit) capsule 1 cap PO DAILY acetaminophen-codeine 300-15 mg Tablet 1 tab PO BID PRN (Reason: Pain) Qty: 60 0RF citalopram 10 mg tablet 10 mg PO DAILY clonazepam 0.5 mg tablet 0.5 mg PO BID lidocaine [Lidoderm] 5 % adhesive patch,medicated 1 patch topical DAILY Qty: 15 0RF Rx Instructions: leave on most painful area for up to 12 hrs albuterol sulfate [Ventolin HFA] 90 mcg/actuation HFA aerosol inhaler 2 puff inhalation Q4-6H PRN (Reason: wheezing) Qty: 1 6RF omeprazole 40 mg capsule,delayed release(DR/EC) 40 mg PO QAM bisacodyl [Dulcolax (bisacodyl)] 5 mg tablet,delayed release (DR/EC) 10 mg PO BEDTIME 2 Days Qty: 4 0RF Print Language: Bermudian
[2025-07-17 10:31] LABS: MANUAL DIFF FLAG NO
[2025-07-17 10:32] LABS: Hematocrit 38.3 % (37.0-47.0); Hemoglobin 12.2 g/dl (12.0-16.0); Imm Gran Abs Auto 0.01 X10*3/uL (0.00-0.03); Imm Gran Pct Auto 0.3 % (0.0-0.4); Lymphocytes Absolute Auto 1.6 X10*3/uL (1.2-4.9); Mean Corpuscular HGB Conc 31.9 g/dl (31.0-35.0); Mean Corpuscular Hemoglobin 28.2 pg (27.0-33.0); Mean Corpuscular Volume 88.7 fL (80.0-98.0); NRBC Abs Auto 0.000 X10*3/uL (0.0-0.012); NRBC Pct Auto 0.0 /100WBC (0.0-0.2); Platelet Count 299 X10*3/uL (160-400); Red Blood Count 4.32 X10*6/uL (4.20-5.50); White Blood Count 3.9 X10*3/uL (4.8-10.8)
[2025-07-17 10:37] LABS: INTERNATIONAL NORM RATIO 1.1 (0.9-1.1); Prothrombin Time 13.5 SEC (11.2-13.5)
[2025-07-17 11:02] LABS: Alanine Aminotransferase 18 U/L (0-31); Albumin Level 4.4 g/dL (3.5-5.0); Alkaline Phosphatase 52 U/L (39-117); Anion Gap 9 (12-20); Aspartate Amino Transferase 30 U/L (5-31); Blood Urea Nitrogen 16 mg/dL (9-16); Calcium 9.6 mg/dL (8.4-10.2); Carbon Dioxide 26 mmol/L (22-29); Chloride 109 mmol/L (96-108); Creatinine Clr Calc Pharmacy 70.8; Estimated Glomerular Filt Rate > 60; Magnesium 1.8 mg/dL (1.6-2.6); Potassium 3.7 mmol/L (3.3-5.1); Sodium 140 mmol/L (135-145); Total Protein 7.2 g/dL (6.5-8.0)
--- OUTSIDE RECORDS SUMMARY | 2025-07-17 12:00 | XMS_ITS | Encounter Summary ---
Author Organization [employer] [facility] Address [address] [place] [address] 7 [place] [address] Care Team Providers Care Reports Analysis Manager Name Role Phone Casandra Ruelas MD Primary Care Provide r Encounter Details Date Type Department Care Team (Latest Contact Info) Description 06/07/2019 Abstract [facility] Dental, Provider, DDS Social History [...] Care Team ( st Contact Info) Description 08/15/2025 11:00 AM EST Office Visit [address] [address] Casandra Ruelas MD [address] [place] [phone] 10/06/2025 11:30 AM EST Clinical Support [address] [address] Edwige West RN documented as of this encounter Visit Diagnoses Not on filedocumented in this encounter Care Teams Reports Analysis Manager Relationship Specialty Start Date End Date Casandra Ruelas MD [address] [place] [address] [phone] PCP - General Family Medicine 10/27/20 documented as of this encounter
--- OUTSIDE RECORDS SUMMARY | 2025-07-17 12:00 | XMS_ITS | Encounter Summary ---
Author Organization [employer] Address [address] [place] [address] [address] [place] [address] Care Team Providers Care Manufacturing Plant Technician Name Role Phone Casandra Ruelas MD Primary Care Provide r Reason for Visit * Reason Comments Med Refill Encounter Details Date Type Department Care Team ([facility] st Contact Info) Description 04/28/2025 Refill [facility] [address] [place], [place] [phone] Casandra Ruelas MD [address] [place], [place] [phone] Nummular dermatitis Social History Tobacco Use Types [...] Description 08/15/2025 11:00 AM EST Office Visit [address] [address] Casandra Ruelas MD [address] [place] [phone] 10/06/2025 11:30 AM EST Clinical Support [address] [address] Edwige West, MARK documented as of this encounter Visit Diagnoses Diagnosis Nummular dermatitis Contact dermatitis and other eczema, due to unspecified cause documented in this encounter Additional Health Concerns Assessment Noted Time PHQ-9 Depression Total Score: 0 11/28/19 25 9:48 AM EDT documented as of this encounter Care Teams Manufacturing Plant Technician Relationship Specialty Start Date End Date Casandra Ruelas MD [address] [place] [phone] PCP - General Family Medicine 10/27/20 documented as of this encounter
--- OUTSIDE RECORDS SUMMARY | 2025-07-17 12:00 | XMS_ITS | Encounter Summary ---
Author Organization [employer] Address [address] [facility] 7t [place] [address] Care Team Providers Care Aircraft Ordnance Systems Mechanic Name Role Phone Casandra Ruelas MD Primary Care Provide r Encounter Details Date Type Department Care Team ([facility] Contact Info) Description 07/17/2025 Orders Only GENERIC EXTERNAL DATA DEPARTMENT Provider, Generic External Data Social History Tobacco Use Types Packs/Day Years [...] Upcoming Encounters Date Type Department Care Team ([facility] st Contact Info) Description 08/15/2025 11:00 AM EST Office Visit [facility] [address] [place] [phone] Casandra Ruelas MD [address] [place] [phone] 10/06/2025 11:30 AM EST Clinical Support [address] [address] Edwige West RN documented as of this encounter Procedures Procedure Name Priority Date/Time Associated Diagnosis Comments CBC WITH AUTO DIFFERENTIAL Routine 07/17/2025 10:27 AM EST PROTHROMBIN TIME-INR Routine 07/17/2025 10:27 AM EST MAGNESIUM Routine 07/17/2025 10:27 AM EST COMPREHENSIVE METABOLIC PANEL Routine 07/17/2025 10:27 AM EST documented in this encounter Results * Magnesium (07/17/2025 10:27 AM EST) Magnesium 1.8 1.6 - 2.6 mg/dL [facility] 07/17/2025 10:2 7 AM EST 07/17/2025 10:30 AM EST us Generic External Data Provider LAB BLOOD ORDERAB LES Final Result [facility] [address] [place] [phone] * (ABNORMAL) Comprehensive Metabolic Panel (07/17/2025 10:27 AM EST) Sodium 140 135 - 145 mmol/L [facility] Potassium 3.7 3.3 - 5.1 mmol/L [facility] Chloride 109(H) 96 - 108 mmol/L [facility] Carbon Dioxide 26 22 - 29 mmol/L [facility] Anion Gap 9(L) 12 - 20 [facility] Urea Nitrogen (BUN) 16 9 - 16 mg/dL [facility] Creatinine, Serum 0.68 0.5 - 1.4 mg/dL [facility] Creatinine Clr Calc Pharmacy 70.8 [facility] Comment:Provided height and weight: 160.02 cm,63.1 kg.eGFR (calculated from the MDRD study equation) and eCrCl(calculated from the Cockcroft-Gault equation) are based ondifferent parameters and may not yield comparable results.If eCrCl result is absurd, please check patient'sheight/weight. Estimated Glomerular Filt Rate >60 [facility] Comment:Chronic Kidney Disea se: Estimated GFR < 60 mL/min/1.78n1Okfbic Kidney Disease: Estimated GFR < 15 mL/min/1.73m2 Glucose 76 60 - 115 mg/dL [facility] Calcium 9.6 8.4 - 10.2 mg/dL [facility] Bilirubin, Total 0.4 0.0 - 1.0 mg/dL [facility] Aspartate Amino Transferase 30 5 - 31 U/L [facility] Alanine Aminotransferase 18 0 - 31 U/L [facility] Total Protein 7.2 6.5 - 8.0 g/dL [facility] Albumin Level 4.4 3.5 - 5.0 g/dL [facility] Alkaline Phosphatase 52 39 - 117 U/L [facility] 07/17/2025 10:2 7 AM EST 07/17/2025 10:30 AM EST Generic External Data Provider LAB BLOOD ORDERAB LES Final Result Performing Organization Address [facility] Co de Phone Number [facility] [address] [place] [phone] * Prothrombin Time-INR (07/17/2025 10:27 AM EST) Prothrombin Time 13.5 11.2 - 13.5 SEC [facility] INTERNATIONAL NORM RATIO 1.1 0.9 - 1.1 [facility] Comment:INTERNATIONAL NORMAL IZED RATIO (INR) REFERENCE RANGES Reference RangeFor patients not on anticoagulant therapy: 0.9 - 1.1INR ranges for oral anticoagulanttherapy:For prevention and treatment of venous thrombosis and pulmonary embolism: 2.0 - 3.0For acute myocardial infarction with aspirin therapy: 2.0 - 3.0For acute myocardial infarction without aspirin therapy: 3.0 - 4.0For patients with mechanical prosthetic heart valves: 2.5 - 3.5 07/17/2025 10:2 7 AM EST 07/17/2025 10:30 AM EST Generic External Data Provider LAB BLOOD ORDERAB LES Final Result Performing Organization Address City/[facility] Co de Phone Number [facility] [address] [place] [phone] * (ABNORMAL) CBC auto differential (07/17/2025 10:27 AM EST) White Blood Count 3.9(L) 4.8 - 10.8 X10*3/uL [facility] Red Blood Count 4.32 4.20 - 5.50 X10*6/uL [facility] Hemoglobin 12.2 12.0 - 16.0 g/dl [facility] Hematocrit 38.3 37.0 - 47.0 % [facility] Mean Corpuscular Volume 88.7 80.0 - 98.0 fL [facility] Mean Corpuscular Hemoglobin 28.2 27.0 - 33.0 pg [facility] Mean Corpuscular HGB Conc 31.9 31.0 - 35.0 g/dl [facility] Red Cell Distribution Width 13.5 11.0 - 16.0 % [facility] Platelet Count 299 160 - 400 X10*3/uL [facility] Mean Platelet Volume 9.3(L) 9.4 - 12.3 fL [facility] Neutrophils Percent Auto 47.2 45 - 73 % [facility] Imm Gran Pct Auto 0.3 0.0 - 0.4 % [facility] Lymphocytes Percent Auto 40.1(H) 20 - 40 % [facility] Monocytes Percent Auto 8.1 2 - 11 % [facility] Eosinophils Percent Auto 3.3 0 - 4 % [facility] Basophils Percent Auto 1.0 0 - 2 % [facility] NRBC Pct Auto 0.0 0.0 - 0.2 /100WBC [facility] Neutrophils Absolute Auto 1.9(L) 2.0 - 8.3 x10*3/uL [facility] Imm Gran Abs Auto 0.01 0.00 - 0.03 X10*3/uL [facility] Lymphocytes Absolute Auto 1.6 1.2 - 4.9 X10*3/uL [facility] Monocytes Absolute Auto 0.3 0.1 - 1.2 X10*3/uL [facility] Eosinophils Absolute Auto 0.1 0.0 - 0.4 X10*3/uL [facility] Basophils Absolute Auto 0.0 0.0 - 0.2 X10*3/uL [facility] NRBC Abs Auto 0.000 0.0 - 0.012 X10*3/uL [facility] 07/17/2025 10:2 7 AM EST 07/17/2025 10:30 AM EST us Generic External Data Provider LAB BLOOD ORDERAB LES Final Result Performing Organization Address [facility]/State/ZIP Co de Phone Number [facility] [address] [place] [phone] documented in this encounter Visit Diagnoses Not on filedocumented in this encounter Additional Health Concerns Assessment Noted Time PHQ-9 Depression Total Score: 8 05/28/20 25 9:45 AM EDT documented as of this encounter Care Teams Aircraft Ordnance Systems Mechanic Relationship Specialty Start Date End Date Casandra Ruelas MD [address] [place] [phone] PCP - General Family Medicine 10/27/20 documented as of this encounter
--- OUTSIDE RECORDS SUMMARY | 2025-07-17 12:01 | XMS_ITS | Encounter Summary ---
Author Organization [employer] Address [address] [place] [address] 7t [place] [address] Care Team Providers Care Detail Sergeant Name Role Phone Casandra Ruelas MD Primary Care Provide r Reason for Visit * Reason Comments Med Refill Encounter Details Date Type Department Care Team ([facility] Contact Info) Description 03/20/2025 Refill [facility] [address] [place], [place] [phone] Art Flores, DMD [address] [place] [address] Dentin hypersensitivity Social History Tobacco Use Types [...] Telephone Encounter - Art Flores DMD - 03/20/2025 3:51 PM EDT Approving, but needs appt for additional refills. documented in this encounter Plan of Treatment Upcoming Encounters Date Type Department Care Team (Late st Contact Info) Description 08/15/2025 11:00 AM EST Office Visit [address] [address] Casandra Ruelas MD [address] [place] [phone] 10/06/2025 11:30 AM EST Clinical Support [address] [address] Edwige West RN documented as of this encounter Visit Diagnoses Diagnosis Dentin hypersensitivity Other specified diseases of hard tissues of teeth documented in this encounter Additional Health Concerns Assessment Noted Time PHQ-9 Depression Total Score: 0 11/28/19 25 9:48 AM EDT documented as of this encounter Care Teams Detail Sergeant Relationship Specialty Start Date End Date Casandra Ruelas MD [address] [place] [address] PCP - General Family Medicine 10/27/20 documented as of this encounter
--- OUTSIDE RECORDS SUMMARY | 2025-07-17 12:01 | XMS_ITS | Data Portability ---
Author Organization [employer], [facility] Address [address] [place] [address] Care Team Providers Care Assembler Truck Trailer Name Role Phone Unavailable Referring Provider HIM CCA OTHER Assessment Encounter Date Assessment Date Assessment LastModified by Organization Details LastModified Time 02/14/2024 02/14/2024 I provided real -time medical direction via phone for this encounter and was available for additional phone-based assistance as needed. I have reviewed and agree with the Assessment and Plan as documented by the Proof Sorter. Patient given the opportunity to ask questions. Our service contacted for an assessment of: cough As per above, patient has had a non-productive cough for approx a week. Denies F/C/N/V/CP/FRY and SOB. No sick contacts. Taking OTCs without much benefit. Per welder fitter on the scene, Non-toxic. Stable vitals. No distress. COVID and Flu are negative. Impression: ? seasonal allergies vs viral URI - differential diagnosis is broad however welder fitter assessment and limited data are reassuring. Plan: [...] Body height Heart rate Respiratory rate Systolic And Diastolic Provider Name and Address Organization Details Last Updated DateTime 99 % 99 % 97.9 [degF] 56307.4 32 g 160.02 cm 72 /min 16 /min 164/64 mm[Hg] Not Available [facility] - production 4 [...] Diagnosis SNOMED-CT Code Diagnosis ICD10 Code Diagnosis IMO Codes Diagnosis Note [id number] Aleisha Garnica MD Main - [facility] [address] [place] [address] [phone] 02/14/2024 18:04:08 02/14/2024 21:46:25 Viral upper respiratory tract infection 029108932 J06.9 Health Concerns Section Related Observation LastModified by Organization Detai ls LastModified Time None Recorded Concern Status LastModified by Organization Details LastModified Time None Recorded Advance Directives Directive None Recorded Payers Insurance Date Sequence Insurance Name Policy Number Policy Ann Covered Member ID Ann Member ID Guarantor Name 04/09/2024 1 [facility] - DOS ON OR AFTER 2022 - DUAL ELIGIBLE - PENITENTIARY OPTIONS AND ONE CARE (MEDICARE REPLACEMENT/ADV ANTAGE - HMO) Casandra Obrien [id number] Casandra Obrien Notes Date Note Type Note [...] needed to process visit. Aleisha Garnica MD [address] [place] [address],[address], [place], [address], [employer] 02/14/2024 18:07:38 OBGyn Episode No OBEpisode recorded.
--- OUTSIDE RECORDS SUMMARY | 2025-07-17 12:01 | XMS_ITS | Encounter Summary ---
Author Organization [facility] Address [address] [place] [address] Care Team Providers Care Engineering Faculty Name Role Phone Casandra Ruelas MD Primary Care Provider Reason for Visit * Reason Onset Date Comments Appointment 12/22/2021 Encounter Details Date Type Department Care Team (Late st Contact Info) Description 12/22/2021 Telephone [facility] Central Scheduling Department [address] [place] [phone] Telephone Intake, Staff Appointment Social History Tobacco [...] on filedocumented in this encounter Care Teams Engineering Faculty Relationship Specialty Start Date End Date Casandra Ruelas MD [address] [place] [phone] PCP - General Internal Medicine 12/14/21 documented as of this encounter
--- OUTSIDE RECORDS SUMMARY | 2025-07-17 12:01 | XMS_ITS | Encounter Summary ---
Author Organization [employer] [facility] Address [address] [place] [address] [address] [place] [address] Care Team Providers Care Special Events Director Name Role Phone Casandra Ruelas MD Primary Care Provide r Encounter Details Date Type Department Care Team (Late st Contact Info) Description 08/18/2022 Abstract [facility] [address] [place] [phone] Dental, Provider, DDS Social History Tobacco Use [...] Department Care Team (Late Contact Info) Description 08/15/2025 11:00 AM EST Office Visit [facility] [address] [place] [phone] Casandra Ruelas MD [address] [place] [phone] 10/06/2025 11:30 AM EST Clinical Support [facility] [address] [place] [phone] Edwige West RN documented as of this [...] AM EST 24 I COMPOSITE FILLING Routine 12:00 AM EST 25 I COMPOSITE FILLING Routine 2 12:00 AM EST 26 I COMPOSITE FILLING Routine 2 12:00 AM EST 27 I COMPOSITE FILLING Routine 2 12:00 AM EST 28 O COMPOSITE FILLING Routine 12:00 AM EST 14 DO [facility] FILLING [...] on filedocumented in this encounter Care Teams Special Events Director Relationship Specialty Start Date End Date Casandra Ruelas MD [address] [place] [address] PCP - General Family Medicine 10/27/20 documented as of this encounter
--- OUTSIDE RECORDS SUMMARY | 2025-07-17 12:01 | XMS_ITS | Encounter Summary ---
Author Organization [employer] Address [address] [place] [address] [address] [place] [address] Care Team Providers Care Project Eng Name Role Phone Casandra Ruelas MD Primary Care Provide r Encounter Details Date Type Department Care Team ([facility] Contact Info) Description 04/25/2023 Abstract [facility] [address] [place] [phone] Casandra Ruelas MD [address] [place] [address] [phone] Social History Tobacco Use Types Packs/Day Years [...] Description 08/15/2025 11:00 AM EST Office Visit [facility] [address] [place] [address] [phone] Casandra Ruelas MD [address] [place] [address] [phone] 10/06/2025 11:30 AM EST Clinical Support [facility] [address] [place] [address] Edwige West RN documented as of this [...] documented as of this encounter Care Teams Project Eng Relationship Specialty Start Date End Date Casandra Ruelas MD [address] [place] [address] PCP - General Family Medicine 10/27/20 documented as of this encounter
--- OUTSIDE RECORDS SUMMARY | 2025-07-17 12:01 | XMS_ITS | Clinical Summary ---
Author Organization [employer] Address [address] [place] [address] [address] [place] [address] Care Team Providers Care Lead Process Engineer Name Role Phone Casandra Ruelas MD Primary Care Provide r Allergies Active Allergy Reactions Criticality Noted Date Comments Gadolinium Derivatives Shortness of breath High 07/12 Iodinated Contrast Media Shortness of breath High 07/21/2020 Morphine Rash,Shortness of breath High 08/27/2012 Other reaction(s): Rash Medications * This document contains information received from the source organization and may not represent a complete record from that organization. fluticasone (Flonase) 50 MCG/ACT nasal sprayIndications:Se asonal [...] ONCE DAILY 510 g 3 023 Active propranolol (Inderal) 10 MG tabletIndications:P erformance anxiety Take 1-2 tablets 30-60min before triggering situation 10 tablet 024 Active D3 Super Strength 50 MCG (2000 UT) capsule TAKE 1 CAPSULE BY MOUTH EVERY DAY 90 capsule 3 024 Active naloxone (Narcan) 4 mg/0.1 mL [...] for wheezing. 18 g 5 025 Active losartan (Cozaar) 25 MG tablet TAKE 1 TABLET BY MOUTH EVERY DAY 90 tablet 1 025 Active fenofibrate (Triglide) 160 MG tabletIndications:M ixed hyperlipidemia Take 1 tablet (160 mg) by mouth in the morning. 90 tablet 1 025 Active omeprazole (PriLOSEC) [address] capsuleIndications: Gastroesophageal reflux disease, unspecified whether esophagitis present TAKE 1 CAPSULE BY MOUTH TWICE DAILY BEFORE BREAKFAST AND BEFORE SUPPER, DO NOT BREAK, CRUSH, DISSOLVE OR CHEW 60 capsule 2 025 Active Sodium Fluoride 5000 Plus 1.1 % creamIndications:De ntin hypersensitivity BRUSH TEETH TWICE DAILY IN THE MORNING AND IN THE EVENING DIRECTED 51 g 025 Active Diclofenac Sodium 1 % gelIndications:Acut e bilateral low back pain with sciatica, sciatica laterality unspecified APPLY 2 GRAMS TO AFFECTED AREA(S) EVERY TWELVE HOURS NEEDED 100 g 1 025 Active simvastatin (Zocor) 20 MG tablet Take 1 tablet (20 mg) by mouth at bedtime. 90 tablet 1 025 Active clonazePAM (KlonoPIN) 0.5 MG tabletIndications:M ixed anxiety and depressive disorder Take 1 tablet (0.5 mg) by mouth 2 times daily for 10 days. 10 tablet 025 Active docusate sodium (Colace) 100 MG capsuleIndications: Other constipation TAKE 1 CAPSULE BY MOUTH TWICE DAILY 20 capsule 025 Active docusate sodium (Colace) 100 MG capsuleIndications: Other constipation TAKE 1 CAPSULE BY MOUTH TWICE A DAY 60 capsule 1 025 Active loratadine (Claritin) 10 MG tabletIndications:S easonal allergies TAKE 1 TABLET BY MOUTH EVERY DAY 30 tablet 2 025 Active escitalopram (Lexapro) 10 MG tabletIndications:M ixed anxiety and depressive disorder Take 1 tablet (10 mg) by mouth Once per day. 30 tablet 2 025 2024 Active tiZANidine (Zanaflex) 2 MG tabletIndications:S houlder pain, unspecified chronicity, unspecified laterality TAKE 1 TABLET BY MOUTH EVERY 6 TO 8 HOURS NEEDED DO NOT EXCEED 3 tabs IN 24 HOURS 60 tablet 1 025 Active meclizine (Antivert) 25 MG tabletIndications:V ertigo TAKE 1 TABLET BY MOUTH THREE TIMES DAILY IN THE MORNING, AT NOON, AND AT BEDTIME NEEDED FOR DIZZINESS FOR UP TO 20 DAYS 30 tablet 1 025 Active acetaminophen-codei ne (Tylenol #2) 300-15 MG tabletIndications:C hronic bilateral low back pain, unspecified whether sciatica present Take 1 tablet by mouth every 8 (eight) hours if needed for severe pain. 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 Assessment & Plan (05/30/2025 3:40 PM EDT): I will prescribe for her roller walker Hypertension 05/29/2025 Arthralgia of multiple joints 05/29/2025 Environmental allergies 05/29/2025 Vertigo 05/29/2025 Assessment & Plan (05/30/2025 3:40 PM EDT): Advised to change positions slowly and maintain hydration I will prescribe meclizine to be taken as needed I will refer patient for physical therapy for vertigo Adjustment disorder with anxious mood 04/18/2025 Assessment & Plan (04/23/2025 12:25 PM EDT): During IBH Consult Casandra presenting with excessive worry/anxiety, difficulty controlling worry, and anxiety/worry associated to difficulty concentrating and/or mind going blank , irritability, and sleep disturbance difficulty falling asleep and difficulty staying asleep ; for a period of 0-6 mo, for most or all symptoms in the context of events that trigger her anxiety, pt going through immigration process that are causing stress. Casandra reported feeling anxious and not being able to calm her sxs down. Anxiety started about a week ago and is causing a lot of stress in her everyday. Pt practiced grounding technique method during session; PCP started medication to help with sxs. Long-term current use of opiate analgesic 2024 Acute pain of right shoulder 02/26/2025 Assessment & Plan (02/26/2025 4:41 PM EDT): I will order an x-ray for her shoulder as soon as I have results I will report back to her And then of persistent pain after the fall I am going to go ahead and put the referral in to orthopedics She may continue taking her pain medications Seasonal allergies 02/26/2025 Fall from slipping 11/27/2024 Assessment & Plan [...] 3:03 PM EDT): Patient is studying for [employer] and get very nervous with palpitations and [...] AM EDT): New referral to oncology done Unintended weight loss 10/02/2020 Esophageal dysphagia 08/14/2020 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 07/29/2020 Mild intermittent asthma 08/20/2019 Chronic low back pain 12/21/2018 Assessment & Plan (08/20/2024 4:40 PM EST): C/w heat and PT C/w pain meds PRN Assessment & Plan (02/21/2024 4:34 PM EDT): C/w acetaminophen #2 300-15mg as prescribed Assessment & Plan (11/30/2023 3:02 PM EDT): Continue with PRN pain meds and gentle stretching Mixed anxiety and depressive disorder 06/18/2015 Assessment & Plan (05/30/2025 3:40 PM EDT): Extensive counseling done I discontinue citalopram and instead I started her on escitalopram 10 mg plan is to follow-up with her in 4 weeks Continue to follow with therapist Assessment & Plan (04/18/2025 12:49 PM EDT): Extensive counseling done I will start her on citalopram 10mg daily I will prescribe short term supply of clonazepam 0.5mg Q 12hrs PRN NEREYDA called today RTC 4-6 weeks televisit Mixed hyperlipidemia 06/18/2015 Vitamin D deficiency 06/18/2015 Essential hypertension 06/18/2015 Assessment & Plan (05/30/2025 3:39 PM EDT): I advised - Aerobic exercise to reduce BP. Initial [...] consulting health care provider Assessment & Plan (02/26/2025 4:40 PM EDT): I advised: - Aerobic exercise to reduce [...] consulting health care provider Assessment & Plan (11/27/2024 2:02 PM EDT): [...] she will keep a closer eye Encounters * This document contains information received from the source organization and may not represent a complete record from that organization. Date Type Department Care Team Description 07/17/2025 Orders Only GENERIC EXTERNAL DATA DEPARTMENT Provider, Generic External Data 07/15/2025 10:00 AM EST Office Visit [facility] [address] [place] [phone] Magdalena De La Cruz MD Acute diarrhea (Primary Dx) 07/15/2025 Travel 07/03/2025 Telephone [facility] [address] [place] [address] Casandra Ruelas MD 06/25/2025 11:30 AM EDT Clinical Support [facility] [address] [place] [phone] Edwige West, RN Long-term current use of opiate analgesic (Primary Dx) 06/25/2025 Refill [facility] [address] [place] [phone] Edwige West pump operator bilateral low back pain, unspecified whether sciatica present 06/25/2025 Travel 06/13/2025 Refill [facility] [address] [place] [address] Casandra Ruelas MD Vertigo 06/08/2025 Refill [facility] [address] [place] [address] Casandra Ruelas MD Shoulder pain, unspecified chronicity, unspecified laterality 06/03/2025 Telephone [facility] [address] [place] [phone] Casandra Ruelas MD DME walker 05/29/2025 2:30 PM EDT Office Visit [address] [address] Casandra Ruelas MD Essential hypertension (Primary Dx); Mixed anxiety and depressive disorder; Seasonal allergies; Vertigo; Spondyloarthropathy; Unstable gait 05/29/2025 Travel 05/29/[address] [address] Casandra Ruelas MD Chart Prep 05/26/2025 Travel 05/21/2025 Patient Outreach [facility] [address] [place] [phone] Casandra Ruelas MD Pre-visit Planning ([facility] screening completed on 11/27/2024) 05/20/2025 Refill [facility] [address] [place] [phone] Casandra Ruelas MD Seasonal allergies 05/16/2025 Orders Only [facility] External Provider, [facility] 05/05/2025 1:00 PM EDT Office [facility] [address] [address] Sharyn Knowles MD Acute pain of right shoulder (Primary Dx); Polyuria 05/05/2025 Travel 05/02/2025 Telephone [facility] [address] [place] [phone] Casandra Ruelas MD Nurse Triage 04/28/2025 Telephone [facility] [address] [place] [phone] Casandra Ruelas MD Telephone Call 04/28/2025 Refill [facility] [address] [place] [phone] Casandra Ruelas MD Nummular dermatitis 04/24/2025 Orders Only [facility] [address] [place] [phone] Casandra Ruelas MD Other constipation 04/24/2025 Refill [facility] [address] [place], [place] [phone] Casandra Ruelas MD Chronic bilateral low back pain, unspecified whether sciatica present; Mixed anxiety and depressive disorder; Other constipation 04/18/2025 11:20 AM EDT [facility] [address] [phone] Casandra Ruelas MD Mixed anxiety and depressive disorder 04/18/2025 Travel from Last 3 Months Immunizations Immunization Administration [...] oz) 07/15/2025 9:47 A M EST Height 160 cm (5' 3 ) 05/29/2025 2:30 PM EDT Body Mass Index 24.87 05/29/2025 2:30 PM EDT Plan of Treatment Upcoming Encounters Date Type Department Care Team (Late st Contact Info) Description 08/15/2025 11:00 AM EST Office Visit [facility] [address] [place] [phone] Casandra Ruelas MD [address] [place] [phone] 10/06/2025 11:30 AM EST Clinical Support [facility] [address] [place] [phone] Edwige West, RN Health Maintenance Due Date Last Done Comments CT Colonography 1955 Colonoscopy 1955 Colorectal Cancer Screening 1955 Dental Oral Exam 1955 Dental Prophylaxis 1955 Dental X-Ray: Bitewings 1955 Dental X-Ray: Full Mouth 1955 FIT DNA/Cologuard 1955 FIT 1955 FOBT 1955 Sigmoidoscopy 1955 Hepatitis C Screening 1974 COVID-19 Vaccine ( season) 2025 08/20/2024, 07/19/2021, 03/29/2021, Additional history exists Influenza Vaccine (#1) 2025 , 07/26/2023, 07/15/2021, Additional history exists Alcohol/Substance Use Screening 08/20/2025 08/20/2024 SDOH Screening 11/27/2025 11/27/2024 Mammogram 01/23/2026 01/23/2025, 01/09, 01/20/2023, Additional history exists Tobacco Screening 05/05/2026 05/05/2025 Depression Screening 05/28/2026 05/28/2025, 05/28/20 25 Lipid Panel 02/19/2029 02/20/2024, 12/11, 02/04/2022 DTaP/Tdap/Td Vaccines (3 - Td or Tdap) 12/21/2033 12/22/2023, 01/03/2013, 11/26/2007, Additional history exists Hepatitis B Vaccines Completed 12/04/2001, 03/29/2001, 08/17/2000, Additional history exists Zoster Vaccines Completed 11/11/2019, 08/11, 10/12/2016 Pneumococcal Vaccine: 50+ Years Completed 04/13/2022 RSV Patients and Patients Aged 60 years or older Completed 11/29/2023 HIB Vaccines Aged Out No longer eligi [...] Procedure Name Priority Date/Time Associated Diagnosis Comments MAGNESIUM Routine 07/17/2025 10:27 AM EST COMPREHENSIVE METABOLIC PANEL Routine 07/17/2025 10:27 AM EST PROTHROMBIN TIME-INR Routine 07/17/2025 10:27 AM EST CBC WITH AUTO DIFFERENTIAL Routine 07/17/2025 10:27 AM EST POCT BETHANY-14 URINE DRUG SCREEN Routine 06/25/2025 11:35 AM EDT Long-term current use of opiate analgesic CT CHEST W CONTRAST Routine 05/16/2025 2 :24 PM EDT POCT CREATININE GFR Routine 05/16/2025 2 :15 PM EDT BI MAMMOGRAM SCREENING TOMOSYNTHESIS BILATERAL Routine 01/23/2025 3:45 PM EDT Malignant neoplasm of esophagus, unspecified location (CMS/HCC) LIPID PANEL, STANDARD Routine 02/20/2024 2:18 PM EDT Essential hypertension from Last 3 Months or Most Recently Relevant to Health Maintenance Results * (ABNORMAL) CBC auto differential (07/17/2025 10:27 AM EST) White Blood Count 3.9(L) 4.8 - 10.8 X10*3/uL [facility] Red Blood Count 4.32 4.20 - 5.50 X10*6/uL [facility] Hemoglobin 12.2 12.0 - 16.0 g/dl [facility] Hematocrit 38.3 37.0 - 47.0 % [facility] Mean Corpuscular Volume 88.7 80.0 - 98.0 fL [facility] Mean Corpuscular Hemoglobin 28.2 27.0 - 33.0 pg [facility] Mean Corpuscular HGB Conc 31.9 31.0 - 35.0 g/dl [facility] Red Cell Distribution Width 13.5 11.0 - 16.0 % [facility] Platelet Count 299 160 - 400 X10*3/uL [facility] Mean Platelet Volume 9.3(L) 9.4 - 12.3 fL [facility] Neutrophils Percent Auto 47.2 45 - 73 % [facility] Imm Gran Pct Auto 0.3 0.0 - 0.4 % [facility] Lymphocytes Percent Auto 40.1(H) 20 - 40 % [facility] Monocytes Percent Auto 8.1 2 - 11 % [facility] Eosinophils Percent Auto 3.3 0 - 4 % [facility] Basophils Percent Auto 1.0 0 - 2 % [facility] NRBC Pct Auto 0.0 0.0 - 0.2 /100WBC [facility] Neutrophils Absolute Auto 1.9(L) 2.0 - 8.3 x10*3/uL [facility] Imm Gran Abs Auto 0.01 0.00 - 0.03 X10*3/uL [facility] Lymphocytes Absolute Auto 1.6 1.2 - 4.9 X10*3/uL [facility] Monocytes Absolute Auto 0.3 0.1 - 1.2 X10*3/uL [facility] Eosinophils Absolute Auto 0.1 0.0 - 0.4 X10*3/uL [facility] Basophils Absolute Auto 0.0 0.0 - 0.2 X10*3/uL [facility] NRBC Abs Auto 0.000 0.0 - 0.012 X10*3/uL [facility] 07/17/2025 10:2 7 AM EST 07/17/2025 10:30 AM EST Generic External Data Provider LAB BLOOD ORDERAB LES Final Result Performing Organization Address [facility] Co de Phone Number [facility] [address] [place] [phone] * Prothrombin Time-INR (07/17/2025 10:27 AM EST) Pathologist [facility] Prothrombin Time 13.5 11.2 - 13.5 SEC [facility] INTERNATIONAL NORM RATIO 1.1 0.9 - 1.1 [facility] Comment:INTERNATIONAL NORMAL IZED RATIO (INR) REFERENCE [...] ORDERAB LES Final Result Performing Organization Address [facility] de Phone Number [facility] [address] [place] [phone] * Magnesium (07/17/2025 10:27 AM EST) [facility] Magnesium 1.8 1.6 - 2.6 mg/dL [facility] 07/17/2025 10:2 7 AM EST 07/17/2025 10:30 AM EST Generic External Data Provider LAB BLOOD ORDERAB LES Final Result Performing Organization Address [facility] de Phone Number [facility] [address] [place] [phone] * (ABNORMAL) Comprehensive Metabolic Panel (07/17/2025 10:27 AM EST) [facility] Sodium 140 135 - 145 mmol/L [facility] Potassium 3.7 3.3 - 5.1 mmol/L [facility] Chloride 109(H) 96 - 108 mmol/L [facility] Carbon Dioxide 26 22 - 29 mmol/L [facility] Anion Gap 9(L) 12 - 20 [facility] Urea Nitrogen (BUN) 16 9 - 16 mg/dL [facility] Creatinine, Serum 0.68 0.5 - 1.4 mg/dL [facility] Creatinine Clr Calc Pharmacy 70.8 [facility] Comment:Provided height and weight: 160.02 cm,63.1 kg.eGFR (calculated from the MDRD study equation) and eCrCl(calculated from the Cockcroft-Gault equation) are based ondifferent parameters and may not yield comparable results.If eCrCl result is absurd, please check patient'sheight/weight. Estimated Glomerular Filt Rate >60 [facility] Comment:Chronic Kidney Disea se: Estimated GFR < 60 mL/min/1.55p0Hcwdnm Kidney Disease: Estimated GFR < 15 mL/min/1.73m2 Glucose 76 60 - 115 mg/dL [facility] Calcium 9.6 8.4 - 10.2 mg/dL [facility] Bilirubin, Total 0.4 0.0 - 1.0 mg/dL [facility] Aspartate Amino Transferase 30 5 - 31 U/L [facility] Alanine Aminotransferase 18 0 - 31 U/L [facility] Total Protein 7.2 6.5 - 8.0 g/dL [facility] Albumin Level 4.4 3.5 - 5.0 g/dL [facility] Alkaline Phosphatase 52 39 - 117 U/L [facility] 07/17/2025 10:2 7 AM EST 07/17/2025 10:30 AM EST us Generic External Data Provider LAB BLOOD ORDERAB LES Final Result [facility] [address] [place] [address] [phone] * (ABNORMAL) POCT BETHANY-14 Urine Drug Screen (06/25/2025 11:35 AM EDT) THC Negative Negative Cocaine Screen, Urine Negative Negative Opiate Screen, Urine Positive(A) Negative Comment:BATH MIXER pt, takes T2 Methamphetamine Screen Urine Negative Negative Amphetamine Screen, Urine Negative Negative Benzodiazepines Screen, Urine Negative Negative Barbiturate Screen, Urine Negative Negative Methadone Screen, Urine Negative Negative Buprenophine Screen, Urine Negative Negative TCA, Urine Negative Negative MDMA Urine Negative Negative ng/mL Oxycodone Screen, Urine Negative Negative Phencyclidine (PCP), Urine Negative Negative Propoxyphene, Urine Negative Negative Fentanyl, Urine Negative Negative Urine Urine specimen obtained by clean catch procedure / Unknown 06/25/2025 11:35 AM EDT Narrative Edwige West RN - 06/25/2025 11:35 AM EDT UTOX cup Lot#[id number] Exp. 06/17/26 Internal Pass Control Casandra Chou MD POINT OF CARE TEST EN TER/EDIT ORDERABLES Final Result * CT Chest w/ Contrast (05/16/2025 2:24 PM EDT) Anatomical Region Laterality Modality Body, Chest Computed Tomogra phy 05/16/2025 2:24 PM EDT Narrative 05/16/2025 3:05 PM EDT [place] [address] CT Scan Report Signed Patient: Casandra Jones MR#: [id number] 1678 : 1955 Acct:[id number] Age/Sex: 69 / F ADM Date: 05/16/25 Loc: HO.CT Attending Dr: Kimmie Baird MD Ordering Physician: Kimmie Baird MD Date of Service: 05/16/25 Procedure(s): CT chest w IV con Accession Number(s): [id number] cc: Casandra Ruelas MD; Kimmie Baird MD Report Number: [id number]: Total DLP = 105.00 mGy-cm Reason for Exam: hx of esophageal ca EXAMINATION: CT CHEST WITH CONTRAST CLINICAL INFORMATION: Esophageal cancer, surveillance. COMPARISON: Several priors, most recently 05/22/2024. TECHNIQUE: Multidetector volumetric CT imaging of the chest was obtained after the administration of 50 mL of Omnipaque 350 intravenous contrast without immediate adverse reactions. Axial MIP volume rendering provided. Sagittal and coronal reformatted images were obtained. This CT examination was performed using dose optimization techniques as appropriate, variously including the following: *Automated exposure control *Adjustment of mA and/or kV according to patient size (this includes techniques or standardized protocols for targeted exams where dose is matched to indication/reason for exam; i.e. extremities or head) *Use of iterative reconstruction technique FINDINGS: LUNGS: There is a 3 mm nodule in the left upper lobe (series 5, image 50), unchanged from priors. There are 2 tiny 2 mm nodules in the right lower lobe, also unchanged. Lungs otherwise clear. No concerning opacities or evidence of metastatic disease. There is no pneumothorax. MEDIASTINUM: There is been an esophagectomy with gastric pull-through procedure. A right chest port is in place with the tip in the right atrium. The central vascular structures are normal. Heart size is normal. There is no abnormal lymphadenopathy or mass. The thyroid is normal. PLEURA: There is no pleural effusion. No pleural mass or thickening. AXILLA/CHEST WALL: No lymphadenopathy. UPPER ABDOMEN: Normal in appearance. Stable prominence of the common bile duct. OSSEOUS STRUCTURES: Mild thoracic scoliosis with mild degenerative changes in the spine. No suspicious lytic or blastic bone lesions. CT/CT chest w IV con IMPRESSION: 1. Status post distal esophagectomy with gastric pull-through procedure. 2. Clear lungs without evidence of metastatic disease to the chest. Electronically signed by: Keven Waters MD 05/16/2025 03:02 PM EDT Dictated By: Keven Waters MD Signed By: <Electronically signed by Keven Waters MD in OV> 05/16/25 1502 DD/ 1424 TD/TT: 05/16/25 1445 Oracle Application Architect: Procedure Note Donotuseinterpreter, Image - 05/16/[address] [place] [address] CT Scan Report Signed Patient: Casandra JonesMR#: [id number] : 1955cct:[id number] Age/Sex: 69 / FADM Date: 05/16/25 Loc: HO.CT Attending Dr: Kimmie Baird MD Ordering Physician: Kimmie Baird MD Date of Service: 05/16/25 Procedure(s): CT chest w IV con Accession Number(s): [id number] cc: Casandra Ruelas MD; Kimmie Baird MD Report Number: [id number]: Total DLP = 105.00 mGy-cm Reason for Exam: hx of esophageal ca EXAMINATION: CT CHEST WITH CONTRAST CLINICAL INFORMATION: Esophageal cancer, surveillance. COMPARISON: Several priors, most recently 05/22/2024. TECHNIQUE: Multidetector volumetric CT imaging of the chest was obtained after the administration of 50 mL of Omnipaque 350 intravenous contrast without immediate adverse reactions. Axial MIP volume rendering provided. Sagittal and coronal reformatted images were obtained. This CT examination was performed using dose optimization techniques as appropriate, variously including the following: *Automated exposure control *Adjustment of mA and/or kV according to patient size (this includes techniques or standardized protocols for targeted exams where dose is matched to indication/reason for exam; i.e. extremities or head) *Use of iterative reconstruction technique FINDINGS: LUNGS: There is a 3 mm nodule in the left upper lobe (series 5, image 50), unchanged from priors. There are 2 tiny 2 mm nodules in the right lower lobe, also unchanged. Lungs otherwise clear. No concerning opacities or evidence of metastatic disease. There is no pneumothorax. MEDIASTINUM: There is been an esophagectomy with gastric pull-through procedure. A right chest port is in place with the tip in the right atrium. The central vascular structures are normal. Heart size is normal. There is no abnormal lymphadenopathy or mass. The thyroid is normal. PLEURA: There is no pleural effusion. No pleural mass or thickening. AXILLA/CHEST WALL: No lymphadenopathy. UPPER ABDOMEN: Normal in appearance. Stable prominence of the common bile duct. OSSEOUS STRUCTURES: Mild thoracic scoliosis with mild degenerative changes in the spine. No suspicious lytic or blastic bone lesions. CT/CT chest w IV con IMPRESSION: 1. Status post distal esophagectomy with gastric pull-through procedure. 2. Clear lungs without evidence of metastatic disease to the chest. Electronically signed by: Keven Waters MD 05/16/2025 03:02 PM EDT RP Dictated By: Keven Waters MD Signed By: <Electronically signed by Keven Waters MD in OV> 05/16/25 1502 DD/ 1424 TD/TT: 05/16/25 1445 Oracle Application Architect: [facility] External Provider IMG CT PROCEDURES Final Result * POCT Creatinine GFR (05/16/2025 2:15 PM EDT) POCT Creatinine 0.7 0.5 - 1.4 mg/dL [facility] GFR POC >60 [facility] Comment:Chronic Kidney Disea se: Estimated GFR < 60 mL/min/1.79s8Zzimlw Kidney Disease: Estimated GFR < 15 mL/min/1.73m2 05/16/2025 2:15 PM EDT 05/20/2025 7:08 AM EDT Narrative [facility] - 05/20/2025 7:11 AM EDT [id number] Generic External Data Provider LAB POINT OF CARE TEST DOCKED DEVICE ORDERABLES Final Result [facility] [address] [place] [address] [phone] * BI Mammogram Screening Tomosynthesis Bilateral (01/23/2025 3:45 PM EDT) Anatomical Region Laterality Modality Breast Bilateral Mammography 01/23/2025 3:45 PM EDT Narrative 02/01/2025 9:49 AM EDT [facility] [address] [place] [address] Mammography Report Signed Patient: Casandra Jones MR#: [id number] : 1955 Acct:[id number] Age/Sex: 69 / F ADM Date: 01/23/25 Loc: HO.MAMMO Attending Dr: Caasndra Chou MD Ordering Physician: Casandra Ruelas MD Results: 2Benign Findings Date of Service: 01/23/25 Follow Up: 1 Year From Orig inal Mammogram Procedure(s): MM tomosynthesis screening BI Accession Number(s): [id number] cc: Casandra Ruelas MD EXAMINATION: MM SCREENING DIGITAL BREAST TOMOSYNTHESIS, BILATERAL CLINICAL INFORMATION: Screening. Asymptomatic. COMPARISON: Mammography: Comparison is made with available priors TECHNIQUE: Digital breast mammography with tomosynthesis is performed in both the craniocaudal and mediolateral oblique views along with computer-aided detection (CAD). FINDINGS: There are scattered areas of fibroglandular density (ACR BI-RADS breast composition Category b). Port overlies and obscures the posterior right breast. There are no significant masses, abnormal calcifications, or other abnormalities. MM/MM tomosynthesis screening BI IMPRESSION: No mammographic evidence of malignancy. ASSESSMENT: BI-RADS BI-RADS 2 - Benign Findings RECOMMENDATION: Routine annual mammography screening. 1 year F/U This examination should not preclude the clinical evaluation of a suspicious palpable abnormality. This patient's information was entered into a reminder system with a target due date for their next mammogram. Electronically signed by: Gwendolyn Pérez DO 02/01/2025 09:47 AM EDT Dictated By: Gwendolyn Pérez DO Signed By: <Electronically signed by Gwendolyn Pérez DO in OV> 02/01/25 0947 DD/ 1545 TD/TT: 01/23/25 1550 Oracle Application Architect: Procedure Note Donotuseinterpreter, Image - [facility]/01/20[facility] [address] [place], [place] [address] Mammography Report Signed Patient: Casandra JonesMR#: [id number] : 1955cct:[id number] Age/Sex: 69 / FADM Date: 01/23/25 Loc: HO.MAMMO Attending Dr: Casandra Chou MD Ordering Physician: Casandra Ruelas MDResults: 2Benign Findings Date of Service: 01/23/25Follow Up: 1 Year From Orig ina Mammogram Procedure(s): MM tomosynthesis screening BI Accession Number(s): [id number] cc: Casandra Ruelas MD EXAMINATION: MM SCREENING DIGITAL BREAST TOMOSYNTHESIS, BILATERAL CLINICAL INFORMATION: Screening. Asymptomatic. COMPARISON: Mammography: Comparison is made with available priors TECHNIQUE: Digital breast mammography with tomosynthesis is performed in both the craniocaudal and mediolateral oblique views along with computer-aided detection (CAD). FINDINGS: There are scattered areas of fibroglandular density (ACR BI-RADS breast composition Category b). Port overlies and obscures the posterior right breast. There are no significant masses, abnormal calcifications, or other abnormalities. MM/MM tomosynthesis screening BI IMPRESSION: No mammographic evidence of malignancy. ASSESSMENT: BI-RADS BI-RADS 2 - Benign Findings RECOMMENDATION: Routine annual mammography screening. 1 year F/U This examination should not preclude the clinical evaluation of a suspicious palpable abnormality. This patient's information was entered into a reminder system with a target due date for their next mammogram. Electronically signed by: Gwendolyn Pérez DO 02/01/2025 09:47 AM EDT Dictated By: Gwendolyn Pérez DO Signed By: <Electronically signed by Gwendolyn Pérez DO in OV> 02/01/25 0947 DD/ 1545 TD/TT: 01/23/25 1550 Oracle Application Architect: us Casandra Chou MD IMG BI PROCEDURES Fin al Result * Lipid Panel, Standard (02/20/2024 2:18 PM EDT) Triglycerides 95 <150 mg/dL [facility] Comment:Desirable Triglyceri de: less than 150 mg/dLBorderline High Triglyceride 150-199 mg/dLHigh Triglyceride: 200-499 mg/dLVery High Triglyceride: greater than or equal to 5OO mg/dL Cholesterol 144 <200 mg/dL [facility] Comment:Desirable Cholestero l: less than 200 mg/dLBorderline High Cholesterol: 200-239 mg/dLHigh Cholesterol: greater than 239 mg/dL LDL Cholesterol Calculated 60 <100 mg/dL [facility] Comment:Desirable LDL: less than 100 mg/dLNear Optimal/Above Optimal LDL: 110- 129 mg/dLBorderline High LDL: 130-159 mg/dLHigh LDL: 160-189 mg/dLVery High LDL: greater than or equal to 190 mg/dL HDL Cholesterol 65 >40 mg/dL [facility] Comment:Desirable HDL: great er than 40 mg/dL Note: This HDL assay may give artificially low results in patients with liver disease. Blood Venous blood specimen / Unknown 02/20/2024 2:18 PM EDT 02/20/2024 4:03 PM EDT Casandra Chou MD LAB BLOOD ORDERABLES Final Result [facility] [address] [place], [place] [phone] from Last 3 Months or Most Recently Relevant to Health Maintenance Insurance FOR[facility]LY [facility] LONG TERM OPTIONS (HMO D-SNP) [place] [id number] [place] AD[place] DENTAL-[facility] [place] [id number] [place] [id number] [place] Care Teams Lead Process Engineer Relationship Specialty Start Date End Date Casandra Ruelas MD [address] [place] [address] PCP - General Family Medicine 2/16/21
--- OUTSIDE RECORDS SUMMARY | 2025-07-17 12:01 | XMS_ITS | Encounter Summary ---
Author Organization [facility] Address [address] [place] [address] 7 [place] [address] Care Team Providers Care Apartment Leasing Consultant Name Role Phone Casandra Ruelas MD Primary Care Provide r Encounter Details Date Type Department Care Team (Latest Contact Info) Description 02/26/2021 Abstract [facility] CONVERSIONS Dental, Provider, DDS Social [...] Description 08/15/2025 11:00 AM EST Office Visit [address] [address] Casandra Ruelas MD [address] [place] [address] 10/06/2025 11:30 AM EST Clinical Support [address] [address] Edwige West RN documented as of this encounter Visit Diagnoses Not on filedocumented in this encounter Care Teams Apartment Leasing Consultant Relationship Specialty Start Date End Date Casandra Ruelas MD [address] [place] [phone] PCP - General Family Medicine 10/27/20 documented as of this encounter
--- OUTSIDE RECORDS SUMMARY | 2025-07-17 12:01 | XMS_ITS | Encounter Summary ---
Author Organization [employer] Address [address] [facility] 7t [place] [address] Care Team Providers Care Industrial Accountant Name Role Phone Casandra Ruelas MD Primary Care Provide r Encounter Details Date Type Department Care Team (Latest Contact Info) Description 07/15/2025 Travel Social History Tobacco Use Types Packs/Day [...] Description 08/15/2025 11:00 AM EST Office Visit [address] [address] Casandra Ruelas MD [address] [place] [address] 10/06/2025 11:30 AM EST Clinical Support [address] [address] Edwige West RN documented as of this encounter Visit Diagnoses Not on filedocumented in this encounter Additional Health Concerns Assessment Noted Time PHQ-9 Depression Total Score: 8 05/28/20 25 9:45 AM EDT documented as of this encounter Care Teams Industrial Accountant Relationship Specialty Start Date End Date Casandra Ruelas MD [address] [place] [address] PCP - General Family Medicine 10/27/20 documented as of this encounter
--- OUTSIDE RECORDS SUMMARY | 2025-07-17 12:02 | XMS_ITS | Encounter Summary ---
Author Organization [employer] Address [address] [place] [address] 7t [place] [address] Care Team Providers Care Maintenance Trainer Name Role Phone Casandra Ruelas MD Primary Care Provide r Reason for Visit * Reason Comments Med Refill Encounter Details Date Type Department Care Team ([facility] Contact Info) Description 11/22/2023 Refill [facility] [address] [place], [place] [phone] Tammy Vega BDS [address] [place], [place] [phone] Dentin hypersensitivity Social History Tobacco Use Types [...] Description 08/15/2025 11:00 AM EST Office Visit [address] [address] Casandra Ruelas MD [address] [place] [address] 10/06/2025 11:30 AM EST Clinical Support [address] [address] Edwige West RN documented as of this encounter Visit Diagnoses Diagnosis Dentin hypersensitivity Other specified diseases of hard tissues of teeth documented in this encounter Additional Health Concerns Assessment Noted Time PHQ-9 Depression Total Score: 0 12/06/19 23 10:13 AM EDT documented as of this encounter Care Teams Maintenance Trainer Relationship Specialty Start Date End Date Casandra Ruelas MD [address] [place] [address] PCP - General Family Medicine 10/27/20 documented as of this encounter
--- OUTSIDE RECORDS SUMMARY | 2025-07-17 12:02 | XMS_ITS | Encounter Summary ---
Author Organization [facility] Address [address] [place] [address] Care Team Providers Care Religion Teacher Name Role Phone Casandra Ruelas MD Primary Care Provider Reason for Visit * Reason Onset Date Comments PAC Patient Request Call Back 12/30/2022 Co lonoscopy date Encounter Details Date Type Department Care Team ([facility] st Contact Info) Description 12/30/2022 Telephone [facility] [address] [place] [address] Telephone Intake, Staff PAC Patient Request Call [...] and time of colonoscopy. Best phone # [phone] Ty Unable to contact clinic to confirm information for Pt, TE sent documented in this encounter Plan of Treatment Scheduled Procedures Name Priority Associated Diagnoses Date/Ti me COLONOSCOPY SCREENING, LOW R ISK WITH POSSIBLE MODERATE SEDATION Colon cancer screening documented as of this encounter Visit Diagnoses Not on filedocumented in this encounter Care Teams Religion Teacher Relationship Specialty Start Date End Date Casandra Ruelas MD [address] [place] [address] PCP - General Internal Medicine 12/14/21 documented as of this encounter
--- OUTSIDE RECORDS SUMMARY | 2025-07-17 12:02 | XMS_ITS | Clinical Summary ---
Author Organization [facility] Address [address] [place] [address] Care Team Providers Care Oil Expeller Operator Name Role Phone Casandra Ruelas MD [...] propionate (FLONASE) 50 mcg/actuation nasal spray SMARTSI Sprakers(s) Both Nares Every Morning PRN 11/12/2021 Active [...] Pneumococcal Vaccine: 50+ Years Completed 2 Insurance [facility] Care Teams Oil Expeller Operator Relationship Specialty Start Date End Date Casandra Ruelas MD [address] [place] [address] PCP - General Internal Medicine 12/14/21
--- OUTSIDE RECORDS SUMMARY | 2025-07-17 12:02 | XMS_ITS | Encounter Summary ---
Author Organization [employer] Address [address] [facility] 7t [place] [address] Care Team Providers Care Market Research Associate Name Role Phone Casandra Ruelas MD Primary Care Provide r Reason for Visit * Reason Comments Med Refill Encounter Details Date Type Department Care Team ([facility] st Contact Info) Description 09/13/2024 Refill [facility] [address] [place], [place] [phone] Casandra Ruelas MD [address] [place], [place] [phone] Chronic bilateral low back pain, unspecified whether [...] Description 08/15/2025 11:00 AM EST Office Visit [address] [address] Casandra Ruelas MD [address] [place] [address] 10/06/2025 11:30 AM EST Clinical Support [address] [address] Edwige West RN documented as of this encounter Visit Diagnoses Diagnosis Chronic bilateral low back pain, unspecified whether sciatica present documented in this encounter Additional Health Concerns Assessment Noted Time PHQ-9 Depression Total Score: 0 02/21/20 24 3:14 PM EDT documented as of this encounter Care Teams Market Research Associate Relationship Specialty Start Date End Date Casandra Ruelas MD [address] [place] [address] PCP - General Family Medicine 10/27/20 documented as of this encounter
[2025-07-17 12:07] VITALS: BP 140/58; PULSE 64; RESP 18; O2SAT 99
[2025-07-17] MEDS: iohexoL 350 MG/ML 100 ML INFUS..BTL IV (12:42)
--- NOTE | 2025-07-17 14:58 | MHC.EDTECH ---
Pt PO challenged with sandwich and water. No complaints were made. Pt ambulated with a steady gait throughout in the ER hallway with the use of personal walker, pt states feeling light dizziness . RN made aware
[2025-07-17 15:35] VITALS: BP 142/68; PULSE 81; RESP 16; TEMP 36.3; O2SAT 99
[2025-07-17 15:37] VITALS: BP 142/68; PULSE 81; RESP 16; TEMP 36.3; O2SAT 99
== END 2025-07-17 15:37 | disposition home or self-care (01) ==
PROVIDERS: Physician Assistant Medical; Emergency Provider Student in an Organized Health Care Education/Training Program; PCP Internal Medicine
DX: K52.9 Noninfective gastroenteritis and colitis, unspecified (principal); R10.9 Unspecified abdominal pain; R11.2 Nausea with vomiting, unspecified; K62.5 Hemorrhage of anus and rectum; Z79.899 Other long term (current) drug therapy; Z85.01 Personal history of malignant neoplasm of esophagus
CPT/HCPCS: 36415; 74177; 80053; 83735; 85025; 85610; 96361; 96374; 96375; 99284; J1171; J1308; Q9967

== ENCOUNTER → 2025-07-17 11:39 | Outpatient (BNV) | payer OTHER, SELFPAY | PROVIDERS: Emergency Provider Student in an Organized Health Care Education/Training Program; PCP Internal Medicine; Visit Provider Radiology Diagnostic Radiology | DX: R10.31 Right lower quadrant pain (principal); Z85.01 Personal history of malignant neoplasm of esophagus | CPT/HCPCS: 74177 ==

== ENCOUNTER 2025-08-18 09:10 | Outpatient (REF) | payer OTHER, SELFPAY | END 2025-08-18 09:11 | disposition home or self-care (01) | LOC: HO.HOSX 09:10 | PROVIDERS: Visit Provider Physician Assistant | DX: M77.8 Other enthesopathies, not elsewhere classified (principal) | CPT/HCPCS: 20610; J0665; J1100; J2003 ==

== ENCOUNTER 2025-08-18 15:04 | Outpatient (AMB) | payer OTHER, SELFPAY ==
--- NOTE | 2025-08-18 15:12 | MHC.OFFVIS ---
Intake Visit Reasons: NewProb- LT shoulder pain Intake Note: Casandra is a 70 year old right hand dominant female who presents today for a new problem visit for evaluation of left shoulder pain. Denies recent trauma or injury to her left shoulder. Denies past medical treatment to left shoulder. Patient reports the onset of her left shoulder pain was roughly 6 months ago. She expresses difficulty with abduction, adduction, raising arms above head and lifting. Expresses she has a history of dropping objects out of her hand along with numbness and tingling. She wears bilateral wrist compression braces to relieve her symptoms. 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 Patient reports she is unable to take NSAIDs due to her stomach. Hx of back injury so she gets a script of acetaminophen with oxycodone from her PCP at [facility] however this is temporary short relief. Wants an injection. Allergies morphine (Morphine) Allergy (Unknown, Verified 08/18/25 15:18) Rash NSAIDS (Non-Steroidal Anti-Inflamma Adverse Reaction (Intermediate, Verified 08/18/25 15:18) upset stomach Medication List - Last Reconciled 08/18/25 by Sudhakar Gregorio PA-C acetaminophen-codeine 300-15 mg 1 tab PO BID PRN albuterol sulfate 90 mcg/actuation (Ventolin HFA) 2 puffs inhalation Q4-6H PRN bisacodyl (Dulcolax (bisacodyl)) 10 mg (2 x 5 mg) PO BEDTIME 2 days cholecalciferol (vitamin D3) 1 cap PO DAILY citalopram 10 mg PO DAILY clonazepam 0.5 mg PO BID dicyclomine 10 mg PO TID PRN 3 days escitalopram oxalate 10 mg PO DAILY fenofibrate 1 tab PO DAILY fluticasone propionate 50 mcg/actuation 2 sprays intranasal QAM PRN lidocaine 5% (Lidoderm) 1 patch topical DAILY loperamide (Imodium A-D) 2 mg PO QID PRN losartan 1 tab PO DAILY meclizine 25 mg PO TID PRN omeprazole 20 mg PO DAILY 14 days omeprazole 40 mg PO QAM ondansetron 4 mg PO Q8H PRN 4 days peg 3350-electrolytes 236-22.74-6.74 -5.86 gram (Golytely) 240 mL PO Q10M 1 day polyethylene glycol 3350 17 grams PO DAILY simvastatin 1 tab PO BEDTIME PFSH Medical History History of alcohol use disorder History of pancreatitis GERD (gastroesophageal reflux disease) Esophageal adenocarcinoma Esophageal carcinoma Depression Asthma Elevated cholesterol HTN (hypertension) Surgical History History of esophageal surgery History of esophagogastroduodenoscopy (EGD) Previous back surgery Hx of appendectomy Hx of hemorrhoidectomy Hx of colonoscopy Family History Mother Cancer Father HTN (hypertension) Maternal Grandmother Diabetes Social History Household Members: Spouse and Children Household Members Other:: 2 children Housing: Apartment Are you a primary child care director to a significant other at home: No Do you presently have visiting nurse or other home services: No Alcohol intake: current Alcohol intake frequency: holidays/special occasions only Patient Tobacco Use Status: Never used Tobacco Second Hand Smoke Exposure: Yes (spouse) service: No Current occupational status: disabled Review of Systems Const All systems reviewed & are unremarkable except as noted in HPI and below Physical Exam Const General: cooperative and no acute distress Orientation/consciousness: patient oriented x3 Resp Effort & Inspection: normal respiratory effort and able to speak in complete sentences Cardio Peripheral pulses: Peripheral pulses 2+ throughout Neuro General: patient oriented x3 Extrem Other: Right shoulder normal to inspection. Tenderness over the bicipital groove and along deltoid region of the shoulder. FF to 175, ER to 90, IR to S1. 5/5 RTC strength, negative chacon, cross body abduction. NVI. Office Procedures AMB Joint Injection/Aspiration Joint Injection/Aspiration Primary Site: Right Shoulder Prep: site was prepped using aseptic technique, ethochloride spray was applied and injection warnings given Injected: 40 mg of, Decadron, with 3 mL of, 1% plain Lidocaine, 0.25% Bupivacaine and in the subcromial space Approach Used: anterolateral Procedure: The patient tolerated the procedure well and there was some relief with the local anesthesia Coding 63365 - Glenohumeral/Tronchanteric Bursa/Intraarticular Procedure code (CPT) selection complete Assessment & Plan Assessment & Plan (1) Right shoulder tendinitis: Code(s): M77.8 - Other enthesopathies, not elsewhere classified Category: Medical Plan: We discussed options today, which include steroid injection. The patient did consent to move forward with the injection, which was tolerated well.? I recommended rest, ice and elevation and OTC antiinflammatories prn for discomfort. If symptoms persist over the next 6-8 weeks, they will contact our office, otherwise, prn Orders: Orders XR shoulder LT min 2V Today M25.512 - Pain in left shoulder Coding Level of Care Code Est Pt Level 3 (46544) Complex visit Add On G2211 Diagnoses Right shoulder tendinitis M77.8 CPT Codes Coding - Joint 7: 45192 - Glenohumeral/Tronchanteric Bursa/Intraarticular ([id number])
--- OUTSIDE RECORDS SUMMARY | 2025-08-19 00:33 | XMS_ITS | Encounter Summary ---
Author Organization [facility] Address [address] [place] [address] 7t [place] [address] Care Team Providers Care Advertising Intern Name Role Phone Casandra Ruelas MD Primary Care Provide r Encounter Details Date Type Department Care Team (Latest Contact Info) Description 06/07/2019 Abstract [facility] CONVERSIONS Dental, Provider, DDS Social History [...] Care Team (Late st Contact Info) Description 10/06/2025 11:30 AM EST Clinical Support [facility] [address] [place] [address] Edwige West, RN documented as of this encounter Visit Diagnoses Not on filedocumented in this encounter Care Teams Advertising Intern Relationship Specialty Start Date End Date Casandra Ruelas MD [address] [place] [address] PCP - General Family Medicine 10/27/20 documented as of this encounter
--- OUTSIDE RECORDS SUMMARY | 2025-08-19 00:33 | XMS_ITS | Encounter Summary ---
Author Organization [employer] Address [address] [place] [address] 7t [place] [address] Care Team Providers Care Aircraft Mechanic Electrical And Radio Name Role Phone Casandra Ruelas MD Primary Care Provide r Reason for Visit * Reason Comments Med Refill Encounter Details Date Type Department Care Team ([facility] st Contact Info) Description 04/28/2025 Refill [facility] [address] [place], [place] [phone] Casandra Ruelas MD [address] [place], [place] [phone] Nummular dermatitis Social History Tobacco Use Types [...] Description 10/06/2025 11:30 AM EST Clinical Support [facility] [address] [place] [address] Edwige West RN documented as of this encounter Visit Diagnoses Diagnosis Nummular dermatitis Contact dermatitis and other eczema, due to unspecified cause documented in this encounter Additional Health Concerns Assessment Noted Time PHQ-9 Depression Total Score: 0 11/28/19 25 9:48 AM EDT documented as of this encounter Care Teams Aircraft Mechanic Electrical And Radio Relationship Specialty Start Date End Date Casandra Ruelas MD [address] [place] [address] PCP - General Family Medicine 10/27/20 documented as of this encounter
--- OUTSIDE RECORDS SUMMARY | 2025-08-19 00:33 | XMS_ITS | Encounter Summary ---
Author Organization [facility] Address [address] [place] [address] 7t [place] [address] Care Team Providers Care Nailing Machine Operator Automatic Name Role Phone Casandra Ruelas MD Primary Care Provide r Encounter Details Date Type Department Care Team (Latest Contact Info) Description 02/26/2021 Abstract [facility] CONVERSIONS Dental, Provider, DDS Social History Tobacco [...] Description 10/06/2025 11:30 AM EST Clinical Support [facility] MED[facility] [address] [place] [address] Edwige West, RN documented as of this encounter Visit Diagnoses Not on filedocumented in this encounter Care Teams Nailing Machine Operator Automatic Relationship Specialty Start Date End Date Casandra Ruelas MD [address] [place] [address] PCP - General Family Medicine 10/27/20 documented as of this encounter
--- OUTSIDE RECORDS SUMMARY | 2025-08-19 00:33 | XMS_ITS | Encounter Summary ---
Author Organization [facility] Address [address] [place] [phone] Phone Care Team Providers Care Welcome Hostess Name Role Phone Francesco Gill NP, Rosy Primary Care Provider Estuardo Gill MD, Odilon Primary Care Provider [phone] Francesco Gill NP, Rosy Primary Care Provider Estuardo loza Unknown, Unknown Primary Care Provider Estuardo Gill NP, Rosy Primary Care Provider Estuardo loza Encounter Details Date Type Department Care Team (Late st Contact Info) Description 09/03/2020 Ancillary Orders [facility],Outside Imaging [address] [place], [place] [phone] System, Provider [place] In, [place] [address] Social History Tobacco Use Types Packs/Day Years [...] on filedocumented in this encounter Care Teams Welcome Hostess Relationship Specialty Start Date End Date Rosy Maya V, FARZANA PCP - General 07/15/20 09/20/20 Odilon Cunningham MD [address] [place] [address] PCP - General Internal Medicine 09/21/20 10/22/20 Rosy Maya NP PCP - General 10/23/20 11/24/20 Unknown, Unknown, PCP - General 11/25/20 12/02/20 Rosy Maya NP PCP - General 12/03/20 documented as of this encounter Additional Source Comments The information contained in this document represents components of the legal health record. It is not the complete legal health record.[facility]
--- OUTSIDE RECORDS SUMMARY | 2025-08-19 00:33 | XMS_ITS | Encounter Summary ---
Author Organization [employer] Address [address] [place] [address] 7t [place] [address] Care Team Providers Care Polygraph Technician Name Role Phone Casandra Ruelas MD Primary Care Provide r Encounter Details Date Type Department Care Team (Late st Contact Info) Description 08/18/2022 Abstract [facility] [address] [place] [address] Dental, Provider, DDS Social History Tobacco Use [...] Description 10/06/2025 11:30 AM EST Clinical Support [facility] [address] [place] [address] Edwige West, RN documented as of this encounter Procedures Procedure Name Priority Date/Time Associated Diagnosis Comments 2,3,4,5 PARTIAL DENTURE - RESIN Routine 08/18/2022 12:00 AM EST 9 PREFABRICATED POST AND CORE IN ADDITION TO CROWN Routine 08/18/2022 12:00 AM EST 9 CROWN - PORCELAIN/CERAMIC Routine 08/18/2022 12:00 AM EST 14 MB COMPOSITE FILLING Routine 08/18/20 12:00 AM EST 13 MOD COMPOSITE FILLING Routine 022 12:00 AM EST 12 O COMPOSITE FILLING [...] AM EST 27 I COMPOSITE FILLING Routine 12:00 AM EST 28 O COMPOSITE FILLING [...] on filedocumented in this encounter Care Teams Polygraph Technician Relationship Specialty Start Date End Date Casandra Ruelas MD [address] [place] [id number] PCP - General Family Medicine 10/27/20 documented as of this encounter
--- OUTSIDE RECORDS SUMMARY | 2025-08-19 00:33 | XMS_ITS | Encounter Summary ---
Author Organization [employer] Address [address] [place] [address] 7t [place] [address] Care Team Providers Care Mineral Ore Processing Labourer Name Role Phone Casandra Ruelas MD Primary Care Provide r Encounter Details Date Type Department Care Team ([facility] Contact Info) Description 04/25/[address] [address] Casandra Ruelas MD [address] [place] [address] [phone] Social History Tobacco Use Types Packs/Day Years [...] Department Care Team (Late Contact Info) Description 10/06/2025 11:30 AM EST Clinical Support [facility] MEDICINE [address] [place] [phone] Edwige West RN documented as of this encounter Procedures Procedure Name Priority Date/Time Associated Diagnosis Comments HM PAP/HPV Routine 03/23/2023 documented in this encounter Results * Hm Pap Smear (03/23/2023) Pap Negative for intraephithelial lesion or malignancy Negative for intraephithelial lesion or malignancy, Other Vaginal Fluid 03/23/2023 Casandra Chou MD HEALTH MAINTENANCE nal Result documented in this encounter Visit Diagnoses Not on filedocumented in this encounter Additional Health Concerns Assessment Noted Time PHQ-9 Depression Total Score: 0 12/06/19 23 10:13 AM EDT documented as of this encounter Care Teams Mineral Ore Processing Labourer Relationship Specialty Start Date End Date Casandra Ruelas MD [address] [place] [phone] PCP - General Family Medicine 10/27/20 documented as of this encounter
--- OUTSIDE RECORDS SUMMARY | 2025-08-19 00:33 | XMS_ITS | Encounter Summary ---
Author Organization [employer] Address [address] [place] [address] 7t [place] [address] Care Team Providers Care Tin Container Straightener Name Role Phone Casandra Ruelas MD Primary Care Provide r Reason for Visit * Reason Onset Date Comments chart prep 08/14/2025 Encounter Details Date Type Department Care Team ([facility] Contact Info) Description 08/14/2025 Telephone [facility] [address] [place], [place] [phone] Casandra Ruelas MD [address] [place] [address] chart prep Social History Tobacco Use Types Packs/Day Years [...] encounter Miscellaneous Notes * Telephone Encounter - Yvonne Moncada [place] - 08/14/2025 2:46 PM EST Chart Prep Labs: done Images: done Referrals: complete Vaccines due: Covid and Flu Screenings: colonoscopy Overdue care gaps: SBIRT, PHQ-9, and DIVYA-7 documented in this encounter Plan of Treatment Upcoming Encounters Date Type Department Care Team (Late st Contact Info) Description 10/06/2025 11:30 AM EST Clinical Support [facility] [address] [place] [address] Edwige West RN documented as of this encounter Visit Diagnoses Not on filedocumented in this encounter Additional Health Concerns Assessment Noted Time PHQ-9 Depression Total Score: 8 05/28/20 25 9:45 AM EDT documented as of this encounter Care Teams Tin Container Straightener Relationship Specialty Start Date End Date Casandra Ruelas MD [address] [place] [address] PCP - General Family Medicine 10/27/20 documented as of this encounter
--- OUTSIDE RECORDS SUMMARY | 2025-08-19 00:34 | XMS_ITS | Encounter Summary ---
Author Organization [facility] Address [address] [place] [address] Phone Care Team Providers Care Riddler Operator Name Role Phone Francesco Gill NP, Rosy Primary Care Provider Estuardo loza Unknown, Unknown Primary Care Provider Estuardo Gill NP, Rosy Primary Care Provider Estuardo loza Encounter Details Date Type Department Care Team (Late st Contact Info) Description 11/18/2020 Procedure Pass [facility], Ct Scan - [address] [address] Social History Tobacco Use Types Packs/Day Years [...] on filedocumented in this encounter Care Teams Riddler Operator Relationship Specialty Start Date End Date Rosy Maya NP PCP - General 10/23/20 11/24/20 Unknown, Unknown, PCP - General 11/25/20 12/02/20 Rosy Maya NP PCP - General 12/03/20 documented as of this encounter Additional Source Comments The information contained in this document represents components of the legal health record. It is not the complete legal health record.[facility]
--- OUTSIDE RECORDS SUMMARY | 2025-08-19 00:34 | XMS_ITS | Encounter Summary ---
Author Organization [facility] Address [address] [place] [address] [place] [phone] Phone Care Team Providers Care Tactical Air Control Party Manager Name Role Phone Francesco Gill NP, Rosy Primary Care Provider Estuardo Gill MD, Odilon Primary Care Provider [phone] Francesco Gill NP, Rosy Primary Care Provider Estuardo loza Unknown, Unknown Primary Care Provider Estuardo Gill NP, Rosy Primary Care Provider Estuardo loza Encounter Details Date Type Department Care Team (Late st Contact Info) Description 07/20/2020 Ancillary Orders [facility],Outside Imaging [address] [place], [place] [phone] System, Provider Not In, [place] [address] Social History Tobacco Use Types Packs/Day Years [...] on filedocumented in this encounter Care Teams Tactical Air Control Party Manager Relationship Specialty Start Date End Date Rosy Maya NP PCP - General 07/15/20 09/20/20 Odilon Cunningham MD [address] [place] [id number] PCP - General Internal Medicine 09/21/20 10/22/20 Rosy Maya NP PCP - General 10/23/20 11/24/20 Unknown, Unknown, PCP - General 11/25/20 12/02/20 Rosy Maya NP PCP - General 12/03/20 documented as of this encounter Additional Source Comments The information contained in this document represents components of the legal health record. It is not the complete legal health record.[facility]
--- OUTSIDE RECORDS SUMMARY | 2025-08-19 00:34 | XMS_ITS | Encounter Summary ---
Author Organization [facility] Address [address] [place] [address] Care Team Providers Care Rouge Presser Name Role Phone Casandra Ruelas MD Primary Care Provider Reason for Visit * Reason Onset Date Comments Appointment 12/22/2021 Encounter Details Date Type Department Care Team (Late st Contact Info) Description 12/22/2021 Telephone [facility] Central Scheduling Department [address] [place] [phone] Telephone Intake, Staff Appointment Social History Tobacco [...] on filedocumented in this encounter Care Teams Rouge Presser Relationship Specialty Start Date End Date Casandra Ruelas MD [address] [place] [phone] PCP - General Internal Medicine 12/14/21 documented as of this encounter
--- OUTSIDE RECORDS SUMMARY | 2025-08-19 00:34 | XMS_ITS | Encounter Summary ---
Author Organization [facility] Address [address] [place] [address] [place] [phone] Phone Care Team Providers Care County Program Technician Name Role Phone Francesco Gill NP, Rosy Primary Care Provider Estuardo Gill MD, Odilon Primary Care Provider [phone] Francesco Gill NP, Rosy Primary Care Provider Estuardo loza Unknown, Unknown Primary Care Provider Estuardo Gill NP, Rosy Primary Care Provider Estuardo loza Encounter Details Date Type Department Care Team (Late st Contact Info) Description 07/20/2020 Ancillary Orders [facility],Outside Imaging [address] [place], [place] [phone] System, Provider Not In, [place] [address] Social History Tobacco Use Types Packs/Day Years [...] on filedocumented in this encounter Care Teams County Program Technician Relationship Specialty Start Date End Date Rosy Maya NP PCP - General 07/15/20 09/20/20 Odilon Cunningham MD [address] [place] [id number] PCP - General Internal Medicine 09/21/20 10/22/20 Rosy Maya V OUTLET MANAGER PCP - General 10/23/20 11/24/20 Unknown, Unknown, PCP - General 11/25/20 12/02/20 Rosy Maya NP PCP - General 12/03/20 documented as of this encounter Additional Source Comments The information contained in this document represents components of the legal health record. It is not the complete legal health record.[facility]
--- OUTSIDE RECORDS SUMMARY | 2025-08-19 00:34 | XMS_ITS | Encounter Summary ---
Author Organization [employer] Address [address] [place] [address] 7t [place] [address] Care Team Providers Care Staffing And Scheduling Coordinator Name Role Phone Casandra Ruelas MD Primary Care Provide r Reason for Visit * Reason Comments Med Refill Encounter Details Date Type Department Care Team ([facility] Contact Info) Description 03/20/2025 Refill [facility] [address] [place], [place] [phone] Art Flores, DMD [address] [place], [place] [phone] Dentin hypersensitivity Social History Tobacco Use Types [...] Description 10/06/2025 11:30 AM EST Clinical Support [facility]IC[facility] [address] [place] [address] Edwige West RN documented as of this encounter 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
--- OUTSIDE RECORDS SUMMARY | 2025-08-19 00:34 | XMS_ITS | Clinical Summary ---
Author Organization [employer] Address [address] [place] [address] 7[address] [place] [address] Care Team Providers Care Ceo And Founder Name Role Phone Casandra Ruelas MD Primary [...] EVERY DAY 90 capsule 3 024 Active albuterol (Ventolin HFA) 108 (90 Base) MCG/ACT inhalerIndications: Mild persistent asthma without complication Inhale 2 puffs every 6 (six) hours if needed for wheezing. 18 g 5 025 Active omeprazole (PriLOSEC) [address] [...] A DAY 60 capsule 1 025 Active escitalopram (Lexapro) 10 MG tabletIndications:M ixed anxiety and depressive disorder Take 1 tablet (10 mg) by mouth Once per day. 30 tablet 2 025 2024 Active tiZANidine (Zanaflex) 2 MG tabletIndications:S houlder pain, unspecified chronicity, unspecified laterality TAKE 1 TABLET BY MOUTH EVERY 6 TO 8 HOURS NEEDED DO NOT EXCEED 3 tabs IN 24 HOURS 60 tablet 1 07/31/20 25 12:55 PM EST 025 Active acetaminophen-codei ne (Tylenol #2) 300-15 MG tabletIndications:C hronic bilateral low back pain, unspecified whether sciatica present Take 1 tablet by mouth every 8 (eight) hours if needed for severe pain. 84 tablet Active dicyclomine (Bentyl) 10 MG capsuleIndications: Enteritis Take 1 capsule (10 mg) by mouth 4 times daily. 120 capsule 2 07/24/20 25 3:37 PM EST 025 2025 Active hydrocortisone (Anusol-HC) 2.5 % rectal creamIndications:Ot her hemorrhoids Insert into the rectum 2 times daily. 28 g 1 Active losartan (Cozaar) 25 MG tablet TAKE 1 TABLET BY MOUTH EVERY DAY 90 tablet 1 Active meclizine (Antivert) 25 MG tabletIndications:V ertigo TAKE 1 TABLET BY MOUTH THREE TIMES DAILY IN THE MORNING, AT NOON, AND AT BEDTIME NEEDED DIZZINESS FOR UP TO 20 DAYS 30 tablet 1 Active fenofibrate (Triglide) 160 MG tabletIndications:M ixed hyperlipidemia TAKE 1 TABLET BY MOUTH EVERY MORNING 90 tablet 1 Active loratadine (Claritin) 10 MG tabletIndications:S easonal allergies TAKE 1 TABLET BY MOUTH EVERY DAY 30 tablet 2 Active naloxone (Narcan) 4 mg/0.1 mL nasal sprayIndications:Ch ronic bilateral low back pain, unspecified whether sciatica present Administer 1 spray (4 mg) into affected nostril(s) if needed for opioid reversal. May repeat every 2-3 minutes if needed, alternating nostrils, until medical assistance becomes available. 2 each 3 024 2024 losartan (Cozaar) 25 MG tablet TAKE 1 TABLET BY MOUTH EVERY DAY 90 tablet 1 025 2024 Discontinued fenofibrate (Triglide) 160 MG tabletIndications:M ixed hyperlipidemia Take 1 tablet (160 mg) by mouth in the morning. 90 tablet 1 025 2024 Discontinued loratadine (Claritin) 10 MG tabletIndications:S easonal allergies TAKE 1 TABLET BY MOUTH EVERY DAY 30 tablet 2 025 2024 Discontinued meclizine (Antivert) 25 MG tabletIndications:V ertigo TAKE 1 TABLET BY MOUTH THREE TIMES DAILY IN THE MORNING, AT NOON, AND AT BEDTIME NEEDED FOR DIZZINESS FOR UP TO 20 DAYS 30 tablet 1 07/31/20 12:55 PM EST 025 2024 Discontinued Active Problems Problem Noted Date Diagnosed Date Enteritis 07/24/2025 Other hemorrhoids 07/24/2025 Unstable gait 05/30/2025 Assessment & Plan (05/30/2025 [...] 3:03 PM EDT): Patient is studying for Breathometer and get very nervous with palpitations and [...] supply of clonazepam 0.5mg Q 12hrs PRN BHN called today RTC 4-6 weeks televisit Mixed [...] organization. Date Type Department Care Team Description 08/14/2025 Telephone [facility] [address] [place] [phone] Casandra Ruelas MD chart prep 08/11/2025 Refill [facility] [address] [place] [phone] Casandra Ruelas MD Seasonal allergies 08/05/2025 Patient Outreach [facility] [address] [place] [phone] Casandra Ruelas MD Pre-visit Planning (SDOH screening was completed on 11/27/2024) 2025 Refill [facility] [address] [place], [place] [phone] Casandra Ruelas MD Mixed hyperlipidemia 08/02/2025 Refill [facility] [address] [place] [address] Casandra Ruelas MD Vertigo 07/27/2025 Refill [facility] [address] [place] [address] [phone] Casandra Ruelas MD 07/24/2025 3:15 PM EST Office Visit [facility] [address] [place] [address] [phone] Casandra Ruelas MD Enteritis; Other hemorrhoids 07/24/2025 Travel 07/18/[address] [address] Casandra Ruelas MD Nurse Triage 07/17/2025 Orders Only GENERIC EXTERNAL DATA DEPARTMENT Provider, Generic External Data 07/15/2025 10:00 AM EST Office Visit [facility] [address] [place] [phone] Magdalena De La Cruz MD Acute diarrhea (Primary Dx) 07/15/2025 Travel 07/03/[address] [address] Casandra Ruelas MD 06/25/2025 11:30 AM EDT Clinical Support [address] [address] Edwige West, MARK Long-term current use of opiate analgesic (Primary Dx) 06/25/[address] [address] Edwige West RN Chronic bilateral low back pain, unspecified whether sciatica present 06/25/2025 Travel 06/13/2025 Refill [facility] [address] [place] [phone] Casandra Ruelas MD Vertigo 06/08/2025 Refill [facility] [address] [place] [address] Casandra Ruelas MD Shoulder pain, unspecified chronicity, unspecified laterality 06/03/[address] [address] Casandra Ruelas MD DME walker 05/29/2025 2:30 PM EDT Office Visit [address] [address] Casandra Ruelas MD Essential hypertension (Primary Dx); Mixed anxiety and depressive disorder; Seasonal allergies; Vertigo; Spondyloarthropathy; Unstable gait 05/29/2025 Travel 05/29/[address] [address] Casandra Ruelas MD Chart Prep 05/26/2025 Travel 05/21/2025 Patient Outreach [address] [address] Casandra Ruelas MD Pre-visit Planning ([facility] screening completed on 11/27/2024) 05/20/2025 Refill [facility] [address] [place] [address] Casandra Ruelas MD Seasonal allergies from Last 3 Months Immunizations Immunization Administration [...] Sign Reading Time Taken Comments Blood Pressure 132/86 07/24/2025 2:42 PM EST Pulse 68 07/24/2025 2:42 PM EST Temperature 36.4 C (97.5 F) 07/24/2025 2:42 PM EST Respiratory Rate 17 07/24/2025 2:42 PM EST Oxygen Saturation 97% 07/24/2025 2:42 PM EST Inhaled Oxygen Concentration - - Weight 65 kg (143 lb 3.2 oz) 07/24/2025 2:42 PM EST Height 160 cm (5' 3 ) 07/24/2025 2:42 PM EST Body Mass Index 25.37 07/24/2025 2:42 PM EST Plan of Treatment Upcoming Encounters Date Type Department Care Team (Late st Contact Info) Description 10/06/2025 11:30 AM EST Clinical Support [address] [phone] Edwige West, RN Health Maintenance Due Date [...] 01/23/2026 01/23/2025, 01/09, 01/20/2023, Additional history exists Depression Screening 05/28/2026 05/28/2025, 05/28/20 25 Tobacco Screening 07/24/2026 07/24/2025 Lipid Panel 02/19/2029 02/20/2024, 12/11, 02/04/2022 DTaP/Tdap/Td [...] Procedure Name Priority Date/Time Associated Diagnosis Comments CT ABDOMEN PELVIS W CONTRAST Routine 07/17/2025 12:36 PM EST MAGNESIUM Routine 07/17/2025 10:27 AM EST COMPREHENSIVE METABOLIC PANEL Routine 07/17/2025 10:27 AM EST PROTHROMBIN TIME-INR Routine 07/17/2025 10:27 AM EST CBC WITH AUTO DIFFERENTIAL Routine 07/17/2025 10:27 AM EST POCT BETHANY-14 URINE DRUG SCREEN Routine 06/25/2025 11:35 AM EDT Long-term current use of opiate analgesic BI MAMMOGRAM SCREENING TOMOSYNTHESIS BILATERAL Routine 01/23/2025 3:45 PM EDT Malignant neoplasm of esophagus, unspecified location (CMS/HCC) LIPID PANEL, STANDARD Routine 02/20/2024 2:18 PM EDT Essential hypertension from Last 3 Months or Most Recently Relevant to Health Maintenance Results * CT Abdomen Pelvis w/ Contrast (07/17/2025 12:36 PM EST) Anatomical Region Laterality Modality Body, Pelvis, Abdomen Computed T omography 07/17/2025 12:3 6 PM EST Narrative 07/17/2025 1:38 PM EST [address] [address] [address] Scan Report Signed Patient: Casandra Jones MR#: [id number] 1678 : 1955 Acct:[id number] Age/Sex: 69 / F ADM Date: 07/17/25 Loc: HO.ED Attending Dr: Ordering Physician: Trish Merritt DO Date of Service: 07/17/25 Procedure(s): CT abdomen pelvis w IV con Accession Number(s): [id number] cc: Casandra Ruelas MD; Trish Merritt DO Report Number: [id number]: Total DLP = 404.00 mGy-cm Reason for Exam: right sided abd pain, hx esophageal ca with surg EXAMINATION: CT ABDOMEN PELVIS WITH IV CONTRAST HISTORY: right sided abd pain, hx esophageal ca with surg COMPARISON: Previous CT of the abdomen and pelvis most recent May 2024 TECHNIQUE: CT scan of the abdomen and pelvis was performed following administration of 85 mL Omnipaque 350 using standard departmental protocol. Coronal and sagittal reformatted images were generated and reviewed. This CT exam was performed with one or more of the following dose reduction techniques: automated exposure control, adjustment of the mA and/or kV according to patient size, use of iterative reconstruction technique. DLP: 404 mGy-cm FINDINGS: LOWER CHEST: The visualized lung bases are clear. There is no pleural effusion. Postsurgical changes from esophagectomy and gastric pull-up. CARDIOVASCULATURE: Partially visualized Port-A-Cath tip at the cavoatrial junction. The heart is normal in size. There is no pericardial effusion. LIVER: The liver is normal in size and contour. No liver mass is identified. The hepatic and portal veins are patent. GALLBLADDER / BILE DUCTS: The gallbladder is unremarkable. There is no intra or biliary ductal dilatation. The common bile duct is dilated measuring up to 11 mm for example axial image 36 series 3. This is similar to previous exams. SPLEEN: The spleen is normal in size. No focal splenic lesion is identified. PANCREAS: There is mild dilatation of the main pancreatic duct. This measures 5 mm distally in the head of the pancreas. This is similar to prior exam from 2023. This appears increased from older exam from 2019. No pancreatic mass appreciated. ADRENAL GLANDS: Within normal limits. KIDNEYS/RETROPERITONEUM: Stable 1.6 cm left renal cyst. No renal calculi are identified. There is no hydronephrosis. No renal masses are identified. LYMPH NODES: No enlarged lymph nodes. VASCULATURE: Mild atherosclerotic disease. No aneurysm. MESENTERY/PERITONEUM: No free fluid. No masses. There is no free intraperitoneal gas. STOMACH: Postsurgical changes from esophagectomy and gastric pull-up. SMALL BOWEL: There is wall thickening and wall edema distal small bowel in the right lower quadrant suggestive of mild enteritis. No dilatation. COLON: Mild diverticulosis of the colon. No evidence of diverticulitis. Distal colon is underdistended and it is difficult to exclude mild colitis of the distal colon. APPENDIX: Not seen. URINARY BLADDER/PELVIC ORGANS: The urinary bladder is unremarkable. No pelvic mass. BONES / SOFT TISSUES: Skin and subcutaneous lesion in the left flank. This measures 9 x 13 mm axial image 32 series 3. This is increased from 5.6 x 14 mm on May 2024 exam. Degenerative changes of the spine and mild scoliosis.. CT/CT abdomen pelvis w IV con IMPRESSION: Wall thickening and edema of the distal small bowel suggestive of mild enteritis. Distal colon is underdistended and it is difficult to exclude mild distal colitis as well. Mild diverticulosis of the colon. No evidence of diverticulitis. Dilated extrahepatic bile ducts and main pancreatic duct. This is similar to prior 2023 CT scan but increased from older 2019 CT scan. Recommend follow-up MRI with MRCP. Stable postsurgical changes from esophagectomy and gastric pull-up. Slight interval increase in skin and subcutaneous lesion in the left flank. Electronically signed by: Marnie Mota MD 07/17/2025 01:35 PM [facility] Dictated By: Marnie Mota MD Signed By: <Electronically signed by Marnie Mota MD in OV> 07/17/25 1335 DD/ 1236 TD/TT: 07/17/25 1246 Contact Lens Manufacturer: GIDENO Procedure Note Donotuseinterpreter, Image - 07/17/[address] [address] [address] Scan Report Signed Patient: Casandra JonesMR#: [id number] 1678 : 1955cct:[id number] Age/Sex: 69 / FADM Date: 07/17/25 Loc: HO.ED Attending Dr: Ordering Physician: Trish Merritt DO Date of Service: 07/17/25 Procedure(s): CT abdomen pelvis w IV con Accession Number(s): [id number] cc: Casandra Ruelas MD; Trish Merritt DO Report Number: [id number]: Total DLP = 404.00 mGy-cm Reason for Exam: right sided abd pain, hx esophageal ca with surg EXAMINATION: CT ABDOMEN PELVIS WITH IV CONTRAST HISTORY: right sided abd pain, hx esophageal ca with surg COMPARISON: Previous CT of the abdomen and pelvis most recent May 2024 TECHNIQUE: CT scan of the abdomen and pelvis was performed following administration of 85 mL Omnipaque 350 using standard departmental protocol. Coronal and sagittal reformatted images were generated and reviewed. This CT exam was performed with one or more of the following dose reduction techniques: automated exposure control, adjustment of the mA and/or kV according to patient size, use of iterative reconstruction technique. DLP: 404 mGy-cm FINDINGS: LOWER CHEST: The visualized lung bases are clear. There is no pleural effusion. Postsurgical changes from esophagectomy and gastric pull-up. CARDIOVASCULATURE: Partially visualized Port-A-Cath tip at the cavoatrial junction. The heart is normal in size. There is no pericardial effusion. LIVER: The liver is normal in size and contour. No liver mass is identified. The hepatic and portal veins are patent. GALLBLADDER / BILE DUCTS: The gallbladder is unremarkable. There is no intra or biliary ductal dilatation. The common bile duct is dilated measuring up to 11 mm for example axial image 36 series 3. This is similar to previous exams. SPLEEN: The spleen is normal in size. No focal splenic lesion is identified. PANCREAS: There is mild dilatation of the main pancreatic duct. This measures 5 mm distally in the head of the pancreas. This is similar to prior exam from 2023. This appears increased from older exam from 2019. No pancreatic mass appreciated. ADRENAL GLANDS: Within normal limits. KIDNEYS/RETROPERITONEUM: Stable 1.6 cm left renal cyst. No renal calculi are identified. There is no hydronephrosis. No renal masses are identified. LYMPH NODES: No enlarged lymph nodes. VASCULATURE: Mild atherosclerotic disease. No aneurysm. MESENTERY/PERITONEUM: No free fluid. No masses. There is no free intraperitoneal gas. STOMACH: Postsurgical changes from esophagectomy and gastric pull-up. SMALL BOWEL: There is wall thickening and wall edema distal small bowel in the right lower quadrant suggestive of mild enteritis. No dilatation. COLON: Mild diverticulosis of the colon. No evidence of diverticulitis. Distal colon is underdistended and it is difficult to exclude mild colitis of the distal colon. APPENDIX: Not seen. URINARY BLADDER/PELVIC ORGANS: The urinary bladder is unremarkable. No pelvic mass. BONES / SOFT TISSUES: Skin and subcutaneous lesion in the left flank. This measures 9 x 13 mm axial image 32 series 3. This is increased from 5.6 x 14 mm on May 2024 exam. Degenerative changes of the spine and mild scoliosis.. CT/CT abdomen pelvis w IV con IMPRESSION: Wall thickening and edema of the distal small bowel suggestive of mild enteritis. Distal colon is underdistended and it is difficult to exclude mild distal colitis as well. Mild diverticulosis of the colon. No evidence of diverticulitis. Dilated extrahepatic bile ducts and main pancreatic duct. This is similar to prior 2023 CT scan but increased from older 2019 CT scan. Recommend follow-up MRI with MRCP. Stable postsurgical changes from esophagectomy and gastric pull-up. Slight interval increase in skin and subcutaneous lesion in the left flank. Electronically signed by: Marnie Mota MD 07/17/2025 01:35 PM EST Dictated By: Marnie Mota MD Signed By: <Electronically signed by Marnie Mota MD in OV> 07/17/25 1335 DD/ 1236 TD/TT: 07/17/25 1246 Contact Lens Manufacturer: [employer] [facility] External Provider IMG CT PROCEDURES Final Result * (ABNORMAL) CBC auto differential (07/17/2025 10:27 AM EST) White Blood Count 3.9(L) 4.8 - 10.8 X10*3/uL [facility] Red Blood Count 4.32 4.20 - 5.50 X10*6/uL [facility] Hemoglobin 12.2 12.0 - 16.0 g/dl [facility] Hematocrit 38.3 37.0 - 47.0 % [facility] Mean Corpuscular Volume 88.7 80.0 - 98.0 fL [facility] Mean Corpuscular Hemoglobin 28.2 27.0 - 33.0 pg [facility] Mean Corpuscular HGB Conc 31.9 31.0 - 35.0 g/dl [facility] Red Cell Distribution Width 13.5 11.0 - 16.0 % [facility] Platelet Count 299 160 - 400 X10*3/uL [facility] Mean Platelet Volume 9.3(L) 9.4 - 12.3 fL [facility] Neutrophils Percent Auto 47.2 45 - 73 % [facility] Imm Gran Pct Auto 0.3 0.0 - 0.4 % [facility] Lymphocytes Percent Auto 40.1(H) 20 - 40 % [facility] Monocytes Percent Auto 8.1 2 - 11 % [facility] Eosinophils Percent Auto 3.3 0 - 4 % [facility] Basophils Percent Auto 1.0 0 - 2 % [facility] NRBC Pct Auto 0.0 0.0 - 0.2 /100WBC [facility] Neutrophils Absolute Auto 1.9(L) 2.0 - 8.3 x10*3/uL [facility] Imm Gran Abs Auto 0.01 0.00 - 0.03 X10*3/uL [facility] Lymphocytes Absolute Auto 1.6 1.2 - 4.9 X10*3/uL [facility] Monocytes Absolute Auto 0.3 0.1 - 1.2 X10*3/uL [facility] Eosinophils Absolute Auto 0.1 0.0 - 0.4 X10*3/uL [facility] Basophils Absolute Auto 0.0 0.0 - 0.2 X10*3/uL [facility] NRBC Abs Auto 0.000 0.0 - 0.012 X10*3/uL [facility] 07/17/2025 10:2 7 AM EST 07/17/2025 10:30 AM EST Generic External Data Provider LAB BLOOD ORDERAB LES Final Result Performing Organization Address [facility] de Phone Number [facility] [address] [place] [phone] * Prothrombin Time-INR (07/17/2025 10:27 AM EST) Prothrombin Time 13.5 11.2 - 13.5 SEC [facility] INTERNATIONAL NORM RATIO 1.1 0.9 - 1.1 [facility] Comment:INTERNATIONAL NORMAL IZED RATIO (INR) [...] ORDERAB LES Final Result Performing Organization Address [facility] de Phone Number [facility] [address] [place] [phone] * Magnesium (07/17/2025 10:27 AM EST) Magnesium 1.8 1.6 - 2.6 mg/dL [facility] 07/17/2025 10:2 7 AM EST 07/17/2025 10:30 AM EST us Generic External Data Provider LAB BLOOD ORDERAB LES Final Result [facility] [address], [place] [phone] * (ABNORMAL) Comprehensive Metabolic Panel (07/17/2025 10:27 AM EST) Sodium 140 135 - 145 mmol/L [facility] Potassium 3.7 3.3 - 5.1 mmol/L [facility] Chloride 109(H) 96 - 108 mmol/L [facility] Carbon Dioxide 26 22 - 29 mmol/L [facility] Anion Gap 9(L) 12 - 20 [facility] Urea Nitrogen (BUN) 16 9 - 16 mg/dL [facility] Creatinine, Serum 0.68 0.5 - 1.4 mg/dL [facility] Creatinine Clr Calc Pharmacy 70.8 [facility] Comment:Provided height and weight: 160.02 cm,63.1 kg.eGFR (calculated from the MDRD study equation) and eCrCl(calculated from the Cockcroft-Gault equation) are based ondifferent parameters and may not yield comparable results.If eCrCl result is absurd, please check patient'sheight/weight. Estimated Glomerular Filt Rate >60 [facility] Comment:Chronic Kidney Disea se: Estimated GFR < 60 mL/min/1.24o0Niewxo Kidney Disease: Estimated GFR < 15 mL/min/1.73m2 Glucose 76 60 - 115 mg/dL [facility] Calcium 9.6 8.4 - 10.2 mg/dL [facility] Bilirubin, Total 0.4 0.0 - 1.0 mg/dL [facility] Aspartate Amino Transferase 30 5 - 31 U/L [facility] Alanine Aminotransferase 18 0 - 31 U/L [facility] Total Protein 7.2 6.5 - 8.0 g/dL [facility] Albumin Level 4.4 3.5 - 5.0 g/dL [facility] Alkaline Phosphatase 52 39 - 117 U/L [facility] 07/17/2025 10:2 7 AM EST 07/17/2025 10:30 AM EST us Generic External Data Provider LAB BLOOD ORDERAB LES Final Result [facility] [address] [place] [phone] * (ABNORMAL) POCT BETHANY-14 Urine Drug Screen (06/25/2025 11:35 AM EDT) THC Negative Negative Cocaine Screen, Urine Negative Negative Opiate Screen, Urine Positive(A) Negative Comment:[employer] pt, takes T2 Methamphetamine Screen Urine Negative [...] - 06/25/2025 11:35 AM EDT UTOX cup Lot#[id number] Exp. 06/17/26 Internal Pass Control us Casandra Chou MD POINT OF CARE TEST EN TER/EDIT ORDERABLES Final Result * BI Mammogram Screening Tomosynthesis Bilateral (01/23/2025 3:45 PM EDT) Anatomical Region Laterality Modality Breast Bilateral Mammography 01/23/2025 3:45 PM EDT Narrative 02/01/2025 9:49 AM EDT [address] [place] [address] Mammography Report Signed Patient: Casandra Jones MR#: [id number] 1678 : 1955 Acct:[id number] Age/Sex: 69 / F ADM Date: 01/23/25 Loc: HO.MAMMO Attending Dr: Casandra Chou MD Ordering Physician: Casandra Ruelas MD Results: 2Benign Findings Date of Service: 01/23/25 Follow Up: 1 Year From Orig ina Mammogram Procedure(s): MM tomosynthesis screening BI Accession Number(s): [id number] cc: Casandra Ruelas MD EXAMINATION: MM SCREENING [...] 02/01/25 0947 DD/ 1545 TD/TT: 01/23/25 1550 Contact Lens Manufacturer: Procedure Note Donotuseinterpreter, Image - 02/01/[address] [place] [address] Mammography Report Signed Patient: Casandra JonesMR#: [id number] : 6Acct:[id number] Age/Sex: 69 / FADM Date: 01/23/25 Loc: HO.MAMMO Attending Dr: Casandra Chou MD Ordering Physician: Casandra Ruelas MDResults: 2Benign Findings Date of Service: 01/23/25Follow Up: 1 Year From Orig inal Mammogram Procedure(s): MM tomosynthesis screening BI Accession Number(s): [id number] cc: Casandra Ruelas MD EXAMINATION: MM SCREENING [...] 02/01/25 0947 DD/ 1545 TD/TT: 01/23/25 1550 Contact Lens Manufacturer: us Casandra Chou MD IMG BI PROCEDURES Fin al Result * Lipid Panel, Standard (02/20/2024 2:18 PM EDT) Triglycerides 95 <150 mg/dL [facility] Comment:Desirable Triglyceri de: less than 150 mg/dLBorderline High Triglyceride 150-199 mg/dLHigh Triglyceride: 200-499 mg/dLVery High Triglyceride: greater than or equal to 5OO mg/dL Cholesterol 144 <200 mg/dL [facility] Comment:Desirable Cholestero l: less than 200 mg/dLBorderline High Cholesterol: 200-239 mg/dLHigh Cholesterol: greater than 239 mg/dL LDL Cholesterol Calculated 60 <100 mg/dL [facility] Comment:Desirable LDL: less than 100 mg/dLNear Optimal/Above Optimal LDL: 110- 129 mg/dLBorderline High LDL: 130-159 mg/dLHigh LDL: 160-189 mg/dLVery High LDL: greater than or equal to 190 mg/dL HDL Cholesterol 65 >40 mg/dL [facility] Comment:Desirable HDL: great er than 40 mg/dL Note: This HDL assay may give artificially low results in patients with liver disease. Blood Venous blood specimen / Unknown 02/20/2024 2:18 PM EDT 02/20/2024 4:03 PM EDT us Casandra Chou MD LAB BLOOD ORDERABLES Final Result [facility] [address] [place] [address] [phone] from Last 3 Months or Most Recently Relevant to Health Maintenance Insurance [facility] OPTIONS (HMO D-SNP) [place] [id number] [facility]AL-[facility] MEDICAID LIMITED ADULT [facility]AL-[facility] MEDICAID STAND ADULT R [place] Olson [id number] R [place] [id number] R [place] [id number] Care Teams Ceo And Founder Relationship Specialty Start Date End Date Casandra Ruelas MD [address] [place] [phone] PCP - General Family Medicine 10/27/20
--- OUTSIDE RECORDS SUMMARY | 2025-08-19 00:34 | XMS_ITS | Data Portability ---
Author Organization [facility] Address [address] [place] [address] Care Team Providers Care Quality Assurance Monitor Body Name Role Phone Unavailable Referring Provider HIM CCA OTHER Assessment Encounter Date Assessment Date Assessment LastModified by Organization Details LastModified Time 02/14/2024 02/14/2024 I provided real -time medical direction via phone for this encounter and was available for additional phone-based assistance as needed. I have reviewed and agree with the Assessment and Plan as documented by the Water Quality Technician. Patient given the opportunity to ask questions. Our service contacted for an assessment of: cough As per above, patient has had a non-productive cough for approx a week. Denies F/C/N/V/CP/FRY and SOB. No sick contacts. Taking OTCs without much benefit. Per switchgear repairer on the scene, Non-toxic. Stable vitals. No distress. COVID and Flu are negative. Impression: ? seasonal allergies vs viral URI - differential diagnosis is broad however switchgear repairer assessment and limited data are reassuring. Plan: [...] t Available Vitals Date Recorded Oxygen saturation Body temperature Body weight Body height Heart rate Respiratory rate Systolic And Diastolic Provider Name and Address Organization Details Last Updated DateTime 99 % 97.9 [degF] 78606.4 32 g 160.02 cm 72 /min 16 /min 164/64 mm[Hg] Not Available [facility] - production 18:04:10 Social History None recorded. Functional Status None recorded. Mental Status None recorded. Family History Nothing Reported. Medical History No medical history recorded. Gynecological HistoryNo gynecological history recorded. Obstetrics History GPAL:G 0 P 0 0 0 0 Past Encounters Encounter ID Performer Location Encounter Start Date Encounter Closed Date Diagnosis/Indication Diagnosis SNOMED-CT Code Diagnosis ICD10 Code Diagnosis IMO Codes Diagnosis Note [id number] Aleisha Garnica MD Main - [facility] [address] [place] [phone] 02/14/2024 18:04:08 02/14/2024 21:46:25 Viral upper respiratory tract infection 537973130 J06.9 Health Concerns Section Related Observation LastModified by Organization Detai ls LastModified Time None Recorded Concern Status LastModified by Organization Details LastModified Time None Recorded Advance Directives Directive None Recorded Payers Insurance Date Sequence Insurance Name Policy Number Policy Ann Covered Member ID Ann Member ID Guarantor Name 04/09/2024 1 [facility] - DOS ON OR AFTER 2022 - DUAL ELIGIBLE - LONGTERM OPTIONS AND ONE CARE (MEDICARE REPLACEMENT/ADV ANTAGE - HMO) Casandra Obrien [id number] Casandra Obrien Notes Date Note Type Note [...] needed to process visit. Aleisha Garnica MD [address] [place] [address],[address], [place], [address], [facility] 02/14/2024 18:07:38 OBGyn Episode No OBEpisode recorded.
--- OUTSIDE RECORDS SUMMARY | 2025-08-19 00:34 | XMS_ITS | Encounter Summary ---
Author Organization [facility] Address [address] [place] [address] Care Team Providers Care Plate Worker Name Role Phone Casandra Ruelas MD Primary Care Provider Reason for Visit * Reason Onset Date Comments PAC Patient Request Call Back 12/30/2022 Co lonoscopy date Encounter Details Date Type Department Care Team ([facility] st Contact Info) Description 12/30/2022 Telephone [facility] [address] [place] [phone] Telephone Intake, Staff PAC Patient Request Call Back (Colonoscopy date ) Social History Tobacco Use Types Packs/Day Years Used Date Smoking Tobacco: Former Cigarettes 0 Q uit: 2012 Smokeless Tobacco: Never Alcohol [...] and time of colonoscopy. Best phone # [phone] Ty Unable to contact clinic to confirm information for Pt, TE sent documented in this encounter Plan of Treatment Scheduled Procedures Name Priority Associated Diagnoses Date/Ti me COLONOSCOPY SCREENING, LOW R ISK WITH POSSIBLE MODERATE SEDATION Colon cancer screening documented as of this encounter Visit Diagnoses Not on filedocumented in this encounter Care Teams Plate Worker Relationship Specialty Start Date End Date Casandra Ruelas MD [address] [place] [address] PCP - General Internal Medicine 12/14/21 documented as of this encounter
--- OUTSIDE RECORDS SUMMARY | 2025-08-19 00:34 | XMS_ITS | Clinical Summary ---
Author Organization [facility] Address [address] [place] [address] Phone Care Team Providers Care Public Welfare Director Name Role Phone Francesco Gill NP, [...] Procedure Name Priority Date/Time Associated Diagnosis Comments CREATININE WITH ESTIMATED GLOMERULAR FILTRATION RATE (EGFR) STAT 12/07/2020 12:21 PM EDT Malignant neoplasm of esophagus, unspecified location from Last 3 Months or Most Recently Relevant to Health Maintenance Results * Creatinine/eGFR (12/07/2020 12:21 PM EDT) CREATININE 0.70 0.5 - 1.5 mg/dL [facility] EGFR 92 >59 mL/min/1.7 3m2 [facility] Comment:Estimated glomerular filtration rate calculated using the CKD-EPI equation. Blood 12/07/2020 12:2 1 PM EDT 12/07/2020 12:25 PM EDT us Elly Mckeon MD LAB BLOOD BKR ORDERABLES Tamara parks Result [facility] [address] [place] [address] from Last 3 Months or Most Recently Relevant to Health Maintenance Insurance [employer] NON NSPG PCP [employer] NET FULL [place] NON [place]SPG PCP S[employer] NET FULL [facility] NON NSPG PCP [employer] FULL [facility] NON NSPG PCP [employer] Member Subscriber Plan / Payer (Ef fective 2020-Present) Name:Casandra Jones Relation to Subscriber:Self Name:Casandra Jones Payer ID:[id number] Type:[employer] Address: [address] NET FULL [employer] NON NSPG PCP [employer] NET FULL [employer] NON NSPG PCP [employer]Y [place] [address] [place] [address] NON NSPG PCP [employer] Member Subscriber Plan / Payer (Ef fective 2020-Present) Name:Casandra Jones Relation to Subscriber:Self Name:Casandra Jones Payer ID:[id number] Type:[employer] Address: [address] FULL [facility] NON NSPG PCP [employer] SAFETY NET FULL [facility] NON NSP PCP [place] [employer] SAFETY NET FULL Care Teams Public Welfare Director Relationship Specialty Start Date End Date Rosy Maya NP PCP - General 12/03/20 Additional Source Comments The information contained in this document represents components of the legal health record. It is not the complete legal health record.[facility]
--- OUTSIDE RECORDS SUMMARY | 2025-08-19 00:34 | XMS_ITS | Encounter Summary ---
Author Organization [facility] Address [address] [place] [phone] Phone Care Team Providers Care School Cafeteria Head Cook Name Role Phone Francesco Gill NP, Rosy Primary Care Provider Estuardo loza Unknown, Unknown Primary Care Provider Estuardo Gill NP, Rosy Primary Care Provider Estuardo loza Encounter Details Date Type Department Care Team (Late st Contact Info) Description 11/18/2020 Procedure Pass [facility], Ct Scan - [address] [address] Social History Tobacco Use Types Packs/Day Years [...] on filedocumented in this encounter Care Teams School Cafeteria Head Cook Relationship Specialty Start Date End Date Rosy Maya NP PCP - General 10/23/20 11/24/20 Unknown, Unknown, PCP - General 11/25/20 12/02/20 Rosy Maya NP PCP - General 12/03/20 documented as of this encounter Additional Source Comments The information contained in this document represents components of the legal health record. It is not the complete legal health record.[facility]
--- OUTSIDE RECORDS SUMMARY | 2025-08-19 00:35 | XMS_ITS | Encounter Summary ---
Author Organization [employer] Address [address] [place] [address] Care Team Providers Care Volunteer Assistant Name Role Phone Casandra Ruelas MD Primary Care Provide r Reason for Visit * Reason Comments Med Refill Encounter Details Date Type Department Care Team ([facility] st Contact Info) Description 09/13/2024 Refill [facility] [address] [place], [place] [phone] Casandra Ruelas MD [address] [place], [place] [phone] Chronic bilateral low back pain, unspecified whether [...] Description 10/06/2025 11:30 AM EST Clinical Support [facility] [address] [place] [address] Edwige West RN documented as of this encounter Visit Diagnoses Diagnosis Chronic bilateral low back pain, unspecified whether sciatica present documented in this encounter Additional Health Concerns Assessment Noted Time PHQ-9 Depression Total Score: 0 02/21/20 24 3:14 PM EDT documented as of this encounter Care Teams Volunteer Assistant Relationship Specialty Start Date End Date Casandra Ruelas MD [address] [place] [address] PCP - General Family Medicine 10/27/20 documented as of this encounter
--- OUTSIDE RECORDS SUMMARY | 2025-08-19 00:35 | XMS_ITS | Clinical Summary ---
Author Organization [facility] Address [address] [place] [address] Care Team Providers Care Damascener Name Role Phone Casandra Ruelas MD Primary [...] propionate (FLONASE) 50 mcg/actuation nasal spray SMARTSI Schwertner(s) Both Nares Every Morning PRN 11/12/2021 Active [...] Smoking Tobacco: Former Cigarettes 0 Q uit: 2011 Smokeless Tobacco: Never Tobacco [...] 1955 Hepatitis C Screening 1955 Sigmoidoscopy 1955 Osteoporosis Screening 2006 RSV Vaccine (60+ years old a nd patients) (1 - Risk 50-74 years 1-dose series) 2006 DTaP,Tdap,and Td Vaccines (2 - Td or Tdap) 01/03/2023 01/03/2013, 11/26/2007, 08/31/1998 Mammogram 07/21/2023 07/21/2021, 02/2020, 07/12/2018 Alcohol/Substance Use Screening 09/11/2024 Depression Screening and Follow-Up 09/11/2024 Fall Risk Screening 09/11/2024 Health Care Proxy Review 09/11/2024 Social Drivers of Health Gracie ual Screening 09/11/2024 Influenza Vaccine (#1) 2025 , 06/07/2019, 06/07/2018, Additional history exists COVID-19 Vaccine (2024-2 6 season) 2025 07/19/2021, 03/29/2021, 02/26/2021 Hepatitis B Vaccines Completed 12/04/2001, 03/29/2001, 08/17/2000, Additional history exists Zoster Vaccines Completed 11/11/2019, 08/11, 10/12/2016 Pneumococcal Vaccine: 50+ Years Completed 2 Insurance [facility] [id number] Care Teams Damascener Relationship Specialty Start Date End Date Casandra Ruelas MD [address] [place] [address] PCP - General Internal Medicine 12/14/21
--- OUTSIDE RECORDS SUMMARY | 2025-08-19 00:35 | XMS_ITS | Encounter Summary ---
Author Organization [facility] Address [address] [place] [phone] Phone Care Team Providers Care Hydrotechnical Specialist Name Role Phone Octavio Gill MD, Odilon Primary Care Provider Francesco Gill NP, Rosy Primary Care Provider Estuardo loza Unknown, Unknown Primary Care Provider Estuardo Gill NP, Rosy Primary Care Provider Estuardo loza Encounter Details Date Type Department Care Team (Late st Contact Info) Description 10/19/2020 Procedure Pass [facility] [address] [place] [address] Social History Tobacco Use Types Packs/Day Years [...] on filedocumented in this encounter Care Teams Hydrotechnical Specialist Relationship Specialty Start Date End Date Odilon Cunningham MD [address] [place] [address] PCP - General Internal Medicine 09/21/20 10/22/20 Rosy Maya NP PCP - General 10/23/20 11/24/20 Unknown, Unknown, PCP - General 11/25/20 12/02/20 Rosy Maya NP PCP - General 12/03/20 documented as of this encounter Additional Source Comments The information contained in this document represents components of the legal health record. It is not the complete legal health record.[facility]
--- OUTSIDE RECORDS SUMMARY | 2025-08-19 00:35 | XMS_ITS | Encounter Summary ---
Author Organization [facility] Address [address] [place] [address] 7[address] [place] [address] Care Team Providers Care Railway Switchman Name Role Phone Casandra Ruelas MD Primary Care Provide r Reason for Visit * Reason Comments Med Refill Encounter Details Date Type Department Care Team ([facility] Contact Info) Description 11/22/2023 Refill [facility] [address] [place], [place] [phone] Tammy Vega BDS [address] [place], [place] [phone] Dentin hypersensitivity Social History Tobacco Use Types [...] Description 10/06/2025 11:30 AM EST Clinical Support [facility] [address] [place] [address] Edwige West, MARK documented as of this encounter Visit Diagnoses Diagnosis 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
--- OUTSIDE RECORDS SUMMARY | 2025-08-19 00:35 | XMS_ITS | Encounter Summary ---
Author Organization [facility] Address [address] [place] [phone] Phone Care Team Providers Care Clinical Documentation Nurse Name Role Phone Francesco Gill NP, Rosy Primary Care Provider Estuardo loza Unknown, Unknown Primary Care Provider Estuardo Gill NP, Rosy Primary Care Provider Estuardo loza Encounter Details Date Type Department Care Team (Late st Contact Info) Description 10/23/2020 Ancillary Orders Non-Invasive Cardiology [address] [place] [address] Elly Mckeon MD [address] [place] [address] [place] [address] SOB (shortness of breath) Social History Tobacco [...] by injection of Tc99m Sestamibi by Keri engineering technologist. 1. EKG - Baseline EKG showed sinus [...] breath documented in this encounter Care Teams Clinical Documentation Nurse Relationship Specialty Start Date End Date Rsoy Maya NP PCP - General 10/23/20 11/24/20 Unknown, Unknown, PCP - General 11/25/20 12/02/20 Rosy Maya NP PCP - General 12/03/20 documented as of this encounter Additional Source Comments The information contained in this document represents components of the legal health record. It is not the complete legal health record.[facility]
--- OUTSIDE RECORDS SUMMARY | 2025-08-19 00:35 | XMS_ITS | Encounter Summary ---
Author Organization [facility] Address [address] [place] [address] [place] [phone] Phone Care Team Providers Care Clinical Informatics Strategist Name Role Phone Francesco Gill NP, Rosy Primary Care Provider Estuardo loza Unknown, Unknown Primary Care Provider Estuardo Gill NP, Jeanne Primary Care Provider Estuardo loza Encounter Details Date Type Department Care Team (Late st Contact Info) Description 11/04/2020 Transcribe Orders [facility] [address] [place] [address] Elly Mckeon MD [address] [place] [address] [place] [address] Social History Tobacco Use Types Packs/Day Years [...] on filedocumented in this encounter Care Teams Clinical Informatics Strategist Relationship Specialty Start Date End Date Rosy [...]
== END 2025-08-18 15:40 | disposition home or self-care (01) ==
LOC: HO.HOS 15:04
PROVIDERS: PCP Internal Medicine; Visit Provider Physician Assistant
DX: M77.8 Other enthesopathies, not elsewhere classified (principal)
CPT/HCPCS: 20610